=== PATIENT | female | born 1970 | race Caucasian/White ===

== ENCOUNTER 2019-08-18 16:22 | Emergency (ER) | payer OTHER, SELFPAY ==
[2019-08-18 16:33] VITALS: BP 128/69; PULSE 99; RESP 16; TEMP 36.6; O2SAT 100
--- NOTE | 2019-08-18 16:51 | ED.NEUROSD ---
HPI - Neuro Symptoms/Deficit General Chief Complaint: Suspected CVA Stated Complaint: lt side numbness Time Seen by Provider: 08/18/19 16:50 Source: patient and RN notes reviewed Mode of arrival: ambulatory Limitations: no limitations History of Present Illness HPI Narrative: 49-year-old female presents with concern for left-sided numbness and weakness in the left upper extremity and left lower extremity that started 38 hours ago. 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 She denies any headache, vision disturbances, speech disturbances, difficulty swallowing. Patient has history of diabetes mellitus, smokes 1/2 pack/day, hypertension. Onset (ago): hour(s) (36) Location: left arm History of same: No Severity: mild Quality: weak and numb Exacerbating factors: none On Anticoagulants: No Associated symptoms: denies other symptoms Treatments Prior to Arrival: none Related Data Home Medications Medication Instructions Recorded Confirmed albuterol sulfate INHALATION 08/18/19 bupropion HCl PO 08/18/19 cyclobenzaprine mg 08/18/19 escitalopram oxalate mg 08/18/19 glimepiride mg 08/18/19 insulin glargine [Basaglar KwikPen unit SUBCUT 08/18/19 U-100 Insulin] insulin glargine [Lantus U-100 SUBCUT 08/18/19 Insulin] lisinopril 08/18/19 metformin mg PO 08/18/19 naproxen 08/18/19 oxycodone 08/18/19 pen needle, diabetic [BD 08/18/19 08/18/19 Ultra-Fine Domonique Pen Needle] tizanidine mg 08/18/19 topiramate 08/18/19 zolpidem 08/18/19 Allergies Allergy/AdvReac Type Severity Reaction Status Date / Time clarithromycin Allergy Mild Verified 08/12/16 18:19 amoxicillin Allergy Unknown Verified 08/12/16 18:19 clavulanic acid Allergy Unknown Verified 08/12/16 18:19 AMOXICILLIN TRIHYDRATE Allergy Mild Uncoded 08/12/16 18:19 POTASSIUM CLAVULANATE Allergy Mild Uncoded 08/12/16 18:19 Review of Systems Review of Systems: Narrative: CONSTITUTIONAL: Denies malaise, chills, sweats, or fever. EYES: Denies visual changes ENT: Denies rhinorrhea, congestion, sinus pain, otalgia or sore throat. CARDIOVASCULAR: Denies chest pain, palpitations, or edema. RESPIRATORY: Denies cough or dyspnea. GASTROINTESTINAL: Denies abdominal pain, nausea, vomiting, diarrhea GENITOURINARY: Reports one episode of loss of bladder function at the onset of symptoms 38 hours ago MUSCULOSKELETAL: Denies back pain, joint pain, or myalgia. NEUROLOGIC: Reports left-sided numbness, weakness. Denies headache. All systems reviewed & are unremarkable except as noted in HPI and below PMFSH Comments At time of signature, agree with nursing past medical, surgical, social and family history. There is no relevant family history pertinent to the presenting complaint Exam Narrative: Exam Narrative: GENERAL: Well-appearing, well-nourished, and in no acute distress. HEAD: Normocephalic, atraumatic. EYES: PERRLA, conjunctivae clear, and EOMI. No nystagmus. ENT: Mucous membranes moist. NECK: Supple. No lymphadenopathy. No jugular venous distension CHEST: No respiratory distress. Clear to auscultation. No bony deformities, no asymmetry. Speaks in full sentences. HEART: Regular rate and rhythm. No murmur heard. Normal peripheral pulses. EXTREMITIES: Normal range of motion. No edema. Normal strength and sensation. SKIN: Warm, dry, no rash. NEURO: Alert and oriented x3. Possible slight left leg drift, otherwise no focal deficits. Cranial nerves II through XII grossly intact PSYCH: Normal mood and affect Course Course Emergency Course: Patient is aware, understands and agrees to be seen in the emergency department for further evaluation. Transfer via EMS offered patient, patient refuses. Patient reports she will proceed directly to the emergency department. Portions of this record may have been created with voice recognition software Vital Signs Vital
--- NOTE | 2019-08-18 17:10 | PC.NURSE ---
After exam and discussion with Mitchel Bautista BRICK VENEER MAKER--advised needs testing not available here--will go to [place] [facility]--via private car--declines ambulance. Staff there informed of pt coming
== END 2019-08-18 17:06 | disposition short-term general hospital (02) ==
PROVIDERS: Emergency Provider Nurse Practitioner; PCP Nurse Practitioner Family
DX: M62.81 Muscle weakness (generalized) (principal); E11.9 Type 2 diabetes mellitus without complications; F17.200 Nicotine dependence, unspecified, uncomplicated; I10 Essential (primary) hypertension
CPT/HCPCS: 99213; G0463

== ENCOUNTER 2019-08-18 17:29 | Observation (INO) | payer OTHER, SELFPAY ==
--- NOTE | ~2019-08-18 | CT_ITS ---
EXAMINATION: CT BRAIN W/O DATE: 08/18/2019 19:37 INDICATION: Left-sided weakness. TECHNIQUE: Computed tomography (CT) of the head was performed without intravenous contrast. The dose- length product was 605.33 mGy-cm. The mA was adjusted according to patient size. Iterative reconstruc tion technique was employed. COMPARISON: No prior studies for comparison. FINDINGS: Study is limited by ear piercings causing streak artifact over the middle cranial fossa and posterior fossa. Normal brain parenchymal volume for age. Normal coyne-white differentiation. No acut e intracranial hemorrhage, infarction, mass or mass effect. No ventriculomegaly or midline shift. Midline sagittal images demonstrate a normal corpus callosum, c raniovertebral junction and sella turcica. Basilar cisterns are patent. Paranasal sinuses and mastoids are pneumatized. No depressed skull fractures. IMPRESSION: 1. No acute intracranial abnormality. Reviewed, dictated and finalized at location A. NING FRAME TENDER
--- NOTE | ~2019-08-18 | US_ITS ---
EXAMINATION: US carotid duplex BI DATE: 08/19/2019 13:00 INDICATION: Left hemiparesis. TECHNIQUE: Grayscale, color Doppler, and pulsed Doppler images of the cervical carotid arteries were obtained. The degree of vessel stenosis is placed in one of the following categories: normal, <50%, 5 0-69%, >=70% but less than near-occlusion, near-occlusion, or total occlusion. Note that percent sten osis relative to normal distal artery lumen diameter is indirectly measured from velocity measurement s as described by Wisam, et al. Radiology 2003; 229:340-346. COMPARISON: None. FINDINGS: RIGHT: The right common carotid artery (CCA) peak systolic velocity (PSV) is 81 cm/s. The right internal car otid artery (ICA) PSV is 106 cm/s. The right ICA end-diastolic velocity (EDV) is 39 cm/s. The right I CA/CCA PSV ratio is 1.3. Grayscale and color Doppler images yield an estimate of <50% diameter reduct ion from plaque in the ICA. There is antegrade flow in the right vertebral artery. LEFT: The left CCA PSV is 97 cm/s. The left ICA PSV is 112 cm/s. The left ICA EDV is 37 cm/s. The left ICA/ CCA PSV ratio is 1.2. Grayscale and color Doppler images yield an estimate of <50% diameter reduction from plaque in the ICA. There is antegrade flow in the left vertebral artery. IMPRESSION: 1. <50% stenosis in the right internal carotid artery. 2. <50% stenosis in the left internal carotid artery. Reviewed, dictated and finalized at location A. S NOTES DEVELOPER
--- NOTE | ~2019-08-18 | XR_ITS ---
XR shoulder LT min 2V 08/18/2019 19:43 INDICATION: Left shoulder pain PROCEDURE: 4 views left shoulder COMPARISON: No prior studies for comparison. FINDINGS: Fracture, dislocation or subluxation is not identified. The soft tissues appear within norm al limits. No foreign bodies are identified. IMPRESSION: 1: NO ACUTE BONE OR JOINT ABNORMALITY IDENTIFIED. Reviewed, dictated and finalized at location A. TORING MANAGER
[2019-08-18 18:14] VITALS: BP 118/81; PULSE 92; RESP 16; TEMP 36.9; O2SAT 100
--- NOTE | 2019-08-18 19:07 | ECG_ITS ---
Measurements Intervals [place] Rate: 71 P: 52 TX: 171 QRS: 59 QRSD: 84 T: 29 QT: 392 QTc: 426 Interpretive Statements SINUS RHYTHM BASELINE WANDER- V1 NORMAL ECG Electronically Signed On 08-19-2019 8:00:55 QUARTER SEAMER by Osito Ruvalcaba D.O.
--- NOTE | 2019-08-18 19:10 | ED.EXTPRO ---
HPI - Extremity Problem General Chief complaint: Extremity Problem,Nontraumatic Stated complaint: L SHOULDER/ARM PAIN, HX NUMBNESS 1D AGO Time Seen by Provider: 08/18/19 18:53 Source: patient Mode of arrival: ambulatory Limitations: no limitations History of Present Illness HPI Narrative: This is a 49 year old female that presents to the ER for left sided weakness since yesterday morning. Reports she woke up around 2am and needed to use the restroom. Reports having trouble getting to the restroom due to left sided weakness. Reports she felt numb on her left side. Reports this has slowly improved since. Reports now she still has some tingling and weakness in her left hand. Denies vision changes, vomiting, slurred speech, or facial droop. Related Data Home Medications Medication Instructions Recorded Confirmed albuterol sulfate INHALATION 08/18/19 bupropion HCl PO 08/18/19 cyclobenzaprine mg 08/18/19 escitalopram oxalate mg 08/18/19 glimepiride mg 08/18/19 insulin glargine [Basaglar KwikPen unit SUBCUT 08/18/19 U-100 Insulin] insulin glargine [Lantus U-100 SUBCUT 08/18/19 Insulin] lisinopril 08/18/19 metformin mg PO 08/18/19 naproxen 08/18/19 oxycodone 08/18/19 pen needle, diabetic [BD 08/18/19 08/18/19 Ultra-Fine Domonique Pen Needle] tizanidine mg 08/18/19 topiramate 08/18/19 zolpidem 08/18/19 Allergies Allergy/AdvReac Type Severity Reaction Status Date / Time clarithromycin Allergy Mild Unknown Verified 08/18/19 18:36 amoxicillin Allergy Unknown Unknown Verified 08/18/19 18:36 clavulanic acid Allergy Unknown Unknown Verified 08/18/19 18:36 AMOXICILLIN TRIHYDRATE Allergy Mild Unknown Uncoded 08/18/19 18:36 POTASSIUM CLAVULANATE Allergy Mild Unknown Uncoded 08/18/19 18:36 Review of Systems Review of Systems: Narrative: CONSTITUTIONAL: Denies fever EYES: Denies visual changes CARDIOVASCULAR: Denies chest pain RESPIRATORY: Denies dyspnea. GASTROINTESTINAL: Denies vomiting MUSCULOSKELETAL: Reports back pain, joint pain, and myalgia. NEUROLOGIC: Reports numbness and weakness. Denies headache All systems reviewed & are unremarkable except as noted in HPI and below PMFSH Past Medical History Medical History (Updated 08/18/19 @ 21:01 by Jennifer Carnes PA-C) History of diabetes mellitus History of hypertension Social History Social History (Updated 08/18/19 @ 19:19 by Jennifer Carnes PA-C) Smoking status: Current every day smoker Exam Narrative: Exam Narrative: GENERAL: Well-appearing, well-nourished, and in no acute distress. HEAD: Normocephalic, atraumatic. EYES: PERRLA and EOMI. ENT: Nares clear, no rhinorrhea or epistaxis. Mucous membranes moist. Oropharynx without tonsillar hypertrophy exudate or other lesions. Bilateral TMs pearly coyne non-bulging NECK: Supple. No adenopathy or masses. No carotid bruits or JVD CHEST: Clear to auscultation. No respiratory distress. No wheezes rales or rhonchi HEART: Regular rate and rhythm. No murmur heard. Normal peripheral pulses. ABDOMEN: Soft, nontender, nondistended, normal active bowel sounds. EXTREMITIES: Normal range of motion. No edema. Strength equal in bilateral lower extremities (5/5). Strength mildly reduced in the left hand weight caller (4/5), otherwise strength in the upper extremities equal (5/5) SKIN: Warm, dry, no rash. NEURO: No focal deficits. Alert and oriented x3. CN II-XII grossly intact PSYCH: Normal mood and affect Course Consultations Consultation #1: Spoke with neurology about patient and work-up who would like her admitted for MRI and carotid ultrasound Date: 08/18/19 Time: 21:05 Consultation #2: Spoke with hospitalist outpatient work-up who accepts admission Date: 08/18/19 Time: 21:05 Vital Signs Vital signs: Vital Signs Temperature 98.4 F 08/18/19 18:14 Pulse Rate 92 08/18/19 18:14 Respiratory Rate 16 08/18/19 18:14 Blood Pressure 118/81 08/18/19 18:14 Pulse Oximetry 100 08/18/19 18:14 Temperature 9
[2019-08-18 19:29] LABS: Basophils Absolute Auto 0.1 K/mm3 (0.0-0.1); Basophils Percent Auto 0.5 % (0.2-1.2); Eosinophils Absolute Auto 0.2 K/mm3 (0-0.3); Eosinophils Percent Auto 1.5 % (0-4.4); Hematocrit 41.2 % (37.0-47.0); Immature Granulocyte Absolute 0.05 K/mm3 (0.00-0.031); Immature Granulocyte Percent A 0.5 % (0-0.5); Lymphocytes Absolute Auto 4.13 K/mm3 (0.9-3.2); Lymphocytes Percent Auto 37.2 % (18.3-44.2); Mean Corpuscular Hemoglobin 32.6 pg (26-34); Mean Platelet Volume 11.7 fl (7.4-10.4); Monocytes Absolute Auto 0.7 K/mm3 (0.1-0.6); Monocytes Percent Auto 6.4 % (2.6-8.5); Neutrophils Percent Auto 53.9 % (45.5-73.1); Platelet Count Result 161 k/mm3 (150-375); Red Blood Count 4.29 M/mm3 (4.2-5.4); Red Cell Distribution Width 12.3 % (11.5-14.5); White Blood Count 11.1 K/mm3 (4.5-10.0)
[2019-08-18 19:38] LABS: Partial Thromboplastin Time 28.6 SECONDS (22.3-36.8); Prothrombin Time 12.5 Seconds (11.1-14.7)
[2019-08-18 19:41] LABS: Blood Urea Nitrogen 10 mg/dL (7-17); Calcium 8.9 mg/dL (8.4-10.2); Carbon Dioxide 23 mmol/L (22-30); Chloride 98 mmol/L (98-107); Estimated CRCL calculation 118 ml/min; Estimated Glomerular Filt Rate > 60; Glucose 423 mg/dL (65-105); Sodium 131 mmol/L (137-145)
[2019-08-18 19:52] LABS: Troponin I < 0.012 ng/mL (0.000-0.034)
[2019-08-18 19:57] VITALS: BP 131/80; PULSE 78; RESP 20; TEMP 36.9; O2SAT 98
[2019-08-18 20:14] LABS: Hemoglobin A1C 10.5 % (<5.7)
[2019-08-18] MEDS: INSULIN HUMAN REGULAR (*BKC) 100 UNITS/ML 8 UNITS IV PUSH (21:28)
[2019-08-18 21:31] VITALS: BP 132/84; PULSE 80; RESP 20; TEMP 36.7; O2SAT 98
[2019-08-18 21:57] LABS: Glucose Point of Care 137 (65-105)
[2019-08-18 22:16] VITALS: BP 128/84; PULSE 82; RESP 20; TEMP 36.7; O2SAT 99
[2019-08-18 22:36] VITALS: BP 130/86; PULSE 89; RESP 18; TEMP 37.2; O2SAT 99; BMI 27.6
[2019-08-18] MEDS: SODIUM CHLORIDE 0.9% IV 1,000 ML 125 ML IV CONT (22:49)
[2019-08-18 23:16] VITALS: PULSE 81
--- NOTE | 2019-08-18 23:23 | ADMGEN ---
This patient, Jeane Garcia, was admitted to [facility] Surg Room 315-01. Patient/family oriented to hospital policies and general routines including ID bracelet, bed and alarms, visiting hours, pain management, procedures, bathroom and other care routines, personal items, smoking policy, room service/diet, and visiting hours. Valuables list has been completed. Information on how to activate the Rapid Response Team has been discussed. Patient/Family are encouraged to report perceived risks to care and to ask questions if they do not understand what they are told or what they should do.
[2019-08-19] VITALS (8 sets, daily range): BP systolic 113–135; BP diastolic 47–66; PULSE 63–76; RESP 16–18; TEMP 36.5–36.7; O2SAT 98–99
--- NOTE | 2019-08-19 | ECHO_ITS ---
Patient Info Name: Jeane Garcia Age: 49 years : 1970 Gender: Female Ht: 65 in Wt: 166 lbs BSA: 1.88 m2 HR: 78 bpm BP: 115 / 47 mmHg Heart Rhythm: Sinus Rhythm Technical Quality: Good Exam Date: 08/19/2019 1:14 PM Exam Location: [facility] Pulmonary Exam Room: [facility] Patient Status: Inpatient Admit Date: 08/18/2019 Staff Ordering Physician: Aleksandr Lozoya PA-C Water Aerobics Instructor: Esperanza Elder RDCS Attending Provider: Aleksandr Lozoya PA-C Referring Physician: Darell NEGRO; Exam Type: CA echo doppler w bubble study Study Info Indications - left sided weakness Complete two-dimensional, color flow and Doppler transthoracic echocardiogram is performed with agitated saline. Summary 1. Left ventricular systolic function is normal, estimated at 65-70%. 2. There is no increased left ventricular wall thickness. 3. Left ventricular septal wall motion is normal. 4. The left ventricular diastolic function is grade I diastolic dysfunction. 5. Right ventricular chamber dimension is normal. 6. Right ventricular systolic function is normal. 7. No significant valvular abnormalities. Left Ventricle Left ventricular chamber dimension is normal. Left ventricular systolic function is normal, estimated at 65-70%. There is no increased left ventricular wall thickness. Left ventricular septal wall motion is normal. The left ventricular diastolic function is grade I diastolic dysfunction. Right Ventricle Right ventricular chamber dimension is normal. Right ventricular systolic function is normal. Left Atria Left atrial chamber dimension is normal. Right Atria Right atrial chamber dimension is normal. Atrial Septum No patent ovale evident (PFO) by agitated saline imaging. Aortic Valve The aortic valve is trileaflet. There is no aortic valve sclerosis. There is no aortic valve stenosis. There is no aortic valve regurgitation. Pulmonic Valve The pulmonic valve is normal. There is no pulmonic valve stenosis. There is no pulmonic regurgitation. Mitral Valve The mitral valve has normal leaflets. There is no mitral valve stenosis. There is no mitral valve regurgitation. Tricuspid Valve The tricuspid valve leaflets are normal. There is no significant tricuspid valve stenosis. There is no tricuspid valve regurgitation. No pulmonary hypertension, estimated pulmonary arterial systolic pressure is 27 mmHg. Pericardium/Pleural The pericardium appears normal. There is no pericardial effusion. Inferior Vena Cava Normal inferior vena cava with >50% collapse upon inspiration consistent with Empty right atrial pressure, 10 mmHg. Aorta The aortic root size at the sinus of Valsalva is normal. The prox ascending aorta size is normal. Left Ventricular Outflow Tract Name Value Normal LVOT 2D LVOT Diameter 2.0 cm LVOT Doppler LVOT Peak Gradient 4 mmHg LVOT Mean Gradient 2 mmHg LVOT VTI 21 cm LVOT VTI/AV VTI Ratio 0.8 LVOT Stroke Volume
[2019-08-19] MEDS: NICOTINE (*PBKC) 14 MG PATCH 1 PATCH TRANSDERM (00:56)
[2019-08-19] MEDS: SODIUM CHLORIDE 0.9% IV 1,000 ML 125 ML IV CONT ×2 (06:43→15:27)
[2019-08-19] MEDS: INSULIN ASPART (*BKC) 100 UNITS/ML SUB-Q ×3 (08:20→17:50)
[2019-08-19] MEDS: INSULIN GLARGINE (*BKC) 100 UNITS/ML 25 UNITS SUB-Q (08:23)
[2019-08-19 09:24] LABS: Glucose Point of Care 350 (65-105)
[2019-08-19 09:24] LABS: Blood Urea Nitrogen 11 mg/dL (7-17); Calcium 8.3 mg/dL (8.4-10.2); Carbon Dioxide 23 mmol/L (22-30); Chloride 99 mmol/L (98-107); Estimated CRCL calculation 115 ml/min; Estimated Glomerular Filt Rate > 60; Glucose 359 mg/dL (65-105); Potassium 4.1 mmol/L (3.4-5.0); Sodium 131 mmol/L (137-145)
[2019-08-19 09:27] LABS: Hematocrit 38.4 % (37.0-47.0); Hemoglobin 12.7 g/dL (12.0-15.0); Mean Corpuscular HGB Conc 33.1 g/dl (32-36); Mean Corpuscular Hemoglobin 32.3 pg (26-34); Mean Corpuscular Volume 97.7 fl (80-100); Mean Platelet Volume 12.3 fl (7.4-10.4); Platelet Count Result 142 k/mm3 (150-375); Red Blood Count 3.93 M/mm3 (4.2-5.4); Red Cell Distribution Width 12.5 % (11.5-14.5); White Blood Count 7.9 K/mm3 (4.5-10.0)
--- NOTE | 2019-08-19 09:49 | PM.IMHP ---
H&P: HPI History of Present Illness Chief complaint: Left sided weakness, rule out CVA Narrative: Jeane Garcia is a 49 year old female with history of DM, HTN, sleep apnea (does not use CPAP due to anxiety), chronic back pain due to traumatic injury and depression/anxiety who presented to the ER yesterday evening with complaints of left sided weakness since morning of 08/17. Patient states she woke up around 0200 on 08/17 to use the restroom and reported having difficulty ambulating to the restroom. She has experience weakness/pain before due to her chronic back issues, but has never experienced this weakness/numbness in both left arm and leg before. She went to work at [employer] both on 08/17 and 08/18 and noticed she had difficulty grasping light objects at work such as a brownie, she described to me. She also reports a feeling like she had went to work and worked her shift, but at the same time did not . She denies any recent trauma, any recent illness, no sick contacts at home. She denies changes in vision/hearing, sudden vision loss, slurred speech, facial droop, dysphagia. She otherwise has no other complaints. Denies f/c/ns, headaches, dizziness, lightheadedness, LOC, cp/palpitations, sob/cough, n/v/d/c, abd pain, dysphagia, melena, brbpr, dysuria, hematuria, cloudy urine, calf pain/swelling. Review of Systems Review of Systems: All systems reviewed & are unremarkable except as noted in HPI and below PMFSH Past Medical History Medical History Anxiety with depression Chronic back pain Diabetes mellitus GERD (gastroesophageal reflux disease) GI bleed Hypertension Sleep apnea Surgical History Surgical History History of back surgery History of History of dilation and curettage History of microdiscectomy Family History Family History Father Malignant neoplasm of prostate Hypertension Diabetes 1.5, managed as type 2 Mother Depression Thyroid disease Social History Social History (Updated 08/19/19 @ 10:05 by Aleksandr Lozoya PA-C) Social History: Patient lives at home with her daughter and mother, Gracy, whom she designates as her surrogate MDM. She works at [employer]. Her PCP is Shirley Sena currently but is in the process of changing providers due to insurance reasons. She wishes to be a Full Code Smoking packs per day: 0.5 Smoking cigarettes per day: 10.0 Years smoked: 29 Smoking pack-years: 14.50 Smoking status: Current every day smoker Tobacco type: cigarettes Alcohol intake: former Drinks per week: 10 Substance use type: painkillers Gender identity (if verbalized by the patient): Male Spiritual care concerns: No Agree to blood products: Yes Meds Home Medications and Allergies Home Medications Medication Instructions Recorded Confirmed Type bupropion HCl 150 mg PO BID 08/18/19 08/19/19 History cyclobenzaprine 10 mg PO TID PRN 08/18/19 08/19/19 History escitalopram oxalate 10 mg PO HS 08/18/19 08/19/19 History glimepiride 4 mg PO DAILY 08/18/19 08/19/19 History insulin glargine [Basaglar KwikPen 50 unit SUBCUT HS 08/18/19 08/19/19 History U-100 Insulin] lisinopril 2.5 mg PO DAILY 08/18/19 08/19/19 History metformin 1,000 mg PO BID 08/18/19 08/19/19 History naproxen 500 mg PO BID PRN 08/18/19 08/19/19 History oxycodone 15 mg PO Q4-6H PRN 08/18/19 08/19/19 History tizanidine 4 mg PO Q6H PRN 08/18/19 08/19/19 History topiramate 200 mg PO HS 08/18/19 08/19/19 History Allergies Allergy/AdvReac Type Severity Reaction Status Date / Time clarithromycin Allergy Mild Unknown Verified 08/18/19 18:36 amoxicillin Allergy Unknown Unknown Verified 08/18/19 18:36 clavulanic acid Allergy Unknown Unknown Verified 08/18/19 18:36 Vital Signs Vital Signs - 24 hr 08/18/19 18:14 0
[2019-08-19] MEDS: GLIMEPIRIDE 2 MG TABLET 4 MG PO (10:02)
[2019-08-19] MEDS: lisinopriL 2.5 MG TABLET PO (10:03)
[2019-08-19 12:25] LABS: Glucose Point of Care 280 (65-105)
--- NOTE | 2019-08-19 16:33 | PM.DS ---
DS: Diagnosis Admitting Diagnosis Admitting Diagnosis: Weakness Discharge Diagnosis (1) Acute left-sided weakness: Code(s): R53.1 - Weakness Status: Acute Assessment and Plan: Rule out CVA vs TIA vs chronic back issues/MSK injury. Patient is clinically slowly improving, however weakness is still present. Exam showed some LUE weakness but otherwise grossly unremarkable Dr. Jara is consulted from the ED and appreciate input Patient cannot have MRI due to implanted nerve stimulator Carotid Doppler and Echo with bubble study returned and were grossly unremarkable. On echo, Grade I diastolic dysfunction noted; spoke with Dr. Dangelo about the study and he stated there was no apparent AV shunting on the imaging Dr. Jara was contacted and he okayed patient for discharge. Recommended patient not drive until he has seen her as outpatient. Recommended 81 mg aspirin (2) Hypertension: Code(s): I10 - Essential (primary) hypertension Status: Acute Assessment and Plan: BP this morning is 115/47. continue home lisinopril (3) Diabetes mellitus: Code(s): E11.9 - Type 2 diabetes mellitus without complications Status: Acute Assessment and Plan: BGL today 200-300s today 25 u Lantus given this morning Continue Glimeperide Held Metformin during stay. Resume at discharge correctional insulin, hypoglycemia, ACHS accuchecks during stay Resume home dose long acting insulin at discharge (4) Chronic back pain: Code(s): M54.9 - Dorsalgia, unspecified; G89.29 - Other chronic pain Status: Acute Assessment and Plan: Unable to obtain MRI due to nerve stimulator. No acute issues Continue home pain medications at discharge (5) Anxiety with depression: Code(s): F41.8 - Other specified anxiety disorders Status: Acute Assessment and Plan: No acute issues at this time Continue home medications DS: Summary Hospital Course Reason for hospitalization: Left hemiparesis Hospital Course: Patient is a 49 year old female with history of DM, HTN, sleep apnea (does not use CPAP due to anxiety), chronic back pain due to traumatic injury and depression/anxiety who presented to the ER on evening of 08/18 with complaints of left sided weakness since morning of 08/17. She woke up on 08/17 around 02:00 and attempted to use the restroom but was having difficulty ambulating to the restroom due to left arm and leg weakness. This persisted for the next two days while at work, noting that she could not grasp light-weight objects. Please see H&P for further details. Presenting VS: BP 118/81, HR 92, RR 16, temp 98.4, sat 100% RA Presenting Pertinent labs: WBC 11.1 (08/19 7.9), A1c 10.5, trop negative, Na 131. CBC, coag, BMP, otherwise unremarkable. Micro: none Imagin/[address] IMPRESSION: 1. No acute intracranial abnormality. 08/18 left shoulder xray IMPRESSION: 1: NO ACUTE BONE OR JOINT ABNORMALITY IDENTIFIED. 2 Echo Summary 1. Left ventricular systolic function is normal, estimated at 65-70%. 2. There is no increased left ventricular wall thickness. 3. Left ventricular septal wall motion is normal. 4. The left ventricular diastolic function is grade I diastolic dysfunction. 5. Right ventricular chamber dimension is normal. 6. Right ventricular systolic function is normal. 7. No significant valvular abnormalities. 2 Carotid Doppler IMPRESSION: 1. <50% stenosis in the right internal carotid artery. 2. <50% stenosis in the left internal carotid artery. ECG: Interpretive Statements SINUS RHYTHM BASELINE WANDER- V1 NORMAL ECG Patient was admitted to the hospitalist service for further evaluation; Dr. Jara (Neurology) was consulted for further input/management. She was st
[2019-08-19 16:56] LABS: Glucose Point of Care 254 (65-105)
--- NOTE | 2019-08-19 18:17 | CONS_ITS ---
DATE OF CONSULTATION: HISTORY OF PRESENT ILLNESS: 49 years old right-handed female has been admitted to [facility] through the emergency room with the ongoing problems of 1. Diabetes mellitus. 2. Hypertension. 3. Sleep apnea for which she is not using CPAP because of the underlying anxiety. 4. Chronic back pain secondary to traumatic injury. 5. Anxiety with depression. She presented to the hospital emergency room complaining of left-sided weakness since morning of 08/17/2019. She woke up around 02:00 on August 17 to use the restroom and reported having difficulties in ambulation along with the weakness and pain due to her chronic back issues. She never experienced the weakness and numbness in both left arm and left leg at the same time. 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 She also reported feeling like she had went to work and worked her shift, but at the same time did not. She gave no history of recent and remote trauma. At the time of admission as per the information available, she has ongoing history of anxiety with depression, chronic back pain, diabetes mellitus, GERD, GI bleed, hypertension, sleep apnea, history of back surgery, , D and C, and microdiscectomy. She lives at home with her daughter and mother. She smokes half a pack per day and smoking pack years of 14.5. At the time of admission to the hospital, she was taking multiple medications, which have particularly included Wellbutrin 150 twice a day, Flexeril 10 mg 3 times a day, escitalopram 10 mg HS, glimepiride 4 mg daily, insulin 15 units subcu HS, lisinopril 2.5 mg daily, metformin 1000 mg twice a day, naproxen p.r.n. b.i.d., oxycodone 50 mg q.4-6 hours p.r.n., tizanidine 4 mg q.6 hours p.r.n., topiramate 200 mg HS. ALLERGIES: SHE IS ALLERGIC TO CLARITHROMYCIN, AMOXICILLIN, AND CLAVULANIC ACID. PHYSICAL EXAMINATION: VITAL SIGNS: At the time of admission, she was afebrile with blood pressure of 128/84, respiration 20, pulse rate 82. GENERAL: Today reveals her to be awake, alert, cooperative, in no obvious acute distress. HEENT: Head normocephalic with no cranial bruit. Ear, nose, throat examination normal. NECK: Supple with no cervical bruit. No thyromegaly. No lymphadenopathy. HEART: Regular. LUNGS: Clear. ABDOMEN: Soft. NEUROLOGICAL: She had normal mental status, normal speech. Pupils round, regular. Masters of vision full. Extraocular movements full. Face symmetrical. Tongue midline. Motor examination revealed her to have 4/5 strength in the left upper extremity. She is able to perform [id number]-qc-[id number]-to-finger. IMPRESSION: The patient has been admitted to the hospital with the diagnosis of left hemiparesis in addition to ongoing diagnosis of multiple comorbid condition as mentioned above. Evaluation up until now include normal CBC, platelet count 142. Sodium 131, creatinine 0.50, glucose 359, calcium 8.3. Her shoulder x-rays were negative and the CT scan of the brain is also negative. MRI of the brain will be obtained in addition of carotid studies and further recommendation accordingly. ANNIE NAVARRO M.D. STRAW HAT WASHER OPERATOR STRAW HAT WASHER OPERATOR D I MT: Ilene
--- NOTE | 2019-08-19 20:00 | PC.NURSE ---
Patient discharged @1810. IV removed, verbalized understanding on discharge instructions. Patient transported home via wheel chair by staff and POV by family.
== END 2019-08-19 18:10 | disposition home or self-care (01) ==
LOC: ANHED 21:03 → ANH3MEDSUR 21:17
PROVIDERS: Physician Assistant; Admitting Provider Family Medicine; Emergency Provider Emergency Medicine; PCP Nurse Practitioner Family; Visit Provider Internal Medicine
DX: R29.898 Other symptoms and signs involving the musculoskeletal system (principal); R53.1 Weakness; I10 Essential (primary) hypertension; E11.65 Type 2 diabetes mellitus with hyperglycemia; M54.9 Dorsalgia, unspecified; G89.21 Chronic pain due to trauma; F41.8 Other specified anxiety disorders; F17.210 Nicotine dependence, cigarettes, uncomplicated; G47.30 Sleep apnea, unspecified; K21.9 Gastro-esophageal reflux disease without esophagitis; Z96.82 Presence of neurostimulator; Z79.4 Long term (current) use of insulin; Z79.899 Other long term (current) drug therapy
CPT/HCPCS: 36415; 70450; 73030; 80048; 81025; 83036; 84484; 85025; 85027; 85610; 85730; 93005; 93306; 93880; 96360; 96361; 96375; 97161; 97165; 99285; A9270; G0378; G0379; J1815; J7030

== ENCOUNTER 2020-11-24 13:43 | Emergency (ER) | payer OTHER, SELFPAY ==
[2020-11-24 13:58] VITALS: BP 132/75; PULSE 88; RESP 16; TEMP 35.9; O2SAT 100
[2020-11-24 14:19] LABS: Glucose Point of Care 362 (65-105)
--- NOTE | 2020-11-24 14:19 | ED.HA ---
HPI - Headache General Chief Complaint: Headache Stated Complaint: HEADACHE Source: patient and RN notes reviewed Limitations: no limitations History of Present Illness HPI Narrative: The right-handed patient-- who is a ongoing smoker/nondrinker diabetic compliant w/ several meds on insulin, baby ASA-- presents with headache. Patient and records indicate that her neurologic history is remarkable for admission a year ago for left-sided, lateralizing weakness. Her head CT was normal and remaining studies were noncontributory[ she was unable to do MRI due to nerve stimulator present for back pain ,also which she is on oxycodone]. 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 Pain is quick onset, frontal with radiation posteriorly, associated with nausea, and pounding in character- for which she took 2 Tylenol. She had not eaten [since she had a late supper, and usual p.m. dose of oxycodone], so her sugars were checked and is 362. No speech/visual changes, lateralizing weakness today, vomiting/diarrhea/dehydration, fever, URI?sinusitis. She recalls father had history of headaches/migraines. Advised go to higher level facility for scanning, which she declines. Related Data Home Medications Medication Instructions Recorded Confirmed Segundo RealPen U-100 Insulin 50 unit SUBCUT HS 08/18/19 11/24/20 cyclobenzaprine 10 mg PO TID PRN 08/18/19 11/24/20 escitalopram oxalate 10 mg PO HS 08/18/19 11/24/20 glimepiride 4 mg PO DAILY 08/18/19 11/24/20 lisinopril 2.5 mg PO DAILY 08/18/19 11/24/20 metformin 1,000 mg PO BID 08/18/19 11/24/20 naproxen 500 mg PO BID PRN 08/18/19 11/24/20 oxycodone 15 mg PO Q4-6H PRN 08/18/19 11/24/20 topiramate 200 mg PO HS 08/18/19 11/24/20 Allergies Allergy/AdvReac Type Severity Reaction Status Date / Time clarithromycin Allergy Mild Unknown Verified 11/24/20 13:54 amoxicillin Allergy Unknown Unknown Verified 11/24/20 13:54 clavulanic acid Allergy Unknown Unknown Verified 11/24/20 13:54 Review of Systems Review of Systems: Narrative: General/Constitutional: No weight loss,fever Eyes: N0: Redness,discharge Ears/Nose/Throat: No: Epistaxis,ear discharge Respiratory: Denies: Hemoptysis Gastrointestinal: No Vomiting, Bleeding-rectal Skin: No Lumps, eruption Neurologic: No Focal Weakness,Sz Hematologic: Denies: Petechiae/Purpura Psychiatric: No: Suicida ideationl All Other Systems: Reviewed and Negative [facility] Past Medical History Medical History (Updated 11/24/20 @ 15:30 by Petey Gutierrez MD) Anxiety with depression Chronic back pain Diabetes mellitus GERD (gastroesophageal reflux disease) GI bleed Hypertension Sleep apnea Surgical History Surgical History History of back surgery History of History of dilation and curettage History of microdiscectomy Family History Family History Father Malignant neoplasm of prostate Hypertension Diabetes 1.5, managed as type 2 Mother Depression Thyroid disease Social History Social History (Updated 08/19/19 @ 10:05 by Aleksandr Lozoya PA-C) Social History: Patient lives at home with her daughter and mother, Gracy, whom she designates as her surrogate MDM. She works at [employer]. Her PCP is Shirley Sena currently but is in the process of changing providers due to insurance reasons. She wishes to be a Full Code Smoking packs per day: 0.5 Smoking cigarettes per day: 10.0 Years smoked: 29 Smoking pack-years: 14.50 Smoking status: Current every day smoker Tobacco type: cigarettes Alcohol intake: former Drinks per week: 10 Substance use type: painkillers Gender identity (if verbalized by the patient): Male Spiritual care concerns: No Agree to blood products: Yes Comments At time of signature, agree with n
== END 2020-11-24 14:55 | disposition left against medical advice (07) ==
PROVIDERS: Emergency Provider Emergency Medicine
DX: R51.9 Headache, unspecified (principal); R11.0 Nausea; F17.210 Nicotine dependence, cigarettes, uncomplicated; E11.9 Type 2 diabetes mellitus without complications; K21.9 Gastro-esophageal reflux disease without esophagitis; I10 Essential (primary) hypertension; G47.30 Sleep apnea, unspecified; F41.9 Anxiety disorder, unspecified; F32.9 Major depressive disorder, single episode, unspecified
CPT/HCPCS: 82948; 99213; G0463

== ENCOUNTER 2020-11-24 15:44 | Emergency (ER) | payer OTHER, SELFPAY ==
[2020-11-24] VITALS (8 sets, daily range): BP systolic 122–203; BP diastolic 78–97; PULSE 58–91; RESP 16–20; TEMP 36.8; O2SAT 98–100
--- NOTE | ~2020-11-24 | CT_ITS ---
EXAMINATION: CT brain wo con DATE: 11/24/2020 15:56 INDICATION: Stroke. Decreased level of consciousness. TECHNIQUE: Computed tomography (CT) of the head was performed without intravenous contrast. The mA wa s adjusted according to patient size. Iterative reconstruction technique was employed. The dose-lengt h product was 605.33 mGy-cm. COMPARISON: Head CT 08/18/2019 FINDINGS: There is a large distribution of acute subarachnoid hemorrhage involving the suprasellar ci maciel, sylvian fissures, anterior interhemispheric fissure, and around the brainstem. There is acute intraventricular hematoma involving the third ventricle, fourth ventricle, and lateral ventricles, le ft worse than right. Temporal horn of right lateral ventricle is mildly dilated. There is acute subdu ral hematoma overlying the left frontal and parietal lobes with maximum thickness of 8 mm. There is 5 mm rightward midline shift measured at the foramen of Monro. There is no acute intraparenchymal isch emic infarct or intracranial mass lesion. There is mild mucosal thickening in the paranasal sinuses. The orbits are normal. The mastoid air cells are normal. IMPRESSION: 1. Large distribution of acute subarachnoid hemorrhage centered at the suprasellar cistern on the lef t suspicious for ruptured aneurysm. 2. Acute intraventricular hemorrhage with mild ventriculomegaly involving temporal horn of right late ral ventricle. 3. Left-sided acute subdural hematoma with maximum thickness of 8 mm. 4. 5 mm rightward midline shift. 5. I discussed this case with Jennifer Carnes at 15:59. Reviewed, dictated and finalized at location A. IMPRESSION: 1. Large distribution of acute subarachnoid hemorrhage centered at the suprasel lar cistern on the left suspicious for ruptured aneurysm. 2. Acute intraventricular hemorrhage with mild ventriculomegaly involving tempo ral horn of right lateral ventricle. 3. Left-sided acute subdural hematoma with maximum thickness of 8 mm. 4. 5 mm rightward midline shift. 5. I discussed this case with Jennifer Carnes at 15:59.
--- NOTE | ~2020-11-24 | XR_ITS ---
EXAMINATION: XR chest ET placement DATE: 11/24/2020 17:02 INDICATION: Intubation. TECHNIQUE: A single frontal view of the chest was obtained. COMPARISON: None. FINDINGS: The chest demonstrates clear lungs without pneumonia, pleural effusion, or pneumothorax. Th e heart size is normal. The endotracheal tube tip is 1.6 cm above the verito. The nasogastric tube ti p is beyond the inferior margin of the radiograph, but at least to the stomach. IMPRESSION: 1. No acute cardiopulmonary disease. Reviewed, dictated and finalized at location A.
--- NOTE | ~2020-11-24 | CT_ITS ---
EXAMINATION: CT brain wo con DATE: 11/24/2020 15:56 INDICATION: Stroke. Decreased level of consciousness. TECHNIQUE: Computed tomography (CT) of the head was performed without intravenous contrast. The mA wa s adjusted according to patient size. Iterative reconstruction technique was employed. The dose-lengt h product was 605.33 mGy-cm. COMPARISON: None FINDINGS: There is a large distribution of acute subarachnoid hemorrhage involving the suprasellar ci maciel, sylvian fissures, anterior interhemispheric fissure, and around the brainstem. There is acute intraventricular hematoma involving the third ventricle, fourth ventricle, and lateral ventricles, le ft worse than right. Temporal horn of right lateral ventricle is mildly dilated. There is acute subdu ral hematoma overlying the left frontal and parietal lobes with maximum thickness of 8 mm. There is 5 mm rightward midline shift measured at the foramen of Monro. There is no acute intraparenchymal isch emic infarct or intracranial mass lesion. There is mild mucosal thickening in the paranasal sinuses. The orbits are normal. The mastoid air cells are normal. IMPRESSION: 1. Large distribution of acute subarachnoid hemorrhage centered at the suprasellar cistern on the lef t suspicious for ruptured aneurysm. 2. Acute intraventricular hemorrhage with mild ventriculomegaly involving temporal horn of right late ral ventricle. 3. Left-sided acute subdural hematoma with maximum thickness of 8 mm. 4. 5 mm rightward midline shift. 5. I discussed this case with Jennfier Carnes. Reviewed, dictated and finalized at location A. IMPRESSION: 1. Large distribution of acute subarachnoid hemorrhage centered at the suprasel lar cistern on the left suspicious for ruptured aneurysm. 2. Acute intraventricular hemorrhage with mild ventriculomegaly involving tempo ral horn of right lateral ventricle. 3. Left-sided acute subdural hematoma with maximum thickness of 8 mm. 4. 5 mm rightward midline shift. 5. I discussed this case with Jennifer Carnes.
--- NOTE | ~2020-11-24 | XR_ITS ---
EXAMINATION: XR abdomen NG/feed tube insert DATE: 11/24/2020 17:02 INDICATION: Nasogastric tube placement. TECHNIQUE: A supine view of the abdomen was obtained. COMPARISON: None. FINDINGS: There are no dilated loops of bowel. The nasogastric tube tip is in the stomach. There are changes of anterior and posterior fusion procedures in lumbosacral spine. Electrodes overlie the spin e. IMPRESSION: 1. Nasogastric tube tip in the stomach. Reviewed, dictated and finalized at location A.
[2020-11-24] MEDS: hydrALAZINE HCL 20 MG/ML VIAL (16:00)
--- NOTE | 2020-11-24 16:00 | PC.NURSE ---
IN CT PT BECAME UNRESP TO PAIN. DR FLORES NOTIFIED AND IN CT ROOM. PT TAKEN TO ROOM 8. NASAL TRUMPET INSERT AND BREATHS BEING ASSISTED. DR FLORES AT BEDSIDE. AT 1600 20 MG ETOMIDATE GIVEN VIA IVP, 50 MG ROCURONIUM GIVEN VIA IVP, AND 20 MG HYDRALAZINE GIVEN IVP PER DR FLORES VRBO. 1601 7.5 ET TUBE PLACED TAPED 21 AT THE LIP. GOOD COLOR CHANGE. EQUAL BREATH SOUNDS.
--- NOTE | 2020-11-24 16:01 | PC.NURSE ---
Dr. Hazel wants pt to be flown [facility]. I called [facility] and put them on stand-by
--- NOTE | 2020-11-24 16:03 | ED.GENADULT ---
HPI - General Adult General Chief complaint: Unspecified Stated complaint: code stroke Time Seen by Provider: 11/24/20 15:44 History of Present Illness HPI narrative: 50 yo female w/ h/o htn presnets for suspected stroke. She was seen earlier today at urgent care fo Related Data Home Medications Medication Instructions Recorded Confirmed Segundo YapikPen U-100 Insulin 50 unit SUBCUT HS 08/18/19 11/24/20 cyclobenzaprine 10 mg PO TID PRN 08/18/19 11/24/20 escitalopram oxalate 10 mg PO HS 08/18/19 11/24/20 glimepiride 4 mg PO DAILY 08/18/19 11/24/20 lisinopril 2.5 mg PO DAILY 08/18/19 11/24/20 metformin 1,000 mg PO BID 08/18/19 11/24/20 naproxen 500 mg PO BID PRN 08/18/19 11/24/20 oxycodone 15 mg PO Q4-6H PRN 08/18/19 11/24/20 topiramate 200 mg PO HS 08/18/19 11/24/20 Allergies Allergy/AdvReac Type Severity Reaction Status Date / Time clarithromycin Allergy Mild Unknown Verified 11/24/20 13:54 amoxicillin Allergy Unknown Unknown Verified 11/24/20 13:54 clavulanic acid Allergy Unknown Unknown Verified 11/24/20 13:54 PMF Past Medical History Medical History (Updated 11/24/20 @ 15:30 by Petey Gutierrez MD) Anxiety with depression Chronic back pain Diabetes mellitus GERD (gastroesophageal reflux disease) GI bleed Hypertension Sleep apnea Surgical History Surgical History History of back surgery History of History of dilation and curettage History of microdiscectomy Family History Family History Father Malignant neoplasm of prostate Hypertension Diabetes 1.5, managed as type 2 Mother Depression Thyroid disease Social History Social History (Updated 08/19/19 @ 10:05 by Aleksandr Lozoya PA-C) Social History: Patient lives at home with her daughter and mother, Gracy, whom she designates as her surrogate MDM. She works at [employer]. Her PCP is Shirley Sena currently but is in the process of changing providers due to insurance reasons. She wishes to be a Full Code Smoking packs per day: 0.5 Smoking cigarettes per day: 10.0 Years smoked: 29 Smoking pack-years: 14.50 Smoking status: Current every day smoker Tobacco type: cigarettes Alcohol intake: former Drinks per week: 10 Substance use type: painkillers Gender identity (if verbalized by the patient): Male Spiritual care concerns: No Agree to blood products: Yes Discharge Plan Discharge Prescriptions: No Action cyclobenzaprine 10 mg tablet 10 mg PO TID PRN (Reason: Muscle Spasm) RF: 0 oxycodone 15 mg tablet 15 mg PO Q4-6H PRN (Reason: Pain) RF: 0 glimepiride 4 mg tablet 4 mg PO DAILY RF: 0 topiramate 100 mg tablet 200 mg PO HS RF: 0 metformin 500 mg tablet extended release 24 hr 1,000 mg PO BID RF: 0 lisinopril 2.5 mg tablet 2.5 mg PO DAILY RF: 0 naproxen 500 mg tablet 500 mg PO BID PRN (Reason: Pain) RF: 0 Hold Instructions: Hold until further recommendation from your PCP escitalopram oxalate 10 mg tablet 10 mg PO HS RF: 0 Basaglar KwikPen U-100 Insulin 100 unit/mL (3 mL) insulin pen 50 unit SUBCUT HS RF: 0 [id number]-[id number]-cod [Fioricet with Codeine] 45-927-35-30 mg capsule 1 cap PO DAILY PRN (Reason: pain) Qty: 7 RF: 0 aspirin [Adult Low Dose Aspirin] 81 mg tablet,delayed release (DR/EC) 81 mg PO DAILY Qty: 60 RF: 0
[2020-11-24] MEDS: PROPOFOL IV EMULSION 100 ML 2.7 MG (16:12)
[2020-11-24 16:16] LABS: Basophils Absolute Auto 0.1 K/mm3 (0.0-0.1); Basophils Percent Auto 0.7 % (0.2-1.2); Eosinophils Absolute Auto 0.3 K/mm3 (0-0.3); Eosinophils Percent Auto 1.6 % (0-4.4); Hematocrit 43.1 % (37.0-47.0); Hemoglobin 14.4 g/dL (12.0-15.0); Immature Granulocyte Absolute 0.25 K/mm3 (0.00-0.031); Immature Granulocyte Percent A 1.4 % (0-0.5); Lymphocytes Absolute Auto 5.05 K/mm3 (0.9-3.2); Mean Corpuscular HGB Conc 33.4 g/dl (32-36); Mean Corpuscular Hemoglobin 32.1 pg (26-34); Mean Platelet Volume 12.8 fl (7.4-10.4); Monocytes Absolute Auto 1.1 K/mm3 (0.1-0.6); Monocytes Percent Auto 6.2 % (2.6-8.5); Neutrophils Absolute Auto 11.2 K/mm3 (1.3-6.7); Neutrophils Percent Auto 62.1 % (45.5-73.1); Platelet Count Result 175 k/mm3 (150-375); Red Blood Count 4.49 M/mm3 (4.2-5.4); Red Cell Distribution Width 12.5 % (11.5-14.5)
[2020-11-24] MEDS: niCARdipine 20 MG/200 ML 20 MG/200 ML BAG 50 MG IV CONT (16:19)
--- NOTE | 2020-11-24 16:20 | PC.NURSE ---
PT BLOOD PRESSURE 203/95, HEART RATE 59. PROPOFOL INCREASED TO 15 MCG.
--- NOTE | 2020-11-24 16:21 | PC.NURSE ---
[facility] was activated at 1610
[2020-11-24 16:25] LABS: Glucose Point of Care 388 (65-105)
[2020-11-24 16:26] LABS: INR 0.9; Partial Thromboplastin Time 23.2 SECONDS (22.3-36.8); Prothrombin Time 13.1 Seconds (11.1-14.7)
--- NOTE | 2020-11-24 16:31 | ED.GENADULT ---
HPI - General Adult General Chief complaint: Unspecified Stated complaint: code stroke Time Seen by Provider: 11/24/20 15:44 History of Present Illness HPI narrative: 50 ypo female w/ h/o htn presents for suspected stroke. She went to urgent care today for a headahce. She was being transfered here for further evaluation and went unresponsive for EMS. This was at about 1530. On arrival here she was awake but confused. She went straight to CT and was found to have a massive subarachnoid. No know blood thinners. History limited due to medical condition. Related Data Home Medications Medication Instructions Recorded Confirmed Basaglar KwikPen U-100 Insulin 50 unit SUBCUT HS 08/18/19 11/24/20 cyclobenzaprine 10 mg PO TID PRN 08/18/19 11/24/20 escitalopram oxalate 10 mg PO HS 08/18/19 11/24/20 glimepiride 4 mg PO DAILY 08/18/19 11/24/20 lisinopril 2.5 mg PO DAILY 08/18/19 11/24/20 metformin 1,000 mg PO BID 08/18/19 11/24/20 naproxen 500 mg PO BID PRN 08/18/19 11/24/20 oxycodone 15 mg PO Q4-6H PRN 08/18/19 11/24/20 topiramate 200 mg PO HS 08/18/19 11/24/20 Allergies Allergy/AdvReac Type Severity Reaction Status Date / Time clarithromycin Allergy Mild Unknown Verified 11/24/20 13:54 amoxicillin Allergy Unknown Unknown Verified 11/24/20 13:54 clavulanic acid Allergy Unknown Unknown Verified 11/24/20 13:54 Review of Systems Review of Systems: ROS unobtainable: Yes unobtainable due to medical condition PMFSH Past Medical History Medical History (Updated 11/24/20 @ 16:37 by Wisam Shi MD) Anxiety with depression Chronic back pain Diabetes mellitus GERD (gastroesophageal reflux disease) GI bleed Hypertension Sleep apnea Surgical History Surgical History History of back surgery History of History of dilation and curettage History of microdiscectomy Family History Family History Father Malignant neoplasm of prostate Hypertension Diabetes 1.5, managed as type 2 Mother Depression Thyroid disease Social History Social History Social History: Patient lives at home with her daughter and mother, Gracy, whom she designates as her surrogate MDM. She works at [employer]. Her PCP is Shirely Sena currently but is in the process of changing providers due to insurance reasons. She wishes to be a Full Code Smoking packs per day: 0.5 Smoking cigarettes per day: 10.0 Years smoked: 29 Smoking pack-years: 14.50 Smoking status: Current every day smoker Tobacco type: cigarettes Alcohol intake: former Drinks per week: 10 Substance use type: painkillers Gender identity (if verbalized by the patient): Male Spiritual care concerns: No Agree to blood products: Yes Exam Const: Other: Severe distress, unresponsive, GCS 3 HENMT: Head: normal to inspection Eyes: Other: pupils dilated Neck: Neck: normal visual inspection Resp: Effort & Inspection: normal respiratory effort Auscultation: clear to auscultation bilaterally Cardio: Palpation: normal PMI Rate: regular rate GI: Other: soft nonditended Skin: General skin exam: normal color Neuro: Other: unresponsive Extrem: General: normal to inspection Course Vital Signs Vital signs: Vital Signs Temperature 36.8 C 11/24/20 15:55 Pulse Rate 70 11/24/20 15:55 Respiratory Rate 16 11/24/20 15:55 Blood Pressure 171/97 H 11/24/20 15:55 Pulse Oximetry 100 11/24/20 15:55 Temperature 36.8 C 11/24/20 15:55 Pulse Rate 87 11/24/20 16:21 Respiratory Rate 18 11/24/20 16:21 Blood Pressure 203/95 H 11/24/20 16:21 Pulse Oximetry 99 11/24/20 16:21 Procedures Intubation Intubation #1: sedative: Etomidate Mg Given: 20 paralytic: Rocuronium Mg Given: 100 Laryngoscope: fiber opti
--- NOTE | 2020-11-24 16:34 | PC.NURSE ---
AIR EVAC AT BEDSIDE
[2020-11-24 16:53] LABS: Atypical Lymphocytes Present
--- NOTE | 2020-11-24 16:53 | PC.NURSE ---
[employer] has left [facility]. They are aware pt is going to [facility]
[2020-11-24 16:54] LABS: Platelet Estimate Adequate (Adequate)
== END 2020-11-24 17:13 | disposition short-term general hospital (02) ==
PROVIDERS: Emergency Provider Emergency Medicine
DX: I60.9 Nontraumatic subarachnoid hemorrhage, unspecified (principal); I62.00 Nontraumatic subdural hemorrhage, unspecified; I10 Essential (primary) hypertension; E11.9 Type 2 diabetes mellitus without complications; K21.9 Gastro-esophageal reflux disease without esophagitis; G47.30 Sleep apnea, unspecified; F41.8 Other specified anxiety disorders; Z79.4 Long term (current) use of insulin; F17.210 Nicotine dependence, cigarettes, uncomplicated
CPT/HCPCS: 31500; 36415; 70450; 81025; 82948; 85025; 85610; 85730; 96365; 96375; 99291; J0360; J2704

== ENCOUNTER 2021-02-21 11:00 | Outpatient (RCR) | payer OTHER, SELFPAY ==
--- NOTE | 2021-01-22 09:57 | STOPEVAL ---
SPEECH THERAPY INITIAL EVALAUTION: Thank you for referring Jeane Garcia to [facility].? The patient is scheduled to be seen for therapy? 2x/week for 4 weeks. Please review, sign, date and return this plan of care LUANA. I agree with and certify that the following plan of care is medically necessary. Referring Physician Date Attending Provider: PHYSICIAN NOT ON STAFF Outpatient Past Medical History Past Medical History Source of Past Medical History Patient Neurological History Hx Cerebrovascular Accident (CVA) Yes: SAH 11-24-20 Cardiovascular History Hx Hypertension Yes Respiratory History Hx Respiratory Disorders No Significant History Gastrointestinal History Hx Hemorrhoids Yes Genitourinary History Hx Genitourinary Disorders No Significant History Musculoskeletal History Hx Back Injury Yes: L4L5 Hx Back Pain Yes Hx Fractures Yes: Left wrist Hx Spinal Surgery Yes: L4L5 fusion; back stimulator Hematological History Hx Hematological Disorders No Significant History Endocrine History Hx Diabetes Yes HEENT History Hx Dental Problems Yes: No lower teeth; has full plate but doesn't wear it Integumentary History Hx Skin Disorders No Significant History Reproductive History Hx Section Yes Hx Post Menopausal Yes Psychosocial History Hx Anxiety Yes Hx Depression Yes Pain History Has Past Pain Affected Your Daily Life Yes History of Long-Term Prescription Pain Yes Medication Use (Opiates) Anesthesia History Hx Anesthesia Reactions No Significant History Evaluation Information Problem Diagnosis SAH Additional Evaluation Detail Symptoms began on 11-24-20 with a headache; [facility] ED then to [facility] hospital. Pt underwent brain surgery; pt states, I don;t even know what they did but it was painful . Pt discharged from [facility] December 20 to [facility] Inpatient Rehab. She was discharged from [facility] on January 01 . No services. Prior Level of Function Activity Level (Last 3 Months) Occupation [employer] worked in many aspects there Hand Dominance Right Activity of Daily Living Ability Independent Indoor/Home Mobility Independent Community Mobility Independent Stairs Ability
--- NOTE | 2021-01-22 11:00 | OTOPEVAL ---
OCCUPATIONAL THERAPY INITIAL EVALUATION REPORT 01/22/21 Thank you for referring Jeane Garcia to [facility].? The patient is scheduled to be seen for occupational therapy?1x/week for 4 weeks. Please review, sign, date and return this plan of care LUANA. I agree with and certify that the following plan of care is medically necessary. Referring Physician Date Referring Provider: Hiram Hernandez MD *OT Outpatient Evaluation Start: 01/22/21 09:57 Freq: Status: Active Protocol: Document 01/22/21 10:01 LEONELA (Rec: 01/22/21 10:51 LEONELA [email or web address]) Therapy Assessment Status Assessment Status Assessment Status Evaluation Outpatient Past Medical History Past Medical History Source of Past Medical History Patient Neurological History Hx Cerebrovascular Accident (CVA) Yes: SAH 11-24-20 Cardiovascular History Hx Hypertension Yes Respiratory History Hx Respiratory Disorders No Significant History Gastrointestinal History Hx Hemorrhoids Yes Genitourinary History Hx Genitourinary Disorders No Significant History Musculoskeletal History Hx Back Injury Yes: L4L5 Hx Back Pain Yes Hx Fractures Yes: Left wrist Hx Spinal Surgery Yes: L4L5 fusion; back stimulator Hematological History Hx Hematological Disorders No Significant History Endocrine History Hx Diabetes Yes HEENT History Hx Dental Problems Yes: No lower teeth; has full plate but doesn't wear it Integumentary History Hx Skin Disorders No Significant History Reproductive History Hx Section Yes Hx Post Menopausal Yes Psychosocial History Hx Anxiety Yes Hx Depression Yes Pain History Has Past Pain Affected Your Daily Life Yes History of Long-Term Prescription Pain Yes Medication Use (Opiates) Anesthesia History Hx Anesthesia Reactions No Significant History Evaluation Information Problem Diagnosis Subarachnoid Hemorrhage Onset 11-24-20 Subjective Information Symptoms began on 11-24-20 with Query Text:As Reported By Patient/ a headache - went to [facility], was sent to [facility] ED then air lifted to [facility]. Pt underwent brain surgery; pt states, I don't even know what they did but it was painful . Pt discharged from [facility] 12-20-20 to [facility] Inpatient Rehab - OT, PT, and ST services. She was
--- NOTE | 2021-01-22 12:38 | PTOPEVAL ---
PHYSICAL THERAPY EVALUATION Thank you for referring Jeane Garcia to [facility].? Jeane was evaluated for the dx of subarachnoid bleed. The patient is scheduled to be seen for therapy?2 x/week for 4 weeks. Please review, sign, date and return this plan of care LUANA. I agree with and certify that the following plan of care is medically necessary. Referring Physician Date Referring Provider: Tanya Sotelo *PT Outpatient Evaluation Start: 01/22/21 10:53 Freq: Status: Active Protocol: Document 01/22/21 10:53 JANINA (Rec: 01/22/21 11:43 MLV [id number]) Therapy Assessment Status Assessment Status Evaluation Evaluation Information Problem Diagnosis subarachnoid bleed Onset 11/24/20 Cause patient was at work when it occurred Additional Evaluation Detail The patient was at work when she began having a severe headache. 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 The patient is sedentary when off. The pt lives home with daughter and her mother. The patient was I w/o any deficits prior to this event. The patient currently has complaint of right leg weakness, especially and foot/ ankle. The weakness affects her walking ability. The patient denies dizziness, falls since event. The pt has a hx of back surgery 2008 with chronic back pain. Pain Assessment Timing of Pain Assessment Timing of Pain Assessment Assessment Pain Scale Pain Scale Used Numeric (1 - 10) Self Report Pain Assessment Lower Back Reported Pain Level 4 Pain Description Aching Other Pain Description 5-9 with working Pain Score Pain Score 4: Self Report Interventions Used Interventions Used By Clinicians Education,Exercise Pain Relief Interventions Used By Inactivity/Rest,Medication Patient Upper Extremity Range of Motion General Upper Extremity Range of Motion Reason Not Measured WFL/Left,WFL/Right Lower Extremity Range of Motion General Lower Extremity Range of Motion Reason Not Measured WFL/Left,WFL/Right Lower Extremity Muscle Strength Testing General Lower Extremity Strength Reason Not Measured WNL/Left Gross Lower Extremity Strength right hi
--- NOTE | 2021-02-21 10:32 | OTOPEVAL ---
OCCUPATIONAL THERAPY REASSESSMENT AND D/C NOTE 02/21/21 Patient presents today for OT re-evaluation after 4 sessions focused on right UE strengthening and coordination. Patient reports return to normal UE use for ADLs and she states she is returning to work this Wednesday. She is currently independent with all HEPs and is in agreement with discharge. No continued OT indicated at this time. Thank you for referring Jeane Garcia to [facility].?Please review, sign, date and return this Discharge Note LUANA. I agree with and certify that the following plan of care is medically necessary. Referring Physician Date Referring Provider: Hiram Hernandez MD *OT Outpatient Re-Evaluation Problem Diagnosis subarachnoid bleed Onset 11/24/20 Subjective Information Jeane reports that Query Text:As Reported By Patient/ functionally she is doing all Family of her ADLs independently. She has been taking the trash out and doing more around the house. She states her right arm/hand feel back to normal and that she has no limitations there. She states her mom won't let her do any cooking at home. Pain Assessment Timing of Pain Assessment Timing of Pain Assessment Re-assessment Pain Scale Pain Scale Used Numeric (1 - 10) Self Report Pain Assessment Lower Back Reported Pain Level 8 Pain Description Aching,Dull Pain Score Pain Score 8: Self Report Interventions Used Interventions Used By Clinicians Rest Upper Extremity Range of Motion General Upper Extremity Range of Motion Reason Not Measured WNL/Left,WNL/Right Upper Extremity Muscle Strength Testing Scapular/Shoulder Bilateral Shoulder Flexion Strength 4+ Good + Shoulder Extension Strength 4+ Good + Shoulder Abduction Strength 4 Good Shoulder Adduction Strength 4+ Good + Shoulder Medial Rotation Strength 4+ Good + Shoulder Lateral Rotation Strength 4 Good Elbow/Forearm Left Elbow Flexion Strength 5 Normal Elbow Extension Strength 5 Normal Right Elbow Flexion Strength 5 Normal Elbow Extension Strength 5 Normal Wrist Strength Bilateral Wrist Flexion Strength 4+ Good + Wrist Extension Strength 4+ Good + Hand Rn Medical Inpatient Services/Pinch Strength Assessment Hand Left Rn Medical Inpatient Services Strength (lbs) 50.67 Lateral Pinch Strength (lbs) 8.66 Palmar Pinch Strength (lbs) 7.67 Right Rn Medical Inpatient Services Strength (lbs) 48.67 Lateral Pinch Strength (lbs) 7.33 Palmar Pinch Strength (lbs) 6.33 9-Hole Peg Hand Test Hand Left Scoring Time (seconds) 27 Interpretation Minimally Below Normal
--- NOTE | 2021-02-21 11:01 | STOPEVAL ---
Addendum entered by GOSIA Ramirez 02/21/21 11:15: I agree with and certify that the following plan of care is medically necessary. Referring Physician Date Original Note: SPEECH THERAPY RE EVALUATION AND DISCHARGE: Thank you for referring Jeane Garcia to [facility] [place].? Jeane presented today for ST re-evaluation after 6 sessions which focused on impaired verbal expression and auditory & reading comprehension. Patient demonstrated and verbalized that she is at baseline. She is anxious and happy to return to work this Wednesday. She has achieved her ST goals and is in agreement with discharge. No continued ST indicated at this time. Attending Provider: PHYSICIAN NOT ON STAFF Language RE Evaluation Auditory Comprehension Auditory Comprehension of Three-Step 0 Directives (% Accuracy (0-100)) Auditory Comprehension of Moderate 100 Paragraphs (% Accuracy (0-100)) Auditory Comprehension of Complex 100 Paragraphs (% Accuracy (0-100)) Response Latency WFL Overall Auditory Comprehension Ability No Impairments Reading Comprehension Response Latency Mild Deficits Overall Reading Comprehension Ability WFL Verbal Expression Automatic Speech Ability WFL Hepler Speech WFL Sentence Imitation (% Accuracy (0-100)) 100 Automatic Cued Speech (% Accuracy (0-100 100 )) WH Questions (% Accuracy (0-100)) 100 Confrontational Naming (% Accuracy (0- 100 100)) Confrontational Naming Comments higher level confrontational namin% accuracy Overall Verbal Expression Ability WFL Comments Related to Verbal Expression Occasional episodes of anomia; delayed recall occurs at times. Pt desires discharge at she is anxious to return to work. ST Clinical Summary Clinical Summary ST Clinical Summary Overall, pt presents with functional communication skills,i.e. verbal expression and reading and auditory comprehension. Memory and orientation are intact; problem solving is within functional limits. Cognitive linguistic skills were also found to be within functional limits. ST Services Indicated No Rehabilitation Potential Excellent Potential Barriers to Goal Achievements None Support Requirements For Optimal None [place] Persons Assisting in Goal Achievement patient Patient/Caregiver Informed of Benefits/ Yes Risks of Rehabilitation Patient/Caregiver Participated in Plan Yes of Care Patient/Caregiver Agreed with Problem
--- NOTE | 2021-02-21 11:53 | PTOPEVAL ---
PHYSICAL THERAPY DISCHARGE Thank you for referring Jeane Garcia to [facility] [place].? Jeane has completed 9 visits for PT and has met her goals. DC PT. Please review, sign, date and return this plan of care LUANA. I agree with and certify that the following plan of care. Referring Physician Date Referring Provider: Dr. Hiram Hernandez MD *PT Outpatient Discharge Start: 01/22/21 10:53 Freq: Status: Active Protocol: Document 02/21/21 09:12 MLV (Rec: 02/21/21 09:44 MLV [id number]) Therapy Assessment Status Assessment Status Assessment Status Discharge Evaluation Information Problem Diagnosis subarachnoid bleed Onset 11/24/20 Additional Evaluation Detail The patient reports she is scheduled to start back to work this coming Wednesday. The patient voices more concern about her LBP which is a chronic issue, that she sees pain management for. The patient was due for an injection but had the bleed before getting it. The patient feels she has recovered about 75% from bleed and is eager to go back to work next week. The pateint feels she is walking better but has always had a little trouble with it from prior back issues. The patient reports only 1 headache lately. Pain Assessment Timing of Pain Assessment Timing of Pain Assessment Assessment Pain Scale Pain Scale Used Numeric (1 - 10) Self Report Pain Assessment Right Knee(s) Reported Pain Level 0 Lower Back Reported Pain Level 8 Pain Frequency Chronic Other Pain Description had trouble sleeping last night due to back pain Pain Score Pain Score 0,8: Self Report Interventions Used Interventions Used By Clinicians Education Pain Relief Interventions Used By Heat,Inactivity/Rest,Position Patient Change Upper Extremity Range of Motion General Upper Extremity Range of Motion Reason Not Measured WFL/Left,WFL/Right Lower Extremity Range of Motion General Lower Extremity Range of Motion Reason Not Measured WFL/Left,WFL/Right Lower Extremity Muscle Strength Testing General Lower Extremity Strength Reason Not Measured WNL/Left Gross Lower Extremity Strength right hip 4+/5, knee flexion 4
== END 2021-02-26 15:28 | disposition home or self-care (01) ==
LOC: ANHST 11:00
DX: I60.9 Nontraumatic subarachnoid hemorrhage, unspecified (principal)
CPT/HCPCS: 92507; 92523; 97110; 97116; 97162; 97166; 97530

== ENCOUNTER 2021-07-17 14:48 | Emergency (ER) | payer OTHER, SELFPAY ==
[2021-07-17 15:01] VITALS: BP 144/78; PULSE 106; RESP 18; TEMP 36.3; O2SAT 100
--- NOTE | 2021-07-17 16:28 | ED.BACK ---
HPI - Back Pain/Injury General Chief Complaint: Back Pain/Injury Stated Complaint: back pain Source: patient and RN notes reviewed Limitations: no limitations History of Present Illness HPI Narrative: The patient, is on several meds and has been seen by pain management in the past, presents with low back pain. 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 No fever, fall, bowel- bladder symptoms, hematuria/frequency/urgency/dysuria, weakness, radiating pain. Related Data Home Medications Medication Instructions Recorded Confirmed Basaglar KwikPen U-100 Insulin 50 unit SUBCUT HS 08/18/19 07/17/21 cyclobenzaprine 10 mg PO TID PRN 08/18/19 07/17/21 escitalopram oxalate 10 mg PO HS 08/18/19 07/17/21 glimepiride 4 mg PO DAILY 08/18/19 07/17/21 lisinopril 2.5 mg PO DAILY 08/18/19 07/17/21 topiramate 200 mg PO HS 08/18/19 07/17/21 clopidogrel 75 mg DAILY 07/17/21 07/17/21 Allergies Allergy/AdvReac Type Severity Reaction Status Date / Time clarithromycin Allergy Mild Unknown Verified 07/17/21 15:16 amoxicillin Allergy Unknown Unknown Verified 07/17/21 15:16 clavulanic acid Allergy Unknown Unknown Verified 07/17/21 15:16 Review of Systems Review of Systems: General/Constitutional: No weight loss,fever Eyes: N0: Redness,discharge Ears/Nose/Throat: No: Epistaxis,ear discharge Respiratory: Denies: Hemoptysis Gastrointestinal: No Vomiting, Bleeding-rectal Skin: No Lumps, eruption Neurologic: No Focal Weakness,Sz Hematologic: Denies: Petechiae/Purpura Psychiatric: No: Suicida ideationl All Other Systems: Reviewed and Negative [facility] Past Medical History Medical History (Updated 07/17/21 @ 16:34 by Petey Gutierrez MD) Anxiety with depression Chronic back pain Diabetes mellitus GERD (gastroesophageal reflux disease) GI bleed Hypertension Sleep apnea Surgical History Surgical History History of back surgery History of History of dilation and curettage History of microdiscectomy Family History Family History Father Malignant neoplasm of prostate Hypertension Diabetes 1.5, managed as type 2 Mother Depression Thyroid disease Social History Social History Social History: Patient lives at home with her daughter and mother, Gracy, whom she designates as her surrogate MDM. She works at [employer]. Her PCP is Shirley Sena currently but is in the process of changing providers due to insurance reasons. She wishes to be a Full Code Smoking packs per day: 0.5 Smoking cigarettes per day: 10.0 Years smoked: 29 Smoking pack-years: 14.50 Smoking status: Current every day smoker Tobacco type: cigarettes Alcohol intake: former Drinks per week: 10 Substance use type: painkillers Gender identity (if verbalized by the patient): Male Spiritual care concerns: No Agree to blood products: Yes Comments At time of signature, agree with nursing past medical, surgical, social and family history. There is no relevant family history pertinent to the presenting complaint Exam Narrative: General Appearance: Well appearing, overweight/well nourished EYE: PERRLA, Conjunctiva clear Ears: External ear normal Nose: Normal nose Mouth/Throat: Normal appearing, Normal lips Neck: Supple Respiratory: Airway patent Abdomen: Soft Musculoskeletal: Normal strength (no footdrop, 5/5 : EH L-FHL, gastroc-AT, no saddle weakness) Spine/Back: Paraspinal muscle tender (with mild decreased range of motion) Skin: Normal color Neurological: A&O x3, CN II-XII intact, Normal reflexes (symmetric trace KJ, AJ) Psychiatric: Normal mood Course Vital
== END 2021-07-17 16:49 | disposition home or self-care (01) ==
PROVIDERS: Emergency Provider Emergency Medicine; PCP Internal Medicine Gastroenterology
DX: M54.50 Low back pain, unspecified (principal); E11.9 Type 2 diabetes mellitus without complications; K21.9 Gastro-esophageal reflux disease without esophagitis; I10 Essential (primary) hypertension; G47.30 Sleep apnea, unspecified; F17.210 Nicotine dependence, cigarettes, uncomplicated; F41.8 Other specified anxiety disorders
CPT/HCPCS: 99213; G0463

== ENCOUNTER 2021-08-15 17:42 | Emergency (ER) | payer OTHER, SELFPAY ==
[2021-08-15 17:48] VITALS: BP 147/82; PULSE 98; RESP 16; TEMP 35.8; O2SAT 100
--- NOTE | 2021-08-15 18:09 | ED.BACK ---
HPI - Back Pain/Injury General Chief Complaint: Back Pain/Injury Stated Complaint: Back pain Source: patient Mode of arrival: ambulatory Limitations: no limitations History of Present Illness HPI Narrative: 51-year-old female with history of chronic back pain and lumbar fusion in 2011 presented for complaint of low back pain. 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 States the tramadol I was given in June helped the pain that I took my last pill yesterday. Also takes cyclobenzaprine, states that does not help, nor does Tylenol, Motrin, or eumm-duh-rbdryvy medications. Denies new or worsening pain, or acute injury, numbness, tingling, weakness, or radiating pain to the lower extremities, or loss bowel/bladder. No change in gait. Related Data Home Medications Medication Instructions Recorded Confirmed Olgarosana MarelykatelinPen U-100 Insulin 50 unit SUBCUT HS 08/18/19 08/15/21 cyclobenzaprine 10 mg PO TID PRN 08/18/19 08/15/21 escitalopram oxalate 10 mg PO HS 08/18/19 08/15/21 glimepiride 4 mg PO DAILY 08/18/19 08/15/21 lisinopril 2.5 mg PO DAILY 08/18/19 08/15/21 topiramate 200 mg PO HS 08/18/19 08/15/21 clopidogrel 75 mg DAILY 07/17/21 08/15/21 pregabalin 50 mg PO DAILY 08/15/21 08/15/21 Allergies Allergy/AdvReac Type Severity Reaction Status Date / Time clarithromycin Allergy Mild Unknown Verified 08/15/21 18:01 amoxicillin Allergy Unknown Unknown Verified 08/15/21 18:01 clavulanic acid Allergy Unknown Unknown Verified 08/15/21 18:01 Review of Systems Review of Systems: CONSTITUTIONAL: Denies body aches, fever, chills, or sweats. EYES: Denies visual changes, redness, or discharge. ENT: Denies rhinorrhea, congestion, sore throat, or otalgia. CARDIOVASCULAR: Denies chest pain, palpitations, or edema. RESPIRATORY: Denies cough or dyspnea. GASTROINTESTINAL: Denies abdominal pain, nausea, vomiting, or diarrhea. GENITOURINARY: Denies dysuria or hematuria. SKIN: Denies rash, itching, or wounds. MUSCULOSKELETAL: Endorses low back pain NEUROLOGIC: Denies headache, numbness, tingling, or weakness. PSYCH: Denies depression or anxiety. All systems reviewed & are unremarkable except as noted in HPI and below PMFSH Past Medical History Medical History Anxiety with depression Chronic back pain Diabetes mellitus GERD (gastroesophageal reflux disease) GI bleed Hypertension Sleep apnea Surgical History Surgical History History of back surgery History of History of dilation and curettage History of microdiscectomy Family History Family History Father Malignant neoplasm of prostate Hypertension Diabetes 1.5, managed as type 2 Mother Depression Thyroid disease Other Chronic back pain Social History Social History Social History: Patient lives at home with her daughter and mother, Gracy, whom she designates as her surrogate MDM. She works at [employer]. Her PCP is Shirley Sena currently but is in the process of changing providers due to insurance reasons. She wishes to be a Full Code Smoking packs per day: 0.5 Smoking cigarettes per day: 10.0 Years smoked: 29 Smoking pack-years: 14.50 Smoking status: Current every day smoker Tobacco type: cigarettes Alcohol intake: former Drinks per week: 10 Substance use type: painkillers Gender identity (if verbalized by the patient): Male Spiritual care concerns: No Agree to blood products: Yes Comments At time of signature, I have reviewed and agree with nursing past medical, surgical, social and family history unless otherwise noted. Please see nursing chart for further information. There is no relevant family history pertinent to the present
== END 2021-08-15 18:43 | disposition home or self-care (01) ==
PROVIDERS: Emergency Provider Nurse Practitioner Family; PCP Internal Medicine Gastroenterology
DX: M54.50 Low back pain, unspecified (principal); F17.210 Nicotine dependence, cigarettes, uncomplicated; E11.9 Type 2 diabetes mellitus without complications; K21.9 Gastro-esophageal reflux disease without esophagitis; I10 Essential (primary) hypertension; G47.30 Sleep apnea, unspecified; F41.9 Anxiety disorder, unspecified; F32.A Depression, unspecified
CPT/HCPCS: 99213; G0463

== ENCOUNTER 2024-08-21 07:30 | Outpatient (RCR) | payer OTHER, SELFPAY ==
--- NOTE | 2024-08-17 16:25 | OPREHPOC ---
Outpatient Therapy Plan of Care This is a Multidisciplinary Plan of Care that may contain components documented by all disciplines (PT, OT, and ST.) PT Problem 1 PT Problem #1 Knowledge Deficit PT Goal 1 Goal / Goal Update *indep with HEP Target Visit 10 PT Problem 2 PT Problem #2 Pain PT Goal 1 Goal / Goal Update * pain rating of back at worst 7/ Target Visit 10 PT Problem 3 PT Problem #3 Impaired Range of Motion PT Goal 1 Goal / Goal Update improve hip flexibility to decrease pull on hips and lumbar spine: * hamstring length with supine SLR 1* R 55' 2* L 65' * anterior hip-quad length with prone knee flexion 3* R 105' 4* L 110' Target Visit 10 PT Problem 4 PT Problem #4 Impaired Strength PT Goal 1 Goal / Goal Update increase strength of trunk and hips to improve stability to spine and improve posture 1 pt perform mat and standing exercises x 20 reps single leg standing x 10 seconds 2* R 3* L Target Visit 10
--- NOTE | 2024-08-17 16:26 | PTOPEVAL1 ---
Assessment and note entered by Mary Jane Velásquez PT Evaluation Information Assessment Status Evaluation ICD-10 Condition Codes (PT) Pain in low back M54.50,Radiculopathy, lumbar region M54.16 Other ICD-10 Condition Codes ( M48.062 lumbar spinal stenosis PT) Onset about year Subjective Information chronic issues with back pain; more pain since last had back injection about 1 year ago; had change in insurance, so had to change dr and have not had care for her back and injections. have had PT in the past - cannot recall anything that helped her back does not really do any exercises except sitting and moving her legs history of lumbar fusion L 4-5 in 2008; have had lumbar injections; CT lumbar 2022: degenerative disc disease, facet arthropathy with significant neuroforaminal stenosis L 2-3; Activity: at [employer]- on feet, walking and moving, work 4-8 hour shifts, total of 30-40 hours/week; indep with self and light home tasks; Goal: strengthen R side, have weakness in R leg; help the back pain; Reported Pain Level Pain Score Self Report Additional Pain Score Comments pain range in the past week 6-10; R and L lumbar; legs feel numb all over; increase pain: end of work shift; bending forward; decrease pain: sit, rest, muscle cream, oxycodone 2x/day over the counter meds do not help problems with sleeping, take ambien Assessment PT Clinical Summary Jeane has the diagnosis of lumbar stenosis. Her history includes lumbar fusion of L 4-5 in 2011, R pelvic fracture due to fall, SAH/ CVA with R side weakness in 2020. Oswestry self assessment rating of 22% limitation in activity level. Reports numbness in both legs, weakness in R leg since CVA, increase pain at end of the work day and increased activity. Currently, working at [employer], 30-40 hours/week. With the evaluation: poor standing posture with L shoulder and trunk with forward rotation; weakness of trunk and both LE's, R weaker than L; tightness over R and L hamstring & anterior hip/ quad muscle groups; trunk flexion and extension both increase pain about the same amount. Skilled PT services are indicated for modalities to decrease pain, therapeutic exercises to increase trunk and LE strength and flexibility with education for HEP and posture correction. Plan of Care Interventions Electrical Stimulation,Hot Pack/Cold Pack,Manual Therapy,Mechanical Traction,Neuro Re-education, Patient/Caregiver Education,Therapeutic Activities ,Therapeutic Exercise,Ultrasound,Other Other Interventions taping PT Services Indicated Yes Treatment Frequency and 1-2x/wk for 10 visits Duration These treatments will address the objective and functional deficits as defined above. The patient will be advanced safely and appropriately in order for the patient to progress towards his/her prior level of function. Additional exercises will be introduced and as well as a comprehensive home exercise program upon discharge, if needed, ?to ensure carryover of functional gains achieved in the clinic. This treatment plan has been reviewed and agreement upon by the patient.
--- NOTE | 2024-10-06 12:47 | PTOPDC ---
Assessment and note entered by Mary Jane Velásquez, PT Assessment Status Discharge - Pt Not Present ICD-10 Condition Codes (PT) Pain in low back M54.50,Radiculopathy, lumbar region M54.16 Other ICD-10 Condition Codes ( M48.062 lumbar spinal stenosis PT) Onset about year Subjective Information pt was not seen this date. Assessment PT Clinical Summary Jeane has had 3 PT sessions, from August 17 to August 21. Then did not return for any further treatment. Discharge PT. The goals were not addressed. Plan of Care PT Services Indicated No
== END 2024-10-06 14:28 | disposition home or self-care (01) ==
LOC: ANHPT 07:30
PROVIDERS: PCP Internal Medicine Gastroenterology; Visit Provider Nurse Practitioner Adult Health
DX: M48.062 Spinal stenosis, lumbar region with neurogenic claudication (principal)
CPT/HCPCS: 97110; 97162; 97530

== ENCOUNTER 2024-11-22 17:27 | Emergency (ER) | payer OTHER, SELFPAY ==
--- NOTE | ~2024-11-22 | XR_ITS ---
HISTORY: wound to 5th toe COMPARISON: None TECHNIQUE: 3 views of the right foot were performed FINDINGS: No acute fracture or dislocation is appreciated. No significant degenerative disease is noted. The base of the fifth metatarsal is intact. No calcaneal spur is noted. Soft tissue defect is identified at the level of the distal fifth metatarsal without abnormality to t he underlying bone. IMPRESSION: As above. Reviewed, dictated and finalized at location A. IMPRESSION: As above.
[2024-11-22 17:39] VITALS: BP 142/77; PULSE 90; RESP 16; TEMP 35.9; O2SAT 99
--- NOTE | 2024-11-22 17:58 | ED.SKABFB ---
HPI - Skin/Abscess/Foreign Bdy General Chief complaint: Skin/Abscess/Foreign Body Stated complaint: BLISTER ON R FOOT Time Seen by Provider: 11/22/24 18:45 Source: patient Mode of arrival: ambulatory Limitations: no limitations History of Present Illness HPI narrative: 54-year-old female with history of diabetes and hypertension presented for complaint of a wound to the bottom of the right little toe worsening for one month. Endorses drainage and odor. Pt is currently completing Bactrim for wounds to the lower mckeon. Says she did not inform her pcp of the wound on the foot, thinking the antibiotic would take care of it. Endorses decreased sensation to the foot. Denies significant pain. Denies n/v/d/f/c. Related Data Home Medications ?Medication ?Instructions ?Recorded ?Confirmed ?Last Taken ?Type escitalopram oxalate 10 mg tablet 10 mg PO HS 08/18/19 11/22/24 Unknown History glimepiride 4 mg tablet 4 mg PO DAILY 08/18/19 11/22/24 08/18/19 09:00 History insulin glargine 100 unit/mL (3 50 unit subcut HS 08/18/19 11/22/24 Unknown History mL) subcutaneous pen (Basaglar KwikPen U-100 Insulin) lisinopril 2.5 mg tablet 2.5 mg PO DAILY 08/18/19 11/22/24 Unknown History topiramate 100 mg tablet 200 mg PO HS 08/18/19 11/22/24 Unknown History clopidogrel 75 mg tablet 75 mg PO DAILY 07/17/21 11/22/24 Unknown History pregabalin 50 mg capsule 50 mg PO DAILY 08/15/21 11/22/24 Unknown History dulaglutide 1.5 mg/0.5 mL 1.5 mg subcut WEEKLY 11/22/24 11/22/24 Unknown History subcutaneous pen injector (Trulicity) insulin lispro 100 unit/mL 7 unit subcut .with meals 11/22/24 11/22/24 Unknown History subcutaneous pen naloxone 4 mg/actuation nasal 4 mg intranasal Q2M PRN opioid 11/22/24 11/22/24 Unknown History spray (Narcan) overdose sulfamethoxazole 800 1 tablet PO Q12H 11/22/24 11/22/24 Unknown History mg-trimethoprim 160 mg tablet zolpidem 5 mg tablet 5 mg PO HS 11/22/24 11/22/24 Unknown History Allergies Allergy/AdvReac Type Severity Reaction Status Date / Time clarithromycin Allergy Mild Unknown Verified 11/22/24 17:35 amoxicillin Allergy Unknown Unknown Verified 11/22/24 17:35 clavulanic acid Allergy Unknown Unknown Verified 11/22/24 17:35 Review of Systems Review of Systems: CONSTITUTIONAL: Denies body aches, fever, chills, or sweats. EYES: Denies visual changes, redness, or discharge. ENT: Denies rhinorrhea, congestion CARDIOVASCULAR: Denies chest pain, palpitations, or edema. RESPIRATORY: Denies cough or dyspnea. GASTROINTESTINAL: Denies abdominal pain, nausea, vomiting, or diarrhea. SKIN: per HPI MUSCULOSKELETAL: Denies back pain, joint pain, or myalgia. NEUROLOGIC: Denies headache, numbness, tingling, or weakness. [facility] Past Medical History Medical History (Updated 11/22/24 @ 19:00 by Tati Valero APRN) Anxiety with depression Chronic back pain Hypertension Diabetes mellitus GI bleed GERD (gastroesophageal reflux disease) Sleep apnea Surgical History Surgical History History of microdiscectomy History of back surgery History of History of dilation and curettage Family History Family History Father Malignant neoplasm of prostate Hypertension Diabetes 1.5, managed as type 2 Mother Depression Thyroid disease Other Chronic back pain Social History Social History Social History: Patient lives at home with her daughter and mother, Gracy, whom she designates as her surrogate MDM. She works at [employer]. Her PCP is Shirley Sena currently but is in the process of changing providers due to insurance reasons. She wishes to be a Full Code Smoking packs per day: 0.5 Smoking cigarettes per day: 10.0 Years smoked: 29 Smoking pack-years: 14.50 Smoking status: Current every day smoker Tobacco type: cigarettes Alcohol intake: former Drinks per week: 10 Substance use type: painkillers Gender identity (if verbalized by the patient): Male Spiritual care concerns: No Agree to blood products: Yes Comments At time of signature, I have reviewed and agree with nursing past medical, surgical, social and family history unless otherwise noted. Please see nursing chart for further information. There is no relevant family history pertinent to the presenting complaint Exam Narrative: GENERAL: Well-appearing EYES: conjunctivae clear, and EOMI. ENT: Mucous membranes moist. CHEST: Clear to auscultation. HEART: Regular rate and rhythm. SKIN: Warm, dry. right foot plantar surface of 5th MTP joint with 3cm circular deep ulcer. Foul odor, small amount purulent drainage. Decreased sensation with 2 point discrimination. Skin to foot is dry/scaly. BLEs with 2+ edema, and erythema. Right leg with round raised papular lesions pt states is chronic. NEURO: Alert and oriented x3. Course Course Emergency Course: Patient is aware of diagnosis, understands and agrees to treatment plan. Anticipatory guidance given. Patient agrees to follow-up as directed and is aware of reasons to seek care at the emergency department. Portions of this record may have been created with voice recognition software Level of Care: Express Care Visit Vital Signs Vital signs: Vital Signs Temperature 96.6 F L 11/22/24 17:39 Pulse Rate 90 11/22/24 17:39 Respiratory Rate 16 11/22/24 17:39 Blood Pressure 142/77 H 11/22/24 17:39 Pulse Oximetry 99 11/22/24 17:39 Temperature 96.6 F L 11/22/24 17:39 Pulse Rate 90 11/22/24 17:39 Respiratory Rate 16 11/22/24 17:39 Blood Pressure 142/77 H 11/22/24 17:39 Pulse Oximetry 99 11/22/24 17:39 Reviewed MDM - Skin/Abscess/Foreign Bdy MDM Narrative Medical decision making narrative: Discussed physical exam findings and xray results. Advised ER transfer as pt has failed outpt treatment. She declines at this time. States she will contact her pcp in the morning to discuss plan and possible wound care. She is aware of the risk of worsening condition, disability/amputation, and . The patient is AA&Ox3, free from distracting injury. The patient has demonstrated concrete thinking/reasoning, has maintained an circuit clerk/reasonable conversation, appears to have intact insight/judgment/reason and therefore has capacity to make decisions. Given the patients presentation, we communicated our concern for diabetic foot ulcer in laymans terms. The patient verbalized an understanding. The patient is aware the evaluation is incomplete & many troublesome conditions have not been r/o. We have discussed the need for further ED evaluation. We have discussed the range of possible dx, potential testing & treatment options. Our discussions included the potential outcomes of leaving AMA, including worsening of their condition, becoming permanently disabled/in pain/critically ill, or . Despite these efforts, we were unable to convince the pt to go to the ER. The patient is refusing any further care and is leaving against medical advice. We have attempted to offer tx/rx/guidance for any dangerous conditions which are most likely and/or dangerous. We have answered all questions and have implored the patient to go to ER [facility] to complete the w/u. A staff member witnessed the patient consenting to AMA. Differential Diagnosis Differential diagnosis: Likely abscess of skin or subcutaneous tissue, viral exanthem, dermatophytosis, urticaria, herpes zoster, cellulitis, eczema, insect bites, impetigo and contact dermatitis Imaging Data Radiologist's impression: Patient: Jeane Garcia : 1970 MR#: [id number] Age: 54 Acct:[id number] Loc: [id number] ADM Date: 11/22/24Attending Dr: Ordering Physician: Tati Valero APRN Date of Service: 11/22/24 Procedure(s): XR foot RT min 3V Accession Number(s): [id number] cc: Merline Arzola APRN; Tati Valero APRN; Phillip, Angie Dietrich NP~ HISTORY: wound to 5th toe COMPARISON: None TECHNIQUE: 3 views of the right foot were performed FINDINGS: No acute fracture or dislocation is appreciated. No significant degenerative disease is noted. The base of the fifth metatarsal is intact. No calcaneal spur is noted. Soft tissue defect is identified at the level of the distal fifth metatarsal without abnormality to the underlying bone. IMPRESSION: As above. Discharge Plan Discharge Clinical Impression: Diabetic foot ulcer Patient Disposition: Left Against Medical Advice Condition: Stable Instructions: Diabetes and Your Skin (ED) Additional Instructions: You were advised to transfer to the ER and you decline at this time. You were made aware of the risk of refusal including worsening of your condition and . Report to the ER immediately by calling 911 for any worsening symptoms. Contact your PCP in the morning. Take the antibiotic as directed Keep the area clean and dry - cleanse with warm water and mild soap and allow to fully dry. Keep the wound covered while draining T Patient Language: Upper Sorbian Prescriptions: New doxycycline hyclate 100 mg tablet 100 mg PO BID 10 Days Qty: 20 0RF No Action glimepiride 4 mg tablet 4 mg PO DAILY topiramate 100 mg tablet 200 mg PO HS lisinopril 2.5 mg tablet 2.5 mg PO DAILY escitalopram oxalate 10 mg tablet 10 mg PO HS insulin glargine [Basaglar KwikPen U-100 Insulin] 100 unit/mL (3 mL) insulin pen 50 unit SUBCUT HS pregabalin 50 mg capsule 50 mg PO DAILY tramadol 50 mg tablet 50 mg PO Q12H PRN (Reason: pain) Qty: 14 0RF clopidogrel 75 mg tablet 75 mg PO DAILY insulin lispro 100 unit/mL insulin pen 7 unit SUBCUT .with meals Trulicity 1.5 mg/0.5 mL pen injector 1.5 mg SUBCUT WEEKLY sulfamethoxazole-trimethoprim 800-160 mg tablet 1 tablet PO Q12H zolpidem 5 mg tablet 5 mg PO HS naloxone [Narcan] 4 mg/actuation spray,non-aerosol 4 mg INTRANASAL Q2M PRN (Reason: opioid overdose) aspirin [Adult Low Dose Aspirin] 81 mg tablet,delayed release (DR/EC) 81 mg PO DAILY Qty: 60 0RF Rx Instructions: Take 1 tablet by mouth daily until further recommendation from Neurologist Follow-up/Referrals: Rm,Angie Dietrich [employer] [Primary Care Provider] - Time of Disposition: 19:02
== END 2024-11-22 19:06 | disposition left against medical advice (07) ==
PROVIDERS: Emergency Provider Nurse Practitioner Family; PCP Nurse Practitioner Family
DX: E11.621 Type 2 diabetes mellitus with foot ulcer (principal); L97.519 Non-pressure chronic ulcer of other part of right foot with unspecified severity; Z79.4 Long term (current) use of insulin; Z79.84 Long term (current) use of oral hypoglycemic drugs; I10 Essential (primary) hypertension; K21.9 Gastro-esophageal reflux disease without esophagitis; F41.8 Other specified anxiety disorders; F17.210 Nicotine dependence, cigarettes, uncomplicated
CPT/HCPCS: 73630; 99213; G0463

== ENCOUNTER 2024-11-23 16:51 | Observation (INO) | payer OTHER, SELFPAY ==
[2024-11-23] VITALS (19 sets, daily range): BP systolic 114–144; BP diastolic 45–65; PULSE 70–90; RESP 16–28; TEMP 36.6; O2SAT 98–100
--- NOTE | ~2024-11-23 | XR_ITS ---
HISTORY: concern for osteomyelitis COMPARISON: 11/22/2022 5 TECHNIQUE: 3 views of the right foot were performed FINDINGS: No acute fracture or dislocation is appreciated. No significant degenerative disease is noted. The base of the fifth metatarsal is intact. No calcaneal spur is noted. Soft tissue deformity the level of the distal fifth metatarsal. No cortical abnormality is demonstrated, unchanged from previous examination performed less than 24 h ours earlier. Forefoot soft tissue swelling is also now present. IMPRESSION: No cortical abnormality, unchanged from examination performed less than 24 hours earlier . Reviewed, dictated and finalized at location A. IMPRESSION: No cortical abnormality, unchanged from examination performed less than 24 hours earlier.
--- OUTSIDE RECORDS SUMMARY | 2024-11-23 16:54 | XMS_ITS | Data Portability ---
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 Plan of Treatment Reminders Order Date Submit Date Provider Last Modified By Organization Details Last Modified Time Details Appointments None recorded. Lab lipid panel, serum 2024 025 [facility] (Lab), [address] [place], [address], 5 03:33:26 HbA1c (hemoglobin A1c), blood 2024 025 [facility] On Lab Orders, [address] [place], [address], 5 03:33:26 CMP, serum or plasma 2024 025 [facility] (Lab), [address] [place], [address], 5 03:33:26 CBC w/ auto diff 2024 025 [facility] (Lab), [address] [place], [address], 5 03:33:26 drug of abuse panel, urine 2024 025 [facility], [address] [place], [address], 5 02:38:42 HbA1c (hemoglobin A1c), blood 2023 024 [email or web address] 4 [facility], [address] [place], [address], 4 13:04:35 BMP, serum or plasma 2023 024 [email or web address] 4 [facility], [address] [place], [address], 4 13:05:18 drug screen, urine 2023 024 [email or web address] 4 [facility], [address] [facility], [place], [address], 4 13:06:52 Referral pain management referral - Please call patient to schedule an appointment . Thank you. [email or web address] Yoav Lopez MD, [address] [facility], [place], [address], 4 08:58:49 pain management referral - Please call patient to schedule appointment . 2023 024 [email or web address] [place], [address] [facility], [address], [place], [address], 4 08:47:26 pain management referral 2022 023 [email or web address] Sheldon MD, [address] [facility], [address], [place], [address], 3 10:00:15 Procedures None recorded. Surgeries None recorded. Imaging None recorded. Medication Orders zolpidem 5 mg tablet 2024 025 [facility] #[id number], [address] [facility], [place], [place], [id number], 5 14:34:01 Bactrim DS 800 mg-160 mg tablet 2024 025 [facility], [address], [place], [id number], 5 14:33:53 pregabalin 50 mg capsule 2024 025 [facility], [address], [place], [id number], 5 14:33:59 zolpidem 5 mg tablet 2024 025 [facility] #71452, [address], [place], [id number], 5 14:14:03 Ozempic 0.25 mg or 0.5 mg (2 mg/3 mL) subcutaneou s pen injector 2023 024 [email or web address] #77539, [address], [place], [id number], 4 16:10:39 oxycodone-a cetaminophe n 5 mg-325 mg tablet 2023 024 [facility], [address], [place], [id number], 4 11:46:08 tizanidine 4 mg capsule 2023 024 [email or web address] 477 [facility] #26511, [address] [place] [address], [id number], 5 14:01:41 insulin lispro (U-100) 100 unit/mL subcutaneou s pen 2023 024 [facility] #18345, [address] [place] [address], [id number], 14:15:59 triamcinolo ne acetonide 0.1 % topical cream 2022 023 [email or web address] 477 [facility]20643, [address], [place], [place], [id number], 14:00:28 Patient TargetsNo targets recorded. Patient InstructionsNo instructions recorded. Reason for Referral Pain Management Referral for Chronic low back pain Referring Physician: Rachana Ivory [facility], Encounter Date: 01/15/2023 Pain Management Referral for Spinal stenosis of lumbar region low back pain Please call patient to schedule appointment. Referring Physician: Eduin Thakur [facility], Encounter Date: 08/24/2023 Pain Management Referral for Chronic low back pain chronic low back pain/spinal stenosis Please call patient to schedule an appointment. Thank you. Referring Physician: Eduin Thakur [facility], Encounter Date: 12/22/2023 Results Created Date Observation Date Name Description Value Unit Range Abnormal Flag Note LastModifiedBy Organization Detail LastModifiedTime 08/27/1908/27/2023 DRUG MONIT OR, PANEL 3, W/CON F, URINE amphetamines NEGATI VE NG/mL <500 Not Available [employer] [address] [address] [place], [address], 08/27/2023 17:18:22 08/27/1908/27/2023 DRUG MONIT OR, PANEL 3, W/CON F, URINE benzodiazepi patricia NEGATI VE NG/mL <100 Not Available [facility] [address] [place], [address], 08/27/2023 17:18:22 08/27/19 24 08/27/2023 DRUG MONIT OR, PANEL 3, W/CON F, URINE cocaine metabolite NEGATI VE NG/mL <150 Not Available [employer] [address] [address] [place], [address], 08/27/2023 17:18:22 08/27/19 24 08/27/2023 DRUG MONIT OR, PANEL 3, W/CON F, URINE marijuana metabolite NEGATI VE NG/mL <20 Not Available [address] [address] , [place], [address], 08/27/2023 17:18:22 08/27/19 24 08/27/2023 DRUG MONIT OR, PANEL 3, W/CON F, URINE opiates NEGATI VE CONFIR MED NG/mL <100 Not Available [address] [address] , [place], [address], 08/27/2023 17:18:22 08/27/19 24 08/27/2023 DRUG MONIT OR, PANEL 3, W/CON F, URINE codeine NEGATI VE NG/mL <50 Not Available [address] [address] , [place], [address], 08/27/2023 17:18:22 08/27/19 24 08/27/2023 DRUG MONIT OR, PANEL 3, W/CON F, URINE hydrocodone NEGATI VE NG/mL <50 Not Available [address] [address] , [place], [address], 08/27/2023 17:18:22 08/27/19 24 08/27/2023 DRUG MONIT OR, PANEL 3, W/CON F, URINE hydromorphon e NEGATI VE NG/mL <50 Not Available [address] [address] , [place], [address], 08/27/2023 17:18:22 08/27/19 24 08/27/2023 DRUG MONIT OR, PANEL 3, W/CON F, URINE morphine NEGATI VE NG/mL <50 Not Available [address] [address] , [place], [address], 08/27/2023 17:18:22 08/27/19 24 08/27/2023 DRUG MONIT OR, PANEL 3, W/CON F, URINE norhydrocodo ne NEGATI VE NG/mL <50 Not Available [address] [address] , [place], [address], 08/27/2023 17:18:22 08/27/19 24 08/27/2023 DRUG MONIT OR, PANEL 3, W/CON F, URINE opiates comments See LDT Notes Not Available [address] [address] , [place], [address], 08/27/2023 17:18:22 08/27/19 24 08/27/2023 DRUG MONIT OR, PANEL 3, W/CON F, URINE oxycodone POSITI VE NG/mL <100 abnormal Not Available [address] [address] , [place], [address], 08/27/2023 17:18:22 08/27/19 24 08/27/2023 DRUG MONIT OR, PANEL 3, W/CON F, URINE noroxycodone 278 NG/mL <50 high Not Available [address] [address] [address], [place], [address], 08/27/2023 17:18:22 08/27/19 24 08/27/2023 DRUG MONIT OR, PANEL 3, W/CON F, URINE oxycodone NEGATI VE NG/mL <50 Not Available [address] [address] [place], [address], 08/27/2023 17:18:22 08/27/19 24 08/27/2023 DRUG MONIT OR, PANEL 3, W/CON F, URINE oxymorphone NEGATI VE NG/mL <50 Not Available [address] [address] [place], [address], 08/27/2023 17:18:22 08/27/19 24 08/27/2023 DRUG MONIT OR, PANEL 3, W/CON F, URINE oxycodone comments See Oxyco done Notes , LDT Notes Not Available [address] [address] [place], [address], 08/27/2023 17:18:22 08/27/19 24 08/27/2023 DRUG MONIT OR, PANEL 3, W/CON F, URINE creatinine 39.7 mg/dL > or = 20.0 Not Available [facility] [address] [address] [place], [address], 08/27/2023 17:18:22 08/27/19 24 08/27/2023 DRUG MONIT OR, PANEL 3, W/CON F, URINE pH 7.4 4.5-9. 0 Not Available [facility] [address] [address] [place], [address], 08/27/2023 17:18:22 08/27/19 24 08/27/2023 DRUG MONIT OR, PANEL 3, W/CON F, URINE oxidant NEGATI VE mcg/m L <200 Not Available [employer] [address] [address] [place], [address], 08/27/2023 17:18:22 08/27/19 24 08/27/2023 DRUG MONIT ORING TEMPL ATE notes and comments This drug testi ng is for medic al treat ment only. Ruy sis was perfo rmed as non-f orens ic testi ng and these resul ts shoul d be used only by healt hcare provi ders to rende r diagn osis or treat ment, or to monit or progr ess of medic al condi tions . Oxyco done Notes : Norox ycodo ne detec nisa is consi stent with the use of the drug Oxyco done. The metab olite Oxymo rphon e is not prese nt at or above the cutof f. LDT Notes : Confi rmati on tests were devel oped and their ruy tical perfo rmanc e alan cteri stics have been deter mined by [facility]. It has not been clear ed or appro teodoro by the FDA. This assay has been valid ated pursu ant to the CLIA regul ation s and is used for clini sal purpo ses. Healt hcare Provi ders needi ng Inter preta tion bandar tance , pleas e conta ct us at 1.877 .40.R XTOX (1.87 7.407 .9869 ) M-F, 8am to 10pm EST Not Available [address] [address] [place], [address], 08/27/2023 17:18:23 08/27/19 24 08/27/2023 DRUG MONIT OR, PANEL 3, W/CON F, URINE amphetamines NEGATI VE NG/mL <500 Not Available [address] [address] [place], [address], 08/27/2023 17:19:21 08/27/19 24 08/27/2023 DRUG MONIT OR, PANEL 3, W/CON F, URINE benzodiazepi patricia NEGATI VE NG/mL <100 Not Available [address] [address] [place], [address], 08/27/2023 17:19:21 08/27/19 24 08/27/2023 DRUG MONIT OR, PANEL 3, W/CON F, URINE cocaine metabolite NEGATI VE NG/mL <150 Not Available [address] [address] [place], [address], 08/27/2023 17:19:21 08/27/19 24 08/27/2023 DRUG MONIT OR, PANEL 3, W/CON F, URINE marijuana metabolite NEGATI VE NG/mL <20 Not Available [address] [address] [place], [address], 08/27/2023 17:19:21 08/27/19 24 08/27/2023 DRUG MONIT OR, PANEL 3, W/CON F, URINE opiates NEGATI VE CONFIR MED NG/mL <100 Not Available [address] [address] [place], [address], 08/27/2023 17:19:21 08/27/19 24 08/27/2023 DRUG MONIT OR, PANEL 3, W/CON F, URINE codeine NEGATI VE NG/mL <50 Not Available [address] [address] , [place], [address], 08/27/2023 17:19:21 08/27/19 24 08/27/2023 DRUG MONIT OR, PANEL 3, W/CON F, URINE hydrocodone NEGATI VE NG/mL <50 Not Available [address] [address] , [place], [address], 08/27/2023 17:19:21 08/27/19 24 08/27/2023 DRUG MONIT OR, PANEL 3, W/CON F, URINE hydromorphon e NEGATI VE NG/mL <50 Not Available [address], [place], [address], 08/27/2023 17:19:21 08/27/19 24 08/27/2023 DRUG MONIT OR, PANEL 3, W/CON F, URINE morphine NEGATI VE NG/mL <50 Not Available [address] [address] [place], [address], 08/27/2023 17:19:21 08/27/19 24 08/27/2023 DRUG MONIT OR, PANEL 3, W/CON F, URINE norhydrocodo ne NEGATI VE NG/mL <50 Not Available [address] [address] [place], [address], 08/27/2023 17:19:21 08/27/19 24 08/27/2023 DRUG MONIT OR, PANEL 3, W/CON F, URINE opiates comments See LDT Notes Not Available [address] [address] [place], [address], 08/27/2023 17:19:21 08/27/19 24 08/27/2023 DRUG MONIT OR, PANEL 3, W/CON F, URINE oxycodone POSITI VE NG/mL <100 abnormal Not Available [address], [place], [address], 08/27/2023 17:19:21 08/27/19 24 08/27/2023 DRUG MONIT OR, PANEL 3, W/CON F, URINE noroxycodone 278 NG/mL <50 high Not Available [address] [address], [place], [address], 08/27/2023 17:19:21 08/27/19 24 08/27/2023 DRUG MONIT OR, PANEL 3, W/CON F, URINE oxycodone NEGATI VE NG/mL <50 Not Available [address] [address] , [place], [address], 08/27/2023 17:19:21 08/27/19 24 08/27/2023 DRUG MONIT OR, PANEL 3, W/CON F, URINE oxymorphone NEGATI VE NG/mL <50 Not Available [address] [address], [place], [address], 08/27/2023 17:19:21 08/27/19 24 08/27/2023 DRUG MONIT OR, PANEL 3, W/CON F, URINE oxycodone comments See Oxyco done Notes , LDT Notes Not Available [address] [address], [place], [address], 08/27/2023 17:19:21 08/27/19 24 08/27/2023 DRUG MONIT OR, PANEL 3, W/CON F, URINE creatinine 39.7 mg/dL > or = 20.0 Not Available [address] [address] [address], [place], [address], 08/27/2023 17:19:21 08/27/19 24 08/27/2023 DRUG MONIT OR, PANEL 3, W/CON F, URINE pH 7.4 4.5-9. 0 Not Available [address] [address] [place], [address], 08/27/2023 17:19:21 08/27/19 24 08/27/2023 DRUG MONIT OR, PANEL 3, W/CON F, URINE oxidant NEGATI VE mcg/m L <200 Not Available [employer] [facility] [address] [address], [place], [address], 08/27/2023 17:19:21 11/24/19 25 11/22/2024 XR, foot, 2 view No observ ation record ed. [email or web address] [address] [id number] [facility], [place], [address], 11/23/2024 14:14:59 Result Notes None recorded. Problems Name Problem SNOMED Code Status Onset Date Resolution Date Notes Provider Name and Address Organization Details Recorded Time Pain in upper limb 935831415 Completed Not Available [facility] 3 08:22:17 Infection of skin 221895116 Completed Not Available [facility] 3 08:22:18 Tobacco user 109441431 Active 2017 Not Available [facility] 3 08:22:18 Celluliti s 818030395 Completed Not Available [facility] 3 08:22:18 Celluliti s of foot 233041079 Active 2022 Not Available [facility] 3 08:22:18 Celluliti s of foot 178266631 Active 2022 Not Available [facility] 3 08:22:18 Postopera tive care Active 2022 Not Available [facility] 3 08:22:18 Amenorrhe a 15633777 Completed Not Available [facility] 3 08:22:18 External hordeolum 4850454 Active Not Available [facility] 3 08:22:18 Fibromato sis of plantar fascia of right foot 42966587611 145429 Active 2021 Not Available [facility] 3 08:22:18 Fibromato sis of plantar fascia of left foot 46070298019 094568 Active 2021 Not Available [facility] 3 08:22:18 Acute sinusitis 48506607 Completed Not Available [facility] 3 08:22:18 Spinal stenosis of lumbar region 07335135 Active Not Available [facility] 3 08:22:18 Insomnia 848547239 Active Not Available [facility] 3 08:22:18 Open wound of breast 779860889 Completed Not Available [facility] 3 08:22:18 Mixed anxiety and depressiv e disorder 642751277 Active 2016 Not Available [facility] 3 08:22:18 Soft tissue lesion of foot region 370121232 Active 2022 Not Available [facility] 3 08:22:19 Broken skin 512985886 Completed Not Available [facility] 3 08:22:19 Infection of sebaceous cyst 412569935 Completed Not Available [facility] 3 08:22:19 Multiple pelvic fractures 109152487 Active 2021 Not Available [facility] 3 08:22:19 Elevated level of transamin ase and lactic acid dehydroge nase 157339508 Active Not Available [facility] 3 08:22:19 Difficult y gripping 673221980 Completed Not Available [facility] 3 08:22:19 Abscess of breast 08354082 Completed Not Available [facility] 3 08:22:19 Fracture of superior pubic ramus 427560024 Active 2021 Not Available [facility] 3 08:22:19 Fracture of inferior pubic ramus 014921994 Active 2021 Not Available [facility] 3 08:22:19 Pain in pelvis 89657237 Active 2021 Not Available [facility] 3 08:22:19 Pain in right foot 67105690878 9107 Active 2021 Not Available [facility] 3 08:22:20 Depressiv e disorder 43507784 Active Not Available [facility] 3 08:22:20 Ulnar neuropath y 523047273 Active Not Available [facility] 3 08:22:20 Onychomyc osis of toenails 085037650 Active 2022 Not Available [facility] 3 08:22:20 Hematoche getachew 261775110 Active Not Available [facility] 3 08:22:20 Obese 977950239 Active 2016 Not Available [facility] 3 08:22:20 Onychomyc osis 047145559 Active Not Available [facility] 3 08:22:20 Nausea 240083471 Completed Not Available [facility] 3 08:22:20 History of surgery for cerebral aneurysm 587025227 Active 2021 Not Available [facility] 3 08:22:21 Aneurysm 127583628 Active 2020 Not Available [facility] 3 08:22:21 Type 2 diabetes mellitus 09408658 Active Not Available [facility] 3 08:22:21 Hyperlipi demia 97615136 Active Not Available [facility] 3 08:22:21 Pain of wrist region 97466780 Completed Not Available [facility] 3 08:22:21 Essential hypertens ion 09286308 Active Not Available [facility] 3 08:22:21 Tinea pedis 9962280 Active 2016 Not Available [facility] 3 08:22:21 Cigarette smoker 07547337 Active 2022 Not Available [facility] 3 08:22:21 Urinary tract infectiou s disease 96121966 Completed Not Available [facility] 3 08:22:21 Acid reflux 408230584 Active 2016 Not Available [facility] 3 08:22:22 Diabetes mellitus 00892684 Active Not Available [facility] 3 08:22:22 Urgent desire to urinate 44734039 Completed Not Available [facility] 3 08:22:22 Spinal stenosis 56778417 Active 2021 Not Available [facility] 3 08:22:22 Postmenop ausal bleeding 52517131 Active 2017 Not Available [facility] 3 08:22:22 Smoker 03097168 Active 2021 Not Available [facility] 3 08:22:22 Fracture of pelvis 58951752 Active 2021 Not Available [facility] 3 08:22:22 Hyperglyc emia 64681308 Active Not Available [facility] 3 08:22:22 Tinea corporis 31677563 Completed Not Available [facility] 3 08:22:23 Chronic low back pain 280988037 Active 2022 EDDA Cotton [address], [address], [place], [address] , [facility] 3 11:05:12 Neuropath y 340520240 Active 2022 EDDA Cotton [address], [address], [place], [address] , [facility] 3 08:31:01 Uncontrol led type 2 diabetes mellitus 159558836 Active 2023 TAM Stoddard [address], [address], [place], [address] , [facility] 4 16:11:46 Open wound 782636380 Active 2024 ALEKSANDER Varghese [address], [address], [place], [address] , [facility] 5 14:31:47 Body mass index 30+ - obesity 190676374 Active 2024 ALEKSANDER Varghese [address], [address], [place], [address] , [facility] 5 15:00:07 Problem Notes None recorded. Procedures Surgical History Date Name Laterality Status Provider Name and Address Organization Details Recorded Time fusion completed Not Available [facility] 07/2022 08:19:18 section completed Not Available [facility] 09/16/2022 08:19:18 stimulation completed Not Available [facility] 09/16/2022 08:19:18 Imaging Results Imaging Date Name Status LastModified by Organiz ation Details LastModified Time 11/22/2024 XR, foot, 2 view [email or web address] [address], [place], [address], 11/23/2024 14:14:59 Procedure Notes None recorded. Medical Equipment None Reported. Allergies Allergen ID Allergen Name Allergen Category Reaction Reaction Severity Criticality Documentation Date Start Date Code Code System Note Provider Name and Address Organization Details Recorded Time Biaxin medicatio n Not available Not available Not available 09/16/202212111 9 RxNorm Not Available [facility] 3 08:26:00 Augmentin medicatio n Not available Not available Not available 09/16/2022 28138 2 RxNorm Not Available [facility] 3 08:26:00 Medications Name Sig Start Date Stop Date Status Note LastModified by Organization Details LastModified Time cyclobenz aprine 10 mg tablet TAKE 1 TABLET BY MOUTH THREE TIMES DAILY 08/16 completed Not Available Not Available Not Available cefazolin 1 gram solution for injection Take 1 g by injectio n route for 1 day. 05/03 completed Not Available Not Available Not Available terbinafi ne HCl 1 % topical cream POLI AA AND SURROUND ING AREAS OF SKIN TOPICALL Y ONCE D 05/03 completed Not Available Not Available Not Available bupropion HCl SR 150 mg tablet,12 hr sustained -release TAKE 1 TABLET BY MOUTH TWICE DAILY 09/10 completed Not Available Not Available Not Available levothyro xine 137 mcg tablet TAKE 1 TABLET DAILY active PT STATES HAS NEVER TAKEN THIS, THIS IS NOT HERS, ITS HER MOM PER PT. Not Available Not Available Not Available gabapenti n 600 mg tablet TK 2 TS TID 12/04 completed Not Available Not Available Not Available doxycycli ne hyclate 100 mg capsule TAKE 1 CAPSULE BY MOUTH EVERY 12 HOURS 09/22 completed Not Available Not Available Not Available nicotine 14 mg/24 hr daily transderm al patch APPLY 1 PATCH QD TRANSDER ANGELO 12/04 completed Not Available Not Available Not Available tizanidin e 2 mg tablet TAKE 1 TO 2 TABLETS BY MOUTH EVERY 8 HOURS NEEDED FOR SPASMS 08/16 completed Not Available Not Available Not Available clindamyc in HCl 300 mg capsule Take 1 capsule twice a day by oral route for 10 days. active Not Available Not Available No t Available ciproflox acin 750 mg tablet Take 1 tablet every 12 hours by oral route. active Not Available Not Available No t Available azithromy shraddha 250 mg tablet TK 2 TS PO TODAY THEN TK 1 T PO D FOR 4 DAYS active Not Available Not Available No t Available Lidocaine Viscous 2 % mucosal solution active Not Available Not Available Not Available tizanidin e 4 mg tablet TAKE ONE CAPSULE BY MOUTH EVERY 6 HOURS NEEDED 08/16 completed Not Available Not Available Not Available fluconazo le 150 mg tablet TK 1 T PO D 12/04 completed Not Available Not Available Not Available metoprolo l succinate ER 50 mg tablet,ex tended release 24 hr TAKE 1 TABLET DAILY active PT STATES HAS NEVER TAKEN THIS, THIS IS NOT HERS, ITS HER MOM PER PT. Not Available Not Available Not Available hydrocodo ne 5 mg-acetam inophen 325 mg tablet TAKE 1 TABLET BY MOUTH TWICE DAILY NEEDED 12/21 completed Not Available Not Available Not Available Nystop 100,000 unit/gram topical powder POLI A THIN LAYER TOPICALL Y AA UNDER LEFT BREAST BID 05/03 completed Not Available Not Available Not Available bacitraci n 500 unit/gram eye ointment Apply 1 applicat ion every 3-4 hours by ophthalm ic route as directed for 10 days. active Not Available Not Available No t Available ondansetr on HCl 8 mg tablet take one tablet every evening as needed for nausea active Not Available Not Available No t Available prednison e 20 mg tablet TAKE 3 TABLETS BY MOUTH DAILY 09/22 completed Not Available Not Available Not Available Lantus U-100 Insulin 100 unit/mL subcutane ous solution ADMINIST ER 50 UNITS UNDER THE SKIN EVERY EVENING. INCREASE BY 3 [address] EVERY [address] DAY FOR FASTING GLUCOSE GREATER THAN 150 10/26 completed Not Available Not Available Not Available topiramat e 25 mg tablet 12/04 completed Not Available Not Available Not Available acetamino phen 300 mg-codein e 30 mg tablet TAKE 1 TO 1 AND 1/2 TABLETS BY MOUTH AT BEDTIME NEEDED FOR PAIN active Not Available Not Available No t Available clopidogr el 75 mg tablet TAKE 1 TABLET BY MOUTH EVERY DAY active Not Available Not Available No t Available ciproflox acin 500 mg tablet TK 1 T PO Q 12 H FOR 5 DAYS active Not Available Not Available No t Available morphine ER 30 mg tablet,ex tended release TK 1 T PO BID 02/23 completed Not Available Not Available Not Available peg-elect rolyte solution 420 gram oral solution MIX AND DRINK UTD active Not Available Not Available No t Available aspirin 81 mg tablet,de layed release active Not Available Not Available Not Available tramadol 50 mg tablet TAKE 1 TABLET BY MOUTH THREE TIMES DAILY 03/24 completed Not Available Not Available Not Available triamcino lone acetonide 0.1 % topical cream APPLY THIN LAYER TOPICALL Y TO THE AFFECTED AREA TWICE DAILY 08/16 completed Not Available Not Available Not Available glimepiri de 1 mg tablet Take 1 tablet every day by oral route for 30 days. active not sure about due to dr lassiter ing 4 mg 1 daily (pt has continue d the 4mg daily) Not Available Not Available Not Available oxycodone 15 mg tablet TAKE 1 TABLET BY MOUTH FOUR TIMES DAILY active Not Available Not Available No t Available Zofran 4 mg tablet Take 1 tablet twice a day by oral route as needed for 4 days. 11/02 completed Not Available Not Available Not Available oxycodone -acetamin ophen 5 mg-325 mg tablet TAKE 1 TABLET BY MOUTH TWICE DAILY FOR 15 DAYS NEEDED FOR PAIN active Not Available Not Available No t Available methocarb diana 750 mg tablet TK 1 T PO Q 6 H PRN 12/04 completed Not Available Not Available Not Available Humalog U-100 Insulin 100 unit/mL subcutane ous solution use per sliding scale 11/25 completed Not Available Not Available Not Available ciproflox acin 0.3 % eye drops 1 GTT IN AFFECTED EYE EVERY 2 HOURS WHILE AWAKE FOR 2 DAYS THEN 1 GTT EVERY 4 HOURS FOR 5 DAYS active Not Available Not Available No t Available OneTouch Ultra Test strips TEST THREE TIMES DAILY active Not Available Not Available No t Available morphine ER 60 mg tablet,ex tended release TK 1 T PO Q 8 H 02/23 completed Not Available Not Available Not Available benzonata te 100 mg capsule active Not Available Not Available Not Available doxycycli ne monohydra te 100 mg capsule Take 1 capsule twice a day by oral route as directed for 10 days. 09/23 completed Not Available Not Available Not Available hydrocodo ne 7.5 mg-acetam inophen 325 mg tablet TAKE 1 TABLET BY MOUTH THREE TIMES DAILY 12/21 completed Not Available Not Available Not Available cephalexi n 500 mg capsule TAKE 1 CAPSULE BY MOUTH EVERY 12 HOURS FOR 7 DAYS 09/22 completed Not Available Not Available Not Available nitrofura ntoin macrocrys katharine 100 mg capsule Take 1 capsule every 6 hours by oral route with meals for 7 days. active Not Available Not Available No t Available nystatin 100,000 unit/gram topical cream APPLY TO THE AFFECTED AREA(S) BY TOPICAL ROUTE 2 TIMES PER DAY active Not Available Not Available No t Available ranitidin e 150 mg tablet TK 1 T PO BID 09/10 completed Not Available Not Available Not Available clotrimaz ole-betam ethasone 1 %-0.05 % topical cream APPLY TWICE DAILY active Not Available Not Available No t Available lisinopri l 10 mg tablet TAKE 1 TABLET BY MOUTH EVERY DAY active Not Available Not Available No t Available glimepiri de 4 mg tablet TAKE 1 TABLET BY MOUTH EVERY DAY active Not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
--- OUTSIDE RECORDS SUMMARY | 2024-11-23 16:54 | XMS_ITS | Patient Health Record ---
Author Organization [facility] Address [address] [place] [address] Care Team Providers Care Core Rescuer Name Role Phone Revere, Shirley Primary Care Provider UnavailNima Hopson Unavailable [phone] Deniz Gastelum Unavailable Unavailabl e Allergies Allergen (clinical drug ingredient) Drug/Non Drug Allergy documented on EMR Reaction Allergy Type Onset Date Status amoxicillin / clavulanate Augmentin. (uncoded) Unknown Allergy Active Biaxin Unknown Drug Allergy Active Reason For Referral No Information Medications Medication SIG (Take, Route, Frequency, Duration) Notes Start Date End Date Status Ambien Active metFORMIN HCl ER Act stephon Escitalopram Oxalate Active Flexeril 10 mg 1 tab Orally tid prn muscle spasms for 30 days 09/07/2019 Active Cyclobenzaprine HCl 10 MG TAKE 1 TABLET BY MOUTH THREE TIMES DAILY NEEDED FOR MUSCLE SPASMS for 30 Active Topiramate 100 MG 2 tablet Orally q hs for 30 day(s) 06/26/2020 Active Social History Tobacco use other than smoking: Question Answer Notes Are you an other tobacco user? No Problems Problem Type SNOMED Code ICD Code Onset Dates Problem Status W/U Status Risk Notes Problem Fear of medical treatment (216646866) Fear of injections and transfusions (F40.231) Active confirmed Problem Essential hypertension (03446046) Essential (primary) hypertension (I10) Active confirmed Problem Solitary sacroiliitis (071548070) Sacroiliitis, not elsewhere classified (M46.1) Active confirmed Problem Lumbosacral spondylosis without myelopathy (15416664) Other spondylosis with radiculopathy, lumbar region (M47.26) Active confirmed Problem Lumbosacral spondylosis without myelopathy (45217716) Spondylosis without myelopathy or radiculopathy, lumbar region (M47.816) Active confirmed Problem Lumbosacral spondylosis without myelopathy (88676781) Spondylosis without myelopathy or radiculopathy, lumbosacral region (M47.817) Active confirmed Problem Spinal stenosis of lumbar region (37041051) Spinal stenosis, lumbar region (M48.06) Active confirmed Problem Degeneration of lumbar intervertebral disc (16860806) Other intervertebral disc degeneration, lumbar region (M51.36) Active confirmed Problem Lumbar radiculopathy (305858521) Radiculopathy, lumbar region (M54.16) Active confirmed Problem Lumbosacral radiculopathy (2871861) Radiculopathy, lumbosacral region (M54.17) Active confirmed Problem Muscle pain (98645899) Myalgia, other site (M79.18) Active confirmed Plan Of Treatment Pending Test Test Name Order Date CT Lumbar Spine without contrast 015 Insurance Providers Payer Name Payer Address Payer Phone Subscriber Number Group Number Insured Name Patient Relationship to Insured Coverage Start Date Coverage End Date Workers Compensatio n [employer] [address] [facility] [address] [place] [address] [id number] Jeane Garcia Self - patient is the insured ATTY [employer] GABRIE[employer] [address] [place] [address] [id number] Jeane Garcia Self - patient is the insured [employer] Atty Tunde Rainey [address] [address] [place] [address] [id number] Jeane Garcia Self - patient is the insured Medical (General) History Surgical History Surgery Date(Month/Year) drained out right breast 03/2015 work comp injury 2006 Hospitalization History Reason Date(Month/Year) abcess, cellulitis developed under right breast 03/2015
--- OUTSIDE RECORDS SUMMARY | 2024-11-23 16:54 | XMS_ITS | Clinical Summary ---
Author Organization [facility] Address [address] [place] [address] Phone Care Team Providers Care Financial Intern Name Role Phone Unavailable Primary Care Provider Unavailabl e Encounters Date Type Department Care Team Description 08/28/2024 Transcribe Orders [facility] Central Scheduling [address] [place] [address] Keri Salinas, HIM MANAGER, MAURY Lumbar stenosis with neurogenic claudication (Primary Dx); Post laminectomy syndrome from Last 3 Months Immunizations Immunization Administration Dates Next Due Influenza Vaccine 04/06/2016,04/07/2015 Influenza Vaccine, Quadrivalent, PF 02/16,08/10/2021,04/12/2018,2016,05/12/2016 Influenza, Injectable, Mdck,quadrivalent,with Preservative 04/19/2019 Influenza, Injectable, Quadrivalent 06/18/2020 Influenza, Seasonal, Injecta ble, Undefined 05/08/2015,05/02/2014,04/21/2013,2012 MMR Vaccine 04/05/2015 Pneumococcal Vaccine Adult - 23 Valent 04/13/2016 TDAP Vaccine 07/19/2014 Zoster Vaccine Recombinant 06/18/2020 Social History Tobacco Use Types Packs/Day Years Used Date Smoking Tobacco: Never Assessed Education Answer Date Recorded What is the highest level of school you have completed or the highest degree you have received? 12th grade 11/22/2022 Comments Unknown Sex and Gender Information Value Date Recorded Sex Assigned at Not on file Legal Sex Female 2:40 PM CDT Gender Identity Not on file Sexual Orientation Not on file Plan of Treatment Health Maintenance Due Date Last Done Comments Hepatitis C Virus (HCV) Screening 1970 Mammogram 1970 Hepatitis B Immunization (1 of 3 - 19+ 3-dose series) 1989 Pap Smear 1991 Cervical Cancer Screening (CCS) 02/15/2000 HPV/Cotest 02/15/2000 Colonoscopy 2015 Colorectal Cancer Screening 2015 Cologuard 02/15/2020 Immunochemical Fecal Occult Blood 02/15/2020 Pneumococcal Immunization (50+ years) (2 of 2 - PCV) 02/15/2020 04/13/2016 Zoster Immunization (2 of 2) 08/13/2020 06/18/2020 Influenza Immunization (#1) 03/19/202402/16, 08/10/2021, 06/18/2020, Additional history exists SARS-COV-2 Immunization ( season) 2024 02/19/2022, 08/10/2021, 10/22/2020, Additional history exists Respiratory Syncytial Virus (RSV) Immunization (Adult) (1 - 1-dose 75+ series) 2045 DTaP/Tdap/Td Immunization Discontinued 07/19/2014 Pneumococcal Immunization Combined Discontinued 04/13/2016 Meningococcal Immunization (ACWY) Aged Out No longer eligible based on patient's age to complete this topic Rotavirus Immunization Aged Out No lo nger eligible based on patient's age to complete this topic Insurance MEDICAID [employer]
--- OUTSIDE RECORDS SUMMARY | 2024-11-23 16:55 | XMS_ITS | CONTINUITY OF CARE DOCUMENT ---
Author Name feliz piper Address Unknown Organization [facility] Address [address] [place] [address] Phone [phone] Care Team Providers Care Oil Well Logger Name Role Phone Matthew Alvarez MD Unavailable GAB MARCELO Unavailable [phone] AGB MARCELO Unavailable [phone] PROBLEMS Condition Status Date Provider Notes SLEEP APNEA active Matthew Alvarez MD CHEST PAIN-NUC NEG 03/2011 active Matthew barrera MD TOBACCO ABUSE active Matthew Alvarez MD OBESITY active Matthew Alvarez MD HTN ESSENTIAL active Matthew Alvarez MD BRADYCARDIA SINUS-8/11 HOLTER SR HR 119-39 active ? Matthew Alvarez MD ENCOUNTERS Date Type Provider Location Encounter Diag nosis - In-person encounter Office Visit Matthew Alvarez MD [facility] CHEST PAIN-NUC NEG 03/2011SLEEP APNEA - In-person encounter Office Visit Matthew Alvarez MD [facility] BRADYCARDIA SINUS-8/11 HOLTER SR HR 119-39CHEST PAIN-NUC NEG 03/2011 - In-person encounter Office Visit Matthew Alvarez MD [facility] BRADYCARDIA SINUS-8/11 HOLTER SR HR 119-39HTN ESSENTIALOBESITYTOBACCO ABUSE VITAL SIGNS Date Observation Value Provider blood pressure, diastolic 76 mm[Hg] Miranda margaret Manacop blood pressure, systolic 118 mm[Hg] Lenin dilan Manacop pulse rate 59 /min Yan Manacop oxygen saturation, oximetry 98 % Yan Manacop respiratory rate E&M 16 /min Yan Manacop weight E&M 249 [lb_av] Yan Chopra blood pressure, diastolic 80 mm[Hg] Juan Antonio Gomez RN blood pressure, systolic 140 mm[Hg] Ulises Gomez RN pulse rate 63 /min Ulises Gomez RN oxygen saturation, oximetry 97 % Ulises Gomez RN respiratory rate E&M 18 /min Ulises gonzalez RN weight E&M 243 [lb_av] Ulises Gomez RN blood pressure, diastolic 75 mm[Hg] Juan Antonio Gomez RN blood pressure, systolic 123 mm[Hg] Ulises Gomez RN pulse rate 61 /min Ulises Gomez RN oxygen saturation, oximetry 97 % Ulises Gomez RN respiratory rate E&M 16 /min Ulises gonzalez RN weight E&M 228 [lb_av] Ulises Gomez RN HISTORY OF MEDICATION USE Medication Status Instructions Dates Provider Indications Com ments PERCOCET 10-325 MG ORAL TABLET active 4-6 x daily Ulises Gomez RN PRILOSEC 20 MG ORAL CAPSULE DELAYED RELEASE active ONE TAB. twice DAILY Ulises Gomez RN METOPROLOL SUCCINATE ER 25 MG ORAL TABLET EXTENDED RELEASE 24 HOUR active one tab. daily Ulises Gomez RN AMBIEN 10 MG ORAL TABLET active ONE TAB. AT BEDTIME Ulises Gomez RN ROBAXIN-750 750 MG ORAL TABLET active 1 tab every 8 hrs as needed Ulises Gomez RN OPANA ER 40 MG [id number] active 1 tab every 12 hrs Ulises Gomez RN NEURONTIN 600 MG ORAL TABLET active 2 pills 3 times daily Ulises Gomez RN SOCIAL HISTORY Date Observation Value Provider smoking/tobacco cess ation, patient education and counseling yes Matthew Alvarez MD social history reviewed E&M reviewed Matthew Alvarez MD social history reviewed E&M reviewed Ulises Gomez RN smoking/tobacco cess ation, patient education and counseling yes Matthew Alvarez MD drug use none Matthew Alvarez MD cigarette use 10 Matthew Fitzgerald social history E&M Marital Statu s: Single L [place] with family/friends E thnicity: Ulises Gomez RN social history reviewed E&M reviewed Ulises Gomez RN physical exercise, f requency, days per week no [employer] caffeine use, averag e drinks per day yes [employer] alcohol use, average drinks per day none LinkLog number of years as a smoker 10 years or m ore [facility] smoking status Smoker [facility] MENTAL STATUS Date Observation Value Provider assessment of judgme nt and insight E&M Alert and oriented to time, place and person. Mood and affect are normal. Matthew Alvarez MD assessment of judgme nt and insight E&M Alert and oriented to time, place and person. Mood and affect are normal. Ulises Gomez RN assessment of judgme nt and insight E&M Alert and oriented to time, place and person. Mood and affect are normal. Ulises Gomez RN INSURANCE PROVIDERS Payer name Policy type / Coverage type [facility] ID JACQUELINE MEDICAID (2) Medicaid [id number] TREATMENT PLAN Date Name Performer Test results:118/76 H er updated medication list for this problem includes: Metoprolol Succinate 25 Mg Tb24 (Metoprolol succinate) ..... One tab. daily Matthew Alvarez MD Test results Matthew Alvarez MD Test results:The Patient was ree ncouraged to stop smoking. Matthew Alvarez MD Test results: H er updated medication list for this problem includes: Metoprolol Succinate 25 Mg Tb24 (Metoprolol succinate) ..... One tab. daily Matthew Alvarez MD holter results- rout ine: H er updated medication list for this problem includes: Metoprolol Succinate 25 Mg Tb24 (Metoprolol succinate) ..... One tab. daily s he has been having chest discomfort with radiation to the right arm Matthew Alvarez MD holter results- routine Matthew lynn MD holter results- rout ine:The Patient was reencouraged to stop smoking. Matthew Alvarez MD holter results- rout ine: H er updated medication list for this problem includes: Metoprolol Succinate 25 Mg Tb24 (Metoprolol succinate) ..... One tab. daily Prior BP: 123/75 (02/06/2011) Matthew Alvarez MD holter results- rout ine: H er updated medication list for this problem includes: Metoprolol Succinate 25 Mg Tb24 (Metoprolol succinate) ..... One tab. daily BP today: / Prior BP: 123/75 (02/06/2011) E chocardiogram: 1. Normal left ventricular systolic function. Normal left ventricular size. Normal left ventricular wall thickness. Normal left ventricular diastolic function. Normal E/E` 7.0. Left ventricular ejection fraction is estimated at 60 %. Heart rate was around 48 bpm throughout exam. 2 . No significant valvular abnormalities. 3 . Normal aortic root size. 4 . Normal pericardium with no pericardial or pleural effusion. [facility] office (02/06/2011) Matthew Alvarez MD surgical clearance : The Patient was reencouraged to stop smoking. Matthew Alvarez MD surgical clearance :rx weight lo ss Matthew Alvarez MD surgical clearance : H er updated medication list for this problem includes: Metoprolol Succinate 25 Mg Tb24 (Metoprolol succinate) ..... One tab. daily BP today: 123/75 Matthew Alvarez MD surgical clearance : H er updated medication list for this problem includes: Metoprolol Succinate 25 Mg Tb24 (Metoprolol succinate) ..... One tab. daily BP today: 123/75 Prior BP: / () t his is okay and she is low risk for the d and c.she has no sig chest pain and is low risk and clear for surgery . Matthew Alvarez MD Date Name Sleep Study Stress Test - Adenos ine Holter Monitor 24 Hr Complete Echo
--- OUTSIDE RECORDS SUMMARY | 2024-11-23 16:55 | XMS_ITS | Encounter Summary ---
Author Organization [facility] Address [address] [place] [address] Care Team Providers Care Manufacturing Engineering Director Name Role Phone Hugo Hinson MD Primary Care Provider [phone] Reason for Visit * Reason Onset Date Comments MEDICATION REFILL 09/07/2024 Encounter Details Date Type Department Care Team (Late st Contact Info) Description 09/07/2024 Refill [facility] - Neurology [address] [facility] [address], [facility] [place] [address] Phil Pollock MD [address] [place] [address] MEDICATION REFILL Social History Tobacco Use Types Packs/Day Years Used Date Smoking Tobacco: Every Day Cigarettes 0.3 22 Started: 01/31/1987; Last attempted to quit: 01/31/2009 Smokeless Tobacco: Never Alcohol Use Standard Drinks/Week Comments No 0 (1 standard drink = 0.6 oz pur e alcohol) Comments No Sex and Gender Information Value Date Recorded Sex Assigned at Female 04/04/2021 4:21 PM CDT Legal Sex Female 9:02 AM MOUNT LOADER Gender Identity Female 04/04/2021 4:21 PM CDT Sexual Orientation Not on file documented as of this encounter Functional Status * Is person deaf or have serious hearing difficulty? Answer Date of Assessment Author No 10/08/2022 10:45 AM Cheryl Castro RN * Is person blind or have serious difficulty seeing? Answer Date of Assessment Author No 10/08/2022 10:45 AM Cheryl Castro RN * Does person have serious difficulty walking/climbing stairs? Answer Date of Assessment Author No 10/08/2022 10:45 AM Cheryl Castro RN * Does person have difficulty dressing/bathing? Answer Date of Assessment Author No 10/08/2022 10:45 AM Cheryl Castro RN * Does person have difficulty doing errands alone? Answer Date of Assessment Author No 10/08/2022 10:45 AM Cheryl Castro RN documented as of this encounter Mental Status * Does person have difficulty concentrating/remembering/making decisions? Answer Entry Date Author No 10/08/2022 10:45 AM Cheryl Castro RN documented in this encounter Plan of Treatment Upcoming Encounters Date Type Department Care Team (Late st Contact Info) Description 12/20/2024 10:30 AM CDT Office Visit [facility] - [facility] [address] [facility], [facility] [place] [address] Phil Pollock MD [address] [place] [address] documented as of this encounter Visit Diagnoses Not on filedocumented in this encounter Care Teams Manufacturing Engineering Director Relationship Specialty Start Date End Date Hugo Hinson MD [address] [place] [address] PCP - General Gastroenterology 04/26/21 documented as of this encounter
--- OUTSIDE RECORDS SUMMARY | 2024-11-23 16:55 | XMS_ITS | Clinical Summary ---
Author Organization [facility] Address [address] [place] [address] Care Team Providers Care Engineering Aid Name Role Phone Unavailable Primary Care Provider Unavailabl e Allergies Active Allergy Reactions Criticality Noted Date Comments Amoxicillin-Pot Clavulanate 12/21/19 21 Clarithromycin 12/20/2020 Medications omeprazole (PriLOSEC) 20 MG capsule 20 mg daily. Active docusate sodium (COLACE) 100 MG capsule Take 1 capsule (100 mg total) by mouth 2 (two) times a day. 0 01/01/2021 Active polyethylene glycol (MIRALAX) 17 g packet Take 17 g by mouth daily. 10 each 01/01/2021 Active insulin glargine (LANTUS) 100 UNIT/ML injection Inject 50 Units under the skin daily. 10 mL 01/01/2021 Active insulin lispro 100 UNIT/ML injection Inject 0-16 Units under the skin 3 (three) times a day before meals. 10 mL 01/01/2021 Active insulin lispro 100 UNIT/ML injection Inject 0-8 Units under the skin nightly. 10 mL 01/01/2021 Active Active Problems Problem Noted Date Diagnosed Date Dysphagia 12/24/2020 Subarachnoid hemorrhage 12/20/2020 Hematoma of subdural space of neuraxis Hemorrhage into subarachnoid space of neuraxis 0 11/24/2020 Back pain 01/05/2012 Immunizations Immunization Administration Dates Next Due Influenza, Unspecified 12/20/2020(Deferr ed: Patient not in facility during flu season) Family History Medical History Relation Name Comments No Known Problems Father No Known Problems Mother No Known Problems Sister Relation Name Status Comments Father Mother Sister Social History Tobacco Use Types Packs/Day Years Used Date Smoking Tobacco: Every Day Cigarettes 0.5 32 Alcohol Use Standard Drinks/Week Comments Not Currently 0 (1 standard drink = 0.6 oz pur e alcohol) Comments Unknown Sex and Gender Information Value Date Recorded Sex Assigned at Not on file Legal Sex Female 11:56 AM EDT Gender Identity Not on file Sexual Orientation Not on file Last Filed Vital Signs Vital Sign Reading Time Taken Comments Blood Pressure 133/80 01/01/2021 7:20 AM CDT Pulse 78 01/01/2021 7:20 AM CDT Temperature 36.2 C (97.2 F) 01/01/2021 7:20 AM CDT Respiratory Rate 18 01/01/2021 7:20 AM CDT Oxygen Saturation 97% 01/01/2021 7:20 AM CDT Inhaled Oxygen Concentration - - Weight 73.5 kg (162 lb) 12/28/2020 9:40 PM CDT Height 165.1 cm (5' 5 ) 12/22/2020 5:19 AM CDT Body Mass Index 26.96 12/22/2020 5:19 AM CDT Plan of Treatment Not on file Advance Directives * Full Resuscitation (Latest Code Status on File) Date Activated Date Inactivated Comments 12/20/2020 4:59 PM 01/01/2021 4:55 PM
--- OUTSIDE RECORDS SUMMARY | 2024-11-23 16:55 | XMS_ITS | Clinical Summary ---
Author Organization [facility] Address [address] [place] [address] Care Team Providers Care Lead Machinist Name Role Phone Hugo Hinson MD Primary Care Provider [phone] Source Comments [facility],non-owned Affiliates and Associated Physician Practices is amultiple site organization consisting of ambulatory clinics and hospital sitesin [place], [place], [place] and [place]. This disclosure is being madepursuant to the Care Everywhere program and may not contain all information available regarding this patient. Last updated 18.[facility] Allergies Active Allergy Reactions Criticality Noted Date Comments Augmentin Rash 04/02/2009 Clarithromycin Rash 04/02/2009 Medications * Be aware that medications may not be up to date on this document. Alwaysverify current medications with the patient. cyclobenzaprin e (FLEXERIL) 10 MG tablet Take 10 mg by mouth 3 times daily 1 Active glimepiride (AMARYL) 1 MG tablet every 24 hours Activ e naproxen (NAPROSYN) 500 MG tablet naproxen 500 mg tablet TK 1 T PO BID PRN P Active topiramate (TOPAMAX) 100 MG tablet Take 2 (two) tablets by mouth at bedtime 1 Active pregabalin (LYRICA) 50 MG capsule Take 1 (one) capsule by mouth at bedtime Active escitalopram (LEXAPRO) 10 MG tablet Take 1 (one) tablet by mouth once daily 1 Active lisinopril (PRINIVIL; ZESTRIL) 10 MG tablet Take 1 (one) tablet by mouth once daily 30 tablet 3 1 Active insulin pen needle (BD UF III) 31G X 8 MM needle 1 (one) Each 3 times daily 100 Each 1 Active Basaglar KwikPen (BASAGLAR) penIndications :Type 2 Diabetes Mellitus Inject 50 (fifty) Units subcutaneously at bedtime Reasons: Type 2 Diabetes Active insulin aspart (NovoLOG) vialIndication s:Type 2 Diabetes Mellitus Inject 7 (seven) Units subcutaneously 3 times daily before meals Reasons: Type 2 Diabetes Active aspirin (Aspirin) 81 MG chew tablet Take 1 (one) tablet by mouth once daily PLEASE REQUEST ALL FUTURE REFILLS FROM PRIMARY CARE DOCTOR. 100 tablet 1 4 Active clopidogrel (plaVIX) 75 MG tablet TAKE 1 TABLET BY MOUTH EVERY DAY 30 tablet 5 4 Active Active Problems Problem Noted Date Diagnosed Date DM2 (diabetes mellitus, type 2) 05/08/2021 Cerebral aneurysm 03/18/2021 SAH (subarachnoid hemorrhage) 11/24/2020 SDH (subdural hematoma) 11/24/2020 Back pain 01/05/2012 Encounters Date Type Department Care Team Description 10/02/2024 Refill [facility] [address] [place] [phone] Phil Pollock MD MEDICATION REFILL 09/11/2024 Refill [facility] [address] [place] [phone] Phil Pollock MD Refill Request 09/07/2024 Refill [facility] [address] [place] [phone] Phil Pollock MD MEDICATION REFILL from Last 3 Months Social History Tobacco Use Types Packs/Day Years Used Date Smoking Tobacco: Every Day Cigarettes 0.3 22 Started: 01/31/1987; Last attempted to quit: 01/31/2009 Smokeless Tobacco: Never Tobacco Cessation:Ready to Q uit: No; Counseling Given: No Alcohol Use Standard Drinks/Week Comments No 0 (1 standard drink = 0.6 oz pur e alcohol) Comments No Sex and Gender Information Value Date Recorded Sex Assigned at Female 04/04/2021 4:21 PM CDT 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 Gender Identity Female 04/04/2021 4:21 PM CDT Sexual Orientation Not on file Last Filed Vital Signs Vital Sign Reading Time Taken Comments Blood Pressure 103/59 10/08/2022 10:54 AM CDT Pulse 81 10/08/2022 10:54 AM CDT Temperature 36.8 C (98.2 F) 10/08/2022 10:54 AM CDT Respiratory Rate 20 10/08/2022 10:5 4 AM CDT Oxygen Saturation 98% 10/08/2022 10: 54 AM CDT Inhaled Oxygen Concentration 21% 12:55 PM CDT Weight 98.3 kg (216 lb 11.2 oz) 10/08/2022 6:18 AM CDT Height 165.1 cm (5' 5 ) 10/08/2022 6:18 AM CDT Body Mass Index 36.06 10/08/2022 6:18 AM CDT Plan of Treatment Upcoming Encounters Date Type Department Care Team (Late st Contact Info) Description 12/20/2024 10:30 AM CDT Office Visit [facility] [address] [facility] [place] [address] Phil Pollock MD [address] [place] [address] Health Maintenance Due Date Last Done Comments COLON MONITORING 1970 COLONOSCOPY - COLON CA SCREENING 1970 CT COLONOGRAPHY - COLON CA SCREENING 1970 FIT - COLON CA SCREENING 1970 FLEX SIG - COLON CA SCREENING 1970 MAMMOGRAM 1970 PAP SMEAR 1970 DTAP/TDAP/TD VACCINES (1 - Tdap) 1989 HEPATITIS B VACCINE (1 of 3 - 19+ 3-dose series) 1989 PNEUMOCOCCAL VACCINE 50+ (1 of 2 - PCV) 1989 DIABETES-STATIN 2010 ZOSTER VACCINE (1 of 2) 02/15/2020 DIABETES RETINOPATHY SCREENING 05/08/2021 DIABETES-FOOT EXAM WITH MONOFILAMENT 05/08/2021 DIABETES-HGB A1C 07/03/2021 04/03/2021, 11/26/2020 DIABETES-SERUM CREATININE 10/09/20232022, 03/16/2022, 05/08/2021, Additional history exists COVID-19 VACCINE ( season) 2024 10/22/2020, 09/24/2020 DEPRESSION SCREENING 07/19/2024 DIABETES - URINE PROTEIN SCREENING 07/19/2024 04/03/2021 COLOGUARD (AGES 45-75) - COLON CA SCREENING 09/22/2024 09/22/2021 Colorectal Cancer Screening 09/22/2024 INFLUENZA VACCINE (Season Ended) 2025 02/19/2022, 04/19/2019, 04/12/2018, Additional history exists HEPATITIS C SCREENING Completed 12/07/2020 HIV SCREENING Completed 12/07/2020 HIB VACCINE Aged Out No longer eligi ble based on patient's age to complete this topic HPV VACCINE Aged Out No longer eligi ble based on patient's age to complete this topic MENINGOCOCCAL (Group B) VACCINE SHARED DECISION-MAKING Aged Out No longer eligible based on patient's age to complete this topic MENINGOCOCCAL GROUPS A/C/Y/W VACCINE Aged Out No longer eligible based on patient's age to complete this topic Medical Devices Implanted Type Area Hydrochloric Acid Operator Device Identifier Shelf Expiration Date Model / Serial / Lot Targetxl 360 Soft Detachable Coil Implanted:Qty : 1 on 11/25/2020 at [facility] Left: Carotid 11/04/2022 [id number] / / [id number] Description: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 Pollock. Set Xtrn Babak 35cm 1.9mm 3-15cm Cath Inr Implanted:Qty : 1 on 12/11/2020 by Hiram Hernandez MD at [facility] Left: Cranial Integra [employer]iences 09/15/2021 [id number] / / [id number] Cover Bur Hl 14mmx.4mm Unv Neuro Iii Implanted:Qty : 1 on 12/11/2020 by Hiram Hernandez MD at [facility] Left: Cranial Radhika Craniomaxillofacial [id number] / / Screw 1.5mm 4mm Slf Draneesh Ax Stab Unv Implanted:Qty : 4 on 12/11/2020 by Hiram Hernandez MD at [facility] Left: Cranial Radhika Craniomaxillofacial [id number] / / Surpass Evolve Flow Diverter System Implanted:Qty : 1 on 05/07/2021 at [facility] Left: Carotid 09/15/2023 [id number] / / [id number] Description:Implanted in the Left Internal Carotid Artery by Dr. Pollock. Explanted Type Area Hydrochloric Acid Operator Device Identifier Shelf Expiration Date Model / Serial / Lot Surpass Evolve Flow Diverter System Explanted:Qty: 1 on 05/07/2021 at [facility] Left: Carotid 09/15/2023 [id number] / / [id number] Description:Implanted in the Left Internal Carotid Artery by Dr. Pollock. Procedures Procedure Name Priority Date/Time Associated Diagnosis Comments BASIC METABOLIC PANEL (CALCIUM TOTAL) Routine 10/08/2022 6:37 AM CDT Cerebral aneurysm MICROALB/CREAT RATIO URINE RANDOM PANEL Routine 04/03/2021 9:53 AM CDT HEMOGLOBIN A1C Routine 04/03/2021 2:04 AM CDT EXPOSURE PANEL SOURCE STAT 12/07/2020 9:21 PM CDT SAH (subarachnoid hemorrhage) from Last 3 Months or Most Recently Relevant to Health Maintenance Results * (ABNORMAL) BASIC METABOLIC PANEL (CALCIUM TOTAL) (10/08/2022 6:37 AM CDT) BUN 17 7 - 26 mg/dL 10/08/2022 7:21 AM CDT [facility] Creatinine 0.91 0.56 - 0.96 mg/dL 10/08/2022 7:21 AM [facility] Sodium 142 136 - 145 mmol/L 10/08/2022 7:21 AM [facility] Potassium 4.0 3.5 - 4.5 mmol/L 10/08/2022 7:21 AM [facility] Chloride 108(H) 98 - 107 mmol/L 10/08/2022 7:21 AM [facility] CO2 25 22 - 29 mmol/L 10/08/2022 7:21 AM [facility] Glucose 85 70 - 115 mg/dL 10/08/2022 7:21 AM [facility] Calcium 9.1 8.4 - 10.2 mg/dL 10/08/2022 7:21 AM [facility] Anion Gap 13 8 - 18 10/08/2022 7:21 AM [facility] BUN/Creatinine Ratio 19 7 - 23 10/08/2022 7:21 AM [facility] Osmolality Calculated 295 270 - 300 mOsm/kg 10/08/2022 7:21 AM [facility] eGFR by CKD-EPI 76(L) >=90 mL/min/1.7 3 m2 10/08/2022 7:21 AM [facility] Blood BLOOD SPECIMEN / Unknown Venipuncture / Unknown 10/08/2022 6:37 AM CDT 10/08/2022 6:51 AM T us Jania Dacosta PA-C LAB - CHEMISTRY ORDERABLE S Final Result Performing Organization Address City/State/[facility] Co de Phone Number [facility] [address] [place] [address], [facility] [phone] * MICROALB/CREAT RATIO URINE RANDOM PANEL (04/03/2021 9:53 AM CDT) Albumin Random Urine 12.0 Not Established ug/mL 04/03/2021 10:32 AM [facility] Creatinine Urine 56 Not Established mg/dL 04/03/2021 10:32 AM [facility] Urine Albumin/Creati nine Ratio 21 <30 mg/g 04/03/2021 10:32 AM CDT [facility] Urine URINE SPECIMEN OBTAINED BY CLEAN CATCH PROCEDURE / Unknown Collection / Unknown 04/03/2021 9:53 AM CDT 04/03/2021 9:53 AM CDT us Reji Guzman TENTS ASSEMBLER-INTERNATIONAL FIRST OFFICER LAB - URINE CHEMISTRY ORDE RABMOISES Final Result Performing Organization Address City/[facility]/ZIP Co de Phone Number [address] [address], [facility] [phone] * (ABNORMAL) HEMOGLOBIN A1C (04/03/2021 2:04 AM CDT) Hemoglobin A1c 9.7(H) 4.4 - 6.3 % 04/03/2021 9:31 AM CDT [facility] Estimated Average Glucose 232 mg/dL 04/03/2021 9:31 AM CDT [facility] Comment: HbA1c Interpretation: Treatment target values recommended by ADA and other clinical organizations should be used to evaluate metabolic control in patients. Treatment Target Values: Normal : < 5.7% Pre-diabetes: 5.7-6.4% Diabetes: Equal to or greater than 6.5% Reference: [place] Diabetes Association Standards of Care in Diabetes -2014 In patients 70 years and older consider HbA1c target range of 7.0-7.5% Reference: Diabetes Mellitus in Older People: Position Statement on behalf of the International Association of Gerontology and Geriatrics (IAGG), the Diabetes Working Democrat for Older People (EDWPOP), and the International Task Force of Experts in Diabetes. Seth Maya, et al. J Vincent[place] Medical Directors Association. 2012 Test results diagnostic of diabetes should be repeated for confirmation. The Sebia Capillary 2 assay for the measurement of HbA1c is a National Glycohemoglobin Standardization Program (NGSP)certified method. Blood BLOOD SPECIMEN / Unknown Lab Venipuncture / Unknown 04/03/2021 2:04 AM CDT 04/03/2021 2:58 AM CDT us Luis A Chakraborty MD LAB - CHEMISTRY ORDERABLES Final Result Performing Organization Address City/[facility]/ZIP Co de Phone Number [address] [place] [address], [place] [phone] * EXPOSURE PANEL SOURCE (12/07/2020 9:21 PM CDT) HIV Antigen/Antibody 1 & 2 Non-react stephon Non-reac tive 12/07/2020 11:54 PM CDT [facility] Comment:Neither HIV-1 p24 An tigen nor HIV-1/HIV-2 Antibodies are detected. Hepatitis C Antibody Non-react stephon Non-reac tive 12/07/2020 11:54 PM CDT [facility] Comment:Hepatitis C Antibody screen indicates no serologic evidence of past or current infection with Hepatitis C Virus. Patients with unexplained liver disease who are immunocompromised or suspected of having acute Hepatitis C infection may benefit from Nucleic Acid Test (IDA) for Hepatitis C Viral RNA to confirm Hepatitis C status. Hepatitis B Virus Surface Antigen Non-react stephon Non-reac tive 12/07/2020 11:54 PM CDT [facility] Hepatitis B Core Virus Antibody IgM Non-react stephon Non-reac tive 12/07/2020 11:54 PM CDT [facility] Blood BLOOD SPECIMEN / Unknown Venipuncture / Unknown 12/07/2020 9:21 PM CDT 12/07/2020 10:23 PM CDT Hiram Hernandez MD LAB - CHEMISTRY ORDERABLES F inal Result [facility] [address] [place] [address], [facility] [phone] from Last 3 Months or Most Recently Relevant to Health Maintenance Insurance [facility] [employer] Advance Directives * Full Code (Latest Code Status on File) Date Activated Date Inactivated Comments 05/07/2021 3:57 PM 05/08/2021 12:34 PM * Full Code Date Activated Date Inactivated Comments 04/02/2021 9:31 AM 04/03/2021 1:49 PM * Full Code Date Activated Date Inactivated Comments 12/20/2020 4:28 PM 01/01/2021 2:46 PM * Full Code Date Activated Date Inactivated Comments 11/24/2020 6:40 PM 12/20/2020 4:09 PM * Full Code Date Activated Date Inactivated Comments 11/24/2020 6:15 PM 11/24/2020 6:40 PM Care Teams Lead Machinist Relationship Specialty Start Date End Date Hugo Hinson MD [address] [place] [phone] PCP - General Gastroenterology 04/26/21
--- OUTSIDE RECORDS SUMMARY | 2024-11-23 16:55 | XMS_ITS | Encounter Summary ---
Author Organization [facility] Address [address] [facility] [place] [address] Care Team Providers Care Fur Blowing Machine Operator Name Role Phone Hugo Hinson MD Primary Care Provider [phone] Reason for Visit * Reason Onset Date Comments MEDICATION REFILL 10/02/2024 Encounter Details Date Type Department Care Team (Late st Contact Info) Description 10/02/2024 Refill [facility] [address] [facility], [place] [address] Phil Pollock MD [address] [place] [address] MEDICATION REFILL Social History Tobacco Use Types [...] PM CDT 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
--- OUTSIDE RECORDS SUMMARY | 2024-11-23 16:56 | XMS_ITS | Encounter Summary ---
Author Organization [facility] Health Address [address] [facility] [place] [address] Care Team Providers Care Electronics Maintenance Technician Name Role Phone Kathy Limon MD Primary Care Provider + [phone] Hugo Hinson MD Primary Care Provider + [phone] Encounter Details Date Type Department Care Team (Late st Contact Info) Description 12/23/2011 [facility] Outpatient Visit [facility] DEFAULT [address] [place] [address] Deniz Gastelum MD [address] [facility] [address] [place] [address] Social History Tobacco Use Types Packs/Day Years Used Date Smoking Tobacco: Every Day Cigarettes 0.5 22 Started: 01/31/1987; Last attempted to quit: 01/31/2009 Smokeless Tobacco: Never Alcohol Use Standard Drinks/Week Comments No 0 (1 standard drink = 0.6 oz pur e alcohol) Comments No Sex and Gender Information Value Date Recorded Sex Assigned at Female 04/04/2021 4:21 PM CDT 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 Gender Identity Female 04/04/2021 4:21 PM CDT Sexual Orientation Not on file documented as of this encounter Plan of Treatment Upcoming Encounters Date Type Department Care Team (Late st Contact Info) Description 12/20/2024 10:30 AM CDT Office Visit [facility] [address] [facility], [place] [address] Phil Pollock MD [address] [place] [address] documented as of this encounter Visit Diagnoses Not on filedocumented in this encounter Care Teams Electronics Maintenance Technician Relationship Specialty Start Date End Date Kathy Limon MD [address] [place] [phone] PCP - General 09/11/11 04/25/21 [place] [address] [place] [phone] PCP - General Gastroenterology 04/26/21 documented as of this encounter
--- OUTSIDE RECORDS SUMMARY | 2024-11-23 16:56 | XMS_ITS | Encounter Summary ---
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 No / Unsure 01/28/2021 7:14 AM CDT documented as of this encounter Functional Status * Is person deaf or have serious hearing difficulty? Answer Date of Assessment Author No 12/20/2020 1:10 PM CDT Amita Desai RN * Is person blind or have serious difficulty seeing? Answer Date of Assessment Author Yes 12/20/2020 1:10 PM CDT Amita Desai RN * Does person have serious difficulty walking/climbing stairs? Answer Date of Assessment Author Yes 12/20/2020 1:10 PM CDT Amita Desai RN * Does person have difficulty dressing/bathing? Answer Date of Assessment Author Yes 12/20/2020 1:10 PM CDT Amita Desai RN * Does person have difficulty doing errands alone? Answer Date of Assessment Author Yes 12/20/2020 1:10 PM CDT Amita Desai RN documented as of this encounter Mental Status * Does person have difficulty concentrating/remembering/making decisions? Answer Entry Date Author No 12/20/2020 1:10 PM MIGUELT Amita Desai RN documented in this encounter Plan of Treatment Upcoming Encounters Date Type Department Care Team (Late st Contact Info) Description 12/20/2024 10:30 AM CDT Office Visit [facility] - Neurology [address] [facility] [place], [facility] [place] [address] Phil Pollock MD [address] [place] [address] documented as of this encounter Visit Diagnoses Not on filedocumented in this encounter Care Teams Program Engineer Relationship Specialty Start Date End Date Kathy Limon MD [address] [place] [phone] PCP - General 09/11/11 04/25/21 documented as of this encounter
--- OUTSIDE RECORDS SUMMARY | 2024-11-23 18:25 | XMS_ITS | Encounter Summary ---
Author Organization [facility] Health Address [address] [place] [address] Care Team Providers Care Streetcar Operator Name Role Phone Kathy Limon MD Primary Care Provider + [phone] Hugo Hinson MD Primary Care Provider + [phone] Encounter Details Date Type Department Care Team (Late st Contact Info) Description 12/23/2011 [facility] Outpatient Visit [facility] DEFAULT [address] [place] [address] Deniz Gastelum MD [address] [facility] [address] [place] [address] Social History Tobacco Use Types [...] PM CDT 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 Gender Identity Female 04/04/2021 4:21 PM CDT Sexual Orientation Not on file documented as of this encounter Plan of Treatment Upcoming Encounters Date Type Department Care Team (Late st Contact Info) Description 12/20/2024 10:30 AM CDT Office Visit [facility] [address] [facility], [place] [address] Phil Pollock MD [address] [place] [address] documented as of this encounter Visit Diagnoses Not on filedocumented in this encounter Care Teams Streetcar Operator Relationship Specialty Start Date End Date Kathy Limon MD [address] [place] [phone] PCP - General 09/11/11 04/25/21 [place] [address] [place] [phone] PCP - General Gastroenterology 04/26/21 documented as of this encounter
--- OUTSIDE RECORDS SUMMARY | 2024-11-23 18:25 | XMS_ITS | Encounter Summary ---
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 Gender Identity Female 04/04/2021 4:21 PM CDT [...] Date Author No 12/20/2020 1:10 PM MIGUELT Amtia Desai RN documented in this encounter Plan of Treatment Upcoming Encounters Date Type Department Care Team (Late st Contact Info) Description 12/20/2024 10:30 AM CDT Office Visit [facility] - Neurology [address] [facility] [place] [address] Phil Pollock MD [address] [place] [address] documented as of this encounter Visit Diagnoses Not on filedocumented in this encounter Care Teams Boiler Control Room Operator Relationship Specialty Start Date End Date Kathy Limon MD [address] [place] [phone] PCP - General 09/11/11 04/25/21 documented as of this encounter
--- OUTSIDE RECORDS SUMMARY | 2024-11-23 18:25 | XMS_ITS | Clinical Summary ---
Author Organization [facility] Address [address] [place] [address] Care Team Providers Care Accounting Clerks Supervisor Name Role Phone Unavailable Primary Care Provider [...]
--- OUTSIDE RECORDS SUMMARY | 2024-11-23 18:25 | XMS_ITS | Encounter Summary ---
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
--- OUTSIDE RECORDS SUMMARY | 2024-11-23 18:25 | XMS_ITS | Encounter Summary ---
Author Organization [facility] Address [address] [place] [address] Care Team Providers Care White Sugar Syrup Operator Name Role Phone Hugo Hinson MD Primary Care Provider [phone] Reason for Visit * Reason Onset Date Comments MEDICATION REFILL 09/07/2024 Encounter Details Date Type Department Care Team (Late st Contact Info) Description 09/07/2024 Refill [facility] [address] [facility], [facility] [place] [address] Phil Pollock MD [address] [place] [address] MEDICATION REFILL Social History Tobacco Use Types [...] PM CDT 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
--- OUTSIDE RECORDS SUMMARY | 2024-11-23 18:25 | XMS_ITS | Continuity of Care Document ---
Author Organization [facility]. If a dditional information is needed, contact Health Information Management at [phone] Address [address] [place] [address] Phone Care Team Providers Care Local Coordinator Name Role Phone Unavailable Unavailable Unavailable Unavailable Unavailable Unavailable Unavailable Unavailable Unavailable Unavailable Unavailable Unavailable Unavailable Unavailable Unavailable Problems Long-term current use of insulin Onset:31-Dec-2021 Anastacia Patton NP Comments:Onset Date: 20211231 Tobacco dependence syndrome Onset:30-Dec-2021 Nadia Nieto NP Treatment given Onset:30-Dec-2021 Nadia Nieto NP Chronic back pain Onset:30-Dec-2021 Nadia Nieto NP Depressive disorder Onset:30-Dec-2021 Nadia Nieto NP Hypertensive disorder Onset:30-Dec-2021 Nadia Nieto NP Type 2 diabetes mellitus Onset:30-Dec-2021 Nadia Nieto NP Comments:Onset Date: 20211231 Intracranial aneurysm Onset:30-Dec-2021 Nadia Nieto NP Cerebrovascular accident Onset:30-Dec-2021 Nadia Nieto NP Fracture of pubic rami Onset:30-Dec-2021 Adrián Patton DO Fall Onset:30-Dec-2021 Adrián Patton DO Mental Status Cognitive function finding 31-Dec-2021 Allergies and Adverse Reactions clavulanic acid(Allergy) Onset: 30-Dec-2021 Reaction:RASH-HIVES clarithromycin(Allergy) Onset: 30-Dec-2021 Reaction:RASH-HIVES amoxicillin(Allergy) Onset: 30-Dec-2021 Reaction:RASH-HIVES Medications acetaminophen 325 MG / oxyCO DONE hydrochloride 5 MG Oral Tablet;2 TABLET PO Q6H PRN Start:03-Jan-2022 Comments:2 TAB PO Q6H PRN As Needed for PAIN SCALE 7-10 (SEVERE) glimepiride 4 MG Oral Tablet Start:02-Jan-2022 Admelog Solostar Start:02-Jan-2022 Basaglar;25 UNITS BEDTIME Start:02-Jan-2022 Comments:25 UNITS BEDTIME topiramate 100 MG Oral Table t;200 MILLIGRAM PO BEDTIME Start:30-Dec-2021 Comments:200 MG PO BEDTIME traMADol hydrochloride 50 MG Oral Tablet [Ultram];50 MILLIGRAM PO Q8H PRN Start:30-Dec-2021 Comments:50 MG PO Q8H PRN As Needed for PAIN SCALE 4-6 (MODERATE) aspirin 81 MG Chewable Table t;81 MILLIGRAM PO DAILY Start:30-Dec-2021 Comments:81 MG PO DAILY escitalopram 10 MG Oral Tabl et;10 MILLIGRAM PO DAILY Start:30-Dec-2021 Comments:10 MG PO DAILY clopidogrel 75 MG Oral Table t;75 MILLIGRAM PO DAILY Start:30-Dec-2021 Comments:75 MG PO DAILY lisinopril 10 MG Oral Tablet [Prinivil];10 MILLIGRAM PO DAILY Start:30-Dec-2021 Comments:10 MG PO DAILY pregabalin 50 MG Oral Capsul e;50 MILLIGRAM PO BEDTIME Start:30-Dec-2021 Comments:50 MG PO BEDTIME Social History Smoking Status Smokes tobacco daily Recorded: 31-Dec-2021
--- OUTSIDE RECORDS SUMMARY | 2024-11-23 18:25 | XMS_ITS | Clinical Summary ---
Author Organization [facility] Address [address] [place] [address] Phone Care Team Providers Care Financial Supervisor Name Role Phone Unavailable Primary Care Provider Unavailabl e Encounters Date Type Department Care Team Description 08/28/2024 [facility] [address] [place] [address] Keri Salinas, PAEDIATRIC PHYSIOTHERAPIST, MAURY Lumbar stenosis with neurogenic claudication (Primary [...]
--- OUTSIDE RECORDS SUMMARY | 2024-11-23 18:25 | XMS_ITS | Clinical Summary ---
Author Organization [facility] Address [address] [facility] [place] [address] Care Team Providers Care Fried Cake Maker Name Role Phone Hugo Hinson MD Primary Care Provider [phone] Source Comments [facility],non-owned Affiliates and Associated Physician Practices is amultiple site organization consisting of ambulatory clinics and hospital sitesin [place], [place], [place] and [place]. This disclosure is being madepursuant to the Care Everywhere program and may not contain all information available regarding this patient. 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 Gender Identity Female 04/04/2021 4:21 PM CDT [...] Visit [facility] [address] [facility] [place] [address] Phil Pollock MD [address] [place] [address] Health Maintenance Due Date Last Done Comments [...] this topic Medical Devices Implanted Type Area Remote Sensing Scientist Device Identifier Shelf Expiration Date Model / Serial / Lot Targetxl 360 Soft Detachable Coil Implanted:Qty : 1 on 11/25/2020 at [facility] Left: Carotid 11/04/2022 [id number] / / [id number] Description: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 Pollock. Set Xtrn Babak 35cm 1.9mm 3-15cm Cath Inr Implanted:Qty : 1 on 12/11/2020 by Hiram Hernandez MD at [facility] Left: Cranial Integra Neurosciences 09/15/2021 [id number] / / [id number] Cover Bur Hl 14mmx.4mm Unv Neuro Iii Implanted:Qty : 1 on 12/11/2020 by Hiram Hernandez MD at [facility] Left: Cranial Radhika Craniomaxillofacial [id number] / / Screw 1.5mm 4mm Slf Draneesh Ax Stab Unv Implanted:Qty : 4 on 12/11/2020 by Hiram Hernandez MD at [facility] Left: Cranial Radhika Craniomaxillofacial [id number] / / Surpass Evolve Flow Diverter System Implanted:Qty : 1 on 05/07/2021 at [facility] Left: Carotid 09/15/2023 [id number] / / [id number] Description:Implanted in the Left Internal Carotid Artery by Dr. Pollock. Explanted Type Area Remote Sensing Scientist Device Identifier Shelf Expiration Date Model / Serial / Lot Surpass Evolve Flow Diverter System Explanted:Qty: 1 on 05/07/2021 at [facility] Left: Carotid 09/15/2023 [id number] / / [id number] Description:Implanted in the Left Internal Carotid Artery [...] - 26 mg/dL 10/08/2022 7:21 AM CDT [facility] Creatinine 0.91 0.56 - 0.96 mg/dL 10/08/2022 7:21 AM [facility] Sodium 142 136 - 145 mmol/L 10/08/2022 7:21 AM [facility] Potassium 4.0 3.5 - 4.5 mmol/L 10/08/2022 7:21 AM [facility] Chloride 108(H) 98 - 107 mmol/L 10/08/2022 7:21 AM [facility] CO2 25 22 - 29 mmol/L 10/08/2022 7:21 AM [facility] Glucose 85 70 - 115 mg/dL 10/08/2022 7:21 AM [facility] Calcium 9.1 8.4 - 10.2 mg/dL 10/08/2022 7:21 AM [facility] Anion Gap 13 8 - 18 10/08/2022 7:21 AM [facility] BUN/Creatinine Ratio 19 7 - 23 10/08/2022 7:21 AM [facility] Osmolality Calculated 295 270 - 300 mOsm/kg 10/08/2022 7:21 AM [facility] eGFR by CKD-EPI 76(L) >=90 mL/min/1.7 3 m2 10/08/2022 7:21 AM [facility] Blood BLOOD SPECIMEN / Unknown Venipuncture / Unknown 10/08/2022 6:37 AM CDT 10/08/2022 6:51 AM T us Jania Dacosta PA-C LAB - CHEMISTRY ORDERABLE S Final Result Performing Organization Address City/State/[facility] Co de Phone Number [facility] [address] [place] [address], [facility] [phone] * MICROALB/CREAT RATIO URINE RANDOM PANEL (04/03/2021 9:53 AM CDT) Albumin Random Urine 12.0 Not Established ug/mL 04/03/2021 10:32 AM [facility] Creatinine Urine 56 Not Established mg/dL 04/03/2021 10:32 AM [facility] Urine Albumin/Creati nine Ratio 21 <30 mg/g 04/03/2021 10:32 AM CDT [facility] Urine URINE SPECIMEN OBTAINED BY CLEAN CATCH PROCEDURE / Unknown Collection / Unknown 04/03/2021 9:53 AM CDT 04/03/2021 9:53 AM CDT us Reji Guzman GREASE MONKEY-COMMUNITY DEVELOPMENT OFFICER LAB - URINE CHEMISTRY ORDE RABMOISES Final Result Performing Organization Address City/[facility]/ZIP Co de Phone Number [address] [address], [facility] [phone] * (ABNORMAL) HEMOGLOBIN A1C (04/03/2021 2:04 AM CDT) Hemoglobin A1c 9.7(H) 4.4 - 6.3 % 04/03/2021 9:31 AM CDT [facility] Estimated Average Glucose 232 mg/dL 04/03/2021 9:31 AM CDT [facility] Comment: HbA1c Interpretation: Treatment target values recommended by ADA and other clinical organizations should be used to evaluate metabolic control in patients. Treatment Target Values: Normal : < 5.7% Pre-diabetes: 5.7-6.4% Diabetes: Equal to or greater than 6.5% Reference: [place] [employer] Standards of Care in Diabetes -2014 In patients 70 years and older consider HbA1c target range of 7.0-7.5% Reference: Diabetes Mellitus in Older People: Position Statement on behalf of the International Association of Gerontology and Geriatrics (IAGG), the Diabetes Working Green Party for Older People (EDWPOP), and the International Task Force of Experts in Diabetes. Seth Maya, et al. J [place] Medical Directors Association. 2012 Test results diagnostic of diabetes should be repeated for confirmation. The Sebia Capillary 2 assay for the measurement of HbA1c is a National Glycohemoglobin Standardization Program (NGSP)certified method. Blood BLOOD SPECIMEN / Unknown Lab Venipuncture / Unknown 04/03/2021 2:04 AM CDT 04/03/2021 2:58 AM CDT us Luis A Chakraborty MD LAB - CHEMISTRY ORDERABLES Final Result Performing Organization Address City/[facility]/ZIP Co de Phone Number [address] [place] [address], [place] [phone] * EXPOSURE PANEL SOURCE (12/07/2020 9:21 PM CDT) HIV Antigen/Antibody 1 & 2 Non-react stephon Non-reac tive 12/07/2020 11:54 PM CDT [facility] Comment:Neither HIV-1 p24 An tigen nor HIV-1/HIV-2 Antibodies are detected. Hepatitis C Antibody Non-react stephon Non-reac tive 12/07/2020 11:54 PM CDT [facility] Comment:Hepatitis C Antibody screen indicates no serologic evidence of past or current infection with Hepatitis C Virus. Patients with unexplained liver disease who are immunocompromised or suspected of having acute Hepatitis C infection may benefit from Nucleic Acid Test (IDA) for Hepatitis C Viral RNA to confirm Hepatitis C status. Hepatitis B Virus Surface Antigen Non-react stephon Non-reac tive 12/07/2020 11:54 PM CDT [facility] Hepatitis B Core Virus Antibody IgM Non-react stephon Non-reac tive 12/07/2020 11:54 PM CDT [facility] Blood BLOOD SPECIMEN / Unknown Venipuncture / Unknown 12/07/2020 9:21 PM CDT 12/07/2020 10:23 PM CDT Hiram Hernandez MD LAB - CHEMISTRY ORDERABLES F inal Result [facility] [address] [place] [address], [facility] [phone] from Last 3 Months or Most Recently Relevant to Health Maintenance Insurance [facility] GENERIC Advance Directives * Full [...] 6:15 PM 11/24/2020 6:40 PM Care Teams Fried Cake Maker Relationship Specialty Start Date End Date Hugo Hinson MD [address] [place] [address] PCP - General Gastroenterology 04/26/21
--- OUTSIDE RECORDS SUMMARY | 2024-11-23 18:25 | XMS_ITS | CONTINUITY OF CARE DOCUMENT ---
Author Name feliz piper Address Unknown Organization [facility] Address [address] [facility] [address] [place] [address] Phone [phone] Care Team Providers Care Credit Consultant Name Role Phone Matthew Alvarez MD Unavailable GAB MARCELO Unavailable GAB MARCELO Unavailable PROBLEMS Condition Status Date Provider Notes BRADYCARDIA SINUS-8/11 [facility]OL[facility] SR HR [id number] active ? Matthew Alvarez MD HTN ESSENTIAL active Matthew Alvarez MD OBESITY active Matthew Alvarez MD TOBACCO ABUSE active Matthew Alvarez MD CHEST PAIN-NUC NEG 03/2011 active Matthew barrera MD SLEEP APNEA active Matthew Alvarez MD ENCOUNTERS Date Type Provider Location Encounter Diag nosis - In-person encounter Office Visit Matthew Alvarez MD [facility] CHEST PAIN-NUC NEG 03/2011SLEEP APNEA - In-person encounter Office Visit Matthew Alvarez MD [facility] BRADYCARDIA SINUS-8/11 [facility] HR 119-39CHEST PAIN-NUC NEG 03/2011 - In-person encounter Office Visit Matthew Alvarez MD [facility] BRADYCARDIA SINUS-8/11 HOLTER SR HR [id number] ESSENTIALOBESITYTOBACCO ABUSE VITAL SIGNS Date Observation Value Provider blood pressure, diastolic 76 mm[Hg] Miranda margaret [place] blood pressure, systolic 118 mm[Hg] Lenin dilan [place] pulse rate 59 /min Yan [place] oxygen saturation, oximetry 98 % Yna [place] respiratory rate E&M 16 /min Yan [...] Ulises Gomez RN [facility] 40 MG [id number] active 1 tab every 12 hrs Ulises [...] smoker 10 years or m ore [facility] smoking status Smoker [facility] MENTAL STATUS Date Observation Value Provider assessment [...] Payer name Policy type / Coverage type [facility] ID JACQUELINE MEDICAID (2) Medicaid [id number] TREATMENT PLAN Date Name Performer Test results:118/76 [...]
--- NOTE | 2024-11-23 19:11 | ED_ITS ---
HPI - Wound/Laceration General Chief Complaint: Wound/Laceration <Inés Hamlin APRN - Last Filed: 11/23/24 23:32> Stated Complaint: foot wound <Inés Hamlin APRN - Last Filed: 11/23/24 23:32> Time Seen by Provider: 11/23/24 18:13 <Inés Hamlin APRN - Last Filed: 11/23/24 23:32> History of Present Illness HPI narrative: Patient is a 54-year-old female who presents to the ER with concerns a wound on her right foot. She reports she had a bad pedicure about a month ago and noticed a wound starting on the outer aspect of her right foot afterwards. Patient reports she has been treating the wound with [id number] antibiotic cream. 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 Patient reports she has noticed excessive drainage coming from the site in her pain has increased. She went to urgent care yesterday who did an x-ray and told her she does not have osteomyelitis but needs to come to the ER for further evaluation. Patient reports they gave her a prescription of doxycycline, which she has taken one. She endorses a history of diabetes, hypertension, and a brain aneurysm. Patient reports she takes multiple medications for her diabetes. <Inés Hamlin APRN - Last Filed: 11/23/24 23:32> Related Data Home Medications: Home Medications ?Medication ?Instructions ?Recorded ?Confirmed ?Last Taken ?Type escitalopram oxalate 10 mg tablet 10 mg PO 08/18/19 11/22/24 Unknown History glimepiride 4 mg tablet 4 mg PO DAILY 08/18/19 11/22/24 08/18/19 09:00 History insulin glargine 100 unit/mL (3 50 unit subcut 08/18/19 11/22/24 Unknown History mL) subcutaneous pen (Basaglar Jc U-100 Insulin) lisinopril 2.5 mg tablet 2.5 mg PO DAILY 08/18/19 11/22/24 Unknown History topiramate 100 mg tablet 200 mg PO HS 08/18/19 11/22/24 Unknown History clopidogrel 75 mg tablet 75 mg PO DAILY 07/17/21 11/22/24 Unknown History pregabalin 50 mg capsule 50 mg PO DAILY 08/15/21 11/22/24 Unknown History dulaglutide 1.5 mg/0.5 mL 1.5 mg subcut WEEKLY 11/22/24 11/22/24 Unknown History subcutaneous pen injector (Trulicity) insulin lispro 100 unit/mL 7 unit subcut .with meals 11/22/24 11/22/24 Unknown History subcutaneous pen naloxone 4 mg/actuation nasal 4 mg intranasal Q2M PRN opioid 11/22/24 11/22/24 Unknown History spray (Narcan) overdose sulfamethoxazole 800 1 tablet PO Q12H 11/22/24 11/22/24 Unknown History mg-trimethoprim 160 mg tablet zolpidem 5 mg tablet 5 mg PO HS 11/22/24 11/22/24 Unknown History <Inés Hamlin APRN - Last Filed: 11/23/24 23:32> Allergies/Adverse Reactions: Allergies Allergy/AdvReac Type Severity Reaction Status Date / Time clarithromycin Allergy Mild Unknown Verified 11/22/24 17:35 amoxicillin Allergy Unknown Unknown Verified 11/22/24 17:35 clavulanic acid Allergy Unknown Unknown Verified 11/22/24 17:35 <Inés Hamlin APRN - Last Filed: 11/23/24 23:32> Review of Systems 2 Review of Systems: All systems reviewed & are unremarkable except as noted in HPI and below <Inés Hamlin APRN - Last Filed: 11/23/24 23:32> [facility] Past Medical History Medical History: Medical History (Updated 11/23/24 @ 22:20 by Inés Hamlin APRN) Anxiety with depression Chronic back pain Hypertension Diabetes mellitus GI bleed GERD (gastroesophageal reflux disease) Sleep apnea <Inés Hamlin APRN - Last Filed: 11/23/24 23:32> Surgical History Surgical History: Surgical History History of microdiscectomy History of back surgery History of History of dilation and curettage <Inés Hamlin APRN - Last Filed: 11/23/24 23:32> Family History Family History: Family History Father Malignant neoplasm of prostate Hypertension Diabetes 1.5, managed as type 2 Mother Depression Thyroid disease Other Chronic back pain <Inés Hamlin APRN - Last Filed: 11/23/24 23:32> Social History Social History: Social History Social History: Patient lives at home with her daughter and mother, Gracy, whom she designates as her surrogate MDM. She works at [employer]. Her PCP is Shirley Sena currently but is in the process of changing providers due to insurance reasons. She wishes to be a Full Code Smoking packs per day: 0.5 Smoking cigarettes per day: 10.0 Years smoked: 29 Smoking pack-years: 14.50 Smoking status: Current every day smoker Tobacco type: cigarettes Alcohol intake: former Drinks per week: 10 Substance use type: painkillers Gender identity (if verbalized by the patient): Male Spiritual care concerns: No Agree to blood products: Yes <Inés Hamlin APRN - Last Filed: 11/23/24 23:32> Exam 2 Narrative: GENERAL: Well appearing, well-nourished, non-toxic, in no acute distress. HEAD: Normocephalic, atraumatic. NECK: Supple. No adenopathy, no masses. RESPIRATORY: Airway patent, respirations nonlabored. Clear to auscultation bilaterally, no rales, rhonchi, wheezing. CARDIOVASCULAR: Regular rate and rhythm without murmurs, rubs, or gallops. Peripheral pulses 2+ and equal bilaterally. ABDOMINAL: Soft, nontender, nondistended, no hepatosplenomegaly. Normoactive BS. MUSCULOSKELETAL: Moves all extremities. Strength/ROM intact without gross deformities. SKIN: Warm, dry, normal color. No rashes. Quarter-sized open, full-thickness, draining wound, possible areas of necrosis NEURO: A&O X3. Speech clear. Cranial nerves II-XII intact. No ataxic movements. PSYCHIATRIC: Appropriate mood and affect. Normal interaction. <Inés Hamlin APRN - Last Filed: 11/23/24 23:32> Course TRANSPORTATION PLANNING TECHNICIAN/PA Physician Supervision I agree with midlevel documentation; I performed the medical decision making component of this evaluation. I had independent [id number] time with the patient and performed my own independent evaluation and assessment. Patient will be admitted for diabetic foot wound with IV antibiotic treatment. General surgery on consult. Hospitalist service primary for admission. Patient has normal vital signs here and does not have a leukocytosis. X-ray does not show significant findings or concerns for osteo. EKG shows sinus rhythm. Patient is safe and stable for admission to the hospital this time. <Paolo Hillman MD - Last Filed: 11/23/24 23:42> Vital Signs Vital signs: Vital Signs Temperature 36.6 C 11/23/24 16:58 Pulse Rate 90 11/23/24 16:58 Respiratory Rate 16 11/23/24 16:58 Blood Pressure 131/65 11/23/24 16:58 Pulse Oximetry 100 11/23/24 16:58 Temperature 36.6 C 11/23/24 16:58 Pulse Rate 90 11/23/24 16:58 Respiratory Rate 16 11/23/24 16:58 Blood Pressure 131/65 11/23/24 16:58 Pulse Oximetry 100 11/23/24 16:58 <Inés Hamlin APRN - Last Filed: 11/23/24 23:32> Vital Signs Temperature 36.6 C 11/23/24 16:58 Pulse Rate 90 11/23/24 16:58 Respiratory Rate 16 11/23/24 16:58 Blood Pressure 131/65 11/23/24 16:58 Pulse Oximetry 100 11/23/24 16:58 Temperature 36.6 C 11/23/24 16:58 Pulse Rate 90 11/23/24 16:58 Respiratory Rate 16 11/23/24 16:58 Blood Pressure 131/65 11/23/24 16:58 Pulse Oximetry 100 11/23/24 16:58 <Paolo Hillman MD - Last Filed: 11/23/24 23:42> MDM - Wound/Laceration MDM Narrative Medical decision making narrative: Patient is a 54-year-old female who presents to the ER with concerns a wound on her right foot. She reports she had a bad pedicure about a month ago and noticed a wound starting on the outer aspect of her right foot afterwards. Patient reports she has been treating the wound with axvh-wwf-lbyzhri antibiotic cream. 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 Patient reports she has noticed excessive drainage coming from the site in her pain has increased. She went to urgent care yesterday who did an x-ray and told her she does not have osteomyelitis but needs to come to the ER for further evaluation. Patient reports they gave her a prescription of doxycycline, which she has taken one. She endorses a history of diabetes, hypertension, and a brain aneurysm. Patient reports she takes multiple medications for her diabetes. Labs Ordered: CBC, CMP, lactic acid, PTT, INR, blood cultures, CRP, ESR, procalcitonin Imaging Ordered: Right foot x-ray Medications Ordered: 1 L normal saline IV bolus, morphine 4 mg IV, vancomycin IV, Flagyl IV, cefepime IV Results: Patient's right foot x-ray indicates No acute fracture or dislocation is appreciated. No significant degenerative disease is noted. The base of the fifth metatarsal is intact. No calcaneal spur is noted. Soft tissue deformity the level of the distal fifth metatarsal. No cortical abnormality is demonstrated, unchanged from previous examination performed less than 24 hours earlier. Forefoot soft tissue swelling is also now present. Diagnosis: Right foot diabetic ulcer Consults: General surgery Patient Education/Shared MDM: Results of lab work and imaging shared with patient. She endorses improvement of symptoms following medication administration. It was advised patient be admitted to the hospital for further IV antibiotic treatment and surgery consult. Patient verbalizes understanding and is in agreement with plan. 2199-spoke with hospitalist, Dr. Tobar, who was in agreement with plan to admit patient to hospital. She will be admitted to the med/surg floor. 2300-Pt's blood sugar was 56. It was advised pt should drink some juice and eat some food. Will recheck sugar in 1/2 hour. <Inés Hamlin APRN - Last Filed: 11/23/24 23:32> Differential Diagnosis Differential diagnosis: Likely abscess, avulsion of skin and other (Diabetic ulcer, osteomyelitis) <Inés Hamlin APRN - Last Filed: 11/23/24 23:32> Lab Data Attestation: I reviewed the patient's lab results. <Inés Hamlin APRN - Last Filed: 11/23/24 23:32> Result diagrams: 11/23/24 19:23 11/23/24 19:23 <Inés Hamlin, RESIDENTIAL AIDE - Last Filed: 11/23/24 23:32> Labs: Lab Results 11/23/24 Range/Units 19:23 WBC 8.8 (4.5-10.0) K/mm3 RBC 3.98 L (4.2-5.4) M/mm3 Hgb 13.0 (12.0-15.0) g/dL Hct 40.8 (37.0-47.0) % MCV 102.5 H (80-100) fl MCH 32.7 (26-34) pg MCHC 31.9 L (32-36) g/dl RDW 12.8 (11.5-14.5) % Plt Count 220 (150-375) k/mm3 MPV 10.6 H (7.4-10.4) fl Immature Gran % (Auto) 0.5 (0-0.5) % Neut % (Auto) 62.1 (45.5-73.1) % Lymph % (Auto) 29.6 (18.3-44.2) % [place] % (Auto) 5.4 (2.6-8.5) % Eos % (Auto) 1.8 (0-4.4) % Baso % (Auto) 0.6 (0.2-1.2) % Lymph # (Auto) 2.61 (0.9-3.2) K/mm3 [place] # (Auto) 0.5 (0.1-0.6) K/mm3 Eos # (Auto) 0.2 (0-0.3) K/mm3 Baso # (Auto) 0.1 (0.0-0.1) K/mm3 Abs Immat Gran (auto) 0.04 H (0.00-0.031) K/mm3 Absolute Neuts (auto) 5.5 (1.3-6.7) K/mm3 Absolute Nucleated RBC 0.000 (0.0-0.012) K/mm3 Nucleated RBC % 0.0 (0.0-0.2) % ESR 76 H (0-20) mm/hr PT 14.3 (11.1-14.7) Seconds INR 1.1 APTT 33.9 (22.3-36.8) Seconds Sodium 138 (137-145) mmol/L Potassium 4.2 (3.4-5.0) mmol/L Chloride 108 H (98-107) mmol/L Carbon Dioxide 21 L (22-30) mmol/L Anion Gap 9 (4-12) mmol/L BUN 24 H D (7-17) mg/dL Creatinine 1.19 H (0.7-1.0) mg/dL Estim Creat Clear Calc 57 ml/min Estimated GFR 47 L (59 - ) Glucose 66 (65-110) mg/dL Lactic Acid 1.1 (0.7-2.0) mmol/L Calcium 9.3 (8.4-10.2) mg/dL Total Bilirubin 0.4 (0.2-1.3) mg/dL AST 32 (14-36) U/L ALT 24 (6-35) U/L Alkaline Phosphatase 104 (38-126) U/L Troponin I < 0.012 (0.000-0.034) ng/mL C-Reactive Protein 6.7 H (<1.0) mg/dL Total Protein 8.0 (6.3-8.2) g/dL Albumin 4.2 (3.5-5.1) g/dL Procalcitonin 0.1 ng/mL <Inés Hamlin, RESIDENTIAL AIDE - Last Filed: 11/23/24 23:32> Lab Results 11/23/24 Range/Units 19:23 WBC 8.8 (4.5-10.0) K/mm3 RBC 3.98 L (4.2-5.4) M/mm3 Hgb 13.0 (12.0-15.0) g/dL Hct 40.8 (37.0-47.0) % MCV 102.5 H (80-100) fl MCH 32.7 (26-34) pg MCHC 31.9 L (32-36) g/dl RDW 12.8 (11.5-14.5) % Plt Count 220 (150-375) k/mm3 MPV 10.6 H (7.4-10.4) fl Immature Gran % (Auto) 0.5 (0-0.5) % Neut % (Auto) 62.1 (45.5-73.1) % Lymph % (Auto) 29.6 (18.3-44.2) % [place] % (Auto) 5.4 (2.6-8.5) % Eos % (Auto) 1.8 (0-4.4) % Baso % (Auto) 0.6 (0.2-1.2) % Lymph # (Auto) 2.61 (0.9-3.2) K/mm3 [place] # (Auto) 0.5 (0.1-0.6) K/mm3 Eos # (Auto) 0.2 (0-0.3) K/mm3 Baso # (Auto) 0.1 (0.0-0.1) K/mm3 Abs Immat Gran (auto) 0.04 H (0.00-0.031) K/mm3 Absolute Neuts (auto) 5.5 (1.3-6.7) K/mm3 Absolute Nucleated RBC 0.000 (0.0-0.012) K/mm3 Nucleated RBC % 0.0 (0.0-0.2) % ESR 76 H (0-20) mm/hr PT 14.3 (11.1-14.7) Seconds INR 1.1 APTT 33.9 (22.3-36.8) Seconds Sodium 138 (137-145) mmol/L Potassium 4.2 (3.4-5.0) mmol/L Chloride 108 H (98-107) mmol/L Carbon Dioxide 21 L (22-30) mmol/L Anion Gap 9 (4-12) mmol/L BUN 24 H D (7-17) mg/dL Creatinine 1.19 H (0.7-1.0) mg/dL Estim Creat Clear Calc 57 ml/min Estimated GFR 47 L (59 - ) Glucose 66 (65-110) mg/dL Lactic Acid 1.1 (0.7-2.0) mmol/L Calcium 9.3 (8.4-10.2) mg/dL Total Bilirubin 0.4 (0.2-1.3) mg/dL AST 32 (14-36) U/L ALT 24 (6-35) U/L Alkaline Phosphatase 104 (38-126) U/L Troponin I < 0.012 (0.000-0.034) ng/mL C-Reactive Protein 6.7 H (<1.0) mg/dL Total Protein 8.0 (6.3-8.2) g/dL Albumin 4.2 (3.5-5.1) g/dL Procalcitonin 0.1 ng/mL <Paolo Hillman MD - Last Filed: 11/23/24 23:42> Imaging Data Attestation: I personally reviewed and interpreted this imaging study as follows: < Inés Hamlin APRN - Last Filed: 11/23/24 23:32> Radiologist's impression: Impressions Foot X-Ray 11/23/24 19:55 IMPRESSION: No cortical abnormality, unchanged from examination performed less than 24 hours earlier. <Inés Hamlin APRN - Last Filed: 11/23/24 23:32> Discharge Plan Discharge Clinical Impression: Diabetic ulcer of right foot, Ulcer of right foot due to type 2 diabetes mellitus <Inés Hamlin APRN - Last Filed: 11/23/24 23:32> Patient Disposition: Still a Patient <Inés Hamlin APRN - Last Filed: 11/23/24 23:32> Condition: Stable <Inés Hamlin APRN - Last Filed: 11/23/24 23:32>
--- NOTE | 2024-11-23 19:11 | ECG_ITS ---
Test Date: 2024-11-23 20:31:08 Measurements Intervals [place] Rate: 69 P: 55 NV: 173 QRS: 62 QRSD: 83 T: 57 QT: 420 QTc: 451 Interpretive Statements SINUS RHYTHM LOW QRS VOLTAGE IN PRECORDIAL LEADS [QRS DEFLECTION < 1.0 mV IN CHEST LEADS] No previous ECG available for comparison Electronically Signed On 11-24-2024 12:09:45 CDT by Yang Melendez M.D.
[2024-11-23 19:30] LABS: Basophils Absolute Auto 0.1 K/mm3 (0.0-0.1); Basophils Percent Auto 0.6 % (0.2-1.2); Eosinophils Absolute Auto 0.2 K/mm3 (0-0.3); Eosinophils Percent Auto 1.8 % (0-4.4); Hematocrit 40.8 % (37.0-47.0); Immature Granulocyte Absolute 0.04 K/mm3 (0.00-0.031); Immature Granulocyte Percent A 0.5 % (0-0.5); Lymphocytes Absolute Auto 2.61 K/mm3 (0.9-3.2); Lymphocytes Percent Auto 29.6 % (18.3-44.2); Mean Corpuscular HGB Conc 31.9 g/dl (32-36); Mean Corpuscular Hemoglobin 32.7 pg (26-34); Mean Corpuscular Volume 102.5 fl (80-100); Mean Platelet Volume 10.6 fl (7.4-10.4); Monocytes Absolute Auto 0.5 K/mm3 (0.1-0.6); Monocytes Percent Auto 5.4 % (2.6-8.5); Neutrophils Absolute Auto 5.5 K/mm3 (1.3-6.7); Neutrophils Percent Auto 62.1 % (45.5-73.1); Platelet Count Result 220 k/mm3 (150-375); Red Blood Count 3.98 M/mm3 (4.2-5.4); Red Cell Distribution Width 12.8 % (11.5-14.5); White Blood Count 8.8 K/mm3 (4.5-10.0)
[2024-11-23 19:41] LABS: Lactic Acid Reflex 1.1 mmol/L (0.7-2.0)
[2024-11-23 19:43] LABS: Alanine Aminotransferase 24 U/L (6-35); Albumin Level 4.2 g/dL (3.5-5.1); Alkaline Phosphatase 104 U/L (38-126); Anion Gap 9 mmol/L (4-12); Aspartate Amino Transferase 32 U/L (14-36); Bilirubin,Total 0.4 mg/dL (0.2-1.3); Blood Urea Nitrogen 24 mg/dL (7-17); CRP 6.7 mg/dL (<1.0); Calcium 9.3 mg/dL (8.4-10.2); Carbon Dioxide 21 mmol/L (22-30); Chloride 108 mmol/L (98-107); Estimated CRCL calculation 57 ml/min; Estimated Glomerular Filt Rate 47; Glucose 66 mg/dL (65-110); Potassium 4.2 mmol/L (3.4-5.0); Sodium 138 mmol/L (137-145)
[2024-11-23 19:46] LABS: INR 1.1; Prothrombin Time 14.3 Seconds (11.1-14.7)
[2024-11-23 20:01] LABS: Erythrocyte Sedimentation Rate 76 mm/hr (0-20)
--- NOTE | 2024-11-23 20:02 | PC.NURSE ---
2nd set of blood cultures obtained with iv insertion using kurin device. Blood and kurin label sent to lab in bio bag.
[2024-11-23] MEDS: SODIUM CHLORIDE 0.9% IV 1,000 ML 999 ML IV CONT ×3 (20:03→20:05)
[2024-11-23] MEDS: metroNIDAZOLE 500 MG/ISO 100ML 500 MG/100 ML BAG 100 MG IVPB (20:04)
[2024-11-23] MEDS: SODIUM CHLORIDE 0.9% IV 100 ML 999 ML IV CONT (20:05)
[2024-11-23 20:10] LABS: Troponin I < 0.012 ng/mL (0.000-0.034)
[2024-11-23 20:28] LABS: Partial Thromboplastin Time 33.9 Seconds (22.3-36.8)
[2024-11-23] MEDS: MORPHINE SULFATE (*CRX) 4 MG/ML INJ IV PUSH (22:31)
[2024-11-23 22:41] LABS: Procalcitonin 0.1 ng/mL
[2024-11-23] MEDS: VANCOMYCIN 1,250 MG/NS 250 ML 1,250 MG/250 ML BAG 166.67 MG IVPB (22:44)
--- NOTE | 2024-11-23 23:17 | PC.NURSE ---
pt given 2 cookies and juice for bs 56
[2024-11-23 23:24] LABS: Glucose Point of Care 56 mg/dl (65-105)
[2024-11-23 23:56] LABS: Glucose Point of Care 48 mg/dl (65-105)
[2024-11-23] MEDS: DEXTROSE 50% 25 GM/50 ML SYRINGE IV PUSH (23:57)
[2024-11-24] VITALS (7 sets, daily range): BP systolic 114–147; BP diastolic 47–76; PULSE 65–77; RESP 13–21; TEMP 36.1–36.7; O2SAT 94–100; BMI 37.0
[2024-11-24 00:21] LABS: Glucose Point of Care 160 mg/dl (65-105)
[2024-11-24 00:49] LABS: Glucose Point of Care 133 mg/dl (65-105)
[2024-11-24] MEDS: ONDANSETRON INJ 4 MG/2 ML VIAL IV PUSH (01:01)
[2024-11-24] MEDS: MORPHINE SULFATE (*CRX) 2 MG/ML INJ IV PUSH ×2 (01:02→22:01)
[2024-11-24] MEDS: VANCOMYCIN 1,250 MG/NS 250 ML 1,250 MG/250 ML BAG 166.67 MG IVPB (01:03)
--- NOTE | 2024-11-24 01:20 | ADMGEN ---
This patient, Jeane Garcia, was admitted to [facility] Surg Room 332-01. Patient/family oriented to hospital policies and general routines including ID bracelet, bed and alarms, visiting hours, pain management, procedures, bathroom and other care routines, personal items, smoking policy, room service/diet, and visiting hours. Information on how to activate the Rapid Response Team has been discussed. Patient/Family are encouraged to report perceived risks to care and to ask questions if they do not understand what they are told or what they should do.
--- NOTE | 2024-11-24 05:00 | PM.IMHP ---
H&P: HPI History of Present Illness Date/Time: 11/24/24 05:00 Chief Complaint: Worsening foot wound Narrative: This note was entered as a late entry. 54-year-old female with a past medical history of type 2 diabetes mellitus, peripheral neuropathy, essential hypertension, GERD and obstructive sleep apnea who presented to the ER with worsening foot wound. The patient reports she had a pedicure about a month ago and about a week after pedicure developed a blister to the lateral right foot at the distal 5th metatarsal. The blister popped after few days and went from a small open area with serous drainage to a larger wound. The wound continued to get more painful despite during triple antibiotic ointment it was getting larger. She denied any shiraz purulence from the area but was having increased odor to the wound. She went to urgent care prior to coming to the ER and was given prescription for doxycycline she only took 1 dose of doxycycline prior to coming to the ER in the evening. On arrival to the ER the patient's wound had multiple pieces of dark fabric and strings within the wound. 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 She had call off from work due to the pain in her foot. X-ray with urgent care demonstrated no evidence of osteomyelitis. X-ray was personally reviewed. She denies any fevers or chills. She reports that the foot at causing pain and an 8/10 in intensity when she stands on it the pain is more sharp when she is off of the foot is more aching in nature. Review of Systems Review of Systems: 12 systems were reviewed with pertinent positives and negatives per HPI. Except as documented in the HPI, all other systems were reviewed and are negative. [facility] Past Medical History Medical History Intracranial aneurysm Anxiety with depression Chronic back pain Hypertension Diabetes mellitus GI bleed GERD (gastroesophageal reflux disease) Sleep apnea Surgical History Surgical History History of microdiscectomy History of back surgery History of History of dilation and curettage Family History Family History Father Malignant neoplasm of prostate Hypertension Diabetes 1.5, managed as type 2 Mother Depression Thyroid disease Other Chronic back pain Social History Social History (Updated 11/27/24 @ 09:04 by Julieta Tobar DO) Social History: Patient lives at home with her daughter and mother, Gracy, whom she designates as her surrogate MDM. She works at [employer]. She has smoked a half a pack of cigarettes per day since she was a teenager. Her PCP is Shirley Sena currently but is in the process of changing providers due to insurance reasons. She wishes to be a Full Code Smoking packs per day: 0.5 Smoking cigarettes per day: 10.0 Years smoked: 29 Smoking pack-years: 14.50 Smoking status: Current every day smoker Alcohol intake: former Drinks per week: 10 Substance use type: painkillers Do You Feel Safe in your Home?: Yes Lack of Transportation: No Lack of Food: Never True Current Housing: I Have Housing Concerned About Future Housing: No Difficulty Paying Gas/Electric Bills: No Difficulty Paying for Meds: No Currently Unemployed: No Education: High School Diploma/GED Difficulty w/ Childcare or Family Care: No Gender identity (if verbalized by the patient): Male Spiritual care concerns: No Agree to blood products: Yes Meds Home Medications and Allergies Home Medications ?Medication ?Instructions ?Recorded ?Confirmed ?Type escitalopram oxalate 10 mg tablet 10 mg PO HS 08/18/19 11/24/24 History glimepiride 4 mg tablet 4 mg PO DAILY 08/18/19 11/24/24 History insulin glargine 100 unit/mL (3 50 unit subcut HS 08/18/19 11/24/24 History mL) subcutaneous pen (Basaglar KwikPen U-100 Insulin) lisinopril 2.5 mg tablet 2.5 mg PO DAILY 08/18/19 11/24/24 History topiramate 100 mg tablet 200 mg PO HS 08/18/19 11/24/24 History aspirin 81 mg tablet,delayed 81 mg PO DAILY #60 tabs 08/19/19 11/24/24 Rx release (Adult Low Dose Aspirin) clopidogrel 75 mg tablet 75 mg PO DAILY 07/17/21 11/24/24 History pregabalin 50 mg capsule 50 mg PO DAILY 08/15/21 11/24/24 History doxycycline hyclate 100 mg tablet 100 mg PO BID 10 days #20 tabs 05/07/25 05/09/25 Rx dulaglutide 1.5 mg/0.5 mL 1.5 mg subcut WEEKLY 11/22/24 11/24/24 History subcutaneous pen injector (Trulicity) insulin lispro 100 unit/mL 7 unit subcut .with meals 11/22/24 11/24/24 History subcutaneous pen naloxone 4 mg/actuation nasal 4 mg intranasal Q2M PRN opioid 11/22/24 11/24/24 History spray (Narcan) overdose zolpidem 5 mg tablet 5 mg PO HS 11/22/24 11/24/24 History oxycodone-acetaminophen 5 mg-325 1 tablet PO BID PRN pain 11/24/24 11/24/24 History mg tablet Allergies Allergy/AdvReac Type Severity Reaction Status Date / Time clarithromycin Allergy Mild Unknown Verified 11/22/24 17:35 amoxicillin Allergy Unknown Unknown Verified 11/22/24 17:35 clavulanic acid Allergy Unknown Unknown Verified 11/22/24 17:35 Vital Signs Afebrile T-max 97.9? blood pressure 121/59 pulse 77 respiratory rate 14 pulse ox 100% on room air Exam Narrative: Weight 101 kg BMI 37.1 Const: Other: No acute distress, obese, appears older than stated age HENMT: Other: Over 20 piercings in each ear, mucous membranes are tacky, no oral pharyngeal erythema, crowded posterior oropharynx Eyes: Other: Pupils are equal and reactive, no scleral icterus Neck: Other: Large neck circumference, trachea midline Resp: Other: Decreased breath sounds bilaterally, no increased work of breathing GI: Other: Soft, obese, positive bowel sounds Skin: Other: Tanned, non jaundice, foot wound to the lateral right foot with serous drainage muscle layer exposed, no surrounding erythema but some shallow necrotic tissue at the edges Neuro: Other: Alert oriented, speech is clear, no facial asymmetry Extrem: Other: Foot 1 noted to right foot at the distal 5th metatarsal as discussed above, no clubbing, no cyanosis Psych: Other: Fair judgment and insight H&P: Results Labs Labs: CBC: WBC 5.9 hemoglobin 11.1 MCV 105.6 platelet count 168 normal differential Electrolyte panel: Sodium 141 potassium 4.1 chloride 114 CO2 22 BUN 17 creatinine 0.89 glucose 121 Coag panel PT 14.3 INR 1.1 PTT 33.9 Blood cultures obtained and are pending Imaging reviewed as discussed under HPI Assessment and Plan Assessment and plan (1) Diabetic ulcer of right foot: Qualifiers: Diabetes mellitus type: type 2 Diabetic foot ulcer location: midfoot Non-pressure ulcer stage: with muscle involvement without evidence of necrosis Qualified Code(s): E11.621 - Type 2 diabetes mellitus with foot ulcer; L97.415 - Non-pressure chronic ulcer of right heel and midfoot with muscle involvement without evidence of necrosis Code(s): E11.621 - Type 2 diabetes mellitus with foot ulcer; L97.519 - Non-pressure chronic ulcer of other part of right foot with unspecified severity Status: Acute (2) Ulcer of right foot due to type 2 diabetes mellitus: Code(s): E11.621 - Type 2 diabetes mellitus with foot ulcer; L97.519 - Non-pressure chronic ulcer of other part of right foot with unspecified severity Status: Acute Plan Patient has diabetic foot ulcer with increasing size of the wound and pain. There appears to be some necrotic subcutaneous tissue without necrosis of the muscle. Will consult General surgery for recommendations as this may need debrided. Will place on empiric antibiotic therapy. Will await blood cultures. Will aim for good diabetes control. Patient reports good glucose management at home. Will continue home insulin therapy with dose decreased by 10% due to hospitalization with addition of sliding scale insulin and mealtime bolus insulin. Accu-Cheks a.c. HS. Patient has been admitted as observation status. Quality VTE Prophylaxis VTE prophylaxis: pharmacologic ordered (Lovenox 40 mg subQ daily.) Hospitalist [facility] Advance Care Plan I have confirmed that the patient's Advanced Care Plan is present, code status is documented, or surrogate decision maker is listed in patient medical record.: Yes Medication Reconciliation I have utilized all available resources to obtain, update and review the patients current medications (includes all prescriptions, OTC, herbals, cannabis, and nutritional supplements).: Yes
[2024-11-24 06:15] LABS: Basophils Percent Auto 0.7 % (0.2-1.2); Eosinophils Absolute Auto 0.1 K/mm3 (0-0.3); Eosinophils Percent Auto 2.4 % (0-4.4); Hematocrit 35.8 % (37.0-47.0); Hemoglobin 11.1 g/dL (12.0-15.0); Immature Granulocyte Absolute 0.02 K/mm3 (0.00-0.031); Immature Granulocyte Percent A 0.3 % (0-0.5); Lymphocytes Absolute Auto 2.41 K/mm3 (0.9-3.2); Lymphocytes Percent Auto 40.7 % (18.3-44.2); Mean Corpuscular Hemoglobin 32.7 pg (26-34); Mean Corpuscular Volume 105.6 fl (80-100); Monocytes Absolute Auto 0.6 K/mm3 (0.1-0.6); Monocytes Percent Auto 9.5 % (2.6-8.5); Neutrophils Absolute Auto 2.8 K/mm3 (1.3-6.7); Neutrophils Percent Auto 46.4 % (45.5-73.1); Platelet Count Result 168 k/mm3 (150-375); Red Blood Count 3.39 M/mm3 (4.2-5.4); Red Cell Distribution Width 12.9 % (11.5-14.5); White Blood Count 5.9 K/mm3 (4.5-10.0)
[2024-11-24 06:24] LABS: Anion Gap 5 mmol/L (4-12); Blood Urea Nitrogen 17 mg/dL (7-17); Carbon Dioxide 22 mmol/L (22-30); Chloride 114 mmol/L (98-107); Estimated CRCL calculation 75 ml/min; Estimated Glomerular Filt Rate > 60; Glucose 99 mg/dL (65-110); Potassium 4.7 mmol/L (3.4-5.0); Sodium 141 mmol/L (137-145)
[2024-11-24 06:42] LABS: Band Neutrophils Percent 0 % (0-6); Macrocytosis 1+ (NORMAL); Platelet Estimate Adequate (Adequate); Schistocytes None Seen
[2024-11-24 07:29] LABS: Folic Acid 4.1 ng/mL (2.76->20)
[2024-11-24 07:58] LABS: Glucose Point of Care 121 mg/dl (65-105)
--- NOTE | 2024-11-24 08:35 | ECG_ITS ---
Test Date: 2024-11-23 23:15:50 Measurements Intervals [place] Rate: 71 P: 48 ND: 220 QRS: 52 QRSD: 81 T: 43 QT: 390 QTc: 424 Interpretive Statements SINUS RHYTHM WITH FIRST DEGREE AV BLOCK LOW QRS VOLTAGE IN PRECORDIAL LEADS [QRS DEFLECTION < 1.0 mV IN CHEST LEADS] POSSIBLE ANTERIOR MYOCARDIAL INFARCTION , PROBABLY OLD [30 ms Q WAVE IN V3/V4, OR R < 0.2 mV IN V4] Compared to ECG 11/23/2024 20:31:08 NO SIGNIFICANT CHANGES Electronically Signed On 11-24-2024 12:12:08 CDT by Yang Melendez M.D.
[2024-11-24] MEDS: PREGABALIN (*CRX) 50 MG CAPSULE PO (09:11)
[2024-11-24] MEDS: lisinopriL 2.5 MG TABLET PO (09:11)
[2024-11-24] MEDS: CLOPIDOGREL BISULFATE 75 MG TABLET PO (09:11)
[2024-11-24] MEDS: ASPIRIN 81 MG ENTERIC TABLET PO (09:11)
[2024-11-24] MEDS: GLIMEPIRIDE 2 MG TABLET 4 MG PO (09:11)
[2024-11-24] MEDS: oxyCODONE/ACETAMINOPHEN (*CRX) 5-325 MG TABLET 1 TABLET PO ×2 (09:16→20:55)
--- NOTE | 2024-11-24 10:43 | PM.CNGS ---
Assessment and Plan Assessment and plan (1) Diabetic ulcer of right foot: Code(s): E11.621 - Type 2 diabetes mellitus with foot ulcer; L97.519 - Non-pressure chronic ulcer of other part of right foot with unspecified severity Status: Acute Assessment and Plan: wound seems to be stable and dry, continue local wound care, no acute surgical indications at this time, will need referral to director of manufacturing as outpatient (2) Diabetes mellitus: Code(s): E11.9 - Type 2 diabetes mellitus without complications Status: Acute Assessment and Plan: continue tight blood sugar control History of Present Illness Consult details Consult date: 11/24/24 Reason for consult: wound care Requesting physician: Julieta Tobar DO Narrative: The patient is a 54-year-old female with multiple medical issues, including diabetes, neuropathy, presenting to the hospital with a nonhealing right foot wound. The patient reports that the wound started after a pedicure about a month ago. She reports that the wound was initially quite small and she was treating Neosporin. She reports that the wound has progressive gotten bigger and more painful. The patient also noted some drainage over the last few days. The patient denies any systemic symptoms. Review of Systems Review of Systems: All systems reviewed & are unremarkable except as noted in HPI and below PMFSH Past Medical History Medical History Anxiety with depression Chronic back pain Hypertension Diabetes mellitus GI bleed GERD (gastroesophageal reflux disease) Sleep apnea Surgical History Surgical History History of microdiscectomy History of back surgery History of History of dilation and curettage Family History Family History Father Malignant neoplasm of prostate Hypertension Diabetes 1.5, managed as type 2 Mother Depression Thyroid disease Other Chronic back pain Social History Social History Social History: Patient lives at home with her daughter and mother, Gracy, whom she designates as her surrogate MDM. She works at [employer]. Her PCP is Shirley Sena currently but is in the process of changing providers due to insurance reasons. She wishes to be a Full Code Smoking packs per day: 0.5 Smoking cigarettes per day: 10.0 Years smoked: 29 Smoking pack-years: 14.50 Smoking status: Current every day smoker Alcohol intake: former Drinks per week: 10 Substance use type: painkillers Do You Feel Safe in your Home?: Yes Lack of Transportation: No Lack of Food: Never True Current Housing: I Have Housing Concerned About Future Housing: No Difficulty Paying Gas/Electric Bills: No Difficulty Paying for Meds: No Currently Unemployed: No Education: High School Diploma/GED Difficulty w/ Childcare or Family Care: No Gender identity (if verbalized by the patient): Male Spiritual care concerns: No Agree to blood products: Yes Meds Home Medications and Allergies Home Medications ?Medication ?Instructions ?Recorded ?Confirmed ?Type escitalopram oxalate 10 mg tablet 10 mg PO HS 08/18/19 11/24/24 History glimepiride 4 mg tablet 4 mg PO DAILY 08/18/19 11/24/24 History insulin glargine 100 unit/mL (3 50 unit subcut HS 08/18/19 11/24/24 History mL) subcutaneous pen (Basaglar KwikPen U-100 Insulin) lisinopril 2.5 mg tablet 2.5 mg PO DAILY 08/18/19 11/24/24 History topiramate 100 mg tablet 200 mg PO HS 08/18/19 11/24/24 History aspirin 81 mg tablet,delayed 81 mg PO DAILY #60 tabs 08/19/19 11/24/24 Rx release (Adult Low Dose Aspirin) clopidogrel 75 mg tablet 75 mg PO DAILY 07/17/21 11/24/24 History pregabalin 50 mg capsule 50 mg PO DAILY 08/15/21 11/24/24 History doxycycline hyclate 100 mg tablet 100 mg PO BID 10 days #20 tabs 11/22/24 11/24/24 Rx dulaglutide 1.5 mg/0.5 mL 1.5 mg subcut WEEKLY 11/22/24 11/24/24 History subcutaneous pen injector (Trulicity) insulin lispro 100 unit/mL 7 unit subcut .with meals 11/22/24 11/24/24 History subcutaneous pen naloxone 4 mg/actuation nasal 4 mg intranasal Q2M PRN opioid 11/22/24 11/24/24 History spray (Narcan) overdose zolpidem 5 mg tablet 5 mg PO HS 11/22/24 11/24/24 History oxycodone-acetaminophen 5 mg-325 1 tablet PO BID PRN pain 11/24/24 11/24/24 History mg tablet Allergies Allergy/AdvReac Type Severity Reaction Status Date / Time clarithromycin Allergy Mild Unknown Verified 11/22/24 17:35 amoxicillin Allergy Unknown Unknown Verified 11/22/24 17:35 clavulanic acid Allergy Unknown Unknown Verified 11/22/24 17:35 Vital Signs Vital Signs - 24 hr 11/23/24 16:58 11/23/24 20:26 11/23/24 20:40 Temperature 36.6 C Pulse Rate 90 71 72 Respiratory Rate 16 21 H 22 H Blood Pressure 131/65 Pulse Oximetry 100 100 Oxygen Delivery 11/23/24 20:45 11/23/24 20:46 11/23/24 21:00 Temperature Pulse Rate 74 76 71 Respiratory Rate 25 H 26 H 22 H Blood Pressure 117/59 L 114/64 Pulse Oximetry 99 99 Oxygen Delivery 11/23/24 21:01 11/23/24 21:17 11/23/24 21:44 Temperature Pulse Rate 71 70 78 Respiratory Rate 22 H 28 H 22 H Blood Pressure Pulse Oximetry 100 100 Oxygen Delivery 11/23/24 21:45 11/23/24 21:46 11/23/24 22:00 Temperature Pulse Rate 71 70 75 Respiratory Rate 26 H 25 H 25 H Blood Pressure 122/45 L 144/61 H Pulse Oximetry 98 100 99 Oxygen Delivery 11/23/24 22:01 11/23/24 22:15 11/23/24 22:33 Temperature Pulse Rate 73 73 78 Respiratory Rate 20 22 H 21 H Blood Pressure Pulse Oximetry 100 100 98 Oxygen Delivery 11/23/24 22:45 11/23/24 23:00 11/23/24 23:15 Temperature Pulse Rate 74 72 70 Respiratory Rate 23 H 21 H 21 H Blood Pressure Pulse Oximetry 99 100 100 Oxygen Delivery 11/23/24 23:35 11/24/24 00:20 11/24/24 00:33 Temperature 36.6 C Pulse Rate 85 70 70 Respiratory Rate 19 21 H 21 H Blood Pressure 147/76 H 147/76 H Pulse Oximetry 100 100 Oxygen Delivery 11/24/24 01:27 11/24/24 02:57 11/24/24 06:00 Temperature 36.2 C L 36.6 C Pulse Rate 77 77 66 Respiratory Rate 14 14 13 Blood Pressure 135/51 L 121/59 L Pulse Oximetry 100 100 96 Oxygen Delivery Room Air Exam Const: General: cooperative, comfortable and no acute distress HENMT: Head: normal to inspection, normocephalic and atraumatic Eyes: General: appearance normal, both eyes and all related structures Neck: Neck: normal visual inspection, full ROM and no lymphadenopathy Resp: Auscultation: clear to auscultation bilaterally Cardio: Rate: regular rate Rhythm: regular rhythm GI: Inspection: normal to inspection Skin: General skin exam: normal color and no rashes or lesions noted Neuro: General: patient oriented x3 and CN's II-XI intact bilaterally Extrem: General: normal to inspection, full ROM and edema Other: 2 x 3 cm right lateral foot wound at the base of the 5th digit, dry eschar, no drain, no signs or symptoms of active infection Results Labs 11/24/24 05:53 11/24/24 05:53 Labs: Abnormal lab results 11/23/24 11/23/24 11/23/24 Range/Units 19:23 23:17 23:53 RBC 3.98 L (4.2-5.4) M/mm3 Hgb (12.0-15.0) g/dL Hct (37.0-47.0) % MCV 102.5 H (80-100) fl MCHC 31.9 L (32-36) g/dl MPV 10.6 H (7.4-10.4) fl [place] % (Auto) (2.6-8.5) % Abs Immat Gran (auto) 0.04 H (0.00-0.031) K/mm3 ESR 76 H (0-20) mm/hr Chloride 108 H (98-107) mmol/L Carbon Dioxide 21 L (22-30) mmol/L BUN 24 H D (7-17) mg/dL Creatinine 1.19 H (0.7-1.0) mg/dL Estimated GFR 47 L (59 - ) POC Capillary Glucose 56 L* 48 L* (65-105) mg/dl Calcium (8.4-10.2) mg/dL C-Reactive Protein 6.7 H (<1.0) mg/dL 11/24/24 11/24/24 11/24/24 Range/Units 00:19 00:47 05:53 RBC 3.39 L (4.2-5.4) M/mm3 Hgb 11.1 L (12.0-15.0) g/dL Hct 35.8 L (37.0-47.0) % MCV 105.6 H (80-100) fl MCHC 31.0 L (32-36) g/dl MPV 11.0 H (7.4-10.4) fl [place] % (Auto) 9.5 H (2.6-8.5) % Abs Immat Gran (auto) (0.00-0.031) K/mm3 ESR (0-20) mm/hr Chloride 114 H (98-107) mmol/L Carbon Dioxide (22-30) mmol/L BUN (7-17) mg/dL Creatinine (0.7-1.0) mg/dL Estimated GFR (59 - ) POC Capillary Glucose 160 H 133 H (65-105) mg/dl Calcium 8.0 L (8.4-10.2) mg/dL C-Reactive Protein (<1.0) mg/dL 11/24/24 Range/Units 07:49 RBC (4.2-5.4) M/mm3 Hgb (12.0-15.0) g/dL Hct (37.0-47.0) % MCV (80-100) fl MCHC (32-36) g/dl MPV (7.4-10.4) fl [place] % (Auto) (2.6-8.5) % Abs Immat Gran (auto) (0.00-0.031) K/mm3 ESR (0-20) mm/hr Chloride (98-107) mmol/L Carbon Dioxide (22-30) mmol/L BUN (7-17) mg/dL Creatinine (0.7-1.0) mg/dL Estimated GFR (59 - ) POC Capillary Glucose 121 H (65-105) mg/dl Calcium (8.4-10.2) mg/dL C-Reactive Protein (<1.0) mg/dL Diabetes panel 11/23/24 11/24/24 Range/Units 19:23 05:53 Sodium 138 141 (137-145) mmol/L Potassium 4.2 4.7 (3.4-5.0) mmol/L Chloride 108 H 114 H (98-107) mmol/L Carbon Dioxide 21 L 22 (22-30) mmol/L BUN 24 H D 17 (7-17) mg/dL Creatinine 1.19 H 0.89 (0.7-1.0) mg/dL Glucose 66 99 (65-110) mg/dL Calcium 9.3 8.0 L (8.4-10.2) mg/dL AST 32 (14-36) U/L ALT 24 (6-35) U/L Alkaline Phosphatase 104 (38-126) U/L Total Protein 8.0 (6.3-8.2) g/dL Albumin 4.2 (3.5-5.1) g/dL Calcium panel 11/23/24 11/24/24 Range/Units 19:23 05:53 Calcium 9.3 8.0 L (8.4-10.2) mg/dL Albumin 4.2 (3.5-5.1) g/dL Pituitary panel 11/23/24 11/24/24 Range/Units 19:23 05:53 Sodium 138 141 (137-145) mmol/L Potassium 4.2 4.7 (3.4-5.0) mmol/L Chloride 108 H 114 H (98-107) mmol/L Carbon Dioxide 21 L 22 (22-30) mmol/L BUN 24 H D 17 (7-17) mg/dL Creatinine 1.19 H 0.89 (0.7-1.0) mg/dL Glucose 66 99 (65-110) mg/dL Calcium 9.3 8.0 L (8.4-10.2) mg/dL Adrenal panel 11/23/24 11/24/24 Range/Units 19:23 05:53 Sodium 138 141 (137-145) mmol/L Potassium 4.2 4.7 (3.4-5.0) mmol/L Chloride 108 H 114 H (98-107) mmol/L Carbon Dioxide 21 L 22 (22-30) mmol/L BUN 24 H D 17 (7-17) mg/dL Creatinine 1.19 H 0.89 (0.7-1.0) mg/dL Glucose 66 99 (65-110) mg/dL Calcium 9.3 8.0 L (8.4-10.2) mg/dL Total Bilirubin 0.4 (0.2-1.3) mg/dL AST 32 (14-36) U/L ALT 24 (6-35) U/L Alkaline Phosphatase 104 (38-126) U/L Total Protein 8.0 (6.3-8.2) g/dL Albumin 4.2 (3.5-5.1) g/dL All other labs normal.
[2024-11-24 11:27] LABS: Glucose Point of Care 154 mg/dl (65-105)
[2024-11-24] MEDS: INSULIN ASPART (*BKC) 100 UNITS/ML SUB-Q (12:31)
--- NOTE | 2024-11-24 13:42 | P.PNIM_ITS ---
Progress Note: A&P Assessment and Plan (1) Diabetic ulcer of right foot: Code(s): E11.621 - Type 2 diabetes mellitus with foot ulcer; L97.519 - Non-pressure chronic ulcer of other part of right foot with unspecified severity Status: Acute Assessment and Plan: Surgery evaluated the patient Advised to refer podiatry Wound Care on board Started on Levaquin Order nasal MRSA Foot x-ray shows :No acute fracture or dislocation is appreciated. No significant degenerative disease is noted. The base of the fifth metatarsal is intact. No calcaneal spur is noted. Soft tissue defect is identified at the level of the distal fifth metatarsal without abnormality to the underlying bone (2) Diabetes mellitus: Code(s): E11.9 - Type 2 diabetes mellitus without complications Status: Acute Assessment and Plan: continue tight blood sugar control Started Lantus 35 units subcutaneous q.h.s. Insulin NovoLog 5 units t.i.d. Decrease the insulin requirement due to patient is not eating well in the hospital Subjective Date/time seen: 11/24/24 13:42 Interval history: Patient was evaluated the bedside. Patient had a previous episode of a subarachnoid hemorrhage about 5 years ago. Patient is admitted due to ulcer on the right foot. Surgery evaluated the patient and advised to follow-up with the Podiatry. Patient is currently on IV vancomycin. Review of Systems Review of Systems: All systems reviewed & are unremarkable except as noted in HPI and below Exam Narrative: GENERAL: Well appearing, well-nourished, non-toxic, in no acute distress. HEAD: Normocephalic, atraumatic. NECK: Supple. No adenopathy, no masses. RESPIRATORY: Airway patent, respirations nonlabored. Clear to auscultation bilaterally, no rales, rhonchi, wheezing. CARDIOVASCULAR: Regular rate and rhythm without murmurs, rubs, or gallops. Peripheral pulses 2+ and equal bilaterally. ABDOMINAL: Soft, nontender, nondistended, no hepatosplenomegaly. Normoactive BS. MUSCULOSKELETAL: Moves all extremities. Strength/ROM intact without gross deformities. SKIN: Warm, dry, normal color. No rashes. Quarter-sized open, full-thickness, draining wound, possible areas of necrosis NEURO: A&O X3. Speech clear. Cranial nerves II-XII intact. No ataxic movements. PSYCHIATRIC: Appropriate mood and affect. Normal interaction. Const: General: cooperative, comfortable and no acute distress Orientation/consciousness: patient oriented x3 HENMT: Head: normal to inspection, normocephalic and atraumatic Eyes: General: appearance normal, both eyes and all related structures Neck: Neck: normal visual inspection, full ROM and no lymphadenopathy Resp: Auscultation: clear to auscultation bilaterally Cardio: Rate: regular rate Rhythm: regular rhythm GI: Inspection: normal to inspection Skin: General skin exam: normal color and no rashes or lesions noted Neuro: General: patient oriented x3 and CN's II-XI intact bilaterally Extrem: General: normal to inspection, full ROM and edema Other: 2 x 3 cm right lateral foot wound at the base of the 5th digit, dry eschar, no drain, no signs or symptoms of active infection Objective Data Vital Signs Vital Signs: Vital Signs - 24 hr 11/23/24 16:58 11/23/24 20:26 11/23/24 20:40 Temperature 97.8 F Pulse Rate 90 71 72 Respiratory Rate 16 21 H 22 H Blood Pressure 131/65 Pulse Oximetry 100 100 Oxygen Delivery 11/23/24 20:45 11/23/24 20:46 11/23/24 21:00 Temperature Pulse Rate 74 76 71 Respiratory Rate 25 H 26 H 22 H Blood Pressure 117/59 L 114/64 Pulse Oximetry 99 99 Oxygen Delivery 11/23/24 21:01 11/23/24 21:17 11/23/24 21:44 Temperature Pulse Rate 71 70 78 Respiratory Rate 22 H 28 H 22 H Blood Pressure Pulse Oximetry 100 100 Oxygen Delivery 11/23/24 21:45 11/23/24 21:46 11/23/24 22:00 Temperature Pulse Rate 71 70 75 Respiratory Rate 26 H 25 H 25 H Blood Pressure 122/45 L 144/61 H Pulse Oximetry 98 100 99 Oxygen Delivery 11/23/24 22:01 11/23/24 22:15 11/23/24 22:33 Temperature Pulse Rate 73 73 78 Respiratory Rate 20 22 H 21 H Blood Pressure Pulse Oximetry 100 100 98 Oxygen Delivery 11/23/24 22:45 11/23/24 23:00 11/23/24 23:15 Temperature Pulse Rate 74 72 70 Respiratory Rate 23 H 21 H 21 H Blood Pressure Pulse Oximetry 99 100 100 Oxygen Delivery 11/23/24 23:35 11/24/24 00:20 11/24/24 00:33 Temperature 97.9 F Pulse Rate 85 70 70 Respiratory Rate 19 21 H 21 H Blood Pressure 147/76 H 147/76 H Pulse Oximetry 100 100 Oxygen Delivery 11/24/24 01:27 11/24/24 02:57 11/24/24 06:00 Temperature 97.1 F L 97.9 F Pulse Rate 77 77 66 Respiratory Rate 14 14 13 Blood Pressure 135/51 L 121/59 L Pulse Oximetry 100 100 96 Oxygen Delivery Room Air 11/24/24 09:17 Temperature Pulse Rate Respiratory Rate Blood Pressure Pulse Oximetry Oxygen Delivery Room Air Intake/Output Intake/Output: Intake & Output 11/21/24 11/22/24 11/23/24 11/24/24 23:59 23:59 23:59 23:59 Intake Total 3100 550 Balance 3100 550 Meds/Results Medications: Active Medications Generic Name Dose Route Start Last Admin Trade Name Freq PRN Reason Stop Dose Admin Aspirin 81 mg 11/24/24 09:00 11/24/24 09:11 Aspirin 81 Mg Enteric Tablet PO 81 mg DAILY GLENNA Administration Clopidogrel Bisulfate 75 mg 11/24/24 09:00 11/24/24 09:11 Clopidogrel Bisulfate 75 Mg Tablet PO 75 mg DAILY GLENNA Administration Dextrose 12.5 gm 11/24/24 02:17 Dextrose 50% 25 Gm/50 Ml Syringe IV PUSH PRN PRN Hypoglycemia Protocol Escitalopram Oxalate 10 mg 11/24/24 21:00 Escitalopram Oxalate 10 Mg Tablet PO HS GLENNA Glucagon 1 mg 11/24/24 02:17 Glucagon For Inj 1 Mg Vial IM PRN PRN Hypoglycemia Protocol Glucose 15 gm 11/24/24 02:17 Glucose Oral Gel 15 Gm Of Glucse In 37.5 Gm Tube PO PRN PRN Hypoglycemia Protocol Dextrose 1,000 mls @ 100 mls/hr 11/24/24 02:17 Dextrose 5% 1,000 Ml IVPB PRN PRN Hypoglycemia Protocol Vancomycin HCl 1,500 mg in 500 mls @ 250 mls/hr 11/24/24 17:00 Vancomycin 1,500 Mg/Ns 500 Ml IVPB Q18H [facility] Insulin Aspart 3 - 6 units 11/24/24 08:00 11/24/24 11:42 Insulin Aspart (*Bkc) 100 Units/Ml SUB-Q Not Given TIDWM [facility] Protocol Insulin Aspart 5 units 11/24/24 12:00 11/24/24 12:09 Insulin Aspart (*Bkc) 100 Units/Ml SUB-Q Not Given TIDWM [facility] Insulin Glargine 35 units 11/24/24 21:00 Insulin Glargine (*Bkc) 100 Units/Ml SUB-Q HS [facility] Lisinopril 2.5 mg 11/24/24 09:00 11/24/24 09:11 Lisinopril 2.5 Mg Tablet PO 2.5 mg DAILY [facility] Administration Morphine Sulfate 2 mg 11/23/24 22:01 11/24/24 01:02 Morphine Sulfate (*Crx) 2 Mg/Ml Inj IV PUSH 2 mg Q2H PRN Administration Pain Rated 7-10 Ondansetron HCl 4 mg 11/23/24 22:01 11/24/24 01:01 Ondansetron Inj 4 Mg/2 Ml Vial IV PUSH 4 mg Q4H PRN Administration Nausea Oxycodone/Acetaminophen 1 tablet 11/24/24 02:16 11/24/24 09:16 Oxycodone/Acetaminophen (*Crx) 5-325 Mg Tablet PO 1 tablet Q6H PRN Administration pain 7-10 Pregabalin 50 mg 11/24/24 09:00 11/24/24 09:11 Pregabalin (*Crx) 50 Mg Capsule PO 50 mg DAILY [facility] Administration Topiramate 200 mg 11/24/24 21:00 Topiramate 100 Mg Tablet PO [facility] Zolpidem Tartrate 5 mg 11/24/24 21:00 Zolpidem Tartrate (*Crx) 5 Mg Tablet PO [facility] Radiology Results: ITS Impressions Foot X-Ray 11/23/24 19:55 IMPRESSION: No cortical abnormality, unchanged from examination performed less than 24 hours earlier. Labs Labs: Laboratory Results - last 24 hr 11/23/24 11/23/24 11/23/24 19:23 23:17 23:53 WBC 8.8 RBC 3.98 L Hgb 13.0 Hct 40.8 MCV 102.5 H MCH 32.7 MCHC 31.9 L RDW 12.8 Plt Count 220 MPV 10.6 H Immature Gran % (Auto) 0.5 Neut % (Auto) 62.1 Lymph % (Auto) 29.6 [place] % (Auto) 5.4 Eos % (Auto) 1.8 Baso % (Auto) 0.6 Lymph # (Auto) 2.61 [place] # (Auto) 0.5 Eos # (Auto) 0.2 Baso # (Auto) 0.1 Abs Immat Gran (auto) 0.04 H Absolute Neuts (auto) 5.5 Absolute Nucleated RBC 0.000 Band Neutrophils % Nucleated RBC % 0.0 Platelet Estimate Macrocytosis Schistocytes ESR 76 H PT 14.3 INR 1.1 APTT 33.9 Sodium 138 Potassium 4.2 Chloride 108 H Carbon Dioxide 21 L Anion Gap 9 BUN 24 H D Creatinine 1.19 H Estim Creat Clear Calc 57 Estimated GFR 47 L Glucose 66 POC Capillary Glucose 56 L* 48 L* Lactic Acid 1.1 Calcium 9.3 Total Bilirubin 0.4 AST 32 ALT 24 Alkaline Phosphatase 104 Troponin I < 0.012 C-Reactive Protein 6.7 H Total Protein 8.0 Albumin 4.2 Vitamin B12 Folate Procalcitonin 0.1 11/24/24 11/24/24 11/24/24 00:19 00:47 05:53 WBC 5.9 RBC 3.39 L Hgb 11.1 L Hct 35.8 L MCV 105.6 H MCH 32.7 MCHC 31.0 L RDW 12.9 Plt Count 168 MPV 11.0 H Immature Gran % (Auto) 0.3 Neut % (Auto) 46.4 Lymph % (Auto) 40.7 [place] % (Auto) 9.5 H Eos % (Auto) 2.4 Baso % (Auto) 0.7 Lymph # (Auto) 2.41 [place] # (Auto) 0.6 Eos # (Auto) 0.1 Baso # (Auto) 0.0 Abs Immat Gran (auto) 0.02 Absolute Neuts (auto) 2.8 Absolute Nucleated RBC 0.000 Band Neutrophils % 0 Nucleated RBC % 0.0 Platelet Estimate Adequate Macrocytosis 1+ Schistocytes None seen ESR PT INR APTT Sodium 141 Potassium 4.7 Chloride 114 H Carbon Dioxide 22 Anion Gap 5 BUN 17 Creatinine 0.89 Estim Creat Clear Calc 75 Estimated GFR > 60 Glucose 99 POC Capillary Glucose 160 H 133 H Lactic Acid Calcium 8.0 L Total Bilirubin AST ALT Alkaline Phosphatase Troponin I C-Reactive Protein Total Protein Albumin Vitamin B12 242.0 Folate 4.1 Procalcitonin 11/24/24 11/24/24 07:49 11:24 WBC RBC Hgb Hct MCV MCH MCHC RDW Plt Count MPV Immature Gran % (Auto) Neut % (Auto) Lymph % (Auto) [place] % (Auto) Eos % (Auto) Baso % (Auto) Lymph # (Auto) [place] # (Auto) Eos # (Auto) Baso # (Auto) Abs Immat Gran (auto) Absolute Neuts (auto) Absolute Nucleated RBC Band Neutrophils % Nucleated RBC % Platelet Estimate Macrocytosis Schistocytes ESR PT INR APTT Sodium Potassium Chloride Carbon Dioxide Anion Gap BUN Creatinine Estim Creat Clear Calc Estimated GFR Glucose POC Capillary Glucose 121 H 154 H Lactic Acid Calcium Total Bilirubin AST ALT Alkaline Phosphatase Troponin I C-Reactive Protein Total Protein Albumin Vitamin B12 Folate Procalcitonin Hospitalist MIPS Advance Care Plan I have confirmed that the patient's Advanced Care Plan is present, code status is documented, or surrogate decision maker is listed in patient medical record.: Yes Medication Reconciliation I have utilized all available resources to obtain, update and review the patients current medications (includes all prescriptions, OTC, herbals, cannabis, and nutritional supplements).: Yes
[2024-11-24 16:38] LABS: Glucose Point of Care 139 mg/dl (65-105)
[2024-11-24] MEDS: VANCOMYCIN 1,500 MG/NS 500 ML 1,500 MG/500 ML BAG 250 MG IVPB (17:06)
[2024-11-24 18:33] LABS: MRSA (PCR) NOT DETECTED (NOT DETECTE)
[2024-11-24 19:56] LABS: Glucose Point of Care 173 mg/dl (65-105)
[2024-11-24] MEDS: ZOLPIDEM TARTRATE (*CRX) 5 MG TABLET PO (20:54)
[2024-11-24] MEDS: ESCITALOPRAM OXALATE 10 MG TABLET PO (20:55)
[2024-11-24] MEDS: TOPIRAMATE 100 MG TABLET 200 MG PO (20:55)
[2024-11-25] MEDS: oxyCODONE/ACETAMINOPHEN (*CRX) 5-325 MG TABLET 1 TABLET PO ×2 (05:20→13:54)
[2024-11-25 05:45] VITALS: BP 122/51; PULSE 64; RESP 13; TEMP 36.2; O2SAT 95
[2024-11-25 07:37] LABS: Glucose Point of Care 102 mg/dl (65-105)
[2024-11-25] MEDS: MORPHINE SULFATE (*CRX) 2 MG/ML INJ IV PUSH (09:01)
[2024-11-25] MEDS: PREGABALIN (*CRX) 50 MG CAPSULE PO (09:06)
[2024-11-25] MEDS: CLOPIDOGREL BISULFATE 75 MG TABLET PO (09:06)
[2024-11-25] MEDS: lisinopriL 2.5 MG TABLET PO (09:06)
[2024-11-25] MEDS: SULFAMETHOXAZOLE/TRIMETHOPRIM 800/160 MG DS TABLET 1 TAB PO (09:07)
[2024-11-25] MEDS: ASPIRIN 81 MG ENTERIC TABLET PO (09:07)
[2024-11-25 10:02] LABS: Hematocrit 37.6 % (37.0-47.0); Hemoglobin 11.9 g/dL (12.0-15.0); Mean Corpuscular HGB Conc 31.6 g/dl (32-36); Mean Corpuscular Hemoglobin 32.9 pg (26-34); Mean Corpuscular Volume 103.9 fl (80-100); Mean Platelet Volume 10.6 fl (7.4-10.4); Platelet Count Result 174 k/mm3 (150-375); Red Blood Count 3.62 M/mm3 (4.2-5.4); Red Cell Distribution Width 12.5 % (11.5-14.5); White Blood Count 6.6 K/mm3 (4.5-10.0)
[2024-11-25 10:13] LABS: Alanine Aminotransferase 22 U/L (6-35); Albumin Level 3.5 g/dL (3.5-5.1); Alkaline Phosphatase 87 U/L (38-126); Anion Gap 8 mmol/L (4-12); Aspartate Amino Transferase 34 U/L (14-36); Bilirubin,Total 0.2 mg/dL (0.2-1.3); Blood Urea Nitrogen 19 mg/dL (7-17); Calcium 8.8 mg/dL (8.4-10.2); Carbon Dioxide 23 mmol/L (22-30); Chloride 107 mmol/L (98-107); Estimated CRCL calculation 72 ml/min; Estimated Glomerular Filt Rate > 60; Glucose 140 mg/dL (65-110); Potassium 4.2 mmol/L (3.4-5.0); Sodium 138 mmol/L (137-145)
[2024-11-25 10:17] LABS: Vancomycin Trough 13.5 ug/mL (10.0-20.0)
[2024-11-25 12:04] LABS: Glucose Point of Care 176 mg/dl (65-105)
--- NOTE | 2024-11-25 12:38 | PM.PNGS ---
Progress Note: A&P Assessment and Plan (1) Diabetic ulcer of right foot: Code(s): E11.621 - Type 2 diabetes mellitus with foot ulcer; L97.519 - Non-pressure chronic ulcer of other part of right foot with unspecified severity Status: Acute Assessment and Plan: continue local wound care and pressure offloading, no acute surgical issues, okay to DC from surgical standpoint, will need to follow up with Podiatry as outpatient Subjective Subjective Date/Time Seen: 11/25/24 12:38 Interval history: no acute issues, still c some mild foot pain Review of Systems Review of Systems: All systems reviewed & are unremarkable except as noted in HPI and below Exam Const: General: cooperative, comfortable and no acute distress Resp: Auscultation: clear to auscultation bilaterally Cardio: Rate: regular rate Rhythm: regular rhythm GI: Inspection: normal to inspection Extrem: Other: right foot wound with dry callus, no signs or symptoms of active infection Objective Data Vital Signs Vital Signs: Vital Signs - 24 hr 11/24/24 14:00 11/24/24 20:00 11/24/24 21:31 Temperature 36.7 C 36.1 C L Pulse Rate 68 65 Respiratory Rate 20 14 Blood Pressure 124/60 114/47 L Pulse Oximetry 94 97 Oxygen Delivery Room Air 11/25/24 05:45 Temperature 36.2 C L Pulse Rate 64 Respiratory Rate 13 Blood Pressure 122/51 L Pulse Oximetry 95 Oxygen Delivery Intake/Output Intake/Output: Intake & Output 11/22/24 11/23/24 11/24/24 11/25/24 23:59 23:59 23:59 23:59 Intake Total 3100 1460 640 Balance 3100 1460 640 Meds/Results Medications: Active Medications Generic Name Dose Route Start Last Admin Trade Name Freq PRN Reason Stop Dose Admin Aspirin 81 mg 11/24/24 09:00 11/25/24 09:07 Aspirin 81 Mg Enteric Tablet PO 81 mg DAILY GLENNA Administration Clopidogrel Bisulfate 75 mg 11/24/24 09:00 11/25/24 09:06 Clopidogrel Bisulfate 75 Mg Tablet PO 75 mg DAILY GLENNA Administration Dextrose 12.5 gm 11/24/24 02:17 Dextrose 50% 25 Gm/50 Ml Syringe IV PUSH PRN PRN Hypoglycemia Protocol Escitalopram Oxalate 10 mg 11/24/24 21:00 11/24/24 20:55 Escitalopram Oxalate 10 Mg Tablet PO 10 mg HS GLENNA Administration Glucagon 1 mg 11/24/24 02:17 Glucagon For Inj 1 Mg Vial IM PRN PRN Hypoglycemia Protocol Glucose 15 gm 11/24/24 02:17 Glucose Oral Gel 15 Gm Of Glucse In 37.5 Gm Tube PO PRN PRN Hypoglycemia Protocol Dextrose 1,000 mls @ 100 mls/hr 11/24/24 02:17 Dextrose 5% 1,000 Ml IVPB PRN PRN Hypoglycemia Protocol Insulin Aspart 3 - 6 units 11/24/24 08:00 11/25/24 09:09 Insulin Aspart (*Bkc) 100 Units/Ml SUB-Q Not Given TIDWM [facility] Protocol Insulin Glargine 35 units 11/24/24 21:00 Insulin Glargine (*Bkc) 100 Units/Ml SUB-Q HS [facility] Lisinopril 2.5 mg 11/24/24 09:00 11/25/24 09:06 Lisinopril 2.5 Mg Tablet PO 2.5 mg DAILY GLENNA Administration Morphine Sulfate 2 mg 11/23/24 22:01 11/25/24 09:01 Morphine Sulfate (*Crx) 2 Mg/Ml Inj IV PUSH 2 mg Q2H PRN Administration Pain Rated 7-10 Ondansetron HCl 4 mg 11/23/24 22:01 11/24/24 01:01 Ondansetron Inj 4 Mg/2 Ml Vial IV PUSH 4 mg Q4H PRN Administration Nausea Oxycodone/Acetaminophen 1 tablet 11/24/24 02:16 11/25/24 05:20 Oxycodone/Acetaminophen (*Crx) 5-325 Mg Tablet PO 1 tablet Q6H PRN Administration pain 7-10 Pregabalin 50 mg 11/24/24 09:00 11/25/24 09:06 Pregabalin (*Crx) 50 Mg Capsule PO 50 mg DAILY GLENNA Administration Topiramate 200 mg 11/24/24 21:00 11/24/24 20:55 Topiramate 100 Mg Tablet PO 200 mg HS GLENNA Administration Trimethoprim/Sulfamethoxazole 1 tab 11/25/24 09:00 11/25/24 09:07 Sulfamethoxazole/Trimethoprim 800/160 Mg Ds Tablet PO 11/30/24 12:00 1 tab Q12HR GLENNA Administration Zolpidem Tartrate 5 mg 11/24/24 21:00 11/24/24 20:54 Zolpidem Tartrate (*Crx) 5 Mg Tablet PO 5 mg HS GLENNA Administration Radiology Results: ITS Impressions Foot X-Ray 11/23/24 19:55 IMPRESSION: No cortical abnormality, unchanged from examination performed less than 24 hours earlier. Labs Labs: Laboratory Results - last 24 hr 11/24/24 11/24/24 11/24/24 16:36 17:08 19:51 WBC RBC Hgb Hct MCV MCH MCHC RDW Plt Count MPV Sodium Potassium Chloride Carbon Dioxide Anion Gap BUN Creatinine Estim Creat Clear Calc Estimated GFR Glucose POC Capillary Glucose 139 H 173 H Calcium Total Bilirubin AST ALT Alkaline Phosphatase Total Protein Albumin Nasal MRSA (PCR) Not detected Vancomycin Trough 11/25/24 11/25/24 11/25/24 07:32 09:55 12:01 WBC 6.6 RBC 3.62 L Hgb 11.9 L Hct 37.6 MCV 103.9 H MCH 32.9 MCHC 31.6 L RDW 12.5 Plt Count 174 MPV 10.6 H Sodium 138 Potassium 4.2 Chloride 107 Carbon Dioxide 23 Anion Gap 8 BUN 19 H Creatinine 0.92 Estim Creat Clear Calc 72 Estimated GFR > 60 Glucose 140 H POC Capillary Glucose 102 176 H Calcium 8.8 Total Bilirubin 0.2 AST 34 ALT 22 Alkaline Phosphatase 87 Total Protein 7.0 Albumin 3.5 Nasal MRSA (PCR) Vancomycin Trough 13.5
[2024-11-25 15:00] VITALS: BP 123/52; PULSE 66; RESP 16; TEMP 36.3; O2SAT 100
--- NOTE | 2024-11-25 16:28 | PM.DS ---
DS: Admitting Diagnosis Discharge Date 11/25/2024 Admitting Diagnosis Ulcer on the right foot DS: Discharge Diagnosis Discharge Diagnosis (1) Diabetic ulcer of right foot: Code(s): E11.621 - Type 2 diabetes mellitus with foot ulcer; L97.519 - Non-pressure chronic ulcer of other part of right foot with unspecified severity Status: Acute Assessment and Plan: Surgery evaluated the patient Advised to refer podiatry Wound Care on board Status post vancomycin Negative nasal MRSA Will be discharged with doxycycline since the patient failed Bactrim as outpatient Foot x-ray shows :No acute fracture or dislocation is appreciated. No significant degenerative disease is noted. The base of the fifth metatarsal is intact. No calcaneal spur is noted. Soft tissue defect is identified at the level of the distal fifth metatarsal without abnormality to the underlying bone (2) Diabetes mellitus: Code(s): E11.9 - Type 2 diabetes mellitus without complications Status: Acute Assessment and Plan: Continue home dosage Decrease the insulin requirement due to patient is not eating well in the hospital DS: Summary Hospital Course Hospital Course: Patient is 54 F and has past medical history of type 2 diabetes,subarachnoid hemorrhage about 5 years ago admitted due to ulcer of right foot. Surgery evaluated the patient and advised to follow-up with the Podiatry. Patient received IV vancomycin and and nasal MRSA was negative. Discontinued vancomycin and patient will be discharged with doxycycline. Patient failed outpatient Bactrim therapy. During the hospitalization patient required lower insulin dosage due to decreased amount of eating. On the day of discharge, the patient was seen and examined. Vital signs were stable. Physical exam were stable and labs were reviewed at length. Discharge instructions, medications, and follow-up appointments were discussed with the patient at length and all day questions were answered. ER warnings were given. Status at Discharge Cognitive/behavioral status at discharge: Stable Time Spent with Patient Time attestation: Total time spent providing and/or coordinating discharge services: 45 minute Exam Narrative: GENERAL: Well appearing, well-nourished, non-toxic, in no acute distress. HEAD: Normocephalic, atraumatic. NECK: Supple. No adenopathy, no masses. RESPIRATORY: Airway patent, respirations nonlabored. Clear to auscultation bilaterally, no rales, rhonchi, wheezing. CARDIOVASCULAR: Regular rate and rhythm without murmurs, rubs, or gallops. Peripheral pulses 2+ and equal bilaterally. ABDOMINAL: Soft, nontender, nondistended, no hepatosplenomegaly. Normoactive BS. MUSCULOSKELETAL: Moves all extremities. Strength/ROM intact without gross deformities. SKIN: Warm, dry, normal color. No rashes. Quarter-sized open, full-thickness, draining wound, possible areas of necrosis NEURO: A&O X3. Speech clear. Cranial nerves II-XII intact. No ataxic movements. PSYCHIATRIC: Appropriate mood and affect. Normal interaction. Const: General: cooperative, comfortable and no acute distress Orientation/consciousness: patient oriented x3 HENMT: Head: normal to inspection, normocephalic and atraumatic Eyes: General: appearance normal, both eyes and all related structures Neck: Neck: normal visual inspection, full ROM and no lymphadenopathy Resp: Auscultation: clear to auscultation bilaterally Cardio: Rate: regular rate Rhythm: regular rhythm GI: Inspection: normal to inspection Skin: General skin exam: normal color and no rashes or lesions noted Neuro: General: patient oriented x3 and CN's II-XI intact bilaterally Extrem: General: normal to inspection, full ROM and edema Other: 2 x 3 cm right lateral foot wound at the base of the 5th digit, dry eschar, no drain, no signs or symptoms of active infection DS: Data Data Completed and Pending Labs on day of discharge: Labs from last 24 hours 11/25/24 11/25/24 11/25/24 12:01 09:55 07:32 WBC 6.6 RBC 3.62 L Hgb 11.9 L Hct 37.6 MCV 103.9 H MCH 32.9 MCHC 31.6 L RDW 12.5 Plt Count 174 MPV 10.6 H Sodium 138 Potassium 4.2 Chloride 107 Carbon Dioxide 23 Anion Gap 8 BUN 19 H Creatinine 0.92 Estim Creat Clear Calc 72 Estimated GFR > 60 Glucose 140 H POC Capillary Glucose 176 H 102 Calcium 8.8 Total Bilirubin 0.2 AST 34 ALT 22 Alkaline Phosphatase 87 Total Protein 7.0 Albumin 3.5 Nasal MRSA (PCR) Vancomycin Trough 13.5 11/24/24 11/24/24 11/24/24 19:51 17:08 16:36 WBC RBC Hgb Hct MCV MCH MCHC RDW Plt Count MPV Sodium Potassium Chloride Carbon Dioxide Anion Gap BUN Creatinine Estim Creat Clear Calc Estimated GFR Glucose POC Capillary Glucose 173 H 139 H Calcium Total Bilirubin AST ALT Alkaline Phosphatase Total Protein Albumin Nasal MRSA (PCR) Not detected Vancomycin Trough Preliminary micro results at discharge 11/23/24 20:01 Blood Culture - Preliminary Blood 11/23/24 19:23 Blood Culture - Preliminary Blood Discharge Plan Discharge Attending physician on discharge: Cristopher Carrillo Consulting providers: Rosie Schaefer Discharging Clinician: Cristopher Carrillo Anticipated Discharge Date/Time: 11/25/24 16:37 Patient Disposition: Home Activity: as tolerated Diet: diabetic Discharge Instructions: Needed strict diabetic control. Please follow-up with the PCP in regards to diabetes. Advised to discontinue glimepiride since it can cause hypoglycemia Need to follow-up with the architecture drafter Complete the course of doxycycline Please return to ED if any signs of infection in the right foot including drainage or redness or warmth Patient Instructions: Antibiotic Form Patient Language: Luxembourgish Stand Alone Forms: General Discharge Information Follow-up/Referrals: Paco Savage DPM [Physician] - Phillip,Angie Dietrich NP [Primary Care Provider] - Discharge Medications: Continued glimepiride 4 mg tablet 4 mg PO DAILY topiramate 100 mg tablet 200 mg PO HS lisinopril 2.5 mg tablet 2.5 mg PO DAILY escitalopram oxalate 10 mg tablet 10 mg PO HS insulin glargine [Basaglar KwikPen U-100 Insulin] 100 unit/mL (3 mL) insulin pen 50 unit SUBCUT HS pregabalin 50 mg capsule 50 mg PO DAILY clopidogrel 75 mg tablet 75 mg PO DAILY insulin lispro 100 unit/mL insulin pen 7 unit SUBCUT .with meals Trulicity 1.5 mg/0.5 mL pen injector 1.5 mg SUBCUT WEEKLY zolpidem 5 mg tablet 5 mg PO HS naloxone [Narcan] 4 mg/actuation spray,non-aerosol 4 mg INTRANASAL Q2M PRN (Reason: opioid overdose) doxycycline hyclate 100 mg tablet 100 mg PO BID 10 Days Qty: 20 0RF aspirin [Adult Low Dose Aspirin] 81 mg tablet,delayed release (DR/EC) 81 mg PO DAILY Qty: 60 0RF Rx Instructions: Take 1 tablet by mouth daily until further recommendation from Neurologist oxycodone-acetaminophen 5-325 mg tablet 1 tablet PO BID PRN (Reason: pain) Date of admission: 11/23/24 22:01 Primary Care Provider: Phillip,Angie Dietrich Admitting Provider: Julieta Tobar Attending physician on admission: Julieta Tobar Condition: Stable
[2024-11-25 16:40] LABS: Glucose Point of Care 174 mg/dl (65-105)
== END 2024-11-25 18:00 | disposition home or self-care (01) ==
LOC: ANHED 22:20 → ANH3MEDSUR 11-24 13:19
PROVIDERS: Admitting Provider Internal Medicine; Emergency Provider Registered Nurse; PCP Nurse Practitioner Family; Visit Provider General Practice
DX: E11.621 Type 2 diabetes mellitus with foot ulcer (principal); L97.415 Non-pressure chronic ulcer of right heel and midfoot with muscle involvement without evidence of necrosis; E11.42 Type 2 diabetes mellitus with diabetic polyneuropathy; F17.210 Nicotine dependence, cigarettes, uncomplicated; I10 Essential (primary) hypertension; K21.9 Gastro-esophageal reflux disease without esophagitis; G47.33 Obstructive sleep apnea (adult) (pediatric); F41.8 Other specified anxiety disorders; Z79.4 Long term (current) use of insulin; Z79.82 Long term (current) use of aspirin; Z79.84 Long term (current) use of oral hypoglycemic drugs; Z79.85 Long-term (current) use of injectable non-insulin antidiabetic drugs; Z79.899 Other long term (current) drug therapy; Z86.79 Personal history of other diseases of the circulatory system
CPT/HCPCS: 36415; 73630; 80048; 80053; 80202; 82607; 82746; 82948; 83605; 84145; 84484; 85025; 85027; 85610; 85652; 85730; 86140; 87040; 87641; 93005; 96365; 96366; 96367; 96374; 96375; 96376; 99285; A9270; G0378; G0379; J1815; J1836; J2270; J2405; J3370; J7030

== ENCOUNTER 2024-12-28 15:09 | Outpatient (CLI) | payer OTHER, SELFPAY ==
--- NOTE | ~2024-12-28 | CT_ITS ---
Noncontrast CT scan of the lumbar spine CLINICAL HISTORY: Spinal stenosis TECHNIQUE: Axial noncontrast imaging of the lumbar spine was performed. Sagittal and coronal reformat nisa images were constructed. Dose reduction technique was used on this scan by utilizing automated ex posure control and iterative reconstruction technique. The dose-length product (DLP) was 1224.30 mGy- cm. FINDINGS: No acute fracture or subluxation identified. There is posterior and interbody fusion from L 4 through S1, with bilateral rods and transpedicular screws present, as well as disc fusion cages at the L4-L5 and L5-S1 disc spaces. Prior posterior decompression at L4 and L5. At L1-L2, no significant disc bulge or herniation seen. No spinal canal stenosis or definite neural f oraminal narrowing. At L2-L3, there is mild disc bulge and mild facet hypertrophy. There is mild to moderate central zeke l stenosis. There is moderate left neural foraminal narrowing. Right neural foramen preserved. At L3-L4, there is moderate degenerative disc narrowing. Disc bulge and severe facet arthropathy resu lt in severe spinal canal stenosis/thecal sac compression. There is mild to moderate bilateral neural foraminal narrowing. At L4-L5, there is no definite canal stenosis. Neural foramina are preserved. At L5-S1, there is no definite canal stenosis. Probable moderate to advanced bilateral neural foramin al narrowing. Paravertebral soft tissues are unremarkable, aside from expected postoperative change. Impression: Severe degenerative spondylosis at L3-L4, with severe spinal canal stenosis and associated bilateral neural foraminal narrowing. Moderate degenerative spondylosis at L2-L3, as above. Posterior and interbody fusion from L4 through S1. Reviewed, dictated and finalized at [facility]. Impression: Severe degenerative spondylosis at L3-L4, with severe spinal canal stenosis and associated bilateral neural foraminal narrowing. Moderate degenerative spondylosis at L2-L3, as above. Posterior and interbody fusion from L4 through S1.
--- OUTSIDE RECORDS SUMMARY | 2024-12-28 15:47 | XMS_ITS | Clinical Summary ---
Author Organization [facility] Address [address] [place] [address] Phone Care Team Providers Care Floor Tiling Professional Name Role Phone Unavailable Primary Care Provider Unavailabl e Immunizations Immunization Administration Dates Next Due Influenza [...] of 2) 08/13/2020 06/18/2020 Influenza Immunization (#1) 2024 0807/2021, 08/10/2021, 06/18/2020, Additional history exists SARS-COV-2 Immunization [...]
--- OUTSIDE RECORDS SUMMARY | 2024-12-28 15:48 | XMS_ITS | Patient Health Record ---
Author Organization [facility] Address [address] [place] [address] Care Team Providers Care Data Operations Leader Name Role Phone Shelby, Shirley Primary Care Provider Unavailclifford e Nima Connolly Unavailable [phone] Deniz Gastelum Unavailable Unavailabl e Allergies Allergen [...] Risk Notes Problem Fear of medical treatment (114880883) Fear of injections and transfusions (F40.231) Active confirmed Problem Essential hypertension (38319979) Essential (primary) hypertension (I10) Active confirmed Problem Solitary sacroiliitis (609467824) Sacroiliitis, not elsewhere classified (M46.1) Active confirmed Problem Lumbosacral spondylosis without myelopathy (47183328) Other spondylosis with radiculopathy, lumbar region (M47.26) Active confirmed Problem Lumbosacral spondylosis without myelopathy (80749375) Spondylosis without myelopathy or radiculopathy, lumbar region (M47.816) Active confirmed Problem Lumbosacral spondylosis without myelopathy (49683669) Spondylosis without myelopathy or radiculopathy, lumbosacral region (M47.817) Active confirmed Problem Spinal stenosis of lumbar region (53927222) Spinal stenosis, lumbar region (M48.06) Active confirmed Problem Degeneration of lumbar intervertebral disc (84443771) Other intervertebral disc degeneration, lumbar region (M51.36) Active confirmed Problem Lumbar radiculopathy (891118511) Radiculopathy, lumbar region (M54.16) Active confirmed Problem Lumbosacral radiculopathy (8119644) Radiculopathy, lumbosacral region (M54.17) Active confirmed Problem Muscle pain (31043336) Myalgia, other site (M79.18) Active confirmed Plan Of Treatment Pending Test Test Name Order Date CT Lumbar Spine without contrast 015 Insurance Providers Payer Name Payer Address Payer Phone Subscriber Number Group Number Insured Name Patient Relationship to Insured Coverage Start Date Coverage End Date Workers Compensatio n [employer] [address] [facility] [address] [place] [address] [id number] Jeane Garcia Self - patient is the insured [employer] [address] [place] [address] [id number] Jeane Garcia Self - patient is the insured [employer] Tunde Rainey [address] [facility] [address] [place] [address] [id number] Jeane Garcia Self - patient is the insured Medical (General) History Surgical History Surgery Date(Month/Year) drained out right breast 03/2015 work comp injury 2006 Hospitalization History Reason Date(Month/Year) abcess, cellulitis developed under right breast 03/2015
--- OUTSIDE RECORDS SUMMARY | 2024-12-28 15:48 | XMS_ITS | Encounter Summary ---
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
--- OUTSIDE RECORDS SUMMARY | 2024-12-28 15:48 | XMS_ITS | Encounter Summary ---
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
--- OUTSIDE RECORDS SUMMARY | 2024-12-28 15:48 | XMS_ITS | Clinical Summary ---
Author Organization [facility] Address [address] [place] [address] Care Team Providers Care Medical Fee Clerk Name Role Phone Hugo Hinson MD Primary Care Provider [phone] Source Comments [facility],non-owned Affiliates and Associated Physician Practices is amultiple site organization consisting of ambulatory clinics and hospital sitesin [place], [place], [place] and [place]. This disclosure is being madepursuant to the Care Everywhere program and may not contain all information available regarding this patient. Last updated 18.[facility] Allergies Active Allergy Reactions Criticality Noted Date Comments Augmentin Rash 04/02/2009 Clarithromycin Rash 04/02/2009 Medications * Be aware that medications may not be up to date on this document. Alwaysverify current medications with the patient. glimepiride (AMARYL) 1 MG tablet every 24 hours Activ e topiramate (TOPAMAX) 100 MG tablet Take 2 (two) tablets by mouth at bedtime 12/28/19 21 Active pregabalin (LYRICA) 50 MG capsule Take 1 (one) capsule by mouth at bedtime Active escitalopram (LEXAPRO) 10 MG tablet Take 1 (one) tablet by mouth once daily 04/04/20 21 Active lisinopril (PRINIVIL; ZESTRIL) 10 MG tablet Take 1 (one) tablet by mouth once daily 30 tablet 3 04/04/20 21 Active insulin pen needle (BD UF III) 31G X 8 MM needle 1 (one) Each 3 times daily 100 Each 04/03/20 21 Active Basaglar KwikPen (BASAGLAR) penIndications :Type 2 [...] FROM PRIMARY CARE DOCTOR. 100 tablet 1 08/19/19 24 Active clopidogrel (plaVIX) 75 MG tablet Take 1 (one) tablet by mouth once daily 30 tablet 5 12/21/19 25 Active cyclobenzaprin e (FLEXERIL) 10 MG tablet Take 10 mg by mouth 3 times daily 11/22/19 21 025 Discontin ued(List Clean-Up) naproxen (NAPROSYN) 500 MG tablet naproxen 500 mg tablet TK 1 T PO BID PRN P 025 Discontin ued(List Clean-Up) clopidogrel (plaVIX) 75 MG tablet TAKE 1 TABLET BY MOUTH EVERY DAY 30 tablet 5 03/23/20 24 025 Discontin ued(Reord er) Active Problems Problem Noted Date Diagnosed Date DM2 (diabetes mellitus, type 2) 05/08/2021 Cerebral aneurysm 03/18/2021 SAH (subarachnoid hemorrhage) 11/24/2020 SDH (subdural hematoma) 11/24/2020 Back pain 01/05/2012 Encounters Date Type Department Care Team Description 12/20/2024 10:30 AM CDT Office Visit [facility] - Neurology [address] [place] [address], [place] [address] Phil Pollock MD Cerebral aneurysm (HCC) (Primary Dx) 12/20/2024 Travel 10/02/2024 Refill [facility] - Neurology [address] [place] [phone] Phil Pollock MD MEDICATION REFILL from Last 3 Months Social History Tobacco Use Types Packs/Day Years Used Date Smoking Tobacco: Every Day Cigarettes 0.3 22 Started: 01/31/1987; Last attempted to quit: 01/31/2009 Smokeless Tobacco: Never Tobacco Cessation:Ready to Q uit: Not Asked; Counseling Given: Not Answered Alcohol Use Standard Drinks/Week Comments No 0 (1 standard drink = 0.6 oz pur e alcohol) Comments No Sex and Gender Information Value Date Recorded Sex Assigned at Female 04/04/2021 4:21 PM CDT Legal Sex Female 9:02 AM 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 Gender Identity Female 04/04/2021 4:21 PM CDT Sexual Orientation Not on file Last Filed Vital Signs Vital Sign Reading Time Taken Comments Blood Pressure 108/71 12/20/2024 10:18 AM CDT Pulse 84 12/20/2024 10:18 AM CDT Temperature 36.8 C (98.2 F) 10/08/2022 10:54 AM CDT Respiratory Rate 12 12/20/2024 10:18 AM CDT Oxygen Saturation 98% 10/08/2022 10:54 AM CDT Inhaled Oxygen Concentration 21% 05/07/2021 1 2:55 PM CDT Weight 98.4 kg (217 lb) 12/20/2024 10:18 AM CDT Height 165.1 cm (5' 5) 10/08/2022 6:18 AM CDT Body Mass Index 36.11 10/08/2022 6:18 AM CDT Plan of Treatment Health Maintenance Due Date Last Done Comments COLON MONITORING 1970 COLONOSCOPY - COLON CA SCREENING 1970 CT COLONOGRAPHY - COLON CA SCREENING 1970 FIT - COLON CA SCREENING 1970 FLEX SIG - COLON CA SCREENING 1970 MAMMOGRAM 1970 DTAP/TDAP/TD VACCINES (1 - Tdap) 1989 HEPATITIS B VACCINE (1 of 3 - 19+ 3-dose series) 1989 PNEUMOCOCCAL VACCINE 50+ (1 of 2 - PCV) 1989 PAP SMEAR 1991 PAP with HPV 02/15/2000 DIABETES-STATIN 2010 ZOSTER VACCINE (1 of 2) [...] Screening 09/22/2024 INFLUENZA VACCINE (Season Ended) 2025 02/26/2022, 02/19/2022, 08/10/2021, Additional history exists HEPATITIS C SCREENING Completed [...] this topic Medical Devices Implanted Type Area Hot Plate Press Operator Device Identifier Shelf Expiration Date Model / Serial / Lot Targetxl 360 Soft Detachable Coil Implanted:Qty : 1 on 11/25/[address] [facility] Left: Carotid 11/04/2022 [id number] / / [id number] Description: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 Pollock. Set Xtrn Babak 35cm 1.9mm 3-15cm Cath Inr Implanted:Qty : 1 on 12/11/2020 by Hiram Hernandez MD at [facility] Left: Cranial Integra [employer] 09/15/2021 [id number] / / [id number] Cover Bur Hl 14mmx.4mm Unv Neuro Iii Implanted:Qty : 1 on 12/11/2020 by Hiram Hernandez MD at [facility] Left: Cranial Radhika Craniomaxillofacial [id number] / / Screw 1.5mm 4mm Slf Chaya Ax Stab Unv Implanted:Qty : 4 on 12/11/2020 by Hiram Hernandez MD at [facility] Left: Cranial Madison Craniomaxillofacial [id number] / / Surpass Evolve Flow Diverter System Implanted:Qty : 1 on 05/07/[address] [facility] Left: Carotid 09/15/2023 [id number] / / [id number] Description:Implanted in the Left Internal Carotid Artery by Dr. Pollock. Explanted Type Area Hot Plate Press Operator Device Identifier Shelf Expiration Date Model / Serial / Lot Surpass Evolve Flow Diverter System Explanted:Qty: 1 on 05/07/[address] [facility] Left: Carotid 09/15/2023 [id number] / / [id number] Description:Implanted in the Left Internal Carotid Artery [...] - 26 mg/dL 10/08/2022 7:21 AM CDT [facility] Creatinine 0.91 0.56 - 0.96 mg/dL 10/08/2022 7:21 AM CDT [facility] Sodium 142 136 - 145 mmol/L 10/08/2022 7:21 AM CDT [facility] Potassium 4.0 3.5 - 4.5 mmol/L 10/08/2022 7:21 AM CDT [facility] Chloride 108(H) 98 - 107 mmol/L 10/08/2022 7:21 AM [facility] CO2 25 22 - 29 mmol/L 10/08/2022 7:21 AM [facility] Glucose 85 70 - 115 mg/dL 10/08/2022 7:21 AM [facility] Calcium 9.1 8.4 - 10.2 mg/dL 10/08/2022 7:21 AM [facility] Anion Gap 13 8 - 18 10/08/2022 7:21 AM [facility] BUN/Creatinine Ratio 19 7 - 23 10/08/2022 7:21 AM [facility] Osmolality Calculated 295 270 - 300 mOsm/kg 10/08/2022 7:21 AM [facility] eGFR by CKD-EPI 76(L) >=90 mL/min/1.7 3 m2 10/08/2022 7:21 AM [facility] Blood BLOOD SPECIMEN / Unknown Venipuncture / Unknown 10/08/2022 6:37 AM CDT 10/08/2022 6:51 AM CDT us Jania Dacosta PA-C LAB - CHEMISTRY ORDERABLE S Final Result [facility] [address] [place] [id number], [facility] [phone] * MICROALB/CREAT RATIO URINE RANDOM PANEL (04/03/2021 9:53 AM CDT) Albumin Random Urine 12.0 Not Established ug/mL 04/03/2021 10:32 AM [facility] Creatinine Urine 56 Not Established mg/dL 04/03/2021 10:32 AM [facility] Urine Albumin/Creati nine Ratio 21 <30 mg/g 04/03/2021 10:32 AM [facility] Urine URINE SPECIMEN OBTAINED BY CLEAN CATCH PROCEDURE / Unknown Collection / Unknown 04/03/2021 9:53 AM CDT 04/03/2021 9:53 AM CDT us Reji Kynion LEAD SOFTWARE QA ENGINEER-AUTOMOTIVE FUEL INJECTION SERVICER LAB - URINE CHEMISTRY ORDE EWA Final Result [address] [address], [facility] [phone] * (ABNORMAL) HEMOGLOBIN A1C (04/03/2021 2:04 AM CDT) Hemoglobin A1c 9.7(H) 4.4 - 6.3 % 04/03/2021 9:31 AM CDT [facility] Estimated Average Glucose 232 mg/dL 04/03/2021 9:31 AM CDT [facility] Comment: HbA1c Interpretation: Treatment target values recommended by ADA and other clinical organizations should be used to evaluate metabolic control in patients. Treatment Target Values: Normal : < 5.7% Pre-diabetes: 5.7-6.4% Diabetes: Equal to or greater than 6.5% Reference: [place] [employer] Standards of Care in Diabetes -2014 In patients 70 years and older consider HbA1c target range of 7.0-7.5% Reference: Diabetes Mellitus in Older People: Position Statement on behalf of the International Association of Gerontology and Geriatrics (IAGG), the Diabetes Working Alliance Party for Older People (EDWPOP), and the International Task Force of Experts in Diabetes. Seth Maya, et al. J [place] [employer]. 2012 Test results diagnostic of diabetes should be repeated for confirmation. The Sebia Capillary 2 assay for the measurement of HbA1c is a National Glycohemoglobin Standardization Program (NGSP)certified method. Blood BLOOD SPECIMEN / Unknown Lab Venipuncture / Unknown 04/03/2021 2:04 AM CDT 04/03/2021 2:58 AM CDT us Luis A Chakraborty MD LAB - CHEMISTRY ORDERABLES Final Result [facility] [address] [place] [phone], [facility] [phone] * EXPOSURE PANEL SOURCE (12/07/2020 9:21 PM CDT) HIV Antigen/Antibody 1 & 2 Non-react stephon Non-reac tive 12/07/2020 11:54 PM CDT [facility] Comment:Neither HIV-1 p24 An tigen nor HIV-1/HIV-2 Antibodies are detected. Hepatitis C Antibody Non-react stephon Non-reac tive 12/07/2020 11:54 PM CDT [facility] Comment:Hepatitis C Antibody screen indicates no serologic evidence of past or current infection with Hepatitis C Virus. Patients with unexplained liver disease who are immunocompromised or suspected of having acute Hepatitis C infection may benefit from Nucleic Acid Test (IDA) for Hepatitis C Viral RNA to confirm Hepatitis C status. Hepatitis B Virus Surface Antigen Non-react stephon Non-reac tive 12/07/2020 11:54 PM CDT [facility] Hepatitis B Core Virus Antibody IgM Non-react stephon Non-reac tive 12/07/2020 11:54 PM CDT [facility] Blood BLOOD SPECIMEN / Unknown Venipuncture / Unknown 12/07/2020 9:21 PM CDT 12/07/2020 10:23 PM CDT us Hiram Hernandez MD LAB - CHEMISTRY ORDERABLES F inal Result [facility] [address] [place] [address], [facility] [phone] from Last 3 Months or Most Recently Relevant to Health Maintenance Insurance [facility] PAYOR GENERIC Advance Directives * [...] 6:15 PM 11/24/2020 6:40 PM Care Teams Medical Fee Clerk Relationship Specialty Start Date End Date Hugo Hinson MD [address] [place] [address] PCP - General Gastroenterology 04/26/21
--- OUTSIDE RECORDS SUMMARY | 2024-12-28 15:48 | XMS_ITS | Clinical Summary ---
Author Organization [facility] Address [address] [place] [address] Care Team Providers Care Pantograph I Engraver Name Role Phone Unavailable Primary Care Provider [...] 9:40 PM CDT Height 165.1 cm (5' 5) 12/22/2020 5:19 AM CDT Body Mass Index 26.96 12/22/2020 5:19 AM CDT Plan of Treatment Not on file Advance Directives * Full Resuscitation (Latest Code Status on File) Date Activated Date Inactivated Comments 12/20/2020 4:59 PM 01/01/2021 4:55 PM
--- OUTSIDE RECORDS SUMMARY | 2024-12-28 15:48 | XMS_ITS | Data Portability ---
Author Organization [place] - [employer], Main Office Address [address] [place] [address] Care Team Providers Care Endbander Name Role Phone RACHANA IVORY Primary Care Provider [phone] RACHANA IVORY Referring Provider [phone] Assessment Encounter Date Assessment Date Assessment LastModified by Organization Details LastModified Time 12/06/2024 12/06/2024 This note is dictated and transcribed by [employer]. International Operations Manager variances may occur. Despite proofreading, typographical errors may occur. Occasional wrong-word or 'hceti-v-uxhf' substitutions may have occurred due to the inherent limitations of voice recording. Read the chart carefully and recognize, using context, where substitutions have occurred. Not available 12/06/2024 14:44:24 12/13/2024 12/13/2024 This note is dictated and transcribed by [employer]. International Operations Manager variances may occur. Despite proofreading, typographical errors may occur. Occasional wrong-word or 'ksbgj-w-kari' substitutions may have occurred due to the inherent limitations of voice recording. Read the chart carefully and recognize, using context, where substitutions have occurred. Not available 12/14/2024 08:55:25 12/20/2024 12/20/2024 This note is dictated and transcribed by [employer]. International Operations Manager variances may occur. Despite proofreading, typographical errors may occur. Occasional wrong-word or 'gwuxc-t-newr' substitutions may have occurred due to the inherent limitations of voice recording. Read the chart carefully and recognize, using context, where substitutions have occurred. Not available 12/21/2024 09:19:35 12/27/2024 12/27/2024 This note is dictated and transcribed by [employer]. International Operations Manager variances may occur. Despite proofreading, typographical errors may occur. Occasional wrong-word or 'kqvhn-y-rlaq' substitutions may have occurred due to the inherent limitations of voice recording. Read the chart carefully and recognize, using context, where substitutions have occurred. Not available 12/27/2024 14:06:15 Plan of Treatment Reminders Order Date Submit Date Provider Last Modified By Organization Details Last Modified Time Details Appointments Any 15 2024 01:45P Hardy Moody DPM Not available Not available Not available Nurse Visit 15 2024 01:45P Hardy Moody DPM Not available Not available Not available Lab C-reactiv e protein, quantitat stephon, serum or plasma [address] [place] [address] ([facility]), [address] [place], [address], 12/26/2024 12:34:36 CBC [address] [place] [address] ([facility]), [address] [place], [address], 12/26/2024 12:34:36 CMP, serum or plasma [address] [place] [address] ([facility]), [address] [place], [address], 12/26/2024 12:34:36 ESR (erythroc yte sedimenta tion rate), blood [address] [place] [address] ([facility]), [address] [place], [address], 12/26/2024 12:34:37 Referral None recorded. Procedures None recorded. Surgeries None recorded. Imaging XR, foot 2024 025 [email or web address] [facility], [address] [place], [address], 12/06/2024 16:11:42 Medication Orders gentamici n 0.1 % topical ointment 2024 025 DENICE [id number], [address], [place], [id number], 12/06/2024 14:54:41 Cipro 500 mg tablet 2024 025 [email or web address] [facility] #[id number], [address], [place], [id number], 12/21/2024 09:21:18 Patient TargetsNo targets recorded. Patient InstructionsNo instructions recorded. Reason for Referral None Reported. Results Created Date Observation Date Name Description Value Unit Range Abnormal Flag Note LastModifiedBy Organization Detail LastModifiedTime 11/30/1911/29/2024 CULTU RE WOUND /TISS UE+GR .STAI N [email or web address] ===== ===== ===== ===== ===== ===== ===== ===== ===== ===== ===== ===== ===== ===== ===== ===== ===== ===== ===== ===== ===== ===== ===== ===== Speci men NO.: [id number] Exam Statu s: Final Proce dure: CULTU RE WOUND /TISS UE+GR .STAI N ===== ===== ===== ===== ===== ===== ===== ===== ===== ===== ===== ===== ===== ===== ===== ===== ===== ===== ===== ===== ===== ===== ===== ===== Iso/R esult : 01 Prote us mirab ilis Antim icrob ic/Do se DARRYL Syste darryl Urine __ ___ ___ Ampic illin <=8 S Aztre onam <=4 S Cefot axime <=2 Cipro floxa shraddha <=0.2 5 S Genta micin <=2 S [place]oty [place] 40914 [id number] Oxida se React ion N Extra Sensi tive Be NEG Amp/S ulbac lew <=8/4 S Ceftr iaxon e <=1 S Cefta zidim e <=1 S Cefaz mckenna <=2 S Cefep irma <=2 S Cefur oxime <=4 S Levof loxac in <=0.5 S Merop enem <=1 S Pip/T azo <=8 S Trime th/Ramsey lfa <=2/3 8 S Tetra cycli ne >8 R Tobra mycin <=2 S Not Available [facility] [address] [place], [address], 12/01/2024 10:17:58 11/24/19 25 11/22/2024 XR, foot, 2 view No observ ation record ed. [email or web address] [facility] [address] [facility], [place], [address], 11/23/2024 14:14:59 11/25/19 25 11/23/2024 XR, foot, 2 view No observ ation record ed. [email or web address] [facility] [address] [facility] [address], [place], [address], 11/27/2024 08:36:28 12/07/19 XR, foot No observ ation record ed. [email or web address] [facility] [address] [place], [address], 12/06/2024 15:27:54 Result Notes None recorded. Problems Name Problem SNOMED Code Status Onset Date Resolution Date Notes Provider Name and Address Organization Details Recorded Time Pain in upper limb 899977201 Completed Not Available [facility] 3 08:22:17 Infection of skin 387382299 Completed Not Available [facility] 3 08:22:18 Tobacco user 411036834 Active 2017 Not Available [facility] 3 08:22:18 Celluliti s 584885807 Completed Not Available [facility] 3 08:22:18 Celluliti s of foot 579423680 Active 2022 Not Available [facility] 3 08:22:18 Celluliti s of foot 081224215 Active 2022 Not Available [facility] 3 08:22:18 Postopera tive care Active 2022 Not Available [facility] 3 08:22:18 Amenorrhe a 85043579 Completed Not Available [facility] 3 08:22:18 External hordeolum 1648713 Active Not Available [facility] 3 08:22:18 Fibromato sis of plantar fascia of right foot 89237753014 009318 Active 2021 Not Available [facility] 3 08:22:18 Fibromato sis of plantar fascia of left foot 32284406155 993319 Active 2021 Not Available [facility] 3 08:22:18 Acute sinusitis 69775030 Completed Not Available [facility] 3 08:22:18 Spinal stenosis of lumbar region 52183054 Active Not Available [facility] 3 08:22:18 Insomnia 555946905 Active Not Available [facility] 3 08:22:18 Open wound of breast 224183562 Completed Not Available [facility] 3 08:22:18 Mixed anxiety and depressiv e disorder 725468423 Active 2016 Not Available [facility] 3 08:22:18 Soft tissue lesion of foot region 024815396 Active 2022 Not Available [facility] 3 08:22:19 Broken skin 866786809 Completed Not Available [facility] 3 08:22:19 Infection of sebaceous cyst 618367255 Completed Not Available [facility] 3 08:22:19 Multiple pelvic fractures 654629068 Active 2021 Not Available [facility] 3 08:22:19 Elevated level of transamin ase and lactic acid dehydroge padminie 817532597 Active Not Available [facility] 3 08:22:19 Difficult y gripping 364469698 Completed Not Available [facility] 3 08:22:19 Abscess of breast 72190355 Completed Not Available [facility] 3 08:22:19 Fracture of superior pubic ramus 658396991 Active 2021 Not Available [facility] 3 08:22:19 Fracture of inferior pubic ramus 902870788 Active 2021 Not Available [facility] 3 08:22:19 Pain in pelvis 39426537 Active 2021 Not Available [facility] 3 08:22:19 Pain in right foot 18505941494 9107 Active 2021 Not Available [facility] 3 08:22:20 Depressiv e disorder 25737770 Active Not Available [facility] 3 08:22:20 Ulnar neuropath y 948043033 Active Not Available [facility] 3 08:22:20 Onychomyc osis of toenails 226252445 Active 2022 Not Available [facility] 3 08:22:20 Hematoche getachew 234965155 Active Not Available [facility] 3 08:22:20 Obese 038533409 Active 2016 Not Available [facility] 3 08:22:20 Onychomyc osis 978881844 Active Not Available [facility] 3 08:22:20 Nausea 320499927 Completed Not Available [facility] 3 08:22:20 History of surgery for cerebral aneurysm 049855999 Active 2021 Not Available [facility] 3 08:22:21 Aneurysm 445188503 Active 2020 Not Available [facility] 3 08:22:21 Type 2 diabetes mellitus 55662922 Active Not Available [facility] 3 08:22:21 Hyperlipi demia 80178157 Active Not Available [facility] 3 08:22:21 Pain of wrist region 21652891 Completed Not Available [facility] 3 08:22:21 Essential hypertens ion 10944136 Active Not Available [facility] 3 08:22:21 Tinea pedis 5636950 Active 2016 Not Available [facility] 3 08:22:21 Cigarette smoker 64896452 Active 2022 Not Available [facility] 3 08:22:21 Urinary tract infectiou s disease 60203407 Completed Not Available [facility] 3 08:22:21 Acid reflux 227576456 Active 2016 Not Available [facility] 3 08:22:22 Diabetes mellitus 28454138 Active Not Available [facility] 3 08:22:22 Urgent desire to urinate 13150880 Completed Not Available [facility] 3 08:22:22 Spinal stenosis 62278834 Active 2021 Not Available [facility] 3 08:22:22 Postmenop ausal bleeding 62205529 Active 2017 Not Available [facility] 3 08:22:22 Smoker 85767384 Active 2021 Not Available [facility] 3 08:22:22 Fracture of pelvis 95206746 Active 2021 Not Available [facility] 3 08:22:22 Hyperglyc emia 75306482 Active Not Available [facility] 3 08:22:22 Tinea corporis 21862084 Completed Not Available [facility] 3 08:22:23 Chronic low back pain 928808347 Active 2022 EDDA Cotton [address] [facility] [facility] [address], [place], [address] , [facility] [employer] [facility] 3 11:05:12 Neuropath y 085923712 Active 2022 EDDA Cotton [address], [place], [address] , [facility] 3 08:31:01 Uncontrol led type 2 diabetes mellitus 397239902 Active 2023 TAM Stoddard [address], [address], [place], [address] , [facility] 4 16:11:46 Open wound 466538850 Active 2024 ALEKSANDER Varghese [address], [address], [place], [address] , [facility] 5 14:31:47 Body mass index 30+ - obesity 753348260 Active 2024 ALEKSANDER Varghese [address], [address], [place], [address] , [facility] 5 15:00:07 Ulcer of right foot due to type 2 diabetes mellitus 12477329364 453723 Active 2024 Jovon Moody DPM [address], [address], [place], [address] , [facility] 5 15:21:08 Pruritic rash 43473960 Active 2024 Jovon Moody DPM [address], [address], [place], [address] , [facility] 5 15:22:59 Problem Notes None recorded. Procedures Surgical History Date Name Laterality Status Provider Name and Address Organization Details Recorded Time 12/28/19 25 Wound Care-Podiat[facility] completed Luzmaria Cordoba RN [employer] 12/27/2024 14:42:00 12/21/19 25 Wound Care-Podiat[facility] completed Jovon Moody DPM [address], [address], [place], [address], [facility] 12/21/2024 09:18:55 12/14/19 25 Wound Care-Podiatry completed Jovon Moody DPM [address], [address], [place], [address], [employer] 12/14/2024 08:56:20 12/07/19 25 Wound Care-Podiatry completed Jovon Moody DPM [address], [place], [address], [employer] 12/06/2024 15:23:07 11/30/19 25 Wound Care-Podiatry completed Jovon Moody DPM [address], [place], [address], [employer] 12/05/2024 08:59:37 fusion completed Not Available [facility] 07/2022 08:19:18 section completed Not Available [facility] 09/16/2022 08:19:18 stimulation completed Not Available [facility] 09/16/2022 08:19:18 Imaging Results None recorded. Procedure Notes None recorded. Medical Equipment None Reported. Allergies Allergen ID Allergen Name Allergen Category Reaction Reaction Severity Criticality Documentation Date Start Date Code Code System Note Provider Name and Address Organization Details Recorded Time Biaxin medicatio n Not available Not available Not available 09/16/202215096 9 RxNorm Not Available [facility] 3 08:26:00 80921 Augmentin medicatio n Not available Not available Not available 09/16/2022 57038 2 RxNorm Not Available [facility] 3 08:26:00 Medications Name Sig Start [...] t Available ciproflox acin 500 mg tablet TAKE 1 TABLET BY MOUTH EVERY 12 HOURS FOR 5 DAYS 12/21 completed Not Available Not Available Not Available morphine ER 30 mg tablet,ex tended release TK 1 T PO BID 02/23 completed Not Available Not Available Not Available sulfameth oxazole 800 mg-trimet hoprim 160 mg tablet TAKE 1 TABLET BY MOUTH EVERY 12 HOURS FOR 7 DAYS 11/29 completed Not Available Not Available Not Available peg-elect rolyte solution 420 gram oral solution MIX AND DRINK UTD active Not Available Not Available No t Available aspirin 81 mg tablet,de layed release 12/06 completed Not Available Not Available Not Available tramadol [...] mg tablet TAKE 1 TABLET BY MOUTH AT BEDTIME NEEDED ONLY active Not Available Not Available No t Available metoprolo l succinate ER 25 mg tablet,ex tended release 24 hr TAKE 1 TABLET BY MOUTH EVERY DAY 09/10 completed Not Available Not Available Not Available Novolog U-100 Insulin aspart 100 unit/mL subcutane ous solution Inject SC TID per SSI 09/10 completed Not Available Not Available Not Available triamcino lone acetonide 0.1 % lotion APPLY THIN LAYER TO TO THE AFFECTED AREA OF LOWER LEG TOPICALL Y TWICE DAILY active Not Available Not Available No t Available ibuprofen 600 mg tablet Take 1 [...] Not Available doxycycli ne hyclate 100 mg tablet TAKE 1 TABLET BY MOUTH TWICE DAILY FOR 10 DAYS 12/06 completed Not Available Not Available Not Available gentamici n 0.1 % topical ointment APPLY SMALL AMOUNT TOPICALL Y TO THE AFFECTED AREA THREE TIMES DAILY active Not Available Not Available No t Available naproxen 500 mg tablet TAKE 1 [...] Not Available Not Available No t Available insulin lispro (U-100) 100 unit/mL subcutane ous [...] Not Available Not Available Not Available Fluvirin 3757-2832 45 mcg (15 mcg x 3)/0.5 mL intramusc ular suspensio n active Not Available Not Available Not Available Narcan 4 mg/actuat ion nasal spray active Not Available Not Available Not Available bupropion HCl 150 mg tablet,12 hr sustained -release( smoking deterrent ) Take 1 tablet twice a day by oral route. active Not Available Not Available No t Available Fluvirin 7130-8285 45 mcg (15 mcg x 3)/0.5 mL [...] Not Available Not Available [employer]plus Pen Needle 31 gauge x 3/16 USE DIRECTED TO INJECT INSULIN THREE TIMES DAILY active Not Available Not Available No t Available [employer] Pen Needle 32 gauge x [...] Available Vitals Date Recorded Body height Body mass index (BMI) Body weight Body temperature Heart rate Oxygen saturation Oxygen saturation in Arterial blood by Pulse oximetry Systolic blood pressure Diastolic blood pressure Provider Name and Address Organization Details Last Updated DateTime 5 165.1 cm 35.6 kg/m2 07452.7 7 g 97.3 [degF] 85 /min 94 % 94 % 114 mm[Hg] 74 mm[Hg] TANYA Iglesias [employer] 5 16:30:45 Date Recorded Body height Body mass index (BMI) Body weight Respiratory rate Body temperature Oxygen saturation Oxygen saturation in Arterial blood by Pulse oximetry Heart rate Systolic blood pressure Diastolic blood pressure Provider Name and Address Organization Details Last Updated DateTime 5 165.1 cm 35.6 kg/m2 32498.7 7 g 16 /min 97.8 [degF] 97 % 97 % 79 /min 128 mm[Hg] 68 mm[Hg] Ginny Srinivasan [employer] 5 14:26:10 Date Recorded Body height Respiratory rate Body mass index (BMI) Body weight Heart rate Body temperature Oxygen saturation Oxygen saturation in Arterial blood by Pulse oximetry Systolic blood pressure Diastolic blood pressure Provider Name and Address Organization Details Last Updated DateTime 5 165.1 cm 18 /min 35.6 kg/m2 77415.7 7 g 86 /min 98 [degF] 96 % 96 % 135 mm[Hg] 69 mm[Hg] Ginny Craig [employer] 5 14:53:25 Date Recorded Body height Body mass index (BMI) Body weight Heart rate Respiratory rate Body temperature Oxygen saturation Oxygen saturation in Arterial blood by Pulse oximetry Systolic blood pressure Diastolic blood pressure Provider Name and Address Organization Details Last Updated DateTime 5 165.1 cm 35.6 kg/m2 09547.7 7 g 101 /min 16 /min 97.8 [degF] 97 % 97 % 136 mm[Hg] 69 mm[Hg] Ginny Craig [employer] 5 13:12:41 Date Recorded Body height Body mass index (BMI) Body weight Heart rate Respiratory rate Oxygen saturation Oxygen saturation in Arterial blood by Pulse oximetry Body temperature Systolic blood pressure Diastolic blood pressure Provider Name and Address Organization Details Last Updated DateTime 5 165.1 cm 35.6 kg/m2 20559.7 7 g 100 /min 18 /min 99 % 99 % 97.6 [degF] 137 mm[Hg] 54 mm[Hg] Ginny Srinivasan [employer] 5 14:25:51 Social History Question Answer Notes LastModified by Organizat ion Details LastModified Time Tobacco Smoking Status Current Every Day Smoker Lisa Finley vicente [employer] 09/23/2022 07:56:25 What Is Your Level Of Caffeine Consumption? Occasional [id number] Information not available 09/16/2022 In The 14 Days Before Symptom Onset, Have You Had Close Contact With A Laboratory-confi rmed COVID-19 While That Case Was Ill? No [email or web address] Information not available 09/23/2022 In The 14 Days Before Symptom Onset, Have You Had Close Contact With A Person Who Is Under Investigation For COVID-19 While That Person Was Ill? No Information not available 09/23/2022 What Type Of Diet Are You Following? REGULAR [id number] Information not available 09/16/2022 Where Do You Live? [facility] Information not available 11/15/2024 What Was The [...] PPD Information not available 11/15/2024 Do You Use Sunscreen Routinely? Yes Information not available 11/15/2024 Has Tobacco Cessation Counseling Been Provided? No [email or web address] Information not available 09/23/2022 Have You Recently Traveled Abroad? No Information not available 11/15/2024 Do You Have Any Dietary Restrictions? No Information not available 09/23/2022 Sex: Female Functional Status Question Answer Note LastModified by Organizat ion Details LastModified Time Do you use any illicit or recreational drugs? No [email or web address] Information not available 09/23/2022 Do you or have you ever used any other forms of tobacco or nicotine? No Information not available 11/15/2024 What is your level of alcohol consumption? None [id number] Information not available 09/16/2022 Are you currently employed? 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 None [id number] Information not available 09/16/2022 Mental Status Question Answer Note LastModified by Organization D etails LastModified Time Do you feel stressed (tense, restless, nervous, or anxious, or unable to sleep at night)? [id number] Information not available 11/15/2024 Family History Relationship Description Onset Age of this Age Resolved Age Notes LastModified by Organization Details LastModified Time Unspecified Relation Cerebrovascu lar accident [email or web address] Not available 05/2025 14:22:36 Unspecified Relation Hypertensive disorder [id number] Not available 09/16/2022 08:19:19 Unspecified Relation Diabetes mellitus [id number] Not available 09/16/2022 08:19:19 Medical History Condition Response STROKE/TIA Y DIABETES, TYPE Y Gynecological History Statement/Question Response Sexually Active? N Weight gain N Dislike of Light during Menstrual Headac he N Menses Monthly N STIs/STDs N Breast Problems no Discharge no Obstetrics History GPAL:G 0 P 0 0 0 0 Immunizations Vaccine Type Date Status Note Provider Nam e and Address Organization Details Recorded Time Influenza, split virus, trivalent, preservative 3 completed Not Available [facility] 09/16/2022 08:25:48 Influenza, split virus, trivalent, preservative 5 completed Not Available [facility] 09/16/2022 08:25:48 Influenza, split virus, trivalent, preservative 5 completed Not Available [facility] 09/16/2022 08:25:48 Influenza, split virus, quadrivalent, preservative 6 completed Not Available [facility] 09/16/2022 08:25:48 pneumococcal polysaccharide PPV23 6 completed Not Available [facility] 09/16/2022 08:25:48 Tdap 5 completed Not Available [facility] 09/16/2022 08:25:48 Influenza, split virus, quadrivalent, PF 8 completed Not Available [facility] 09/16/2022 08:25:49 Influenza, split virus, quadrivalent, PF 7 completed Not Available [facility] 09/16/2022 08:25:49 Influenza, split virus, quadrivalent, PF 6 completed Not Available [facility] 09/16/2022 08:25:49 MMR 5 completed Not Available [facility] 09/16/2022 08:25:49 Influenza, split virus, trivalent, preservative 4 completed Not Available [facility] 09/16/2022 08:25:49 Past Encounters Encounter ID Performer Location Encounter Start Date Encounter Closed Date Diagnosis/Indication Diagnosis SNOMED-CT Code Diagnosis ICD10 Code Diagnosis Note [id number] [facility] [place] [address] [place] [address] 09/10/2021 00:00:00 09/10/2021 12:33:58 [id number] Jermain Boyle MD [facility] [address] [facility] [place] [address] 01/07/2022 00:00:00 01/07/2022 13:56:36 [id number] Chao Nicole MD [facility] [place] [address] [place] [address] 01/12/2022 00:00:00 01/12/2022 10:53:58 [id number] Chao Nicole MD [facility] [place] [address] [place] [address] 01/21/2022 00:00:00 01/21/2022 11:06:17 [id number] [facility] [place] [address] [place] [address] 02/05/2022 00:00:00 02/06/2022 10:17:36 [id number] Chao Nicole MD [facility] [place] [address] [place] [address] 02/11/2022 00:00:00 02/11/2022 10:55:07 [id number] Chao Nicole MD [facility] [place] [address] [place] [address] 03/04/2022 00:00:00 03/04/2022 11:25:37 [id number] [facility] [place] [address] [place] [address] 03/19/2022 00:00:00 03/23/2022 10:29:35 [id number] [facility] [place] [address] [place] [address] 04/16/2022 00:00:00 04/16/2022 11:54:48 [id number] EDDA Cotton [facility] [address] [facility] [address] [place] [address] 06/24/2022 00:00:00 06/24/2022 08:58:04 [id number] EDDA Cotton [facility] [address] [facility] [address] [place] [address] 07/24/2022 00:00:00 07/24/2022 19:11:20 [id number] Jovon Moody DPM [facility] [place] [address] [facility] [address] [place] [address] 07/30/2022 00:00:00 07/30/2022 10:13:54 [id number] EDDA Cotton [facility] [address] [facility] [address] [place] [address] 08/04/2022 00:00:00 08/04/2022 08:48:50 [id number] Jovon Moody DPM [facility] [address] [address] 08/18/2022 00:00:00 08/18/2022 12:24:32 [id number] Jovon Moody DPM [facility] [place] [address] [place] [address] 08/27/2022 00:00:00 08/27/2022 09:27:27 [id number] Jovon Moody DPM [facility] [address] [address] 09/03/2022 00:00:00 09/03/2022 12:47:29 [id number] Jovon Moody DPM [facility] [place] Aguilar [address] [place] [address] 09/21/2022 16:42:47 09/22/2022 14:39:07 Postoperative care [id number] Z48.89 incision healedno pain with weight-pete ringFollow -up as needed, continue normal shoe gear [id number] EDDA Cotton [facility] Primary Care [facility] [address] [place] [address] 09/23/2022 07:56:09 09/23/2022 08:32:45 Adult health examination [id number] Z00.00 Will get routine labs. Covid vaccines- up to date on boostersFl u vaccine- recommende d every fallTetanu s vaccine- 07/19/2014; due 2024Shingl es vaccine- recommende d Pap- thinks within last 5 years; declines to updateColo guard - 09/22/21 wnl; repeat in 2024Mammog leobardo- ordered today Recommende d routine eye exams and dental cleanings. Diabetes mellitus 707818 09 E11.9 (06/24/22) A1C 7.1She states fasting AM sugars are usually less than 200 but today it was elevated to 300.Rechec k labs today. Hyperlipid emia screening 087379553 Z13.220 Screening mammography 24 778019 Z12.31 [id number] Yoon Kennedy MD [facility] Primary Care [facility] [address] [place] [address] 01/15/2023 10:50:11 01/15/2023 11:16:18 Chronic low back pain 633491263 M54.50 Pt. has list of providers with her to try and get establishe d with new pain management .Will try to send referral to [facility] (Dr. Velasquez or Dr. Jade). Eruption [id number] R21 Essential hypertension 56457369 I10 Elevated today. Tends to fluctuate. Possibly exacerbate d by pain. Will continue to monitor. [id number] ALEKSANDER Paige [facility] Primary Care [address] [place] [address] 08/24/2023 11:14:54 08/24/2023 13:37:46 Type 2 diabetes mellitus 01720018 E11.9 -pt takes basiglar, glimepirid e, and lispro-shira cks blood sugar 1 time/day-l abs obtained-l ispro refilled Spinal maulik nosis of lumbar region 83770698 M48.061 -she had a referral to pain management but they stopped seeing her d/t her insurance issues-req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
--- OUTSIDE RECORDS SUMMARY | 2024-12-28 15:48 | XMS_ITS | Continuity of Care Document ---
Author Organization [facility] Address [address] [place] [address] Phone Care Team Providers Care Mine Foreman Name Role Phone Sravan Baltazar MD Unavailable Unavailable Advance Directives Directive Yes / No Effective Date File Name No Information Encounters Encounter Description Practice Location Reason(s) For Visit Diagnoses Date Provider Providers Copied on Encounter [facility], [address], [place], [place], [address], tel:[phone] [facility] SPINAL STENOSIS-LUM BAR Giovanny Hinson. [address] [place], [place], [address]. tel:[phone] [employer], [address], [place], [address], tel:[phone] [facility] Kd Angelo. [address] [place], [place], [address], . tel:[phone] [employer], [address], [place], [address], tel:[phone] [facility]BIO SUB Hill Rawls. [address] [place], [place], [address], . tel:[phone] Family History Family Member Type Diagnosis Age At Onset No Information Payers Payer name Insurance type Covered constitution party ID Authoriza tion(s) No Information Social History Type Description Quantity Date Captured Comments Sex Female Smoking Status No Information Chief Complaint And Reason For Visit No Information Reason For Referral Reason For Referral No Information History Of Present Illness Encounter Date Complaint History Of Prese nt Illness No Information Functional Status Date Functional Assessmen t No Information Instructions Date Instruction Additional Infor mation No Information Assessments Type Assessment Date No Information Patient Care Teams Name Effective Dates (start - stop) Status Members No Information
--- OUTSIDE RECORDS SUMMARY | 2024-12-28 15:49 | XMS_ITS | Continuity of Care Document ---
Author Organization [facility] [employer] [facility] Address [address] [place] [address] Care Team Providers Care Resaw Machine Operator Name Role Phone IOVRYAYAZH Primary Care Provider CACHORROAYAZH Referring Provider [phone] Assessment Encounter Date Assessment Date Assessment LastModified by Organization Details LastModified Time 12/27/2024 12/27/2024 This note is dictated and transcribed by [employer]. Pipeline Dispatcher variances may occur. Despite proofreading, typographical errors may occur. Occasional wrong-word or '[id number]' substitutions may have occurred due to the inherent limitations of voice recording. Read the chart carefully and recognize, using context, where substitutions have occurred. [email or web address] Not available 12/27/2024 14:06:15 Plan of Treatment Reminders Order Date Submit Date Provider Last Modified By Organization Details Last Modified Time Details Appointments Any 15 025 01:45PM Jovon Moody DPM Not available Not available Not available Nurse Visit 15 025 01:45PM Jovon Moody DPM Not available Not available Not available Lab None recorde d. Referral None recorde d. Procedures None recorde d. Surgeries None recorde d. Imaging None recorde d. Medication Orders None recorde d. Patient TargetsNo targets recorded. Patient InstructionsNo instructions recorded. Reason for Referral None Reported. Results Created Date Observation Date Name Description Value Unit Range Abnormal Flag Note LastModifiedBy Organization Detail LastModifiedTime 12/07/19 25 XR, foot No observ ation record ed. [email or web address] [facility] [address] [place], [address], 12/06/2024 15:27:54 Result Notes None recorded. Problems Name Problem SNOMED Code Status Onset Date Resolution Date Notes Provider Name and Address Organization Details Recorded Time Pain in upper limb 477970780 Completed Not Available [facility] 3 08:22:17 Infection of skin 857836367 Completed Not Available [facility] 3 08:22:18 Tobacco user 636140065 Active 2017 Not Available [facility] 3 08:22:18 Celluliti s 988030242 Completed Not Available [facility] 3 08:22:18 Celluliti s of foot 364416654 Active 2022 Not Available [facility] 3 08:22:18 Celluliti s of foot 162376149 Active 2022 Not Available [facility] 3 08:22:18 Postopera tive care Active 2022 Not Available [facility] 3 08:22:18 Amenorrhe a 54835187 Completed Not Available [facility] 3 08:22:18 External hordeolum 8760076 Active Not Available [facility] 3 08:22:18 Fibromato sis of plantar fascia of right foot 42818368240 902733 Active 2021 Not Available [facility] 3 08:22:18 Fibromato sis of plantar fascia of left foot 09750143547 778366 Active 2021 Not Available [facility] 3 08:22:18 Acute sinusitis 92898577 Completed Not Available [facility] 3 08:22:18 Spinal stenosis of lumbar region 10227186 Active Not Available [facility] 3 08:22:18 Insomnia 311478254 Active Not Available [facility] 3 08:22:18 Open wound of breast 872062279 Completed Not Available [facility] 3 08:22:18 Mixed anxiety and depressiv e disorder 495407535 Active 2016 Not Available [facility] 3 08:22:18 Soft tissue lesion of foot region 288226991 Active 2022 Not Available [facility] 3 08:22:19 Broken skin 352729166 Completed Not Available [facility] 3 08:22:19 Infection of sebaceous cyst 502478493 Completed Not Available [facility] 3 08:22:19 Multiple pelvic fractures 860677970 Active 2021 Not Available [facility] 3 08:22:19 Elevated level of transamin ase and lactic acid dehydroge nase 280400387 Active Not Available [facility] 3 08:22:19 Difficult y gripping 960072346 Completed Not Available [facility] 3 08:22:19 Abscess of breast 89023751 Completed Not Available [facility] 3 08:22:19 Fracture of superior pubic ramus 867122159 Active 2021 Not Available [facility] 3 08:22:19 Fracture of inferior pubic ramus 435231856 Active 2021 Not Available [facility] 3 08:22:19 Pain in pelvis 48993583 Active 2021 Not Available [facility] 3 08:22:19 Pain in right foot 19670568379 9107 Active 2021 Not Available [facility] 3 08:22:20 Depressiv e disorder 34956322 Active Not Available [facility] 3 08:22:20 Ulnar neuropath y 164758309 Active Not Available [facility] 3 08:22:20 Onychomyc osis of toenails 868204047 Active 2022 Not Available [facility] 3 08:22:20 Hematoche getachew 885987134 Active Not Available [facility] 3 08:22:20 Obese 472189450 Active 2016 Not Available [facility] 3 08:22:20 Onychomyc osis 509605940 Active Not Available [facility] 3 08:22:20 Nausea 470613619 Completed Not Available [facility] 3 08:22:20 History of surgery for cerebral aneurysm 983440169 Active 2021 Not Available [facility] 3 08:22:21 Aneurysm 526168485 Active 2020 Not Available [facility] 3 08:22:21 Type 2 diabetes mellitus 95033020 Active Not Available [facility] 3 08:22:21 Hyperlipi demia 80812085 Active Not Available [facility] 3 08:22:21 Pain of wrist region 46926705 Completed Not Available [facility] 3 08:22:21 Essential hypertens ion 78072617 Active Not Available [facility] 3 08:22:21 Tinea pedis 7718615 Active 2016 Not Available [facility] 3 08:22:21 Cigarette smoker 58404696 Active 2022 Not Available [facility] 3 08:22:21 Urinary tract infectiou s disease 51932415 Completed Not Available [facility] 3 08:22:21 Acid reflux 146977032 Active 2016 Not Available [facility] 3 08:22:22 Diabetes mellitus 52423566 Active Not Available [facility] 3 08:22:22 Urgent desire to urinate 62805997 Completed Not Available [facility] 3 08:22:22 Spinal stenosis 72641512 Active 2021 Not Available [facility] 3 08:22:22 Postmenop ausal bleeding 09952923 Active 2017 Not Available [facility] 3 08:22:22 Smoker 09225637 Active 2021 Not Available [facility] 3 08:22:22 Fracture of pelvis 35110420 Active 2021 Not Available [facility] 3 08:22:22 Hyperglyc emia 71441788 Active Not Available [facility] 3 08:22:22 Tinea corporis 38932111 Completed Not Available [facility] 3 08:22:23 Chronic low back pain 553561783 Active 2022 EDDA Cotton, [address], [place], [address] , [employer] 3 11:05:12 Neuropath y 548287172 Active 2022 EDDA Cotton [address], [address], [place], [address] , [employer] 3 08:31:01 Uncontrol led type 2 diabetes mellitus 464428938 Active 2023 TAM Stoddard [address], [address], [place], [address] , [employer] 4 16:11:46 Open wound 737432720 Active 2024 ALEKSANDER Varghese [address], [address], [place], [address] , [employer] 5 14:31:47 Body mass index 30+ - obesity 348518336 Active 2024 ALEKSANDER Varghsee [address], [address], [place], [address] , [employer] 5 15:00:07 Ulcer of right foot due to type 2 diabetes mellitus 45883262798 698047 Active 2024 Jovon Moody DPM [address], [address], [place], [address] , [employer] 5 15:21:08 Pruritic rash 70617628 Active 2024 Jovon Moody DPM [address], [address], [place], [address] , [employer] 5 15:22:59 Problem Notes None recorded. Procedures Surgical History Date Name Laterality Status Provider Name and Address Organization Details Recorded Time 12/28/19 25 Wound Care-Podiatry completed Luzmaria Cordoba RN [place] [facility] [employer] 12/27/2024 14:42:00 12/21/19 25 Wound Care-Podiatry completed Jovon Moody DPM [address], [address], [place], [address], [employer] 12/21/2024 09:18:55 12/14/19 25 Wound Care-Podiatry completed Jovon Moody DPM [address], [address], [place], [address], [employer] 12/14/2024 08:56:20 12/07/19 25 Wound Care-Podiatry completed Jovon Moody DPM [address], [address], [place], [address], [employer] 12/06/2024 15:23:07 11/30/19 25 Wound Care-Podiatry completed Jovon Moody DPM [address], [address], [place], [address], [employer] 12/05/2024 08:59:37 fusion completed Not Available [facility] 07/2022 08:19:18 section completed Not Available [facility] 09/16/2022 08:19:18 stimulation completed Not Available [facility] 09/16/2022 08:19:18 Imaging Results None recorded. Procedure Notes None recorded. Medical Equipment None Reported. Allergies Allergen ID Allergen Name Allergen Category Reaction Reaction Severity Criticality Documentation Date Start Date Code Code System Note Provider Name and Address Organization Details Recorded Time Biaxin medicatio n Not available Not available Not available 09/16/202208771 9 RxNorm Not Available [facility] 3 08:26:00 48580 Augmentin medicatio n Not available Not available Not available 09/16/2022 93165 2 RxNorm Not Available [facility] 3 08:26:00 Medications Name Sig Start [...] AREAS OF SKIN TOPICALL Y ONCE D 10/16 /2018 completed Not Available Not Available Not Available [...] days. active not sure about due to prescrib ing 4 mg 1 daily (pt has [...] Not Available Not Available No t Available NanalysisToSilverPush Ultra Test strips TEST THREE TIMES DAILY [...] Not Available Not Available Not Available Fluvirin 3411-9889 45 mcg (15 mcg x 3)/0.5 mL intramusc ular suspensio n active Not Available Not Available Not Available Narcan 4 mg/actuat ion nasal spray active Not Available Not Available Not Available bupropion HCl 150 mg tablet,12 hr sustained -release( smoking deterrent ) Take 1 tablet twice a day by oral route. active Not Available Not Available No t Available Fluvirin 4269-6795 45 mcg (15 mcg x 3)/0.5 mL intramusc ular suspensio n ADM 0.5ML IM UTD 12/01 completed Not Available Not Available Not Available Basaglraffi KwikPen U-100 Insulin 100 unit/mL (3 mL) subcutane [...] Updated DateTime 5 165.1 cm 35.6 kg/m2 10091.7 7 g 100 /min 18 /min 99 % 99 % 97.6 [degF] 137 mm[Hg] 54 mm[Hg] Ginny Srinivasan [employer] 5 14:25:51 Social History Question Answer Notes LastModified by Organizat ion Details LastModified Time Tobacco Smoking Status Current Every Day Smoker Lisa zhang [employer] 09/23/2022 07:56:25 What Is Your Level Of Caffeine Consumption? Occasional [id number] Information not available 09/16/2022 In The 14 Days Before Symptom Onset, Have You Had Close Contact With A Laboratory-confi rmed COVID-19 While That Case Was Ill? No [email or web address] Information not available 09/23/2022 In The 14 Days Before Symptom Onset, Have You Had Close Contact With A Person Who Is Under Investigation For COVID-19 While That Person Was Ill? No [email or web address] Information not available 09/23/2022 What Type Of Diet Are You Following? REGULAR [id number] Information not available 09/16/2022 Where Do You Live? [facility] Information not available 11/15/2024 What Was [...] Has Tobacco Cessation Counseling Been Provided? No [email or web address] Information not available 09/23/2022 Have You Recently Traveled Abroad? No Information not available 11/15/2024 Do You Have Any Dietary Restrictions? No [email or web address] Information not available 09/23/2022 Sex: Female Functional Status Question Answer Note LastModified by Organizat ion Details LastModified Time Do you use any illicit or recreational drugs? No [email or web address] Information not available 09/23/2022 Do you or have you ever used any other forms of tobacco or nicotine? No Information not available 11/15/2024 What is your level of alcohol consumption? None [id number] Information not available 09/16/2022 Are you currently employed? 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 None [id number] Information not available 09/16/2022 Mental Status Question Answer Note LastModified by Organization D etails LastModified Time Do you feel stressed (tense, restless, nervous, or anxious, or unable to sleep at night)? [id number] Information not available 11/15/2024 Family History Relationship Description Onset Age of this Age Resolved Age Notes LastModified by Organization Details LastModified Time Unspecified Relation Cerebrovascu lar accident [email or web address] Not available 05/2025 14:22:36 Unspecified Relation Hypertensive disorder [id number] Not available 09/16/2022 08:19:19 Unspecified Relation Diabetes mellitus [id number] Not available 09/16/2022 08:19:19 Medical History Condition [...] virus, trivalent, preservative 3 completed Not Available [facility] 09/16/2022 08:25:48 Influenza, split virus, trivalent, preservative 5 completed Not Available [facility] 09/16/2022 08:25:48 Influenza, split virus, trivalent, preservative 5 completed Not Available [facility] 09/16/2022 08:25:48 Influenza, split virus, quadrivalent, preservative 6 completed Not Available [facility] 09/16/2022 08:25:48 pneumococcal polysaccharide PPV23 6 completed Not Available [facility] 09/16/2022 08:25:48 Tdap 5 completed Not Available [facility] 09/16/2022 08:25:48 Influenza, split virus, quadrivalent, PF 8 completed Not Available [facility] 09/16/2022 08:25:49 Influenza, split virus, quadrivalent, PF 7 completed Not Available [facility] 09/16/2022 08:25:49 Influenza, split virus, quadrivalent, PF 6 completed Not Available [facility] 09/16/2022 08:25:49 MMR 5 completed Not Available [facility] 09/16/2022 08:25:49 Influenza, split virus, trivalent, preservative 4 completed Not Available [facility] 09/16/2022 08:25:49 Past Encounters Encounter ID Performer Location Encounter Start Date Encounter Closed Date Diagnosis/Indication Diagnosis SNOMED-CT Code Diagnosis ICD10 Code Diagnosis Note [id number] Jovon Moody DPM [facility] [address] [place] [address] 11/29/2024 14:31:25 12/06/2024 14:10:46 Ulcer of right foot due to type 2 diabetes mellitus 5140237013 2235419 E11.621 L97.513 offloading right footBetadi ne wet-to-dry dressings dailywound cultures today-- Proteus mirabilis, only resistant to tetracycli nefinish doxycyclin efollow-up one-week- obtain x-rays rule out osteomyeli tis Pruritic rash 43520160 L 28.2 bilateral lower legs worse to the right [id number] ALEKSANDER Varghese [facility] Primary Care [facility] [address] [facility] [address] [place] [address] 12/04/2024 16:21:45 12/04/2024 16:40:45 Transition of care 4584535061 [address] Moody for wound care due to right foot ulcer. [id number] [facility] [address] [place] [address] 12/06/2024 14:19:16 12/06/2024 16:11:42 Ulcer of right foot due to type 2 diabetes mellitus 1607351555 2114389 E11.621 L97.513 offloading right footBetadi ne wet-to-dry dressings dailywound cultures today-- Proteus mirabilis, only resistant to tetracycli neRx gentamicin ointment and Cipro- patient was told to discontinu e oxycodone, Ambien, topiramate while on the Cipro antibiotic follow-up one-week Pruritic rash 18997096 L 28.2 bilateral lower legs worse to the right [id number] Jovon Moody DPM [facility] [address] [place] [address] 12/13/2024 14:42:59 12/14/2024 10:05:07 Ulcer of right foot due to type 2 diabetes mellitus 6765317143 7714117 E11.621 L97.513 offloading right footGentam icin wet-to-dry dressings dailywound cultures today-- Proteus mirabilis, only resistant to tetracycli neRx gentamicin ointment and Cipro- patient was told to discontinu e oxycodone, Ambien, topiramate while on the Cipro antibiotic follow-up one-week [id number] Jovon Moody DPM [facility] [address] [place] [address] 12/20/2024 12:35:37 12/21/2024 10:18:39 Ulcer of right foot due to type 2 diabetes mellitus 3978625631 1592260 E11.621 L97.513 offloading right footGentam icin wet-to-dry dressings dailywound cultures today-- Proteus mirabilis, only resistant to tetracycli nefinished ciprofollo w-up one-week [id number] Jovon Moody DPM [facility] [address] [place] [address] 12/27/2024 14:13:21 12/27/2024 16:01:09 Ulcer of right foot due to type 2 diabetes mellitus 7479405489 3950033 E11.621 L97.513 offloading right footGentam icin wet-to-dry dressings dailywound cultures today-- Proteus mirabilis, only resistant to tetracycli nefinished ciprofollo w-up one-week Health Concerns Section Related Observation LastModified by Organization Detai ls LastModified Time None Recorded Concern Status LastModified by Organization Details LastModified Time None Recorded Payers Encounter Date Sequence Insurance Name Policy Number Policy Hernández Covered Member ID Hernández Member ID Guarantor Name 12/27/2024 1 [facility] - DOS ON OR AFTER 21 (MEDICAID REPLACEMENT - HMO) Jeane Garcia [id number] Jeane Garcia Notes Date Note Type Note Provider Name and Address Organization Details Recorded Time 12/27/2024 text/html . Patient is a 54-year-old [...] any other complaints. Jovon Moody DPM [address] [facility], [facility] [address], [place], [address], [place] - [facility] 12/27/2024 15:14:20 OBGyn Episode No OBEpisode recorded.
--- OUTSIDE RECORDS SUMMARY | 2024-12-28 15:49 | XMS_ITS | Continuity of Care Document ---
Author Organization [facility]. If a dditional information is needed, contact Health Information Management at [phone] Address [address] [place] [address] Phone Care Team Providers Care Plant Engineering Supervisor Name Role Phone Unavailable Unavailable Unavailable Unavailable [...] PO BEDTIME Start:30-Dec-2021 Comments:200 MG PO BEDTIME aspirin 81 MG Chewable Table t;81 MILLIGRAM PO DAILY Start:30-Dec-2021 Comments:81 MG PO DAILY clopidogrel 75 MG Oral Table t;75 MILLIGRAM PO DAILY Start:30-Dec-2021 Comments:75 MG PO DAILY escitalopram 10 MG Oral Tabl et;10 MILLIGRAM PO DAILY Start:30-Dec-2021 Comments:10 MG PO DAILY lisinopril 10 MG Oral Tablet [Prinivil];10 MILLIGRAM PO DAILY Start:30-Dec-2021 Comments:10 MG PO DAILY pregabalin 50 MG Oral Capsul e;50 MILLIGRAM PO BEDTIME Start:30-Dec-2021 Comments:50 MG PO BEDTIME traMADol hydrochloride 50 MG Oral Tablet [Ultram];50 MILLIGRAM PO Q8H PRN Start:30-Dec-2021 Comments:50 MG PO Q8H PRN As Needed for PAIN SCALE 4-6 (MODERATE) Social History Smoking Status Smokes tobacco daily Recorded: 31-Dec-2021
--- OUTSIDE RECORDS SUMMARY | 2024-12-28 15:49 | XMS_ITS | Encounter Summary ---
Author Organization [facility] Address [address] [place] [address] Care Team Providers Care Business Professor Name Role Phone Kathy Limon MD Primary Care Provider Encounter Details Date Type Department Care Team (Latest Contact Info) Description 12/20/2020 10:51 AM CDT Hospital Encounter [address] [address] Lizeth Barr MD [address] [place] [address] [address] [place] [address] [employer] Social History Tobacco [...] PM CDT Legal Sex Female 9:02 AM TIER IN Gender Identity Female 04/04/2021 4:21 PM CDT [...] on filedocumented in this encounter Care Teams Business Professor Relationship Specialty Start Date End Date Kathy Limon MD [address] [place] [phone] PCP - General 09/11/11 04/25/21 documented as of this encounter
--- OUTSIDE RECORDS SUMMARY | 2024-12-28 15:49 | XMS_ITS | Encounter Summary ---
Author Organization [facility] Address [address] [facility] [place] [address] Care Team Providers Care Construction Cost Estimator Name Role Phone Kathy Limon MD Primary Care Provider + [phone] Hugo Hinson MD Primary Care Provider + [phone] Encounter Details Date Type Department Care Team (Late st Contact Info) Description 12/23/2011 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
== END 2024-12-28 15:10 | disposition home or self-care (01) ==
PROVIDERS: PCP Nurse Practitioner Family; Visit Provider Nurse Practitioner Adult Health
DX: M48.062 Spinal stenosis, lumbar region with neurogenic claudication (principal); M47.896 Other spondylosis, lumbar region; Z98.1 Arthrodesis status
CPT/HCPCS: 72131

== ENCOUNTER 2025-01-20 01:02 | Inpatient (IN) | payer OTHER, SELFPAY ==
[2025-01-20] VITALS (7 sets, daily range): BP systolic 93–137; BP diastolic 48–93; PULSE 67–95; RESP 18–21; TEMP 36.5–36.9; O2SAT 96–100; BMI 36.5
--- NOTE | ~2025-01-20 | XR_ITS ---
The HISTORY: suspect infection 5th metatarsal COMPARISON: 11/23/2024 TECHNIQUE: 3 views of the right foot were performed FINDINGS: Interval development of air within the soft tissues overlying the soft tissue swelling in the forefoo t. Cortical erosion within the proximal phalanx of the fifth digit as well as the distal head of the met atarsal, consistent with osteomyelitis. No acute fracture. IMPRESSION: Osteomyelitis of the fifth metatarsal phalangeal joint. Reviewed, dictated and finalized at location A.
--- NOTE | ~2025-01-20 | XR_ITS ---
CHEST RADIOGRAPH CLINICAL HISTORY: PICC placement . COMPARISON: 11/24/2020 TECHNIQUE: Single portable view of the chest. FINDINGS Left upper extremity PICC line tip projecting over the distal right atrium. Withdrawal of approximately 6 cm is recommended for optimal radiographic placement at the cavoatrial junction. Dorsal column stimulator device is noted. The remainder of the cardiomediastinal silhouette is otherwise unremarkable. The lungs are clear. IMPRESSION: No focal infiltrate or effusion. Withdrawal of approximately 6 cm is recommended for optimal radiographic placement at the cavoatrial junction. Reviewed, dictated and finalized at location A. IMPRESSION: No focal infiltrate or effusion. Withdrawal of approximately 6 cm is recommended for optimal radiographic placem ent at the cavoatrial junction.
--- OUTSIDE RECORDS SUMMARY | 2025-01-20 01:05 | XMS_ITS | Patient Health Record ---
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 No Problems Problem Type SNOMED Code ICD Code Onset Dates Problem Status W/U Status Risk Notes Problem Fear of medical treatment (159380649) Fear of injections and transfusions (F40.231) Active confirmed Problem Essential hypertension (87712077) Essential (primary) hypertension (I10) Active confirmed Problem Solitary sacroiliitis (550917930) Sacroiliitis, not elsewhere classified (M46.1) Active confirmed Problem Lumbosacral spondylosis without myelopathy (87572275) Other spondylosis with radiculopathy, lumbar region (M47.26) Active confirmed Problem Lumbosacral spondylosis without myelopathy (12717734) Spondylosis without myelopathy or radiculopathy, lumbar region (M47.816) Active confirmed Problem Lumbosacral spondylosis without myelopathy (disorder) (71009717) Spondylosis without myelopathy or radiculopathy, lumbosacral region (M47.817) Active confirmed Problem Spinal stenosis, lumbar region (M48.06) Active confirmed Problem Degeneration of lumbar intervertebral disc (55127066) Other intervertebral disc degeneration, lumbar region (M51.36) Active confirmed Problem Lumbar radiculopathy (002185878) Radiculopathy, lumbar region (M54.16) Active confirmed Problem Lumbosacral radiculopathy (1193008) Radiculopathy, lumbosacral region (M54.17) Active confirmed Problem Muscle pain (87852479) Myalgia, other site (M79.18) Active confirmed Plan Of Treatment Pending Test Test Name Order Date CT Lumbar Spine without contrast 015 Insurance Providers Payer Name Payer Address Payer Phone Subscriber Number Group Number Insured Name Patient Relationship to Insured Coverage Start Date Coverage End Date Workers Compensatio n [employer] [address] [facility] [address] [place] [address] [id number] Jeane Garcia Self - patient is the insured [employer] [address] [place] [address] [id number] Jeane Garcia Self - patient is the insured [employer] Att[employer]aci Rainey [address] [facility] [address] [place] [address] [id number] Jeane Garcia Self - patient is the insured Medical (General) History Surgical History Surgery Date(Month/Year) drained out right breast 03/2015 work comp injury 2006 Hospitalization History Reason Date(Month/Year) abcess, cellulitis developed under right breast 03/2015
--- OUTSIDE RECORDS SUMMARY | 2025-01-20 01:06 | XMS_ITS | Clinical Summary ---
Author Organization [facility] Address [address] [place] [address] Care Team Providers Care Corner Former Name Role Phone Unavailable Primary Care Provider [...]
--- OUTSIDE RECORDS SUMMARY | 2025-01-20 01:06 | XMS_ITS | Encounter Summary ---
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
--- OUTSIDE RECORDS SUMMARY | 2025-01-20 01:06 | XMS_ITS | Data Portability ---
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 Teacher Vocal variances may occur. Despite proofreading, typographical errors may occur. Occasional wrong-word or 'rslaq-p-pfop' substitutions may have occurred due to the inherent limitations of voice recording. Read the chart carefully and recognize, using context, where substitutions have occurred. Not available 12/21/2024 09:19:35 12/27/2024 12/27/2024 This note is dictated and transcribed by [employer]. Teacher Vocal variances may occur. Despite proofreading, typographical errors may occur. Occasional wrong-word or 'ycthy-y-kpct' substitutions may have occurred due to the inherent limitations of voice recording. Read the chart carefully and recognize, using context, where substitutions have occurred. Not available 12/27/2024 14:06:15 01/03/2025 01/03/2025 This note is dictated and transcribed by [employer]. Teacher Vocal variances may occur. Despite proofreading, typographical errors may occur. Occasional wrong-word or 'hyfsp-y-xjby' substitutions may have occurred due to the inherent limitations of voice recording. Read the chart carefully and recognize, using context, where substitutions have occurred. Not available 01/03/2025 15:07:48 01/17/2025 01/17/2025 This note is dictated and transcribed by [employer]. Teacher Vocal variances may occur. Despite proofreading, typographical errors may occur. Occasional wrong-word or 'fucsm-f-smwv' substitutions may have occurred due to the inherent limitations of voice recording. Read the chart carefully and recognize, using context, where substitutions have occurred. [email or web address] Not available 01/18/2025 16:36:06 Plan of Treatment Reminders Order Date Submit Date Provider Last Modified By Organization Details Last Modified Time Details Appointments None recorded. Lab culture, wound - Right foot wound 2024 025 patrice 7 [facility] ([facility]), [address] [place], [address], 5 09:09:42 C-reactive protein, quantitativ e, serum or plasma [address] ([facility]), [address] [place], [address], 5 18:24:55 CBC [address] ([facility]), [address] [place], [address], 5 18:24:55 CMP, serum or plasma [address] ([facility]), [address] [place], [address], 5 18:24:55 ESR (erythrocyt e sedimentati on rate), blood [address] ([facility]), [address] [place], [address], 5 18:24:55 Referral None recorded. Procedures None recorded. Surgeries None recorded. Imaging MRI, foot, w/o contrast - rule out osteomyelit is 5th metatarsal [address] ([facility]), [address] [place], [address], 18:27:08 Medication Orders None recorded. Patient TargetsNo targets recorded. Patient InstructionsNo instructions recorded. Reason for Referral None Reported. Results Created Date Observation Date Name Description Value Unit Range Abnormal Flag Note LastModifiedBy Organization Detail LastModifiedTime 11/30/19 25 11/29/2024 CULTU RE WOUND /TISS UE+GR .STAI N wndtssc ===== ===== ===== ===== ===== ===== ===== ===== ===== ===== ===== ===== ===== ===== ===== ===== ===== ===== ===== ===== ===== ===== ===== ===== Speci men NO.: [id number] Exam Statu s: Final Proce dure: [...] S Genta micin <=2 [place] [id number] Oxida se React ion N Extra Sensi [...] R Tobra mycin <=2 S Not Available [facility] (Lab) [address] [place], [address], 12/01/2024 10:17:58 01/04/20 25 01/03/2025 CBC/C OMPLE TE BLD COUNT W/DIF F white blood cells 6.6 x10'3 /uL 4.2-10 .8 Not Available [facility] (Lab) [address] [place], [address], 01/03/2025 15:08:08 01/04/20 25 01/03/2025 CBC/C OMPLE TE BLD COUNT W/DIF F red blood cells 4.12 x10'6 /uL 3.80-5 .20 Not Available [facility] (Lab) [address] [place], [address], 01/03/2025 15:08:08 01/04/20 25 01/03/2025 CBC/C OMPLE TE BLD COUNT W/DIF F hemoglobin 13.4 g/dL 12.0-1 5.6 Not Available [facility] (Lab) [address] [place], [address], 01/03/2025 15:08:08 01/04/20 25 01/03/2025 CBC/C OMPLE TE BLD COUNT W/DIF F hematocrit 42.8 % 35.7-4 5.7 Not Available [facility] (Lab) [address] [place], [address], 01/03/2025 15:08:08 01/04/20 25 01/03/2025 CBC/C OMPLE TE BLD COUNT W/DIF F mean red cell volume 103.9 fL 82.0-9 9.0 high Not Available [facility] (Lab) [address] [place], [address], 01/03/2025 15:08:08 01/04/20 25 01/03/2025 CBC/C OMPLE TE BLD COUNT W/DIF F mean red cell hemoglobin 32.5 pg 27.0-3 3.0 Not Available [facility] (Lab) [address] [place], [address], 01/03/2025 15:08:08 01/04/20 25 01/03/2025 CBC/C OMPLE TE BLD COUNT W/DIF F mean RBC HGB concentratio n 31.3 g/dL 31.0-3 6.0 Not Available [facility] (Lab) [address] [place], [address], 01/03/2025 15:08:08 01/04/20 25 01/03/2025 CBC/C OMPLE TE BLD COUNT W/DIF F red cell distribution width 12.8 % 11.8-1 5.5 Not Available [facility] (Lab) [address] [place], [address], 01/03/2025 15:08:08 01/04/20 25 01/03/2025 CBC/C OMPLE TE BLD COUNT W/DIF F platelets 193 x10'3 /uL 150-40 0 Not Available [facility] (Lab) [address] [place], [address], 01/03/2025 15:08:08 01/04/20 25 01/03/2025 CBC/C OMPLE TE BLD COUNT W/DIF F mean platelet volume 11.7 fL 9.0-12 .4 Not Available [facility] (Lab) [address] [place], [address], 01/03/2025 15:08:08 01/04/20 25 01/03/2025 CBC/C OMPLE TE BLD COUNT W/DIF F neutrophils 58.1 % 39.0-7 2.0 Not Available [facility] (Lab) [address] [place], [address], 01/03/2025 15:08:08 01/04/20 25 01/03/2025 CBC/C OMPLE TE BLD COUNT W/DIF F lymphocytes 28.8 % 16.0-4 7.0 Not Available [facility] (Lab) [address] [place], [address], 01/03/2025 15:08:08 01/04/20 25 01/03/2025 CBC/C OMPLE TE BLD COUNT W/DIF F monocytes 8.8 % 5.0-12 .0 Not Available [facility] (Lab) [address] [place], [address], 01/03/2025 15:08:08 01/04/20 25 01/03/2025 CBC/C OMPLE TE BLD COUNT W/DIF F eosinophils 2.9 % 1.0-7. 0 Not Available [facility] (Lab) [address] [place], [address], 01/03/2025 15:08:08 01/04/20 25 01/03/2025 CBC/C OMPLE TE BLD COUNT W/DIF F basophils 0.9 % 0.0-2. 0 Not Available [facility] (Lab) [address] [place], [address], 01/03/2025 15:08:08 01/04/20 25 01/03/2025 CBC/C OMPLE TE BLD COUNT W/DIF F immature granulocytes 0.5 % 0.00-0 .50 Not Available [facility] (Lab) [address] [place], [address], 01/03/2025 15:08:08 01/04/20 25 01/03/2025 CBC/C OMPLE TE BLD COUNT W/DIF F neutrophils, absolute count 3.83 x10'3 /uL 1.5-8. 0 Not Available [facility] (Lab) [address] [place], [address], 01/03/2025 15:08:08 01/04/20 25 01/03/2025 CBC/C OMPLE TE BLD COUNT W/DIF F lymphocytes, absolute count 1.90 x10'3 /uL 1.07-3 .43 Not Available [facility] (Lab) [address] [place], [address], 01/03/2025 15:08:08 01/04/20 25 01/03/2025 CBC/C OMPLE TE BLD COUNT W/DIF F monocytes, absolute count 0.58 x10'3 /uL 0.29-0 .99 Not Available [facility] (Lab) [address] [place], [address], 01/03/2025 15:08:08 01/04/20 25 01/03/2025 CBC/C OMPLE TE BLD COUNT W/DIF F eosinophils, absolute count 0.19 x10'3 /uL 0.02-0 .53 Not Available [facility] (Lab) [address] [place], [address], 01/03/2025 15:08:08 01/04/20 25 01/03/2025 CBC/C OMPLE TE BLD COUNT W/DIF F basophils, absolute count 0.06 x10'3 /uL 0.01-0 .08 Not Available [facility] (Lab) [address] [place], [address], 01/03/2025 15:08:08 01/04/20 25 01/03/2025 CBC/C OMPLE TE BLD COUNT W/DIF F immature granulocytes ,absolute 0.03 x10'3 /uL 0.00-0 .05 Not Available [facility] (Lab) [address] [place], [address], 01/03/2025 15:08:08 01/04/20 25 01/03/2025 CBC/C OMPLE TE BLD COUNT W/DIF F nucleated red blood cells 0.0 % -0 Not Available [facility] (Lab) [address] [facility] [place], [address], 01/03/2025 15:08:08 01/04/20 25 01/03/2025 CBC/C OMPLE TE BLD COUNT W/DIF F NRBC# 0.00 x10'3 /uL Not Available [facility] (Lab) [address] [place], [address], 01/03/2025 15:08:08 01/04/20 25 01/03/2025 COMPR EHENS GRACE METAB OLIC PANEL sodium 139 mmol/ L 137-14 5 Not Available [facility] (Lab) [address] [place], [address], 01/03/2025 15:13:18 01/04/20 25 01/03/2025 COMPR EHENS GRACE METAB OLIC PANEL potassium 4.2 mmol/ L 3.5-5. 1 Not Available [facility] (Lab) [address] [place], [address], 01/03/2025 15:13:18 01/04/20 25 01/03/2025 COMPR EHENS GRACE METAB OLIC PANEL chloride 106 mmol/ L 98-107 Not Available [facility] (Lab) [address] [place], [address], 01/03/2025 15:13:18 01/04/20 25 01/03/2025 COMPR EHENS GRACE METAB OLIC PANEL carbon dioxide 19 mmol/ L 22-30 low Not Available [facility] (Lab) [address] [place], [address], 01/03/2025 15:13:18 01/04/20 25 01/03/2025 COMPR EHENS GRACE METAB OLIC PANEL anion gap 18.2 mmol/ L 14-22 Not Available [facility] (Lab) [address] [place], [address], 01/03/2025 15:13:18 01/04/20 25 01/03/2025 COMPR EHENS GRACE METAB OLIC PANEL glucose 207 mg/dL 70-99 high Not Available [facility] (Lab) [address] [place], [address], 01/03/2025 15:13:18 01/04/20 25 01/03/2025 COMPR EHENS GRACE METAB OLIC PANEL BUN 18 mg/dL 8-19 Not Available [facility] (Lab) [address] [place], [address], 01/03/2025 15:13:18 01/04/20 25 01/03/2025 COMPR EHENS GRACE METAB OLIC PANEL creatinine 1.06 mg/dL 0.66-1 .25 Not Available [facility] (Lab) [address] [place], [address], 01/03/2025 15:13:18 01/04/20 25 01/03/2025 COMPR EHENS GRACE METAB OLIC PANEL GFR 54 Refer ence Range : Carefree ge GFR Healt hy Adult : >60 mL/mi n/1.7 3 m2 Chron ic Kidne y Disea se: 15-60 mL/mi n/1.7 3 m2 Kidne y Failu re: <15/m L/min /1.73 m2 www.n iddk. nih.g ov The MDRD study equat ion has not been valid ated in child nat <18 years of age; pregn ant women ; the elder ly >85 years of age; or in some racia l or ethni c subgr oups, such as Hispa nics. Outsi de the valid ated loco eters , estim ated GFR is less accur ate, requi ring clini sal judgm ent on a case- by-ca se basis . Clini sal inter preta tion for other races and ages must be made by the clini irina. The MDRD study equat ion has not been valid ated for the evalu ation of serum creat inine relat ed to nutri riya l statu s or medic ation usage . For perso ns <18 years of age, a pedia tric GFR calcu lator is avail able on the [facility] websi te: https ://ww w.kid gian.o rg/pr ofess ional s/kdo qi/gf r_cal culat or Not Available [facility] (Lab) [address] [place], [address], 01/03/2025 15:13:18 01/04/20 25 01/03/2025 COMPR EHENS GRACE METAB OLIC PANEL alkaline phosphatase 114 U/L 38-126 Not Available [facility] (Lab) [address] [place], [address], 01/03/2025 15:13:18 01/04/20 25 01/03/2025 COMPR EHENS GRACE METAB OLIC PANEL alanine aminotransfe rase 35 U/L 0-35 Not Available [facility] (Lab) [address] [place], [address], 01/03/2025 15:13:18 01/04/20 25 01/03/2025 COMPR EHENS GRACE METAB OLIC PANEL aspartate aminotransfe rase 38 U/L 15-37 high Not Available [facility] (Lab) [address] [place], [address], 01/03/2025 15:13:18 01/04/20 25 01/03/2025 COMPR EHENS GRACE METAB OLIC PANEL bilirubin, total 0.40 mg/dL 0.20-1 .30 Not Available [facility] (Lab) [address] [place], [address], 01/03/2025 15:13:18 01/04/20 25 01/03/2025 COMPR EHENS GRACE METAB OLIC PANEL calcium 9.0 mg/dL 8.4-10 .2 Not Available [facility] (Lab) [address] [place], [address], 01/03/2025 15:13:18 01/04/20 25 01/03/2025 COMPR EHENS GRACE METAB OLIC PANEL total protein 7.6 g/dL 6.3-8. 2 Not Available [facility] (Lab) [address] [place], [address], 01/03/2025 15:13:18 01/04/20 25 01/03/2025 COMPR EHENS GRACE METAB OLIC PANEL albumin 4.2 g/dL 3.4-5. 0 Not Available [facility] (Lab) [address] [place], [address], 01/03/2025 15:13:18 01/04/20 25 01/03/2025 COMPR EHENS GRACE METAB OLIC PANEL globulin 3.4 g/dL 2.6-4. 2 Not Available [facility] (Lab) [address] [place], [address], 01/03/2025 15:13:18 01/04/20 25 01/03/2025 COMPR EHENS GRACE METAB OLIC PANEL A/G ratio 1.2 ratio 1.0-2. 0 Not Available [facility] (Lab) [address] [place], [address], 01/03/2025 15:13:18 01/04/20 25 01/03/2025 C REACT GRACE PROTE IN,UL TRA SENS C-reactive protein 5.82 mg/dL 0.0-0. 5 high Not Available [facility] (Lab) [address] [place], [address], 01/03/2025 15:47:41 01/04/20 25 01/03/2025 SEDIM ENTAT ION RATE erythrocyte sedimentatio n rate 47 mm/HR 0-20 high Not Available [facility] (Lab) [address] [place], [address], 01/03/2025 15:57:30 11/24/19 25 11/22/2024 XR, foot, 2 view No observ ation record ed. [email or web address] [facility], [place], [address], 11/23/2024 14:14:59 11/25/19 25 11/23/2024 XR, foot, 2 view No observ ation record ed. [email or web address] [place] [address] [address], [place], [address], 11/27/2024 08:36:28 12/07/19 25 XR, foot No observ ation record ed. [email or web address] [facility] [address] [place], [address], 12/06/2024 15:27:54 12/30/19 25 12/28/2024 CT, lumba r spine , w/o contr ast No observ ation record ed. [email or web address] [address], [address], 01/01/2025 15:29:20 Result Notes None recorded. Problems Name Problem SNOMED Code Status Onset Date Resolution Date Notes Provider Name and Address Organization Details Recorded Time Pain in upper limb 449837511 Completed Not Available [facility] 3 08:22:17 Infection of skin 064148040 Completed Not Available [facility] 3 08:22:18 Tobacco user 604897273 Active 2017 Not Available [facility] 3 08:22:18 Celluliti s 027000337 Completed Not Available [facility] 3 08:22:18 Celluliti s of foot 664583660 Active 2022 Not Available [facility] 3 08:22:18 Celluliti s of foot 986406797 Active 2022 Not Available [facility] 3 08:22:18 Postopera tive care Active 2022 Not Available [facility] 3 08:22:18 Amenorrhe a 42146373 Completed Not Available [facility] 3 08:22:18 External hordeolum 3351084 Active Not Available [facility] 3 08:22:18 Fibromato sis of plantar fascia of right foot 03469455889 786660 Active 2021 Not Available [facility] 3 08:22:18 Fibromato sis of plantar fascia of left foot 34634641816 434140 Active 2021 Not Available [facility] 3 08:22:18 Acute sinusitis 06900820 Completed Not Available [facility] 3 08:22:18 Spinal stenosis of lumbar region 33496711 Active Not Available [facility] 3 08:22:18 Insomnia 046903782 Active Not Available [facility] 3 08:22:18 Open wound of breast 959522544 Completed Not Available [facility] 3 08:22:18 Mixed anxiety and depressiv e disorder 628808232 Active 2016 Not Available [facility] 3 08:22:18 Soft tissue lesion of foot region 027108949 Active 2022 Not Available [facility] 3 08:22:19 Broken skin 269734877 Completed Not Available [facility] 3 08:22:19 Infection of sebaceous cyst 263890604 Completed Not Available [facility] 3 08:22:19 Multiple pelvic fractures 911092499 Active 2021 Not Available [facility] 3 08:22:19 Elevated level of transamin ase and lactic acid dehydroge nase 033134184 Active Not Available [facility] 3 08:22:19 Difficult y gripping 358096443 Completed Not Available [facility] 3 08:22:19 Abscess of breast 91617542 Completed Not Available [facility] 3 08:22:19 Fracture of superior pubic ramus 137767318 Active 2021 Not Available [facility] 3 08:22:19 Fracture of inferior pubic ramus 492063444 Active 2021 Not Available [facility] 3 08:22:19 Pain in pelvis 40030860 Active 2021 Not Available [facility] 3 08:22:19 Pain in right foot 40271918359 9107 Active 2021 Not Available [facility] 3 08:22:20 Depressiv e disorder 94790675 Active Not Available [facility] 3 08:22:20 Ulnar neuropath y 637841585 Active Not Available [facility] 3 08:22:20 Onychomyc osis of toenails 773916251 Active 2022 Not Available [facility] 3 08:22:20 Hematoche getachew 583257678 Active Not Available [facility] 3 08:22:20 Obese 277941304 Active 2016 Not Available [facility] 3 08:22:20 Onychomyc osis 468129607 Active Not Available [facility] 3 08:22:20 Nausea 847630019 Completed Not Available [facility] 3 08:22:20 History of surgery for cerebral aneurysm 739657496 Active 2021 Not Available [facility] 3 08:22:21 Aneurysm 069394014 Active 2020 Not Available [facility] 3 08:22:21 Type 2 diabetes mellitus 38701745 Active Not Available [facility] 3 08:22:21 Hyperlipi demia 09031370 Active Not Available [facility] 3 08:22:21 Pain of wrist region 90760549 Completed Not Available [facility] 3 08:22:21 Essential hypertens ion 28505193 Active Not Available [facility] 3 08:22:21 Tinea pedis 0270841 Active 2016 Not Available [facility] 3 08:22:21 Cigarette smoker 00588109 Active 2022 Not Available [facility] 3 08:22:21 Urinary tract infectiou s disease 69014498 Completed Not Available [facility] 3 08:22:21 Acid reflux 555664327 Active 2016 Not Available [facility] 3 08:22:22 Diabetes mellitus 57829300 Active Not Available [facility] 3 08:22:22 Urgent desire to urinate 16297727 Completed Not Available [facility] 3 08:22:22 Spinal stenosis 43599369 Active 2021 Not Available [facility] 3 08:22:22 Postmenop ausal bleeding 14720080 Active 2017 Not Available [facility] 3 08:22:22 Smoker 37220523 Active 2021 Not Available [facility] 3 08:22:22 Fracture of pelvis 87673271 Active 2021 Not Available [facility] 3 08:22:22 Hyperglyc emia 34323080 Active Not Available [facility] 3 08:22:22 Tinea corporis 06497654 Completed Not Available [facility] 3 08:22:23 Chronic low back pain 720457554 Active 2022 EDDA Cotton [address], [address], [place], [address] , [employer] 3 11:05:12 Neuropath y 464585698 Active 2022 EDDA Cotton [address], [address], [place], [address] , [employer] 3 08:31:01 Uncontrol led type 2 diabetes mellitus 906675172 Active 2023 TAM Stoddard [address], [address], [place], [address] , [employer] 4 16:11:46 Open wound 730070005 Active 2024 ALEKSANDER Varghese [address], [address], [place], [address] , [facility] [employer] [facility] 5 14:31:47 Body mass index 30+ - obesity 558567050 Active 2024 ALEKSANDER Varghese [address], [address], [place], [address] , [facility] [employer] [facility] [employer] [facility] 5 15:00:07 Ulcer of right foot due to type 2 diabetes mellitus 34049327133 318125 Active 2024 Jovon Moody DPM [address], [address], [place], [address] , [facility] [employer] [facility] [employer] [facility] 5 15:21:08 Pruritic rash 38068955 Active 2024 Jovon Moody DPM [address], [address], [place], [address] , [facility] [employer] [facility] [employer] [facility] 5 15:22:59 Acute osteomyel itis of right foot 28755085709 51255 Active 2024 Jovon Moody DPM [address], [address], [place], [address] , [facility] [employer] [facility] [employer] [facility] 5 15:21:32 Abscess 181173714 Active 2024 Jovon Moody DPM [address], [address], [place], [address] , [facility] [employer] [facility] [employer] [facility] 5 16:36:20 Celluliti s of right foot 75616112563 089201 Active 2024 Jovon Moody DPM [address], [address], [place], [address] , [facility] [employer] [facility] 5 16:36:59 Problem Notes None recorded. Procedures Surgical History Date Name Laterality Status Provider Name and Address Organization Details Recorded Time 01/18/20 25 Wound Care-Podiatry completed Jovon Moody DPM [address], [place], [address], [employer] [facility] 01/18/2025 16:36:01 01/11/20 25 Wound Care-Podiatry completed Yoav Diez RN [facility] 01/10/2025 17:35:17 01/04/20 25 Wound Care-Podiatry completed Yoav Diez RN [facility] 01/03/2025 15:17:58 12/28/19 25 Wound Care-Podiatry completed Luzmaria Cordoba RN [facility] 12/27/2024 14:42:00 12/21/19 25 Wound Care-Podiatry completed Jovon Moody DPM [address], [address], [place], [address], [employer] [facility] [employer] 12/21/2024 09:18:55 12/14/19 25 Wound Care-Podiatry completed Jovon Moody DPM [address], [address], [place], [address], [employer] [facility] 12/14/2024 08:56:20 12/07/19 25 Wound Care-Podiatry completed Jovon Moody DPM [address], [address], [place], [address], [employer] [facility] 12/06/2024 15:23:07 11/30/19 25 Wound Care-Podiatry completed Jovon Moody DPM [address], [address], [place], [address], [employer] [facility] [employer] 12/05/2024 08:59:37 fusion completed Not Available [facility] 07/2022 08:19:18 section completed Not Available [facility] 09/16/2022 08:19:18 stimulation completed Not Available [facility] 09/16/2022 08:19:18 Imaging Results None recorded. Procedure Notes None recorded. Medical Equipment None Reported. Allergies Allergen ID Allergen Name Allergen Category Reaction Reaction Severity Criticality Documentation Date Start Date Code Code System Note Provider Name and Address Organization Details Recorded Time Biaxin medicatio n Not available Not available Not available 09/16/2022 71633 9 RxNorm Not Available [facility] 3 08:26:00 12081 Augmentin medicatio n Not available Not available Not available 09/16/2022 84768 2 RxNorm Not Available [facility] 3 08:26:00 Medications Name Sig Start Date [...] mg tablet TAKE 1 TABLET BY MOUTH DAILY active Not Available Not Available No [...] U-100 Insulin 100 unit/mL subcutane ous solution 01/01 completed Not Available Not Available Not Available [...] TAKE 1 TABLET BY MOUTH EVERY DAY 2024 active Not Available Not Available Not Avai lable glimepiri de 4 mg tablet TAKE 1 TABLET BY MOUTH EVERY DAY 2024 active Not Available Not Available Not Avai lable misoprost ol 200 mcg tablet TK 2 [...] Not Available topiramat e 100 mg tablet Take 2 tablets every day by oral route at bedtime for 90 days. 2024 active Not Available Not Available Not Avai lable metformin ER 500 mg tablet,ex tended release [...] UNITS UNDER THE SKIN THREE TIMES DAILY active Not Available Not Available No t Available escitalop leobardo 10 mg tablet Take 1 tablet every day by oral route. 2024 active Not Available Not Available Not Avai lable Vigamox 0.5 % eye drops INSTILL 1 [...] in Arterial blood by Pulse oximetry Systolic And Diastolic Provider Name and Address Organization Details Last Updated DateTime 5 165.1 cm 35.6 kg/m2 12040.7 7 g 101 /min 16 /min 97.8 [degF] 97 % 97 % 136/69 mm[Hg] Ginny [employer] 5 13:12:41 Date Recorded Body height Body mass index (BMI) Body weight Heart rate Respiratory rate Oxygen saturation Oxygen saturation in Arterial blood by Pulse oximetry Body temperature Systolic And Diastolic Provider Name and Address Organization Details Last Updated DateTime 5 165.1 cm 35.6 kg/m2 43316.7 7 g 100 /min 18 /min 99 % 99 % 97.6 [degF] 137/54 mm[Hg] Ginny [employer] 5 14:25:51 Date Recorded Body height Body mass index (BMI) Body weight Heart rate Respiratory rate Body temperature Oxygen saturation Oxygen saturation in Arterial blood by Pulse oximetry Systolic And Diastolic Provider Name and Address Organization Details Last Updated DateTime 5 165.1 cm 35.6 kg/m2 63564.7 7 g 85 /min 17 /min 97.8 [degF] 94 % 94 % 137/47 mm[Hg] [facility] [employer] 5 15:04:35 Date Recorded Body height Heart rate Respiratory rate Body temperature Oxygen saturation Oxygen saturation in Arterial blood by Pulse oximetry Body mass index (BMI) Body weight Systolic And Diastolic Provider Name and Address Organization Details Last Updated DateTime 5 165.1 cm 86 /min 16 /min 98 [degF] 95 % 95 % 35.6 kg/m2 53270.7 7 g 134/64 mm[Hg] Ginny [employer] 5 14:59:18 Date Recorded Body height Body mass index (BMI) Body weight Heart rate Respiratory rate Body temperature Oxygen saturation Oxygen saturation in Arterial blood by Pulse oximetry Systolic And Diastolic Provider Name and Address Organization Details Last Updated DateTime 165.1 cm 35.6 kg/m2 97974.7 7 g 96 /min 18 /min 97.8 [degF] 97 % 97 % 124/66 mm[Hg] Ginny Srinivasan [facility] 16:12:21 Social History Question Answer Notes LastModified by Organizat ion Details LastModified Time Tobacco Smoking Status Current Every Day Smoker Lisa Finley vicente, [facility] 09/23/2022 07:56:25 What Is Your Level Of Caffeine Consumption? Occasional [id number] Information not available 09/16/2022 In The 14 Days Before Symptom Onset, Have You Had Close Contact With A Laboratory-confi rmed COVID-19 While That Case Was Ill? No [email or web address] Information not available 09/23/2022 In The 14 Days Before Symptom Onset, Have You Had Close Contact With A Person Who Is Under Investigation For COVID-19 While That Person Was Ill? No [email or web address] Information not available 09/23/2022 What Type Of Diet Are You Following? REGULAR [id number] Information not available 09/16/2022 [facility] 11/15/2024 What Was [...] Do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
--- OUTSIDE RECORDS SUMMARY | 2025-01-20 01:06 | XMS_ITS | Encounter Summary ---
Author Organization 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
--- OUTSIDE RECORDS SUMMARY | 2025-01-20 01:06 | XMS_ITS | Clinical Summary ---
Author Organization [facility] Address [address] [place] [address] Care Team Providers Care Orthotic/Prosthetic Clinician Name Role Phone Hugo Hinson MD Primary Care Provider [phone] Source Comments [facility],non-owned Affiliates and Associated Physician Practices is amultiple site organization consisting of ambulatory clinics and hospital sitesin [place], [place], [place] and [place]. This disclosure is being madepursuant to the Care Everywhere program and may not contain all information available regarding this patient. Last updated 18.[facility] Allergies Active Allergy Reactions Criticality Noted [...] 4 Active clopidogrel (plaVIX) 75 MG tablet Take 1 (one) tablet by mouth once daily 30 tablet 5 5 Active Active Problems Problem Noted Date Diagnosed Date DM2 (diabetes mellitus, type 2) 05/08/2021 Cerebral aneurysm 03/18/2021 SAH (subarachnoid hemorrhage) 11/24/2020 SDH (subdural hematoma) 11/24/2020 Back pain 01/05/2012 Encounters Date Type Department Care Team Description 12/20/2024 10:30 AM CDT Office Visit [facility] - Neurology [address] [place] [phone] Phil Pollock MD Cerebral aneurysm (HCC) (Primary Dx) 12/20/2024 Travel from Last 3 Months Social History Tobacco [...] PM CDT 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 Pollock. Set Xtrn Drn 35cm 1.9mm 3-15cm Cath Inr Implanted:Qty : 1 on 12/11/2020 by Hiram Hernandez MD at [facility] Left: Cranial [employer] 09/15/2021 [id number] / / [id number] Cover Bur Hl 14mmx.4mm Unv Neuro Iii Implanted:Qty : 1 on 12/11/2020 by Hiram Hernandez MD at [facility] Left: Cranial [place] [employer] [id number] / / Screw 1.5mm 4mm Slf Drl Ax Stab Unv Implanted:Qty : 4 on 12/11/2020 by Hiram Hernandez MD at [facility] Left: Cranial [place] Craniomaxillofacial [id number] / / Surpass Evolve Flow Diverter System Implanted:Qty : 1 on 05/07/2021 at [facility] Left: Carotid 09/15/2023 [id number] / / [id number] Description:Implanted in the Left Internal Carotid Artery by Dr. Pollock. Explanted Type Area Masking Machine Feeder Device Identifier Shelf Expiration Date Model / Serial / Lot Surpass Evolve Flow Diverter System Explanted:Qty: 1 on 05/07/2021 at [facility] Left: Carotid 09/15/2023 [id number] / / [id number] Description:Implanted in the Left Internal Carotid Artery [...] 7 - 26 mg/dL 10/08/2022 7:21 AM [facility] Creatinine 0.91 0.56 - 0.96 mg/dL 10/08/2022 7:21 AM [facility] Sodium 142 136 - 145 mmol/L 10/08/2022 7:21 AM [facility] Potassium 4.0 3.5 - 4.5 mmol/L 10/08/2022 7:21 AM [facility] Chloride 108(H) 98 - 107 mmol/L 10/08/2022 7:21 AM [facility] CO2 25 22 - 29 mmol/L 10/08/2022 7:21 AM [facility] Glucose 85 70 - 115 mg/dL 10/08/2022 7:21 AM [facility] Calcium 9.1 8.4 - 10.2 mg/dL 10/08/2022 7:21 AM [facility] Anion Gap 13 8 - 18 10/08/2022 7:21 AM [facility] BUN/Creatinine Ratio 19 7 - 23 10/08/2022 7:21 AM [facility] Osmolality Calculated 295 270 - 300 mOsm/kg 10/08/2022 7:21 AM [facility]T [facility] eGFR by CKD-EPI 76(L) >=90 mL/min/1.7 3 m2 10/08/2022 7:21 AM CDT [facility] Blood BLOOD SPECIMEN / Unknown Venipuncture / Unknown 10/08/2022 6:37 AM CDT 10/08/2022 6:51 AM CDT Jania Dacosta PA-C LAB - CHEMISTRY ORDERABLE S Final Result Performing Organization Address City/[facility]/ZIP Co de Phone Number [facility] [address] [place] [phone], [facility] [phone] * MICROALB/CREAT RATIO URINE RANDOM PANEL (04/03/2021 9:53 AM CDT) Albumin Random Urine 12.0 Not Established ug/mL 04/03/2021 10:32 AM CDT [facility] Creatinine Urine 56 Not Established mg/dL 04/03/2021 10:32 AM CDT [facility] Urine Albumin/Creati nine Ratio 21 <30 mg/g 04/03/2021 10:32 AM CDT [facility] Urine URINE SPECIMEN OBTAINED BY CLEAN CATCH PROCEDURE / Unknown Collection / Unknown 04/03/2021 9:53 AM CDT 04/03/2021 9:53 AM CDT Reji LARA LAB - URINE CHEMISTRY ORDE RABMOISES Final Result Performing Organization Address City/[facility]/ZIP Co de Phone Number [address] [phone], [facility] [phone] * (ABNORMAL) HEMOGLOBIN A1C (04/03/2021 2:04 AM CDT) Hemoglobin A1c 9.7(H) 4.4 - 6.3 % 04/03/2021 9:31 AM CDT [facility] Estimated Average Glucose 232 mg/dL 04/03/2021 9:31 AM CDT [facility] Comment: HbA1c Interpretation: Treatment target values recommended by ADA and other clinical organizations should be used to evaluate metabolic control in patients. Treatment Target Values: Normal : < 5.7% Pre-diabetes: 5.7-6.4% Diabetes: Equal to or greater than 6.5% Reference: [place] [employer] Standards of Care in Diabetes -2014 In patients 70 years and older consider HbA1c target range of 7.0-7.5% Reference: Diabetes Mellitus in Older People: Position Statement on behalf of the International Association of Gerontology and Geriatrics (IAGG), the Diabetes Working Libertarian for Older People (EDWPOP), and the International Task Force of Experts in Diabetes. Seth Maya et al. J [place] [employer]. 2012 Test results diagnostic of diabetes should be repeated for confirmation. The Sebia Capillary 2 assay for the measurement of HbA1c is a National Glycohemoglobin Standardization Program (NGSP)certified method. Blood BLOOD SPECIMEN / Unknown Lab Venipuncture / Unknown 04/03/2021 2:04 AM CDT 04/03/2021 2:58 AM CDT Luis A Chakraborty MD LAB - CHEMISTRY ORDERABLES Final Result [facility] [address] [place] [phone], [facility] [phone] * EXPOSURE PANEL SOURCE (12/07/2020 9:21 PM CDT) HIV Antigen/Antibody 1 & 2 Non-react stephon Non-reac tive 12/07/2020 11:54 PM CDT [facility] Comment:Neither HIV-1 p24 An tigen nor HIV-1/HIV-2 Antibodies are detected. Hepatitis C Antibody Non-react stephon Non-reac tive 12/07/2020 11:54 PM CDT [facility] Comment:Hepatitis C Antibody screen indicates no [...] stephon Non-reac tive 12/07/2020 11:54 PM CDT [facility] Hepatitis B Core Virus Antibody IgM Non-react stephon Non-reac tive 12/07/2020 11:54 PM CDT [facility] Blood BLOOD SPECIMEN / Unknown Venipuncture / Unknown 12/07/2020 9:21 PM CDT 12/07/2020 10:23 PM CDT us Hiram Hernandez MD LAB - CHEMISTRY ORDERABLES F inal Result [facility] [address] [place] [address], [facility] [phone] from Last 3 Months or Most Recently Relevant to Health Maintenance Insurance [facility] PA[employer]OR GENERIC Advance Directives * Full [...] 6:15 PM 11/24/2020 6:40 PM Care Teams Orthotic/Prosthetic Clinician Relationship Specialty Start Date End Date Hugo Hinson MD [address] [place] [phone] PCP - General Gastroenterology 04/26/21
--- OUTSIDE RECORDS SUMMARY | 2025-01-20 01:06 | XMS_ITS | Encounter Summary ---
Author Organization [facility] Address [address] [place] [address] Care Team Providers Care Tow Bar Driver Name Role Phone Hugo Hinson MD Primary Care Provider [phone] Reason for Visit * Reason Onset Date Comments MEDICATION REFILL 09/07/2024 Encounter Details Date Type Department Care Team (Late st Contact Info) Description 09/07/2024 Refill [facility] - Neurology [address] 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
--- OUTSIDE RECORDS SUMMARY | 2025-01-20 01:06 | XMS_ITS | Encounter Summary ---
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
--- OUTSIDE RECORDS SUMMARY | 2025-01-20 01:06 | XMS_ITS | Continuity of Care Document ---
Author Organization [facility]. 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
--- OUTSIDE RECORDS SUMMARY | 2025-01-20 01:20 | XMS_ITS | Data Portability ---
Author Organization [place] [facility], Main Office Address [address] [place] [address] Care Team Providers Care Administrative Support Associate Name Role Phone RACHANA IVORY Primary Care Provider RACHANA IVORY Referring Provider [phone] Assessment Encounter Date Assessment Date Assessment LastModified by Organization Details LastModified Time 12/20/2024 12/20/2024 This note is dictated and transcribed by [employer]. Electrical Manufacturing Technician variances may occur. Despite proofreading, typographical errors may occur. Occasional wrong-word or 'sekqs-c-xcpn' substitutions may have occurred due to the inherent limitations of voice recording. Read the chart carefully and recognize, using context, where substitutions have occurred. Not available 12/21/2024 09:19:35 12/27/2024 12/27/2024 This note is dictated and transcribed by [employer]. Electrical Manufacturing Technician variances may occur. Despite proofreading, typographical errors may occur. Occasional wrong-word or 'ioist-t-nbue' substitutions may have occurred due to the inherent limitations of voice recording. Read the chart carefully and recognize, using context, where substitutions have occurred. Not available 12/27/2024 14:06:15 01/03/2025 01/03/2025 This note is dictated and transcribed by [employer]. Electrical Manufacturing Technician variances may occur. Despite proofreading, typographical errors may occur. Occasional wrong-word or 'tfvdu-g-tkdy' substitutions may have occurred due to the inherent limitations of voice recording. Read the chart carefully and recognize, using context, where substitutions have occurred. Not available 01/03/2025 15:07:48 01/17/2025 01/17/2025 This note is dictated and transcribed by [employer]. Electrical Manufacturing Technician variances may occur. Despite proofreading, typographical errors may occur. Occasional wrong-word or 'akmxc-x-bavy' substitutions may have occurred due to the inherent limitations of voice recording. Read the chart carefully and recognize, using context, where substitutions have occurred. [email or web address] Not available 01/18/2025 16:36:06 Plan of Treatment Reminders Order Date Submit Date Provider Last Modified By Organization Details Last Modified Time Details Appointments None recorded. Lab culture, wound - Right foot wound 2024 025 patrice 7 [facility] ([facility]), [address] [place], [address], 5 09:09:42 C-reactive protein, quantitativ e, serum or plasma [address] ([facility]), [address] [place], [address], 5 18:24:55 CBC [address] ([facility]), [address] [place], [address], 5 18:24:55 CMP, serum or plasma [address] ([facility]), [address] [place], [address], 5 18:24:55 ESR (erythrocyt e sedimentati on rate), blood [address] ([facility]), [address] [place], [address], 5 18:24:55 Referral None recorded. Procedures None recorded. Surgeries None recorded. Imaging MRI, foot, w/o contrast - rule out osteomyelit is 5th metatarsal [address] ([facility]), [address] [place], [address], 18:27:08 Medication Orders None recorded. Patient TargetsNo [...] ===== ===== ===== ===== Speci men NO.: [id number] Exam Statu s: Final Proce dure: [...] S Genta micin <=2 S Bioty pe [id number] Oxida se React ion N Extra Sensi [...] R Tobra mycin <=2 S Not Available [facility] (Lab) [address] [place], [address], 12/01/2024 10:17:58 01/04/20 25 01/03/2025 CBC/C OMPLE TE BLD COUNT W/DIF F white blood cells 6.6 x10'3 /uL 4.2-10 .8 Not Available [facility] (Lab) [address] [place], [address], 01/03/2025 15:08:08 01/04/20 25 01/03/2025 CBC/C OMPLE TE BLD COUNT W/DIF F red blood cells 4.12 x10'6 /uL 3.80-5 .20 Not Available [facility] (Lab) [address] [place], [address], 01/03/2025 15:08:08 01/04/20 25 01/03/2025 CBC/C OMPLE TE BLD COUNT W/DIF F hemoglobin 13.4 g/dL 12.0-1 5.6 Not Available [facility] (Lab) [address] [place], [address], 01/03/2025 15:08:08 01/04/20 25 01/03/2025 CBC/C OMPLE TE BLD COUNT W/DIF F hematocrit 42.8 % 35.7-4 5.7 Not Available [facility] (Lab) [address] [place], [address], 01/03/2025 15:08:08 01/04/20 25 01/03/2025 CBC/C OMPLE TE BLD COUNT W/DIF F mean red cell volume 103.9 fL 82.0-9 9.0 high Not Available [facility] (Lab) [address] [place], [address], 01/03/2025 15:08:08 01/04/20 25 01/03/2025 CBC/C OMPLE TE BLD COUNT W/DIF F mean red cell hemoglobin 32.5 pg 27.0-3 3.0 Not Available [facility] (Lab) [address] [place], [address], 01/03/2025 15:08:08 01/04/20 25 01/03/2025 CBC/C OMPLE TE BLD COUNT W/DIF F mean RBC HGB concentratio n 31.3 g/dL 31.0-3 6.0 Not Available [facility] (Lab) [address] [place], [address], 01/03/2025 15:08:08 01/04/20 25 01/03/2025 CBC/C OMPLE TE BLD COUNT W/DIF F red cell distribution width 12.8 % 11.8-1 5.5 Not Available [facility] (Lab) [address] [place], [address], 01/03/2025 15:08:08 01/04/20 25 01/03/2025 CBC/C OMPLE TE BLD COUNT W/DIF F platelets 193 x10'3 /uL 150-40 0 Not Available [facility] (Lab) [address] [place], [address], 01/03/2025 15:08:08 01/04/20 25 01/03/2025 CBC/C OMPLE TE BLD COUNT W/DIF F mean platelet volume 11.7 fL 9.0-12 .4 Not Available [facility] (Lab) [address] [place], [address], 01/03/2025 15:08:08 01/04/20 25 01/03/2025 CBC/C OMPLE TE BLD COUNT W/DIF F neutrophils 58.1 % 39.0-7 2.0 Not Available [facility] (Lab) [address] [place], [address], 01/03/2025 15:08:08 01/04/20 25 01/03/2025 CBC/C OMPLE TE BLD COUNT W/DIF F lymphocytes 28.8 % 16.0-4 7.0 Not Available [facility] (Lab) [address] [place], [address], 01/03/2025 15:08:08 01/04/20 25 01/03/2025 CBC/C OMPLE TE BLD COUNT W/DIF F monocytes 8.8 % 5.0-12 .0 Not Available [facility] (Lab) [address] [place], [address], 01/03/2025 15:08:08 01/04/20 25 01/03/2025 CBC/C OMPLE TE BLD COUNT W/DIF F eosinophils 2.9 % 1.0-7. 0 Not Available [facility] (Lab) [address] [place], [address], 01/03/2025 15:08:08 01/04/20 25 01/03/2025 CBC/C OMPLE TE BLD COUNT W/DIF F basophils 0.9 % 0.0-2. 0 Not Available [facility] (Lab) [address] [place], [address], 01/03/2025 15:08:08 01/04/20 25 01/03/2025 CBC/C OMPLE TE BLD COUNT W/DIF F immature granulocytes 0.5 % 0.00-0 .50 Not Available [facility] (Lab) [address] [place], [address], 01/03/2025 15:08:08 01/04/20 25 01/03/2025 CBC/C OMPLE TE BLD COUNT W/DIF F neutrophils, absolute count 3.83 x10'3 /uL 1.5-8. 0 Not Available [facility] (Lab) [address] [place], [address], 01/03/2025 15:08:08 01/04/20 25 01/03/2025 CBC/C OMPLE TE BLD COUNT W/DIF F lymphocytes, absolute count 1.90 x10'3 /uL 1.07-3 .43 Not Available [facility] (Lab) [address] [place], [address], 01/03/2025 15:08:08 01/04/20 25 01/03/2025 CBC/C OMPLE TE BLD COUNT W/DIF F monocytes, absolute count 0.58 x10'3 /uL 0.29-0 .99 Not Available [facility] (Lab) [address] [place], [address], 01/03/2025 15:08:08 01/04/20 25 01/03/2025 CBC/C OMPLE TE BLD COUNT W/DIF F eosinophils, absolute count 0.19 x10'3 /uL 0.02-0 .53 Not Available [facility] (Lab) [address] [place], [address], 01/03/2025 15:08:08 01/04/20 25 01/03/2025 CBC/C OMPLE TE BLD COUNT W/DIF F basophils, absolute count 0.06 x10'3 /uL 0.01-0 .08 Not Available [facility] (Lab) [address] [place], [address], 01/03/2025 15:08:08 01/04/20 25 01/03/2025 CBC/C OMPLE TE BLD COUNT W/DIF F immature granulocytes ,absolute 0.03 x10'3 /uL 0.00-0 .05 Not Available [facility] (Lab) [address] [place], [address], 01/03/2025 15:08:08 01/04/20 25 01/03/2025 CBC/C OMPLE TE BLD COUNT W/DIF F nucleated red blood cells 0.0 % -0 Not Available [facility] (Lab) [address] [facility] [place], [address], 01/03/2025 15:08:08 01/04/20 25 01/03/2025 CBC/C OMPLE TE BLD COUNT W/DIF F NRBC# 0.00 x10'3 /uL Not Available [facility] (Lab) [address] [place], [address], 01/03/2025 15:08:08 01/04/20 25 01/03/2025 COMPR EHENS GRACE METAB OLIC PANEL sodium 139 mmol/ L 137-14 5 Not Available [facility] (Lab) [address] [place], [address], 01/03/2025 15:13:18 01/04/20 25 01/03/2025 COMPR EHENS GRACE METAB OLIC PANEL potassium 4.2 mmol/ L 3.5-5. 1 Not Available [facility] (Lab) [address] [place], [address], 01/03/2025 15:13:18 01/04/20 25 01/03/2025 COMPR EHENS GRACE METAB OLIC PANEL chloride 106 mmol/ L 98-107 Not Available [facility] (Lab) [address] [place], [address], 01/03/2025 15:13:18 01/04/20 25 01/03/2025 COMPR EHENS GRACE METAB OLIC PANEL carbon dioxide 19 mmol/ L 22-30 low Not Available [facility] (Lab) [address] [place], [address], 01/03/2025 15:13:18 01/04/20 25 01/03/2025 COMPR EHENS GRACE METAB OLIC PANEL anion gap 18.2 mmol/ L 14-22 Not Available [facility] (Lab) [address] [place], [address], 01/03/2025 15:13:18 01/04/20 25 01/03/2025 COMPR EHENS GRACE METAB OLIC PANEL glucose 207 mg/dL 70-99 high Not Available [facility] (Lab) [address] [place], [address], 01/03/2025 15:13:18 01/04/20 25 01/03/2025 COMPR EHENS GRACE METAB OLIC PANEL BUN 18 mg/dL 8-19 Not Available [facility] (Lab) [address] [place], [address], 01/03/2025 15:13:18 01/04/20 25 01/03/2025 COMPR EHENS GRACE METAB OLIC PANEL creatinine 1.06 mg/dL 0.66-1 .25 Not Available [facility] (Lab) [address] [place], [address], 01/03/2025 15:13:18 01/04/20 25 01/03/2025 COMPR EHENS GRACE METAB OLIC PANEL GFR 54 Refer ence Range : [place] GFR Healt hy Adult : >60 [...] calcu lator is avail able on the [facility] websi te: https ://ww w.kid gian.o rg/pr ofess ional s/kdo qi/gf r_cal culat or Not Available [facility] (Lab) [address] [place], [address], 01/03/2025 15:13:18 01/04/20 25 01/03/2025 COMPR EHENS GRACE METAB OLIC PANEL alkaline phosphatase 114 U/L 38-126 Not Available [facility] (Lab) [address] [place], [address], 01/03/2025 15:13:18 01/04/20 25 01/03/2025 COMPR EHENS GRACE METAB OLIC PANEL alanine aminotransfe rase 35 U/L 0-35 Not Available [facility] (Lab) [address] [place], [address], 01/03/2025 15:13:18 01/04/20 25 01/03/2025 COMPR EHENS GRACE METAB OLIC PANEL aspartate aminotransfe rase 38 U/L 15-37 high Not Available [facility] (Lab) [address] [place], [address], 01/03/2025 15:13:18 01/04/20 25 01/03/2025 COMPR EHENS GRACE METAB OLIC PANEL bilirubin, total 0.40 mg/dL 0.20-1 .30 Not Available [facility] (Lab) [address] [place], [address], 01/03/2025 15:13:18 01/04/20 25 01/03/2025 COMPR EHENS GRACE METAB OLIC PANEL calcium 9.0 mg/dL 8.4-10 .2 Not Available [facility] (Lab) [address] [place], [address], 01/03/2025 15:13:18 01/04/20 25 01/03/2025 COMPR EHENS GRACE METAB OLIC PANEL total protein 7.6 g/dL 6.3-8. 2 Not Available [facility] (Lab) [address] [place], [address], 01/03/2025 15:13:18 01/04/20 25 01/03/2025 COMPR EHENS GRACE METAB OLIC PANEL albumin 4.2 g/dL 3.4-5. 0 Not Available [facility] (Lab) [address] [place], [address], 01/03/2025 15:13:18 01/04/20 25 01/03/2025 COMPR EHENS GRACE METAB OLIC PANEL globulin 3.4 g/dL 2.6-4. 2 Not Available [facility] (Lab) [address] [place], [address], 01/03/2025 15:13:18 01/04/20 25 01/03/2025 COMPR EHENS GRACE METAB OLIC PANEL A/G ratio 1.2 ratio 1.0-2. 0 Not Available [facility] (Lab) [address] [place], [address], 01/03/2025 15:13:18 01/04/20 25 01/03/2025 C REACT GRACE PROTE IN,UL TRA SENS C-reactive protein 5.82 mg/dL 0.0-0. 5 high Not Available [facility] (Lab) [address] [place], [address], 01/03/2025 15:47:41 01/04/20 25 01/03/2025 SEDIM ENTAT ION RATE erythrocyte sedimentatio n rate 47 mm/HR 0-20 high Not Available [facility] (Lab) [address] [place], [address], 01/03/2025 15:57:30 11/24/19 25 11/22/2024 XR, foot, 2 view No observ ation record ed. [email or web address] [facility], [place], [address], 11/23/2024 14:14:59 11/25/19 25 11/23/2024 XR, foot, 2 view No observ ation record ed. [email or web address] [place] [address] [address], [place], [address], 11/27/2024 08:36:28 12/07/19 25 XR, foot No observ ation record ed. [email or web address] [facility] [address] [place], [address], 12/06/2024 15:27:54 12/30/19 25 12/28/2024 CT, lumba r spine , w/o contr ast No observ ation record ed. [email or web address], [address], 01/01/2025 15:29:20 Result Notes None recorded. Problems Name Problem SNOMED Code Status Onset Date Resolution Date Notes Provider Name and Address Organization Details Recorded Time Pain in upper limb 688583406 Completed Not Available [facility] 3 08:22:17 Infection of skin 155994551 Completed Not Available [facility] 3 08:22:18 Tobacco user 515949558 Active 2017 Not Available [employer] 3 08:22:18 Celluliti s 117119588 Completed Not Available [facility] 3 08:22:18 Celluliti s of foot 123541021 Active 2022 Not Available [facility] 3 08:22:18 Celluliti s of foot 296604071 Active 2022 Not Available [facility] 3 08:22:18 Postopera tive care Active 2022 Not Available [facility] 3 08:22:18 Amenorrhe a 23489942 Completed Not Available [facility] 3 08:22:18 External hordeolum 7240468 Active Not Available [facility] 3 08:22:18 Fibromato sis of plantar fascia of right foot 18799778826 528697 Active 2021 Not Available [facility] 3 08:22:18 Fibromato sis of plantar fascia of left foot 85801846611 984500 Active 2021 Not Available [facility] 3 08:22:18 Acute sinusitis 31625908 Completed Not Available [facility] 3 08:22:18 Spinal stenosis of lumbar region 24832281 Active Not Available [facility] 3 08:22:18 Insomnia 880848484 Active Not Available [facility] 3 08:22:18 Open wound of breast 891263069 Completed Not Available [facility] 3 08:22:18 Mixed anxiety and depressiv e disorder 797278283 Active 2016 Not Available [facility] 3 08:22:18 Soft tissue lesion of foot region 594350988 Active 2022 Not Available [facility] 3 08:22:19 Broken skin 994174424 Completed Not Available [facility] 3 08:22:19 Infection of sebaceous cyst 765840744 Completed Not Available [facility] 3 08:22:19 Multiple pelvic fractures 999185521 Active 2021 Not Available [facility] 3 08:22:19 Elevated level of transamin ase and lactic acid dehydroge nase 756575075 Active Not Available [facility] 3 08:22:19 Difficult y gripping 557739278 Completed Not Available [facility] 3 08:22:19 Abscess of breast 56769083 Completed Not Available [facility] 3 08:22:19 Fracture of superior pubic ramus 718458196 Active 2021 Not Available [facility] 3 08:22:19 Fracture of inferior pubic ramus 794402456 Active 2021 Not Available [facility] 3 08:22:19 Pain in pelvis 19857442 Active 2021 Not Available [facility] 3 08:22:19 Pain in right foot 90913836449 9107 Active 2021 Not Available [facility] 3 08:22:20 Depressiv e disorder 26325452 Active Not Available [facility] 3 08:22:20 Ulnar neuropath y 249160643 Active Not Available [facility] 3 08:22:20 Onychomyc osis of toenails 759324721 Active 2022 Not Available [facility] 3 08:22:20 Hematoche getachew 696633772 Active Not Available [facility] 3 08:22:20 Obese 768320018 Active 2016 Not Available [facility] 3 08:22:20 Onychomyc osis 944419520 Active Not Available [facility] 3 08:22:20 Nausea 811324934 Completed Not Available [facility] 3 08:22:20 History of surgery for cerebral aneurysm 964049157 Active 2021 Not Available [facility] 3 08:22:21 Aneurysm 114549293 Active 2020 Not Available [facility] 3 08:22:21 Type 2 diabetes mellitus 71061035 Active Not Available [facility] 3 08:22:21 Hyperlipi demia 99039234 Active Not Available [facility] 3 08:22:21 Pain of wrist region 56553032 Completed Not Available [facility] 3 08:22:21 Essential hypertens ion 12453591 Active Not Available [facility] 3 08:22:21 Tinea pedis 6947984 Active 2016 Not Available [facility] 3 08:22:21 Cigarette smoker 07771917 Active 2022 Not Available [facility] 3 08:22:21 Urinary tract infectiou s disease 39880826 Completed Not Available [facility] 3 08:22:21 Acid reflux 298121700 Active 2016 Not Available [facility] 3 08:22:22 Diabetes mellitus 65317031 Active Not Available [facility] 3 08:22:22 Urgent desire to urinate 30226572 Completed Not Available [facility] 3 08:22:22 Spinal stenosis 05805377 Active 2021 Not Available [facility] 3 08:22:22 Postmenop ausal bleeding 44151604 Active 2017 Not Available [facility] 3 08:22:22 Smoker 93795453 Active 2021 Not Available [facility] 3 08:22:22 Fracture of pelvis 98015244 Active 2021 Not Available [facility] 3 08:22:22 Hyperglyc emia 95769336 Active Not Available [facility] 3 08:22:22 Tinea corporis 88803422 Completed Not Available [facility] 3 08:22:23 Chronic low back pain 405440055 Active 2022 EDDA Cotton [address], [address], [place], [address] , [employer] 3 11:05:12 Neuropath y 120895486 Active 2022 EDDA Cotton [address], [address], [place], [address] , [employer] 3 08:31:01 Uncontrol led type 2 diabetes mellitus 821173470 Active 2023 TAM Stoddard [address], [address], [place], [address] , [employer] 4 16:11:46 Open wound 157685230 Active 2024 ALEKSANDER Varghese [address], [address], [place], [address] , [facility] [employer] [facility] 5 14:31:47 Body mass index 30+ - obesity 806588766 Active 2024 ALEKSANDER Varghese [address], [address], [place], [address] , [facility] [employer] [facility] [employer] [facility] 5 15:00:07 Ulcer of right foot due to type 2 diabetes mellitus 79642292744 054573 Active 2024 Jovon Moody DPM [address], [address], [place], [address] , [facility] [employer] [facility] [employer] [facility] 5 15:21:08 Pruritic rash 45083483 Active 2024 Jovon Moody DPM [address], [address], [place], [address] , [facility] [employer] [facility] [employer] [facility] 5 15:22:59 Acute osteomyel itis of right foot 31401792021 70121 Active 2024 Jovon Moody DPM [address], [address], [place], [address] , [facility] [employer] [facility] [employer] [facility] 5 15:21:32 Abscess 445675625 Active 2024 Jovon Moody DPM [address], [address], [place], [address] , [facility] [employer] [facility] [employer] [facility] 5 16:36:20 Celluliti s of right foot 04161833615 627675 Active 2024 Jovon Moody DPM [address], [address], [place], [address] , [facility] [employer] [facility] 5 16:36:59 Problem Notes None recorded. Procedures Surgical History Date Name Laterality Status Provider Name and Address Organization Details Recorded Time 01/18/20 25 Wound Care-Podiatry completed Jovon Moody DPM [address], [address], [place], [address], [employer] [facility] [employer] [facility] 01/18/2025 16:36:01 01/11/20 25 Wound Care-Podiatry completed Yoav Diez RN [facility] [employer] [facility] 01/10/2025 17:35:17 01/04/20 25 Wound Care-Podiatry completed Yoav Diez RN [facility] [employer] [facility] 01/03/2025 15:17:58 12/28/19 25 Wound Care-Podiatry completed Luzmaria Cordoba RN [facility] [employer] [facility] 12/27/2024 14:42:00 12/21/19 25 Wound Care-Podiatry completed Jovon Moody DPM [address], [address], [place], [address], [employer] [facility] [employer] 12/21/2024 09:18:55 12/14/19 25 Wound Care-Podiatry completed Jovon Moody DPM [address], [address], [place], [address], [employer] [facility] [employer] [facility] 12/14/2024 08:56:20 12/07/19 25 Wound Care-Podiatry completed Jovon Moody DPM [address], [address], [place], [address], [employer] [facility] [employer] [facility] 12/06/2024 15:23:07 11/30/19 25 Wound Care-Podiatry completed Jovon Moody DPM [address], [place], [address], [employer] [facility] [employer] 12/05/2024 08:59:37 fusion completed Not Available [facility] 07/2022 08:19:18 section completed Not Available [facility] 09/16/2022 08:19:18 stimulation completed Not Available [facility] 09/16/2022 08:19:18 Imaging Results None recorded. Procedure Notes None recorded. Medical Equipment None Reported. Allergies Allergen ID Allergen Name Allergen Category Reaction Reaction Severity Criticality Documentation Date Start Date Code Code System Note Provider Name and Address Organization Details Recorded Time Biaxin medicatio n Not available Not available Not available 09/16/2022 98715 9 RxNorm Not Available [facility] 3 08:26:00 91737 Augmentin medicatio n Not available Not available Not available 09/16/2022 79768 2 RxNorm Not Available [facility] 3 08:26:00 Medications Name Sig Start Date [...] Updated DateTime 5 165.1 cm 35.6 kg/m2 29104.7 7 g 101 /min 16 /min 97.8 [degF] 97 % 97 % 136/69 mm[Hg] Ginny [employer] 5 13:12:41 Date Recorded Body height Body mass index (BMI) Body weight Heart rate Respiratory rate Oxygen saturation Oxygen saturation in Arterial blood by Pulse oximetry Body temperature Systolic And Diastolic Provider Name and Address Organization Details Last Updated DateTime 5 165.1 cm 35.6 kg/m2 73943.7 7 g 100 /min 18 /min 99 % 99 % 97.6 [degF] 137/54 mm[Hg] Ginny [employer] 5 14:25:51 Date Recorded Body height Body mass index (BMI) Body weight Heart rate Respiratory rate Body temperature Oxygen saturation Oxygen saturation in Arterial blood by Pulse oximetry Systolic And Diastolic Provider Name and Address Organization Details Last Updated DateTime 5 165.1 cm 35.6 kg/m2 60544.7 7 g 85 /min 17 /min 97.8 [degF] 94 % 94 % 137/47 mm[Hg] Ginny [employer] 5 15:04:35 Date Recorded Body height Heart rate Respiratory rate Body temperature Oxygen saturation Oxygen saturation in Arterial blood by Pulse oximetry Body mass index (BMI) Body weight Systolic And Diastolic Provider Name and Address Organization Details Last Updated DateTime 5 165.1 cm 86 /min 16 /min 98 [degF] 95 % 95 % 35.6 kg/m2 22978.7 7 g 134/64 mm[Hg] Ginny [employer] 5 14:59:18 Date Recorded Body height Body mass index (BMI) Body weight Heart rate Respiratory rate Body temperature Oxygen saturation Oxygen saturation in Arterial blood by Pulse oximetry Systolic And Diastolic Provider Name and Address Organization Details Last Updated DateTime 165.1 cm 35.6 kg/m2 02060.7 7 g 96 /min 18 /min 97.8 [degF] 97 % 97 % 124/66 mm[Hg] Ginny Srinivasan [facility] [employer] [facility] 16:12:21 Social History Question Answer Notes LastModified by Organizat ion Details LastModified Time Tobacco Smoking Status Current Every Day Smoker Lisa Finley vicente, [facility] [employer] [facility] 09/23/2022 07:56:25 What Is Your Level Of Caffeine Consumption? Occasional [id number] Information not available 09/16/2022 In The 14 Days Before Symptom Onset, Have You Had Close Contact With A Laboratory-confi rmed COVID-19 While That Case Was Ill? No [email or web address] Information not available 09/23/2022 In The 14 Days Before Symptom Onset, Have You Had Close Contact With A Person Who Is Under Investigation For COVID-19 While That Person Was Ill? No [email or web address] Information not available 09/23/2022 What Type Of Diet Are You Following? REGULAR [id number] Information not available 09/16/2022 [facility] 11/15/2024 What Was [...] Has Tobacco Cessation Counseling Been Provided? No [email or web address] Information not available 09/23/2022 Have You Recently Traveled Abroad? No Information not available 11/15/2024 Do You Have Any Dietary Restrictions? No [email or web address] Information not available 09/23/2022 Sex: Female Functional Status Question Answer Note LastModified by Organizat ion Details LastModified Time Do you use any illicit or recreational drugs? No [email or web address] Information not available 09/23/2022 Do you or have you ever used any other forms of tobacco or nicotine? No Information not available 11/15/2024 What is your level of alcohol consumption? None [id number] Information not available 09/16/2022 Are you currently employed? Yes Information not available 11/15/2024 What is your occupation? [email or web address] Information not available 09/23/2022 What is your exercise level? None [id number] Information not available 09/16/2022 Mental Status Question Answer Note LastModified by Organization D etails LastModified Time Do you feel stressed (tense, restless, nervous, or anxious, or unable to sleep at night)? [id number] Information not available 11/15/2024 Family History Relationship Description Onset Age of this Age Resolved Age Notes LastModified by Organization Details LastModified Time Unspecified Relation Cerebrovascu lar accident [email or web address] Not available 08/2024 16:07:28 Unspecified Relation Hypertensive disorder [id number] Not available 09/16/2022 08:19:19 Unspecified Relation Diabetes mellitus [id number] Not available 09/16/2022 08:19:19 Medical History Condition [...] virus, trivalent, preservative 3 completed Not Available [facility] 09/16/2022 08:25:48 Influenza, split virus, trivalent, preservative 5 completed Not Available [facility] 09/16/2022 08:25:48 Influenza, split virus, trivalent, preservative 5 completed Not Available [facility] 09/16/2022 08:25:48 Influenza,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
--- NOTE | 2025-01-20 01:26 | ED.EXTPRO ---
HPI - Extremity Problem General Chief complaint: Extremity Problem,Nontraumatic Stated complaint: ulcer to right foot Time Seen by Provider: 01/20/25 01:09 History of Present Illness HPI Narrative: 54-year-old female with history of type 2 diabetes presenting to the emergency depart with a nonhealing ulcer to her right foot. She has been seen by Podiatry and forest fire specialist supervisor outside the hospital and she has been having worsening pain and drainage of the right lateral aspect of her foot. She was told to come to the ER for IV antibiotics admission by her wound care team several days ago on Wednesday but she ended up coming in today. She is already been on outpatient Bactrim therapy and was recently admitted to the hospital in November for IV antibiotics and discharged home on doxycycline after general surgery consultation showed no acute surgical intervention or concerns and she was discharged with outpatient follow-up. She has failed outpatient follow-up treatment at this time and now having worsening ulcerations of her right foot on the lateral aspect plantar surface and now developing ulcerations and purulent drainage on the dorsal surface laterally. She was told she might need MRI imaging to see if there is osteomyelitis. Denies any fever, chills. Has been walking on the foot with some pain. Notices bleeding, foul odor and purulent drainage mixed with blood coming from the wound on the top dorsal surface. Related Data Home Medications ?Medication ?Instructions ?Recorded ?Confirmed ?Last Taken ?Type escitalopram oxalate 10 mg tablet 10 mg PO 08/18/19 11/24/24 11/24/24 History glimepiride 4 mg tablet 4 mg PO DAILY 08/18/19 11/24/24 11/24/24 History insulin glargine 100 unit/mL (3 50 unit subcut 08/18/19 11/24/24 11/23/24 History mL) subcutaneous pen (Basaglar KwikPen U-100 Insulin) lisinopril 2.5 mg tablet 2.5 mg PO DAILY 08/18/19 11/24/24 11/24/24 History topiramate 100 mg tablet 200 mg PO 08/18/19 11/24/24 11/23/24 History clopidogrel 75 mg tablet 75 mg PO DAILY 07/17/21 11/24/24 11/24/24 History pregabalin 50 mg capsule 50 mg PO DAILY 08/15/21 11/24/24 11/23/24 History dulaglutide 1.5 mg/0.5 mL 1.5 mg subcut WEEKLY 11/22/24 11/24/24 11/20/24 History subcutaneous pen injector (Trulicity) insulin lispro 100 unit/mL 7 unit subcut .with meals 11/22/24 11/24/24 11/24/24 History subcutaneous pen naloxone 4 mg/actuation nasal 4 mg intranasal Q2M PRN opioid 11/22/24 11/24/24 Unknown History spray (Narcan) overdose zolpidem 5 mg tablet 5 mg PO HS 11/22/24 11/24/24 11/23/24 History oxycodone-acetaminophen 5 mg-325 1 tablet PO BID PRN pain 11/24/24 11/24/24 Unknown History mg tablet Allergies Allergy/AdvReac Type Severity Reaction Status Date / Time clarithromycin Allergy Mild Unknown Verified 11/22/24 17:35 amoxicillin Allergy Unknown Unknown Verified 11/22/24 17:35 clavulanic acid Allergy Unknown Unknown Verified 11/22/24 17:35 Review of Systems Review of Systems: As reviewed above in HPI [facility] Past Medical History Medical History Intracranial aneurysm Anxiety with depression Chronic back pain Hypertension Diabetes mellitus GI bleed GERD (gastroesophageal reflux disease) Sleep apnea Surgical History Surgical History History of microdiscectomy History of back surgery History of History of dilation and curettage Family History Family History Father Malignant neoplasm of prostate Hypertension Diabetes 1.5, managed as type 2 Mother Depression Thyroid disease Other Chronic back pain Social History Social History Social History: Patient lives at home with her daughter and mother, Gracy, whom she designates as her surrogate MDM. She works at [employer]. She has smoked a half a pack of cigarettes per day since she was a teenager. Her PCP is Shirley Sena currently but is in the process of changing providers due to insurance reasons. She wishes to be a Full Code Smoking packs per day: 0.5 Smoking cigarettes per day: 10.0 Years smoked: 29 Smoking pack-years: 14.50 Smoking status: Current every day smoker Alcohol intake: former Drinks per week: 10 Substance use type: painkillers Do You Feel Safe in your Home?: Yes Lack of Transportation: No Lack of Food: Never True Current Housing: I Have Housing Concerned About Future Housing: No Difficulty Paying Gas/Electric Bills: No Difficulty Paying for Meds: No Currently Unemployed: No Education: High School Diploma/GED Difficulty w/ Childcare or Family Care: No Gender identity (if verbalized by the patient): Male Spiritual care concerns: No Agree to blood products: Yes Exam Narrative: GENERAL: Not any acute distress, multiple piercing in both ears HEAD: [Normocephalic, atraumatic.] EYES: [PERRLA and EOMI.] ENT: Nares clear, no rhinorrhea or epistaxis. Mucous membranes moist. NECK: Supple. CHEST: [Clear to auscultation. No respiratory distress.] HEART: [Regular rate and rhythm]. No murmur heard. [Normal peripheral pulses.] ABDOMEN: [Soft, nondistended], [nontender], [No rigidity or guarding] EXTREMITIES: Normal range of motion. [No edema.] SKIN: There is and 2 x 3 cm area of ulceration on the plantar surface lateral aspect of the right foot that is macerated on the outside edges without any eschar or drainage. There is exposed musculature and possibly bone. The dorsal surface of the same foot on the lateral aspect has several circular ulcerations with bleeding mixed with purulent drainage with foul odor. No crepitus with palpation, pain elicited with palpation. 2+ dorsalis pedis pulse. NEURO: [No focal deficits]. Alert and oriented [x3.] PSYCH: [Normal mood and affect.] Course Vital Signs Vital signs: Vital Signs Pulse Rate 94 01/20/25 01:06 Respiratory Rate 18 01/20/25 01:06 Blood Pressure 137/72 01/20/25 01:06 Pulse Oximetry 98 01/20/25 01:06 Oxygen Delivery Room Air 01/20/25 01:06 Pulse Rate 95 01/20/25 01:34 Respiratory Rate 20 01/20/25 01:34 Blood Pressure 122/69 01/20/25 01:34 Pulse Oximetry 99 01/20/25 01:34 Oxygen Delivery Room Air 01/20/25 01:06 MDM - Extremity (Nontraumatic) MDM Narrative Medical decision making narrative: 54-year-old female with history of type 2 diabetes presenting to the emergency depart with a nonhealing ulcer to her right foot. She has been seen by Podiatry and forest fire specialist supervisor outside the hospital and she has been having worsening pain and drainage of the right lateral aspect of her foot. She was told to come to the ER for IV antibiotics admission by her wound care team several days ago on Wednesday but she ended up coming in today. She is already been on outpatient Bactrim therapy and was recently admitted to the hospital in November for IV antibiotics and discharged home on doxycycline after general surgery consultation showed no acute surgical intervention or concerns and she was discharged with outpatient follow-up. She has failed outpatient follow-up treatment at this time and now having worsening ulcerations of her right foot on the lateral aspect plantar surface and now developing ulcerations and purulent drainage on the dorsal surface laterally. She was told she might need MRI imaging to see if there is osteomyelitis. Denies any fever, chills. Has been walking on the foot with some pain. Notices bleeding, foul odor and purulent drainage mixed with blood coming from the wound on the top dorsal surface. Examination reveals a 2 x 3 cm area of ulceration on the plantar surface lateral aspect of the right foot that is macerated on the outside edges without any eschar or drainage. There is exposed musculature and possibly bone. The dorsal surface of the same foot on the lateral aspect has several circular ulcerations with bleeding mixed with purulent drainage with foul odor. No crepitus with palpation, pain elicited with palpation. 2+ dorsalis pedis pulse. Suspicion for wound worsening and now developing new ulcerations that appear infected. Patient is afebrile with normal vital signs. X-ray of the right foot was obtained and she was started on vancomycin and doxycycline for coverage and laboratory studies, wound culture and blood cultures obtained. She will be admitted to the hospital for continued treatment and general surgery will be consulted for evaluation. X-ray independently interpreted shows some overlying ulceration on the right lateral aspect of the foot consistent with clinical exam with possible bony involvement/changes. Pain is under control, no leukocytosis or anemia. Elevated glucose 295 without any anion gap or acidosis. Given home insulin dose and fluid bolus and maintenance infusion. Discussed the case with the hospitalist service who accepted the patient to the hospital this time and general surgery consult ordered. Medical Records Attestation: I reviewed the patient's medical records. Lab Data Attestation: I reviewed the patient's lab results. 01/20/25 02:02 01/20/25 02:02 Labs: Lab Results 01/20/25 Range/Units 02:02 WBC 9.7 (4.5-10.0) K/mm3 RBC 4.13 L (4.2-5.4) M/mm3 Hgb 13.1 (12.0-15.0) g/dL Hct 41.1 (37.0-47.0) % MCV 99.5 (80-100) fl MCH 31.7 (26-34) pg MCHC 31.9 L (32-36) g/dl RDW 12.5 (11.5-14.5) % Plt Count 226 (150-375) k/mm3 MPV 11.5 H (7.4-10.4) fl Immature Gran % (Auto) 0.6 H (0-0.5) % Neut % (Auto) 74.6 H (45.5-73.1) % Lymph % (Auto) 18.4 (18.3-44.2) % [place] % (Auto) 5.0 (2.6-8.5) % Eos % (Auto) 1.0 (0-4.4) % Baso % (Auto) 0.4 (0.2-1.2) % Lymph # (Auto) 1.78 (0.9-3.2) K/mm3 [place] # (Auto) 0.5 (0.1-0.6) K/mm3 Eos # (Auto) 0.1 (0-0.3) K/mm3 Baso # (Auto) 0.0 (0.0-0.1) K/mm3 Abs Immat Gran (auto) 0.06 H (0.00-0.031) K/mm3 Absolute Neuts (auto) 7.2 H (1.3-6.7) K/mm3 Absolute Nucleated RBC 0.000 (0.0-0.012) K/mm3 Nucleated RBC % 0.0 (0.0-0.2) % PT 14.7 (11.1-14.7) Seconds INR 1.1 APTT 35.8 (22.3-36.8) Seconds Sodium 138 (137-145) mmol/L Potassium 3.7 (3.4-5.0) mmol/L Chloride 105 (98-107) mmol/L Carbon Dioxide 21 L (22-30) mmol/L Anion Gap 12 (4-12) mmol/L BUN 18 H (7-17) mg/dL Creatinine 1.11 H (0.7-1.0) mg/dL Estim Creat Clear Calc 60 ml/min Estimated GFR 51 L (59 - ) Glucose 295 H (65-110) mg/dL Calcium 9.2 (8.4-10.2) mg/dL Total Bilirubin 0.4 (0.2-1.3) mg/dL AST 31 (14-36) U/L ALT 27 (6-35) U/L Alkaline Phosphatase 89 (38-126) U/L Total Protein 7.8 (6.3-8.2) g/dL Albumin 3.9 (3.5-5.1) g/dL Imaging Data Attestation: I personally reviewed and interpreted this imaging study as follows: My impression: X-ray independently interpreted shows some overlying ulceration on the right lateral aspect of the foot consistent with clinical exam with possible bony involvement/changes. Discharge Plan Discharge Clinical Impression: Ulcer of right foot due to type 2 diabetes mellitus, Diabetes mellitus Diabetic ulcer of right foot Qualifiers: Diabetic foot ulcer location: midfoot Diabetes mellitus type: type 2 Non-pressure ulcer stage: with muscle involvement without evidence of necrosis Qualified Code(s): E11.621 - Type 2 diabetes mellitus with foot ulcer Patient Disposition: Still a Patient Condition: Stable Patient Language: Belarusian Prescriptions: No Action glimepiride 4 mg tablet 4 mg PO DAILY topiramate 100 mg tablet 200 mg PO HS lisinopril 2.5 mg tablet 2.5 mg PO DAILY escitalopram oxalate 10 mg tablet 10 mg PO HS insulin glargine [Basaglar KwikPen U-100 Insulin] 100 unit/mL (3 mL) insulin pen 50 unit SUBCUT HS pregabalin 50 mg capsule 50 mg PO DAILY clopidogrel 75 mg tablet 75 mg PO DAILY insulin lispro 100 unit/mL insulin pen 7 unit SUBCUT .with meals Trulicity 1.5 mg/0.5 mL pen injector 1.5 mg SUBCUT WEEKLY zolpidem 5 mg tablet 5 mg PO HS naloxone [Narcan] 4 mg/actuation spray,non-aerosol 4 mg INTRANASAL Q2M PRN (Reason: opioid overdose) doxycycline hyclate 100 mg tablet 100 mg PO BID 10 Days Qty: 20 0RF aspirin [Adult Low Dose Aspirin] 81 mg tablet,delayed release (DR/EC) 81 mg PO DAILY Qty: 60 0RF Rx Instructions: Take 1 tablet by mouth daily until further recommendation from Neurologist oxycodone-acetaminophen 5-325 mg tablet 1 tablet PO BID PRN (Reason: pain) Follow-up/Referrals: Phillip,Angie Dietrich NP [Primary Care Provider] - Time of Disposition: 02:43
[2025-01-20] MEDS: LACTATED RINGERS 1,000 ML 999 ML IV CONT (02:12)
[2025-01-20 02:15] LABS: Hematocrit 41.1 % (37.0-47.0); Hemoglobin 13.1 g/dL (12.0-15.0); Immature Granulocyte Percent A 0.6 % (0-0.5); Lymphocytes Absolute Auto 1.78 K/mm3 (0.9-3.2); Mean Corpuscular HGB Conc 31.9 g/dl (32-36); Mean Corpuscular Hemoglobin 31.7 pg (26-34); Mean Corpuscular Volume 99.5 fl (80-100); Nucleated Red Blood Cells Absolute Auto 0.000 K/mm3 (0.0-0.012); Nucleated Red Blood Cells Perc 0.0 % (0.0-0.2); Platelet Count Result 226 k/mm3 (150-375); Red Blood Count 4.13 M/mm3 (4.2-5.4); White Blood Count 9.7 K/mm3 (4.5-10.0)
[2025-01-20 02:22] LABS: Alanine Aminotransferase 27 U/L (6-35); Albumin Level 3.9 g/dL (3.5-5.1); Alkaline Phosphatase 89 U/L (38-126); Anion Gap 12 mmol/L (4-12); Aspartate Amino Transferase 31 U/L (14-36); Bilirubin,Total 0.4 mg/dL (0.2-1.3); Blood Urea Nitrogen 18 mg/dL (7-17); Calcium 9.2 mg/dL (8.4-10.2); Carbon Dioxide 21 mmol/L (22-30); Chloride 105 mmol/L (98-107); Estimated CRCL calculation 60 ml/min; Estimated Glomerular Filt Rate 51; Glucose 295 mg/dL (65-110); Potassium 3.7 mmol/L (3.4-5.0); Sodium 138 mmol/L (137-145); Total Protein 7.8 g/dL (6.3-8.2)
[2025-01-20 02:30] LABS: INR 1.1; Prothrombin Time 14.7 Seconds (11.1-14.7)
[2025-01-20 02:35] LABS: Partial Thromboplastin Time 35.8 Seconds (22.3-36.8)
[2025-01-20] MEDS: DOXYCYCLINE 100 MG/NS 100 ML 100 MG/100 ML BAG IVPB (02:42)
[2025-01-20] MEDS: VANCOMYCIN 1,250 MG/NS 250 ML 1,250 MG/250 ML BAG 166.67 MG IVPB ×2 (03:24→05:01)
--- NOTE | 2025-01-20 03:31 | PC.NURSE ---
BS checked at bedside prior to giving insulin dosage - 177
[2025-01-20] MEDS: INSULIN ASPART (*BKC) 100 UNITS/ML 7 UNITS SUB-Q (03:44)
--- NOTE | 2025-01-20 04:05 | PC.NURSE ---
This RN informed of patient room assignment at [id number]
[2025-01-20] MEDS: LACTATED RINGERS 1,000 ML 140 ML IV CONT ×2 (04:58→21:52)
--- NOTE | 2025-01-20 04:59 | ADMGEN ---
This patient, Jeane Garcia, was admitted to [facility] Surg Room 327-01. Patient/family oriented to hospital policies and general routines including ID bracelet, bed and alarms, visiting hours, pain management, procedures, bathroom and other care routines, personal items, smoking policy, room service/diet, and visiting hours. Information on how to activate the Rapid Response Team has been discussed. Patient/Family are encouraged to report perceived risks to care and to ask questions if they do not understand what they are told or what they should do. arrived on unit, alert and oriented, denies pain, ambulated to bathroom ad maria luz.
--- NOTE | 2025-01-20 05:29 | WNDPHOTO ---
PHOTO ONLY - See Nursing Notes and/ or assessments for documentation.
[2025-01-20] MEDS: GLUCOSE ORAL GEL 15 GM OF GLUCSE IN 37.5 GM TUBE PO (06:18)
[2025-01-20 07:04] LABS: Magnesium 2.1 mg/dL (1.6-2.3)
[2025-01-20 07:14] LABS: CRP 23.0 mg/dL (<1.0)
[2025-01-20 07:16] LABS: Procalcitonin 0.2 ng/mL
[2025-01-20 07:46] LABS: Hemoglobin A1C 6.4 % (<5.7)
[2025-01-20] MEDS: oxyCODONE/ACETAMINOPHEN (*CRX) 5-325 MG TABLET 1 TABLET PO (08:13)
[2025-01-20] MEDS: metroNIDAZOLE 500 MG/ISO 100ML 500 MG/100 ML BAG 100 MG IVPB ×3 (08:15→22:43)
--- NOTE | 2025-01-20 08:23 | P.HP_ITS ---
H&P: HPI History of Present Illness Date/Time: 01/20/25 08:23 Chief Complaint: Right foot ulcer Narrative: Jeane Garcia is a 54-year-old female with a past medical history of T2DM, HTN, GERD, peripheral neuropathy, and LIBRADO who presented to the ED for a non- healing wound to the right foot. Patient was recently discharged from hospital on similar complaint. At that time, she was admitted for a worsening foot wound after formation of a blister. She has been seeing the wound care team at a podiatry and resource recovery specialist in the outpatient setting, and was told to come to the emergency room for IV antibiotics. She was initially told to go to the hospital on Wednesday but arrived last night due to worsening pain. She has been Bactrim in the outpatient setting for unhealed diabetic foot ulcer, but was discharged on doxycycline after her hospitalization in November. She is now presenting with worsening ulcerations of the right foot on the lateral aspect of the plantar surface and has now developed drainage from the dorsal surface of the right foot. She denies any recent fevers, chills, or injuries to the foot. She is still ambulatory but endorses significant and worsening pain. 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 Wound culture obtained, pending Blood cultures pending General surgery to consult regarding Osteomyelitis of 5th metatarsal phalangeal joint. Review of Systems Review of Systems: All systems reviewed & are unremarkable except as noted in HPI and below PMFSH Past Medical History Medical History Intracranial aneurysm Anxiety with depression Chronic back pain Hypertension Diabetes mellitus GI bleed GERD (gastroesophageal reflux disease) Sleep apnea Surgical History Surgical History History of microdiscectomy History of back surgery History of History of dilation and curettage Family History Family History Father Malignant neoplasm of prostate Hypertension Diabetes 1.5, managed as type 2 Mother Depression Thyroid disease Other Chronic back pain Social History Social History Social History: Patient lives at home with her daughter and mother, Gracy, whom she designates as her surrogate MDM. She works at [employer]. She has smoked a half a pack of cigarettes per day since she was a teenager. Her PCP is Shirley Sena currently but is in the process of changing providers due to insurance reasons. She wishes to be a Full Code Smoking packs per day: 0.5 Smoking cigarettes per day: 10.0 Years smoked: 36 Smoking pack-years: 18.00 Smoking status: Current every day smoker Tobacco type: cigarettes Second hand tobacco smoke exposure: No Alcohol intake: former Drinks per week: 10 Substance use: never Substance use type: painkillers Do You Feel Safe in your Home?: Yes Lack of Transportation: No Lack of Food: Never True Current Housing: I Have Housing Concerned About Future Housing: No Difficulty Paying Gas/Electric Bills: No Difficulty Paying for Meds: No Currently Unemployed: No Education: High School Diploma/GED Difficulty w/ Childcare or Family Care: No Gender identity (if verbalized by the patient): Male Spiritual care concerns: No Agree to blood products: Yes Meds Home Medications and Allergies Home Medications ?Medication ?Instructions ?Recorded ?Confirmed ?Type escitalopram oxalate 10 mg tablet 10 mg PO HS 08/18/19 01/20/25 History glimepiride 4 mg tablet 4 mg PO DAILY 08/18/19 01/20/25 History insulin glargine 100 unit/mL (3 50 unit subcut HS 08/18/19 01/20/25 History mL) subcutaneous pen (Basaglar KwikPen U-100 Insulin) lisinopril 2.5 mg tablet 2.5 mg PO DAILY 08/18/19 01/20/25 History topiramate 100 mg tablet 200 mg PO HS 08/18/19 01/20/25 History aspirin 81 mg tablet,delayed 81 mg PO DAILY #60 tabs 08/19/19 01/20/25 Rx release (Adult Low Dose Aspirin) clopidogrel 75 mg tablet 75 mg PO DAILY 07/17/21 01/20/25 History pregabalin 50 mg capsule 50 mg PO DAILY 08/15/21 01/20/25 History dulaglutide 1.5 mg/0.5 mL 1.5 mg subcut WEEKLY 11/22/24 01/20/25 History subcutaneous pen injector (Trulicity) insulin lispro 100 unit/mL 7 unit subcut .with meals 11/22/24 01/20/25 History subcutaneous pen naloxone 4 mg/actuation nasal 4 mg intranasal Q2M PRN opioid 11/22/24 01/20/25 History spray (Narcan) overdose zolpidem 5 mg tablet 5 mg PO HS 11/22/24 01/20/25 History oxycodone-acetaminophen 5 mg-325 1 tablet PO BID PRN pain 11/24/24 01/20/25 History mg tablet Allergies Allergy/AdvReac Type Severity Reaction Status Date / Time clarithromycin Allergy Mild Unknown Verified 11/22/24 17:35 amoxicillin Allergy Unknown Unknown Verified 11/22/24 17:35 clavulanic acid Allergy Unknown Unknown Verified 11/22/24 17:35 Vital Signs Vital Signs - 24 hr 01/20/25 01:06 01/20/25 01:34 01/20/25 03:15 Temperature 98.4 F Pulse Rate 94 95 77 Respiratory Rate 18 20 21 H Blood Pressure 137/72 122/69 102/59 L Pulse Oximetry 98 99 98 Oxygen Delivery Room Air 01/20/25 04:00 01/20/25 04:09 01/20/25 05:12 Temperature 98.2 F Pulse Rate 72 73 Respiratory Rate 20 20 Blood Pressure 122/48 L 118/60 Pulse Oximetry 100 96 Oxygen Delivery Room Air Exam Narrative: Gen - well appearing female in no acute respiratory distress who is nontoxic- appearing lying semi recumbent in bed, obese, appears older than stated age HEENT - normocephalic. Atraumatic. Pupils equal round and reactive. Sclera clear and anicteric. Nares patent. Oropharynx was clear. No oral lesions. Moist mucous membranes. Neck - neck was supple. No dominant adenopathy, thyromegaly or masses. 2+ carotid upstrokes without bruits. Chest - lungs are clear to auscultation bilaterally. No wheezes or crackles. Breast exam was deferred. CV - heart was regular rate and rhythm. S1-S2. No murmurs gallops or rubs. Abd - abdomen was soft. Nontender. Nondistended. Positive bowel sounds. No organomegaly or masses. Ext - no clubbing, cyanosis or edema. 2+ DP pulses bilaterally. Neuro - patient is alert and oriented x4. Strength is 5/5 in both upper and lower extremities. Cranial nerves 2-12 are intact. Speech is clear. Psych - normal mood and affect. Patient is pleasant and cooperative. Skin - 2 x 3 cm area of ulceration on the plantar surface lateral aspect of the right foot with serous drainage muscle layer exposed, warm and dry. No rashes noted. H&P: Results Labs Labs: Short CBC 01/20/25 Range/Units 02:02 WBC 9.7 (4.5-10.0) K/mm3 Hgb 13.1 (12.0-15.0) g/dL Hct 41.1 (37.0-47.0) % Plt Count 226 (150-375) k/mm3 BMP 01/20/25 02:02 Sodium 138 Potassium 3.7 Chloride 105 Carbon Dioxide 21 L BUN 18 H Creatinine 1.11 H Glucose 295 H Calcium 9.2 Liver Function 01/20/25 Range/Units 02:02 Total Bilirubin 0.4 (0.2-1.3) mg/dL AST 31 (14-36) U/L ALT 27 (6-35) U/L Alkaline Phosphatase 89 (38-126) U/L Albumin 3.9 (3.5-5.1) g/dL Assessment and Plan Assessment and plan (1) Osteomyelitis: Code(s): M86.9 - Osteomyelitis, unspecified Status: Acute Assessment and Plan: * Foot XR: Osteomyelitis of the fifth metatarsal phalangeal joint. * General surgery consult for further recommendations * Wound care consult * Place patient on empiric antibiotic coverage - Cefazolin and Vanc * Blood/wound cultures pending (2) Ulcer of right foot due to type 2 diabetes mellitus: Code(s): E11.621 - Type 2 diabetes mellitus with foot ulcer; L97.519 - Non-pressure chronic ulcer of other part of right foot with unspecified severity Status: Acute Assessment and Plan: * See above (3) Chronic back pain: Qualifiers: Back pain laterality: bilateral Back pain location: low back pain Sciatica presence: without sciatica Qualified Code(s): M54.50 - Low back pain, unspecified; G89.29 - Other chronic pain Code(s): M54.9 - Dorsalgia, unspecified; G89.29 - Other chronic pain Status: Acute Assessment and Plan: * Chronic, stable * Lumbar CT 12/29/24: Severe degenerative spondylosis at L3-L4, with severe spinal canal stenosis and associated bilateral neural foraminal narrowing. Moderate degenerative spondylosis at L2-L3, as above. Posterior and interbody fusion from L4 through S1. (4) Hypertension: Code(s): I10 - Essential (primary) hypertension Status: Acute Assessment and Plan: * Patient's blood pressure was reviewed on 01/20 * Blood pressure remains well controlled. * 118/60 (5) Diabetes mellitus: Code(s): E11.9 - Type 2 diabetes mellitus without complications Status: Acute Assessment and Plan: * Hypoglycemia protocol * POC blood glucose ACHS * Correct regimen ordered - low dose TIDWM and HS * A1C 6.4%
[2025-01-20 09:05] LABS: Hematocrit 38.7 % (37.0-47.0); Hemoglobin 12.1 g/dL (12.0-15.0); Immature Granulocyte Percent A 0.5 % (0-0.5); Lymphocytes Absolute Auto 1.40 K/mm3 (0.9-3.2); Mean Corpuscular HGB Conc 31.3 g/dl (32-36); Mean Corpuscular Hemoglobin 31.9 pg (26-34); Mean Corpuscular Volume 102.1 fl (80-100); Nucleated Red Blood Cells Absolute Auto 0.000 K/mm3 (0.0-0.012); Nucleated Red Blood Cells Perc 0.0 % (0.0-0.2); Platelet Count Result 207 k/mm3 (150-375); Red Blood Count 3.79 M/mm3 (4.2-5.4); White Blood Count 12.9 K/mm3 (4.5-10.0)
[2025-01-20 09:20] LABS: Alanine Aminotransferase 23 U/L (6-35); Albumin Level 3.5 g/dL (3.5-5.1); Alkaline Phosphatase 76 U/L (38-126); Anion Gap 11 mmol/L (4-12); Aspartate Amino Transferase 28 U/L (14-36); Bilirubin,Total 0.2 mg/dL (0.2-1.3); Blood Urea Nitrogen 16 mg/dL (7-17); Calcium 8.9 mg/dL (8.4-10.2); Carbon Dioxide 24 mmol/L (22-30); Chloride 105 mmol/L (98-107); Estimated CRCL calculation 68 ml/min; Estimated Glomerular Filt Rate 60; Glucose 120 mg/dL (65-110); Magnesium 2.0 mg/dL (1.6-2.3); Potassium 3.8 mmol/L (3.4-5.0); Sodium 140 mmol/L (137-145); Total Protein 7.5 g/dL (6.3-8.2)
[2025-01-20] MEDS: ENOXAPARIN 40 MG/0.4 ML SYRINGE SUB-Q (10:28)
[2025-01-20] MEDS: INSULIN ASPART (*BKC) 100 UNITS/ML SUB-Q (12:11)
[2025-01-20] MEDS: CEFEPIME 2 GM/NS 50 ML 2 GM/50 ML BAG IVPB ×2 (12:13→21:54)
[2025-01-20] MEDS: ESCITALOPRAM OXALATE 10 MG TABLET PO (14:52)
--- NOTE | 2025-01-20 21:36 | P.CONS_ITS ---
Assessment and Plan Assessment and plan (1) Diabetic ulcer of right foot: Qualifiers: Diabetes mellitus type: type 2 Diabetic foot ulcer location: midfoot N on-pressure ulcer stage: with muscle involvement without evidence of necrosis Q ualified Code(s): E11.621 - Type 2 diabetes mellitus with foot ulcer; L97.415 - Non-pressure chronic ulcer of right heel and midfoot with muscle involvement without evidence of necrosis Code(s): E11.621 - Type 2 diabetes mellitus with foot ulcer; L97.519 - Non-pressure chronic ulcer of other part of right foot with unspecified severity Status: Acute Assessment and Plan: Patient has a nonhealing diabetic ulcer of the right forefoot plantar surface. This is now progressed to an abscess which has spontaneously drained through the dorsal aspect of the right lateral forefoot. There is associated erythema and cellulitis. It is spontaneously draining. She will need further operative drainage of the abscess with debridement of any nonviable tissue. She is to continue on broad-spectrum IV antibiotics for now. We will plan on performing the operative drainage of the abscess and debridement in the next 24 to 48 hours. In the meantime she should not ambulate on the right foot. Hospitalist service is managing her diabetes which has been poorly controlled. MRI of the right foot is pending to evaluate for osteomyelitis. HPI Data of Consult Date/Time: 01/20/25 21:36 Requesting Physician: Trung Christy MD Primary Care Provider: Angie Fisher, BUFFET WAITER/WAITRESS Consult Narrative Reason for consult: Diabetic right foot wound with abscess and cellulitis Narrative: Jeane Garcia is a 54 year old female was admitted [facility] in November 2024. At that time she was injury for diabetic right foot ulcer on the plantar surface of the right forefoot. There is no evidence of osteomyelitis or abscess in need to be drained that time and so she was eventually discharged with follow-up referral to a blood bank laboratory professional and local wound care. She has been seen weekly by Dr. Mckeon [facility] for podiatry care. More recently the wound was not improving and she developed a cellulitic changes. He suspected she might have osteomyelitis and suggested that she should come to [facility] and admitted for IV antibiotics and get an MRI to evaluate for osteomyelitis. MRI was not available and [facility]. She then subsequently delayed coming to the hospital here at [facility] for 3 more days and then presented to the emergency room earlier today. She was admitted with cellulitis and abscess of the right foot in association with her chronic diabetic right foot wound wound. White blood cell count normal. She has been started on broad-spectrum IV antibiotic coverage after cultures were obtained. She stated that the dorsal port of the right forefoot started to drain over last couple of days. She has pain in the area but was walking on the right foot. Review of Systems 2 Review of Systems: The remainder of the review of systems to include constitutional, HEENT, cardiovascular, respiratory, GI, , integumentary, musculoskeletal, endocrine, immunologic, hematologic, psychiatric, and neurologic are all negative except for which is mentioned above in the HPI. [facility] Past Medical History Medical History Intracranial aneurysm Anxiety with depression Chronic back pain Hypertension Diabetes mellitus GI bleed GERD (gastroesophageal reflux disease) Sleep apnea Surgical History Surgical History History of microdiscectomy History of back surgery History of History of dilation and curettage Family History Family History Father Malignant neoplasm of prostate Hypertension Diabetes 1.5, managed as type 2 Mother Depression Thyroid disease Other Chronic back pain Social History Social History Social History: Patient lives at home with her daughter and mother, Gracy, whom she designates as her surrogate MDM. She works at [employer]. She has smoked a half a pack of cigarettes per day since she was a teenager. Her PCP is Shirley Sena currently but is in the process of changing providers due to insurance reasons. She wishes to be a Full Code Smoking packs per day: 0.5 Smoking cigarettes per day: 10.0 Years smoked: 36 Smoking pack-years: 18.00 Smoking status: Current every day smoker Tobacco type: cigarettes Second hand tobacco smoke exposure: No Alcohol intake: former Drinks per week: 10 Substance use: never Substance use type: painkillers Do You Feel Safe in your Home?: Yes Lack of Transportation: No Lack of Food: Never True Current Housing: I Have Housing Concerned About Future Housing: No Difficulty Paying Gas/Electric Bills: No Difficulty Paying for Meds: No Currently Unemployed: No Education: High School Diploma/GED Difficulty w/ Childcare or Family Care: No Gender identity (if verbalized by the patient): Male Spiritual care concerns: No Agree to blood products: Yes Meds Home Medications and Allergies Home Medications ?Medication ?Instructions ?Recorded ?Confirmed ?Type escitalopram oxalate 10 mg tablet 10 mg PO HS 08/18/19 01/20/25 History glimepiride 4 mg tablet 4 mg PO DAILY 08/18/19 01/20/25 History insulin glargine 100 unit/mL (3 50 unit subcut HS 08/18/19 01/20/25 History mL) subcutaneous pen (Basaglar KwikPen U-100 Insulin) lisinopril 2.5 mg tablet 2.5 mg PO DAILY 08/18/19 01/20/25 History topiramate 100 mg tablet 200 mg PO HS 08/18/19 01/20/25 History aspirin 81 mg tablet,delayed 81 mg PO DAILY #60 tabs 08/19/19 01/20/25 Rx release (Adult Low Dose Aspirin) clopidogrel 75 mg tablet 75 mg PO DAILY 07/17/21 01/20/25 History pregabalin 50 mg capsule 50 mg PO DAILY 08/15/21 01/20/25 History dulaglutide 1.5 mg/0.5 mL 1.5 mg subcut WEEKLY 11/22/24 01/20/25 History subcutaneous pen injector (Trulicity) insulin lispro 100 unit/mL 7 unit subcut .with meals 11/22/24 01/20/25 History subcutaneous pen naloxone 4 mg/actuation nasal 4 mg intranasal Q2M PRN opioid 11/22/24 01/20/25 History spray (Narcan) overdose zolpidem 5 mg tablet 5 mg PO HS 11/22/24 01/20/25 History oxycodone-acetaminophen 5 mg-325 1 tablet PO BID PRN pain 11/24/24 01/20/25 History mg tablet Allergies Allergy/AdvReac Type Severity Reaction Status Date / Time clarithromycin Allergy Mild Unknown Verified 11/22/24 17:35 amoxicillin Allergy Unknown Unknown Verified 11/22/24 17:35 clavulanic acid Allergy Unknown Unknown Verified 11/22/24 17:35 Vital Signs Vital Signs - 24 hr 01/20/25 01:06 01/20/25 01:34 01/20/25 03:15 Temperature 36.9 C Pulse Rate 94 95 77 Respiratory Rate 18 20 21 H Blood Pressure 137/72 122/69 102/59 L Pulse Oximetry 98 99 98 Oxygen Delivery Room Air 01/20/25 04:00 01/20/25 04:09 01/20/25 05:12 Temperature 36.8 C Pulse Rate 72 73 Respiratory Rate 20 20 Blood Pressure 122/48 L 118/60 Pulse Oximetry 100 96 Oxygen Delivery Room Air 01/20/25 08:00 01/20/25 14:00 Temperature 36.5 C Pulse Rate 67 Respiratory Rate 20 Blood Pressure 130/93 H Pulse Oximetry 99 Oxygen Delivery Room Air Exam 2 Const: General: comfortable and no acute distress HENMT: Ears: TM's normal bilaterally Face/Nose/Sinus: Normal nares present Mouth: Yes moist mucous membranes Eyes: General: appearance normal, both eyes and all related structures S clera: sclerae normal Pupils: Equal, round and reactive pupils present E OM: EOMs intact bilaterally Neck: Neck: supple and no JVD Resp: Effort & Inspection: normal respiratory effort Auscultation: clear to auscultation bilaterally Cardio: Rate: regular rate Rhythm: regular rhythm GI: GI Palp: Yes Soft to palpation, No Firmness to palpation present (GI), No Tenderness to palpation present (GI), No Guarding due to palpation present (GI) and No Hernia present Skin: General skin exam: normal color and no rashes or lesions noted W ounds: wounds noted Other: Patient has a [id number] right forefoot lateral plantar diabetic ulcer. This cavity next to the abscess which was burrowing through the right lateral foot to the dorsum of the foot. The dorsum of the foot there is a 2cm area of cellulitis with a 1cm area of fluctuance and spontaneously draining pus. There is surrounding erythema and swelling across the right forefoot and midfoot. There is no ascending cellulitis of the hindfoot or ankle. She is able to move all of her toes. All the toes appeared to be viable. Neuro: General: gait normal Speech: normal speech Motor exam (neuro): 5 /5 motor strength present throughout Sensory Exam: normal sensation Results Labs 01/20/25 08:50 01/20/25 08:49 Labs: Short CBC 01/20/25 01/20/25 Range/Units 02:02 08:50 WBC 9.7 12.9 H (4.5-10.0) K/mm3 Hgb 13.1 12.1 (12.0-15.0) g/dL Hct 41.1 38.7 (37.0-47.0) % Plt Count 226 207 (150-375) k/mm3 BMP 01/20/25 01/20/25 02:02 08:49 Sodium 138 140 Potassium 3.7 3.8 Chloride 105 105 Carbon Dioxide 21 L 24 BUN 18 H 16 Creatinine 1.11 H 0.97 Glucose 295 H 120 H Calcium 9.2 8.9 Liver Function 01/20/25 01/20/25 Range/Units 02:02 08:49 Total Bilirubin 0.4 0.2 (0.2-1.3) mg/dL AST 31 28 (14-36) U/L ALT 27 23 (6-35) U/L Alkaline Phosphatase 89 76 (38-126) U/L Albumin 3.9 3.5 (3.5-5.1) g/dL
[2025-01-20] MEDS: TOPIRAMATE 100 MG TABLET 200 MG PO (21:58)
[2025-01-20] MEDS: PREGABALIN (*CRX) 50 MG CAPSULE PO (21:58)
[2025-01-20] MEDS: INSULIN GLARGINE (*BKC) 100 UNITS/ML 40 UNITS SUB-Q (21:58)
[2025-01-21] MEDS: VANCOMYCIN 1,500 MG/NS 500 ML 1,500 MG/500 ML BAG 125 MG IVPB (00:01)
[2025-01-21] MEDS: oxyCODONE/ACETAMINOPHEN (*CRX) 5-325 MG TABLET 1 TABLET PO (03:28)
[2025-01-21 05:58] LABS: Hematocrit 35.9 % (37.0-47.0); Hemoglobin 11.4 g/dL (12.0-15.0); Immature Granulocyte Percent A 0.7 % (0-0.5); Lymphocytes Absolute Auto 2.15 K/mm3 (0.9-3.2); Mean Corpuscular HGB Conc 31.8 g/dl (32-36); Mean Corpuscular Hemoglobin 32.0 pg (26-34); Mean Corpuscular Volume 100.8 fl (80-100); Nucleated Red Blood Cells Absolute Auto 0.000 K/mm3 (0.0-0.012); Nucleated Red Blood Cells Perc 0.0 % (0.0-0.2); Platelet Count Result 191 k/mm3 (150-375); Red Blood Count 3.56 M/mm3 (4.2-5.4); White Blood Count 11.3 K/mm3 (4.5-10.0)
[2025-01-21 06:00] VITALS: BP 97/55; PULSE 66; RESP 18; TEMP 36.7; O2SAT 99
[2025-01-21] MEDS: metroNIDAZOLE 500 MG/ISO 100ML 500 MG/100 ML BAG 100 MG IVPB ×3 (06:08→22:40)
[2025-01-21 06:28] LABS: Alanine Aminotransferase 21 U/L (6-35); Albumin Level 3.3 g/dL (3.5-5.1); Alkaline Phosphatase 80 U/L (38-126); Anion Gap 10 mmol/L (4-12); Aspartate Amino Transferase 25 U/L (14-36); Bilirubin,Total 0.2 mg/dL (0.2-1.3); Blood Urea Nitrogen 12 mg/dL (7-17); CRP 23.9 mg/dL (<1.0); Calcium 9.0 mg/dL (8.4-10.2); Carbon Dioxide 19 mmol/L (22-30); Chloride 109 mmol/L (98-107); Estimated CRCL calculation 74 ml/min; Estimated Glomerular Filt Rate > 60; Glucose 134 mg/dL (65-110); Magnesium 1.9 mg/dL (1.6-2.3); Potassium 4.0 mmol/L (3.4-5.0); Sodium 138 mmol/L (137-145); Total Protein 7.0 g/dL (6.3-8.2)
[2025-01-21 06:32] LABS: Procalcitonin 0.2 ng/mL
--- NOTE | 2025-01-21 07:40 | P.PNIM_ITS ---
Progress Note: A&P Assessment and Plan (1) Osteomyelitis: Code(s): M86.9 - Osteomyelitis, unspecified Status: Acute Assessment and Plan: * Foot XR: Osteomyelitis of the fifth metatarsal phalangeal joint. * Wound care consult * Place patient on empiric antibiotic coverage - Cefazolin and Vanc * Blood/wound cultures pending * General surgery consult for further recommendations * XR shows clear indication of osteomyelitis - MRI unnecessary at this time * Drainage of abscess and debridement of non-viable tissue on Wednesday * Non-ambulatory * Maintain IV abx - Cefepime + Vanc (2) Ulcer of right foot due to type 2 diabetes mellitus: Code(s): E11.621 - Type 2 diabetes mellitus with foot ulcer; L97.519 - Non-pressure chronic ulcer of other part of right foot with unspecified severity Status: Acute Assessment and Plan: * See above (3) Chronic back pain: Qualifiers: Back pain laterality: bilateral Back pain location: low back pain Sciatica presence: without sciatica Qualified Code(s): M54.50 - Low back pain, unspecified; G89.29 - Other chronic pain Code(s): M54.9 - Dorsalgia, unspecified; G89.29 - Other chronic pain Status: Acute Assessment and Plan: * Chronic, stable * Lumbar CT 12/29/24: Severe degenerative spondylosis at L3-L4, with severe spinal canal stenosis and associated bilateral neural foraminal narrowing. Moderate degenerative spondylosis at L2-L3, as above. Posterior and interbody fusion from L4 through S1. (4) Hypertension: Code(s): I10 - Essential (primary) hypertension Status: Acute Assessment and Plan: * Patient's blood pressure was reviewed on 01/20 * Blood pressure remains well controlled. * 97/55 (5) Diabetes mellitus: Code(s): E11.9 - Type 2 diabetes mellitus without complications Status: Acute Assessment and Plan: * Hypoglycemia protocol * POC blood glucose ACHS * Correct regimen ordered - low dose TIDWM and HS * A1C 6.4% Subjective Date/time seen: 01/21/25 07:40 Interval history: 54-year-old female with a past medical history of T2DM, HTN, GERD, peripheral neuropathy, and LIBRADO who presented to the ED for a non-healing wound to the right foot. Patient was recently discharged from hospital similar complaint. 01/21/2025 Patient sitting comfortably in bed at time of exam. Denies any chest pain, n/v, sob, or abd pain at this time. Ortho consulted, to take pt for abscess drainage and debridement within next 24 hours, likely Wednesday. Pt amenable to this plan. No indication for MRI of foot as XR clearly indicative of osteomyelitis. Pt is complaining of moderate discomfort of the right foot, but has no other complaints or concerns. Review of Systems Review of Systems: All systems reviewed & are unremarkable except as noted in HPI and below Exam Narrative: Gen - well appearing female in no acute respiratory distress who is nontoxic- appearing lying semi recumbent in bed, obese, appears older than stated age HEENT - normocephalic. Atraumatic. Pupils equal round and reactive. Sclera clear and anicteric. Nares patent. Oropharynx was clear. No oral lesions. Moist mucous membranes. Neck - neck was supple. No dominant adenopathy, thyromegaly or masses. 2+ carotid upstrokes without bruits. Chest - lungs are clear to auscultation bilaterally. No wheezes or crackles. Breast exam was deferred. CV - heart was regular rate and rhythm. S1-S2. No murmurs gallops or rubs. Abd - abdomen was soft. Nontender. Nondistended. Positive bowel sounds. No organomegaly or masses. Ext - no clubbing, cyanosis or edema. 2+ DP pulses bilaterally. Neuro - patient is alert and oriented x4. Strength is 5/5 in both upper and lower extremities. Cranial nerves 2-12 are intact. Speech is clear. Psych - normal mood and affect. Patient is pleasant and cooperative. Skin - 2 x 3 cm area of ulceration on the plantar surface lateral aspect of the right foot with serous drainage muscle layer exposed, warm and dry. No rashes noted. Objective Data Vital Signs Vital Signs: Vital Signs - 24 hr 01/20/25 08:00 01/20/25 14:00 01/20/25 20:00 Temperature 97.7 F 98 F Pulse Rate 67 70 Respiratory Rate 20 18 Blood Pressure 130/93 H 93/52 L Pulse Oximetry 99 97 Oxygen Delivery Room Air 01/20/25 20:00 01/21/25 06:00 Temperature 98.1 F Pulse Rate 70 66 Respiratory Rate 18 18 Blood Pressure 97/55 L Pulse Oximetry 97 99 Oxygen Delivery Room Air Intake/Output Intake/Output: Intake & Output 01/18/25 01/19/25 01/20/25 01/21/25 23:59 23:59 23:59 23:59 Intake Total 4780 1000 Balance 4780 1000 Meds/Results Medications: Active Medications Generic Name Dose Route Start Last Admin Trade Name Freq PRN Reason Stop Dose Admin Acetaminophen 650 mg 01/20/25 02:38 Acetaminophen 325 Mg Tablet PO Q4H PRN Mild Pain (1-3) or Fever Hydrocodone Bitart/Acetaminophen 1 tab 01/20/25 02:38 Hydrocodone/Acetaminophen (*Crx) 5-325 Mg Tablet PO Q4H PRN Pain Rated 4-6 Dextrose 12.5 gm 01/20/25 06:11 Dextrose 50% 25 Gm/50 Ml Syringe IV PUSH PRN PRN Hypoglycemia Protocol Enoxaparin Sodium 40 mg 01/20/25 09:00 01/20/25 10:28 Enoxaparin 40 Mg/0.4 Ml Syringe SUB-Q 40 mg DAILY GLENNA Administration Escitalopram Oxalate 10 mg 01/20/25 15:30 01/20/25 14:52 Escitalopram Oxalate 10 Mg Tablet PO 10 mg DAILY@1530 GLENNA Administration Glucagon 1 mg 01/20/25 06:11 Glucagon For Inj 1 Mg Vial IM PRN PRN Hypoglycemia Protocol Glucose 15 gm 01/20/25 06:11 01/20/25 06:18 Glucose Oral Gel 15 Gm Of Glucse In 37.5 Gm Tube PO 15 gm PRN PRN Administration Hypoglycemia Protocol Vancomycin HCl 1,500 mg in 500 mls @ 250 mls/hr 01/20/25 22:00 01/21/25 04:01 Vancomycin 1,500 Mg/Ns 500 Ml IVPB Infused Q18H GLENNA Infusion Lactated Ringer's 1,000 mls @ 140 mls/hr 01/20/25 02:40 01/20/25 21:52 Lr - Lactated Ringers Iv IV CONT 140 mls/hr .Q7H9M GLENNA Administration Dextrose 1,000 mls @ 100 mls/hr 01/20/25 06:11 Dextrose 5% 1,000 Ml IVPB PRN PRN Hypoglycemia Protocol Metronidazole 500 mg in 100 mls @ 100 mls/hr 01/20/25 06:20 01/21/25 07:08 Flagyl 500 Mg/Iso Soln 100 Ml IVPB Infused Q8HR GLENNA Infusion Cefepime HCl 2 gm in 50 mls @ 100 mls/hr 01/20/25 21:00 01/20/25 22:24 Maxipime 2 Gm/Ns 50 Ml IVPB Infused Q12H GLENNA Infusion Insulin Aspart 2 - 5 units 01/20/25 08:00 01/20/25 17:10 Insulin Aspart (*Bkc) 100 Units/Ml SUB-Q Not Given TIDWM [facility] Protocol Insulin Glargine 40 units 01/20/25 21:00 01/20/25 21:58 Insulin Glargine (*Bkc) 100 Units/Ml SUB-Q 40 units HS [facility] Administration Lisinopril 2.5 mg 01/20/25 15:30 01/20/25 14:52 Lisinopril 2.5 Mg Tablet PO 2.5 mg DAILY@1530 GLENNA Administration Ondansetron HCl 4 mg 01/20/25 02:38 Ondansetron Inj 4 Mg/2 Ml Vial IV PUSH Q4H PRN Nausea Oxycodone/Acetaminophen 1 tablet 01/20/25 06:25 01/21/25 03:28 Oxycodone/Acetaminophen (*Crx) 5-325 Mg Tablet PO 1 tablet BID PRN Administration pain 7-10 Pregabalin 50 mg 01/20/25 21:00 01/20/25 21:58 Pregabalin (*Crx) 50 Mg Capsule PO 50 mg HS GLENNA Administration Topiramate 200 mg 01/20/25 21:00 01/20/25 21:58 Topiramate 100 Mg Tablet PO 200 mg HS GLENNA Administration Radiology Results: ITS Impressions Foot X-Ray 01/20/25 09:01 IMPRESSION: Osteomyelitis of the fifth metatarsal phalangeal joint. Labs Labs: Laboratory Results - last 24 hr 01/20/25 01/20/25 01/20/25 02:02 07:43 08:49 WBC RBC Hgb Hct MCV MCH MCHC RDW Plt Count MPV Immature Gran % (Auto) Neut % (Auto) Lymph % (Auto) [place] % (Auto) Eos % (Auto) Baso % (Auto) Lymph # (Auto) [place] # (Auto) Eos # (Auto) Baso # (Auto) Abs Immat Gran (auto) Absolute Neuts (auto) Absolute Nucleated RBC Nucleated RBC % ESR 111 H Sodium 140 Potassium 3.8 Chloride 105 Carbon Dioxide 24 Anion Gap 11 BUN 16 Creatinine 0.97 Estim Creat Clear Calc 68 Estimated GFR 60 Glucose 120 H POC Capillary Glucose 102 Hemoglobin A1c 6.4 H Calcium 8.9 Magnesium 2.0 Total Bilirubin 0.2 AST 28 ALT 23 Alkaline Phosphatase 76 C-Reactive Protein Total Protein 7.5 Albumin 3.5 Procalcitonin 01/20/25 01/20/25 01/20/25 08:50 11:38 16:48 WBC 12.9 H RBC 3.79 L Hgb 12.1 Hct 38.7 MCV 102.1 H MCH 31.9 MCHC 31.3 L RDW 12.5 Plt Count 207 MPV 11.5 H Immature Gran % (Auto) 0.5 Neut % (Auto) 78.4 H Lymph % (Auto) 10.9 L [place] % (Auto) 8.9 H Eos % (Auto) 1.0 Baso % (Auto) 0.3 Lymph # (Auto) 1.40 [place] # (Auto) 1.1 H Eos # (Auto) 0.1 Baso # (Auto) 0.0 Abs Immat Gran (auto) 0.07 H Absolute Neuts (auto) 10.1 H Absolute Nucleated RBC 0.000 Nucleated RBC % 0.0 ESR Sodium Potassium Chloride Carbon Dioxide Anion Gap BUN Creatinine Estim Creat Clear Calc Estimated GFR Glucose POC Capillary Glucose 226 H 83 Hemoglobin A1c Calcium Magnesium Total Bilirubin AST ALT Alkaline Phosphatase C-Reactive Protein Total Protein Albumin Procalcitonin 01/20/25 01/21/25 20:26 05:48 WBC 11.3 H RBC 3.56 L Hgb 11.4 L Hct 35.9 L MCV 100.8 H MCH 32.0 MCHC 31.8 L RDW 12.4 Plt Count 191 MPV 11.4 H Immature Gran % (Auto) 0.7 H Neut % (Auto) 71.4 Lymph % (Auto) 19.0 [place] % (Auto) 7.1 Eos % (Auto) 1.4 Baso % (Auto) 0.4 Lymph # (Auto) 2.15 [place] # (Auto) 0.8 H Eos # (Auto) 0.2 Baso # (Auto) 0.1 Abs Immat Gran (auto) 0.08 H Absolute Neuts (auto) 8.1 H Absolute Nucleated RBC 0.000 Nucleated RBC % 0.0 ESR 122 H Sodium 138 Potassium 4.0 Chloride 109 H Carbon Dioxide 19 L Anion Gap 10 BUN 12 Creatinine 0.89 Estim Creat Clear Calc 74 Estimated GFR > 60 Glucose 134 H POC Capillary Glucose 213 H Hemoglobin A1c Calcium 9.0 Magnesium 1.9 Total Bilirubin 0.2 AST 25 ALT 21 Alkaline Phosphatase 80 C-Reactive Protein 23.9 H Total Protein 7.0 Albumin 3.3 L Procalcitonin 0.2 Quality VTE Prophylaxis VTE prophylaxis: pharmacologic ordered
[2025-01-21] MEDS: ENOXAPARIN 40 MG/0.4 ML SYRINGE SUB-Q (08:47)
[2025-01-21] MEDS: CEFEPIME 2 GM/NS 50 ML 2 GM/50 ML BAG IVPB ×2 (08:47→21:59)
[2025-01-21] MEDS: HYDROcodone/acetaminophen (*CRX) 5-325 MG TABLET 1 TAB PO (08:51)
[2025-01-21] MEDS: LACTATED RINGERS 1,000 ML 140 ML IV CONT (12:22)
--- NOTE | 2025-01-21 13:28 | WPDPN ---
Progress Note: A&P Assessment and Plan (1) Diabetic ulcer of right foot: Qualifiers: Diabetes mellitus type: type 2 Diabetic foot ulcer location: midfoot Non-pressure ulcer stage: with muscle involvement without evidence of necrosis Qualified Code(s): E11.621 - Type 2 diabetes mellitus with foot ulcer; L97.415 - Non-pressure chronic ulcer of right heel and midfoot with muscle involvement without evidence of necrosis Code(s): E11.621 - Type 2 diabetes mellitus with foot ulcer; L97.519 - Non-pressure chronic ulcer of other part of right foot with unspecified severity Status: Acute Assessment and Plan: Plain x-rays of the right foot are ready she will changes consistent with osteomyelitis. No need to get MRI to confirm. She will need to go to operating room tomorrow afternoon for operative did drainage of the right foot abscess and debridement of any nonviable tissue. She might possibly need to have a wound VAC placed as well. Continue broad-spectrum IV antibiotic coverage. Will make her NPO for surgery tomorrow. (2) Osteomyelitis: Code(s): M86.9 - Osteomyelitis, unspecified Status: Acute Assessment and Plan: As confirmed by x-ray of the right foot. Continue broad-spectrum IV antibiotics. Will be going to the OR tomorrow. Subjective Date/time seen: 01/21/25 13:28 Interval history: Patient continues to have pain in the right foot. No fever. White blood cell count is down to 11,000 from 13,000 yesterday. She continues on cefepime and vancomycin for IV antibiotic coverage. Exam Extrem: Other: Right foot with ulcer on the plantar surface and draining abscess on the dorsal surface lateral over the 4th and 5th metatarsals. There is persistent redness and swelling in the area and spontaneous drainage of pus with some limited fluctuance. Objective Data Vital Signs Vital Signs: Vital Signs - 24 hr 01/20/25 14:00 01/20/25 20:00 01/20/25 20:00 Temperature 36.5 C 36.6 C Pulse Rate 67 70 70 Respiratory Rate 20 18 18 Blood Pressure 130/93 H 93/52 L Pulse Oximetry 99 97 97 Oxygen Delivery Room Air 01/21/25 06:00 Temperature 36.7 C Pulse Rate 66 Respiratory Rate 18 Blood Pressure 97/55 L Pulse Oximetry 99 Oxygen Delivery Intake/Output Intake/Output: Intake & Output 01/18/25 01/19/25 01/20/25 01/21/25 23:59 23:59 23:59 23:59 Intake Total 4780 2518 Balance 4780 2518 Meds/Results Medications: Active Medications Generic Name Dose Route Start Last Admin Trade Name Freq PRN Reason Stop Dose Admin Acetaminophen 650 mg 01/20/25 02:38 Acetaminophen 325 Mg Tablet PO Q4H PRN Mild Pain (1-3) or Fever Hydrocodone Bitart/Acetaminophen 1 tab 01/20/25 02:38 01/21/25 08:51 Hydrocodone/Acetaminophen (*Crx) 5-325 Mg Tablet PO 1 tab Q4H PRN Administration Pain Rated 4-6 Dextrose 12.5 gm 01/20/25 06:11 Dextrose 50% 25 Gm/50 Ml Syringe IV PUSH PRN PRN Hypoglycemia Protocol Enoxaparin Sodium 40 mg 01/20/25 09:00 01/21/25 08:47 Enoxaparin 40 Mg/0.4 Ml Syringe SUB-Q 40 mg DAILY GLENNA Administration Escitalopram Oxalate 10 mg 01/20/25 15:30 01/20/25 14:52 Escitalopram Oxalate 10 Mg Tablet PO 10 mg DAILY@1530 GLENNA Administration Glucagon 1 mg 01/20/25 06:11 Glucagon For Inj 1 Mg Vial IM PRN PRN Hypoglycemia Protocol Glucose 15 gm 01/20/25 06:11 01/20/25 06:18 Glucose Oral Gel 15 Gm Of Glucse In 37.5 Gm Tube PO 15 gm PRN PRN Administration Hypoglycemia Protocol Vancomycin HCl 1,500 mg in 500 mls @ 250 mls/hr 01/20/25 22:00 01/21/25 04:01 Vancomycin 1,500 Mg/Ns 500 Ml IVPB Infused Q18H GLENNA Infusion Lactated Ringer's 1,000 mls @ 140 mls/hr 01/20/25 02:40 01/21/25 12:24 Lr - Lactated Ringers Iv IV CONT Not Given .Q7H9M GLENNA Dextrose 1,000 mls @ 100 mls/hr 01/20/25 06:11 Dextrose 5% 1,000 Ml IVPB PRN PRN Hypoglycemia Protocol Metronidazole 500 mg in 100 mls @ 100 mls/hr 01/20/25 06:20 01/21/25 07:08 Flagyl 500 Mg/Iso Soln 100 Ml IVPB Infused Q8HR GLENNA Infusion Cefepime HCl 2 gm in 50 mls @ 100 mls/hr 01/20/25 21:00 01/21/25 08:47 Maxipime 2 Gm/Ns 50 Ml IVPB 100 mls/hr Q12H GLENNA Administration Insulin Aspart 2 - 5 units 01/20/25 08:00 01/21/25 12:14 Insulin Aspart (*Bkc) 100 Units/Ml SUB-Q Not Given TIDWM [facility] Protocol Insulin Glargine 40 units 01/20/25 21:00 01/20/25 21:58 Insulin Glargine (*Bkc) 100 Units/Ml SUB-Q 40 units HS [facility] Administration Lisinopril 2.5 mg 01/20/25 15:30 01/20/25 14:52 Lisinopril 2.5 Mg Tablet PO 2.5 mg DAILY@1530 GLENNA Administration Ondansetron HCl 4 mg 01/20/25 02:38 Ondansetron Inj 4 Mg/2 Ml Vial IV PUSH Q4H PRN Nausea Oxycodone/Acetaminophen 1 tablet 01/20/25 06:25 01/21/25 03:28 Oxycodone/Acetaminophen (*Crx) 5-325 Mg Tablet PO 1 tablet BID PRN Administration pain 7-10 Pregabalin 50 mg 01/20/25 21:00 01/20/25 21:58 Pregabalin (*Crx) 50 Mg Capsule PO 50 mg HS [facility] Administration Topiramate 200 mg 01/20/25 21:00 01/20/25 21:58 Topiramate 100 Mg Tablet PO 200 mg HS [facility] Administration Radiology Results: ITS Impressions Foot X-Ray 01/20/25 09:01 IMPRESSION: Osteomyelitis of the fifth metatarsal phalangeal joint. Labs Labs: Laboratory Results - last 24 hr 01/20/25 01/20/25 01/21/25 16:48 20:26 05:48 WBC 11.3 H RBC 3.56 L Hgb 11.4 L Hct 35.9 L MCV 100.8 H MCH 32.0 MCHC 31.8 L RDW 12.4 Plt Count 191 MPV 11.4 H Immature Gran % (Auto) 0.7 H Neut % (Auto) 71.4 Lymph % (Auto) 19.0 [place] % (Auto) 7.1 Eos % (Auto) 1.4 Baso % (Auto) 0.4 Lymph # (Auto) 2.15 [place] # (Auto) 0.8 H Eos # (Auto) 0.2 Baso # (Auto) 0.1 Abs Immat Gran (auto) 0.08 H Absolute Neuts (auto) 8.1 H Absolute Nucleated RBC 0.000 Nucleated RBC % 0.0 ESR 122 H Sodium 138 Potassium 4.0 Chloride 109 H Carbon Dioxide 19 L Anion Gap 10 BUN 12 Creatinine 0.89 Estim Creat Clear Calc 74 Estimated GFR > 60 Glucose 134 H POC Capillary Glucose 83 213 H Calcium 9.0 Magnesium 1.9 Total Bilirubin 0.2 AST 25 ALT 21 Alkaline Phosphatase 80 C-Reactive Protein 23.9 H Total Protein 7.0 Albumin 3.3 L Procalcitonin 0.2 01/21/25 01/21/25 07:39 11:40 WBC RBC Hgb Hct MCV MCH MCHC RDW Plt Count MPV Immature Gran % (Auto) Neut % (Auto) Lymph % (Auto) [place] % (Auto) Eos % (Auto) Baso % (Auto) Lymph # (Auto) [place] # (Auto) Eos # (Auto) Baso # (Auto) Abs Immat Gran (auto) Absolute Neuts (auto) Absolute Nucleated RBC Nucleated RBC % ESR Sodium Potassium Chloride Carbon Dioxide Anion Gap BUN Creatinine Estim Creat Clear Calc Estimated GFR Glucose POC Capillary Glucose 115 H 155 H Calcium Magnesium Total Bilirubin AST ALT Alkaline Phosphatase C-Reactive Protein Total Protein Albumin Procalcitonin
[2025-01-21 14:00] VITALS: BP 127/58; PULSE 64; RESP 18; TEMP 36.9; O2SAT 97
[2025-01-21] MEDS: ESCITALOPRAM OXALATE 10 MG TABLET PO (14:29)
[2025-01-21] MEDS: VANCOMYCIN 1,500 MG/NS 500 ML 1,500 MG/500 ML BAG 250 MG IVPB (17:55)
[2025-01-21 20:00] VITALS: PULSE 64; RESP 18; O2SAT 97
[2025-01-21] MEDS: PREGABALIN (*CRX) 50 MG CAPSULE PO (21:59)
[2025-01-21 22:00] VITALS: BP 133/54; PULSE 57; RESP 18; TEMP 36.7; O2SAT 99
[2025-01-21] MEDS: INSULIN GLARGINE (*BKC) 100 UNITS/ML 40 UNITS SUB-Q (22:00)
[2025-01-21] MEDS: TOPIRAMATE 100 MG TABLET 200 MG PO (22:00)
[2025-01-21] MEDS: SODIUM CHLORIDE 0.9% IV 1,000 ML 75 ML IV CONT (23:40)
[2025-01-22] VITALS (9 sets, daily range): BP systolic 90–131; BP diastolic 45–67; PULSE 59–89; RESP 14–20; TEMP 35.5–37.1; O2SAT 96–100
[2025-01-22 06:11] LABS: Hematocrit 37.2 % (37.0-47.0); Hemoglobin 11.4 g/dL (12.0-15.0); Immature Granulocyte Percent A 0.8 % (0-0.5); Lymphocytes Absolute Auto 1.56 K/mm3 (0.9-3.2); Mean Corpuscular HGB Conc 30.6 g/dl (32-36); Mean Corpuscular Hemoglobin 31.5 pg (26-34); Mean Corpuscular Volume 102.8 fl (80-100); Nucleated Red Blood Cells Absolute Auto 0.000 K/mm3 (0.0-0.012); Nucleated Red Blood Cells Perc 0.0 % (0.0-0.2); Platelet Count Result 162 k/mm3 (150-375); Red Blood Count 3.62 M/mm3 (4.2-5.4); White Blood Count 6.4 K/mm3 (4.5-10.0)
[2025-01-22 06:26] LABS: Alanine Aminotransferase 20 U/L (6-35); Albumin Level 3.2 g/dL (3.5-5.1); Alkaline Phosphatase 72 U/L (38-126); Anion Gap 8 mmol/L (4-12); Aspartate Amino Transferase 26 U/L (14-36); Bilirubin,Total 0.1 mg/dL (0.2-1.3); Blood Urea Nitrogen 11 mg/dL (7-17); Calcium 8.7 mg/dL (8.4-10.2); Carbon Dioxide 24 mmol/L (22-30); Chloride 109 mmol/L (98-107); Estimated CRCL calculation 88 ml/min; Estimated Glomerular Filt Rate > 60; Glucose 127 mg/dL (65-110); Magnesium 2.0 mg/dL (1.6-2.3); Potassium 3.4 mmol/L (3.4-5.0); Sodium 141 mmol/L (137-145); Total Protein 6.8 g/dL (6.3-8.2)
[2025-01-22 06:37] LABS: Procalcitonin 0.2 ng/mL
[2025-01-22 06:38] LABS: CRP 18.8 mg/dL (<1.0)
--- NOTE | 2025-01-22 07:19 | P.PNIM_ITS ---
Progress Note: A&P Assessment and Plan (1) Osteomyelitis: Code(s): M86.9 - Osteomyelitis, unspecified Status: Acute Assessment and Plan: * Foot XR: Osteomyelitis of the fifth metatarsal phalangeal joint. * Wound care consult * Place patient on empiric antibiotic coverage - Cefazolin and Vanc * Blood/wound cultures pending * General surgery consult for further recommendations * XR shows clear indication of osteomyelitis - MRI unnecessary at this time * Drainage of abscess and debridement of non-viable tissue on Wednesday * Non-ambulatory * Maintain IV abx - Cefepime + Vanc * 01/22: OR today for I&D of R foot abscess (2) Ulcer of right foot due to type 2 diabetes mellitus: Code(s): E11.621 - Type 2 diabetes mellitus with foot ulcer; L97.519 - Non-pressure chronic ulcer of other part of right foot with unspecified severity Status: Acute Assessment and Plan: * See above (3) Chronic back pain: Qualifiers: Back pain laterality: bilateral Back pain location: low back pain Sciatica presence: without sciatica Qualified Code(s): M54.50 - Low back pain, unspecified; G89.29 - Other chronic pain Code(s): M54.9 - Dorsalgia, unspecified; G89.29 - Other chronic pain Status: Acute Assessment and Plan: * Chronic, stable * Lumbar CT 12/29/24: Severe degenerative spondylosis at L3-L4, with severe spin al canal stenosis and associated bilateral neural foraminal narrowing. Moderate degenerative spondylosis at L2-L3, as above. Posterior and interbody fusion from L4 through S1. (4) Hypertension: Code(s): I10 - Essential (primary) hypertension Status: Acute Assessment and Plan: * Patient's blood pressure was reviewed on 01/20 * Blood pressure remains well controlled. * 133/54 (5) Diabetes mellitus: Code(s): E11.9 - Type 2 diabetes mellitus without complications Status: Acute Assessment and Plan: * Hypoglycemia protocol * POC blood glucose ACHS * Correct regimen ordered - low dose TIDWM and HS * A1C 6.4% Subjective Date/time seen: 01/22/25 07:19 Interval history: 54-year-old female with a past medical history of T2DM, HTN, GERD, peripheral neuropathy, and LIBRADO who presented to the ED for a non-healing wound to the right foot. Patient was recently discharged from hospital on similar complaint. 01/22/2025 Patient sitting comfortably in bed at time of exam. Plan to go to OR today for I&D of R foot abscess today at 1500. Pt amenable to this. Otherwise has no complaints or concerns at this this. Plan to have pt work with pt/ot after surgery. Review of Systems Review of Systems: All systems reviewed & are unremarkable except as noted in HPI and below Exam Narrative: Gen - well appearing female in no acute respiratory distress who is nontoxic- appearing lying semi recumbent in bed, obese, appears older than stated age HEENT - normocephalic. Atraumatic. Pupils equal round and reactive. Sclera clear and anicteric. Nares patent. Oropharynx was clear. No oral lesions. Moist mucous membranes. Neck - neck was supple. No dominant adenopathy, thyromegaly or masses. 2+ carotid upstrokes without bruits. Chest - lungs are clear to auscultation bilaterally. No wheezes or crackles. Breast exam was deferred. CV - heart was regular rate and rhythm. S1-S2. No murmurs gallops or rubs. Abd - abdomen was soft. Nontender. Nondistended. Positive bowel sounds. No organomegaly or masses. Ext - no clubbing, cyanosis or edema. 2+ DP pulses bilaterally. Neuro - patient is alert and oriented x4. Strength is 5/5 in both upper and lower extremities. Cranial nerves 2-12 are intact. Speech is clear. Psych - normal mood and affect. Patient is pleasant and cooperative. Skin - 2 x 3 cm area of ulceration on the plantar surface lateral aspect of the right foot with serous drainage muscle layer exposed, warm and dry. No rashes noted. Objective Data Vital Signs Vital Signs: Vital Signs - 24 hr 01/21/25 09:00 01/21/25 14:00 01/21/25 20:00 Temperature 98.4 F Pulse Rate 64 64 Respiratory Rate 18 18 Blood Pressure 127/58 L Pulse Oximetry 97 97 Oxygen Delivery Room Air Room Air 01/21/25 22:00 Temperature 98.1 F Pulse Rate 57 L Respiratory Rate 18 Blood Pressure 133/54 L Pulse Oximetry 99 Oxygen Delivery Intake/Output Intake/Output: Intake & Output 01/19/25 01/20/25 01/21/25 01/22/25 23:59 23:59 23:59 23:59 Intake Total 7580 9438 Balance 4780 5358 Meds/Results Medications: Active Medications Generic Name Dose Route Start Last Admin Trade Name Freq PRN Reason Stop Dose Admin Acetaminophen 650 mg 01/20/25 02:38 Acetaminophen 325 Mg Tablet PO Q4H PRN Mild Pain (1-3) or Fever Hydrocodone Bitart/Acetaminophen 1 tab 01/20/25 02:38 01/21/25 08:51 Hydrocodone/Acetaminophen (*Crx) 5-325 Mg Tablet PO 1 tab Q4H PRN Administration Pain Rated 4-6 Dextrose 12.5 gm 01/20/25 06:11 Dextrose 50% 25 Gm/50 Ml Syringe IV PUSH PRN PRN Hypoglycemia Protocol Enoxaparin Sodium 40 mg 01/20/25 09:00 01/21/25 08:47 Enoxaparin 40 Mg/0.4 Ml Syringe SUB-Q 40 mg DAILY GLENNA Administration Escitalopram Oxalate 10 mg 01/20/25 15:30 01/21/25 14:29 Escitalopram Oxalate 10 Mg Tablet PO 10 mg DAILY@1530 GLENNA Administration Glucagon 1 mg 01/20/25 06:11 Glucagon For Inj 1 Mg Vial IM PRN PRN Hypoglycemia Protocol Glucose 15 gm 01/20/25 06:11 01/20/25 06:18 Glucose Oral Gel 15 Gm Of Glucse In 37.5 Gm Tube PO 15 gm PRN PRN Administration Hypoglycemia Protocol Lactated Ringer's 1,000 mls @ 140 mls/hr 01/20/25 02:40 01/21/25 19:31 Lr - Lactated Ringers Iv IV CONT Infused .Q7H9M GLENNA Infusion Dextrose 1,000 mls @ 100 mls/hr 01/20/25 06:11 Dextrose 5% 1,000 Ml IVPB PRN PRN Hypoglycemia Protocol Metronidazole 500 mg in 100 mls @ 100 mls/hr 01/20/25 06:20 01/21/25 23:40 Flagyl 500 Mg/Iso Soln 100 Ml IVPB Infused Q8HR GLENNA Infusion Cefepime HCl 2 gm in 50 mls @ 100 mls/hr 01/20/25 21:00 01/21/25 22:29 Maxipime 2 Gm/Ns 50 Ml IVPB Infused Q12H GLENNA Infusion Sodium Chloride 1,000 mls @ 75 mls/hr 01/21/25 23:55 01/21/25 23:40 Normal Saline Iv IV CONT 75 mls/hr .[id number] GLENNA Administration Vancomycin HCl 1,500 mg in 500 mls @ 250 mls/hr 01/21/25 17:00 01/21/25 19:55 Vancomycin 1,500 Mg/Ns 500 Ml IVPB Infused Q12H GLENNA Infusion Insulin Aspart 2 - 5 units 01/20/25 08:00 01/21/25 16:48 Insulin Aspart (*Bkc) 100 Units/Ml SUB-Q Not Given TIDWM [facility] Protocol Insulin Glargine 40 units 01/20/25 21:00 01/21/25 22:00 Insulin Glargine (*Bkc) 100 Units/Ml SUB-Q 40 units HS GLENNA Administration Lisinopril 2.5 mg 01/20/25 15:30 01/21/25 14:29 Lisinopril 2.5 Mg Tablet PO 2.5 mg DAILY@1530 GLENNA Administration Ondansetron HCl 4 mg 01/20/25 02:38 Ondansetron Inj 4 Mg/2 Ml Vial IV PUSH Q4H PRN Nausea Oxycodone/Acetaminophen 1 tablet 01/20/25 06:25 01/21/25 03:28 Oxycodone/Acetaminophen (*Crx) 5-325 Mg Tablet PO 1 tablet BID PRN Administration pain 7-10 Pregabalin 50 mg 01/20/25 21:00 01/21/25 21:59 Pregabalin (*Crx) 50 Mg Capsule PO 50 mg HS GLENNA Administration Topiramate 200 mg 01/20/25 21:00 01/21/25 22:00 Topiramate 100 Mg Tablet PO 200 mg HS GLENNA Administration Radiology Results: ITS Impressions Foot X-Ray 01/20/25 09:01 IMPRESSION: Osteomyelitis of the fifth metatarsal phalangeal joint. Labs Labs: Laboratory Results - last 24 hr 01/21/25 01/21/25 01/21/25 07:39 11:40 15:25 WBC RBC Hgb Hct MCV MCH MCHC RDW Plt Count MPV Immature Gran % (Auto) Neut % (Auto) Lymph % (Auto) [place] % (Auto) Eos % (Auto) Baso % (Auto) Lymph # (Auto) [place] # (Auto) Eos # (Auto) Baso # (Auto) Abs Immat Gran (auto) Absolute Neuts (auto) Absolute Nucleated RBC Nucleated RBC % Sodium Potassium Chloride Carbon Dioxide Anion Gap BUN Creatinine Estim Creat Clear Calc Estimated GFR Glucose POC Capillary Glucose 115 H 155 H Calcium Magnesium Total Bilirubin AST ALT Alkaline Phosphatase C-Reactive Protein Total Protein Albumin Procalcitonin Vancomycin Trough 11.5 01/21/25 01/21/25 01/22/25 16:32 21:29 06:00 WBC 6.4 RBC 3.62 L Hgb 11.4 L Hct 37.2 MCV 102.8 H MCH 31.5 MCHC 30.6 L RDW 12.3 Plt Count 162 MPV 11.4 H Immature Gran % (Auto) 0.8 H Neut % (Auto) 64.6 Lymph % (Auto) 24.4 [place] % (Auto) 6.9 Eos % (Auto) 2.5 Baso % (Auto) 0.8 Lymph # (Auto) 1.56 [place] # (Auto) 0.4 Eos # (Auto) 0.2 Baso # (Auto) 0.1 Abs Immat Gran (auto) 0.05 H Absolute Neuts (auto) 4.1 Absolute Nucleated RBC 0.000 Nucleated RBC % 0.0 Sodium 141 Potassium 3.4 Chloride 109 H Carbon Dioxide 24 Anion Gap 8 BUN 11 Creatinine 0.74 Estim Creat Clear Calc 88 Estimated GFR > 60 Glucose 127 H POC Capillary Glucose 193 H 229 H Calcium 8.7 Magnesium 2.0 Total Bilirubin 0.1 L AST 26 ALT 20 Alkaline Phosphatase 72 C-Reactive Protein 18.8 H Total Protein 6.8 Albumin 3.2 L Procalcitonin 0.2 Vancomycin Trough Quality VTE Prophylaxis VTE prophylaxis: pharmacologic ordered
--- NOTE | 2025-01-22 07:45 | PC.NURSE ---
Patient found at front nurses station upset that she has not had anything to eat since midnight and that she needs a new IV and that she is supposed to have a procedure that day and shes been waiting. Patient educated on timing of planned surgical procedure as well as NPO status and what that entails. Patient noted to be walking in the hallways with walker but walking on right foot. Patient reeducated that she is to be non weight bearing on that right foot per the surgeon. Patient continues to walk on foot with walker despite being educated. Patient updated that vascular division operations specialist will place a new IV access. Patient voiced understanding
--- NOTE | 2025-01-22 07:45 | PCWOUND ---
WOCN NOTE Received referral for rt foot wound. Patient is being followed by general surgery for foot.
[2025-01-22] MEDS: LIDOCAINE 1% PF INJ 5 ML VIAL INFILTRATE (10:15)
[2025-01-22] MEDS: metroNIDAZOLE 500 MG/ISO 100ML 500 MG/100 ML BAG 100 MG IVPB ×3 (11:01→22:21)
[2025-01-22] MEDS: CEFEPIME 2 GM/NS 50 ML 2 GM/50 ML BAG IVPB ×2 (12:02→21:48)
[2025-01-22] MEDS: VANCOMYCIN 1,500 MG/NS 500 ML 1,500 MG/500 ML BAG 250 MG IVPB ×2 (12:02→23:39)
--- NOTE | 2025-01-22 14:04 | WPDHPUPDATE1 ---
History and Physical Update Update Date/Time: 01/22/25 14:04 History and Physical has been reviewed, including an updated exam of the patient. There are NO changes in the patient's condition. Risks, benefits, and alternatives have been discussed and questions answered. Patient agrees to proceed with procedure.
--- NOTE | 2025-01-22 14:46 | P.PNAN_ITS ---
Anes - Initial Pre Proc Eval Procedure: Operation Date: 01/22/25 15:00 Proposed Procedures p Incision And Drainage Right Foot Abscess - Titi East MD Date/Time: 01/22/25 14:46 Surgeon: Trung Christy MD Pre Op Diagnosis: Worsening, diabetic foot ulcer Patient Data Age: 54 Gender: F Height: 1.65 m Weight: 99.5 kg Last Vital Signs Temp 97.7 F 01/22/25 14:00 Pulse 59 L 01/22/25 14:00 Resp 17 01/22/25 14:00 BP 112/52 L 01/22/25 14:00 Pulse Ox 100 01/22/25 14:00 O2 Del Method Room Air 01/22/25 14:00 Allergies Allergy/AdvReac Type Severity Reaction Status Date / Time clarithromycin Allergy Mild Unknown Verified 11/22/24 17:35 amoxicillin Allergy Unknown Unknown Verified 11/22/24 17:35 clavulanic acid Allergy Unknown Unknown Verified 11/22/24 17:35 Home Medications ?Medication ?Instructions ?Recorded ?Confirmed ?Type escitalopram oxalate 10 mg tablet 10 mg PO HS 08/18/19 01/20/25 History glimepiride 4 mg tablet 4 mg PO DAILY 08/18/19 01/20/25 History insulin glargine 100 unit/mL (3 50 unit subcut HS 08/18/19 01/20/25 History mL) subcutaneous pen (Basaglar KwikPen U-100 Insulin) lisinopril 2.5 mg tablet 2.5 mg PO DAILY 08/18/19 01/20/25 History topiramate 100 mg tablet 200 mg PO HS 08/18/19 01/20/25 History aspirin 81 mg tablet,delayed 81 mg PO DAILY #60 tabs 08/19/19 01/20/25 Rx release (Adult Low Dose Aspirin) clopidogrel 75 mg tablet 75 mg PO DAILY 07/17/21 01/20/25 History pregabalin 50 mg capsule 50 mg PO DAILY 08/15/21 01/20/25 History dulaglutide 1.5 mg/0.5 mL 1.5 mg subcut WEEKLY 11/22/24 01/20/25 History subcutaneous pen injector (Trulicity) insulin lispro 100 unit/mL 7 unit subcut .with meals 11/22/24 01/20/25 History subcutaneous pen naloxone 4 mg/actuation nasal 4 mg intranasal Q2M PRN opioid 11/22/24 01/20/25 History spray (Narcan) overdose zolpidem 5 mg tablet 5 mg PO HS 11/22/24 01/20/25 History oxycodone-acetaminophen 5 mg-325 1 tablet PO BID PRN pain 11/24/24 01/20/25 History mg tablet Laboratory Tests 01/21/25 01/21/25 01/21/25 15:25 16:32 21:29 WBC RBC Hgb Hct MCV MCH MCHC RDW Plt Count MPV Immature Gran % (Auto) Neut % (Auto) Lymph % (Auto) [place] % (Auto) Eos % (Auto) Baso % (Auto) Lymph # (Auto) [place] # (Auto) Eos # (Auto) Baso # (Auto) Abs Immat Gran (auto) Absolute Neuts (auto) Absolute Nucleated RBC Nucleated RBC % ESR Sodium Potassium Chloride Carbon Dioxide Anion Gap BUN Creatinine Estim Creat Clear Calc Estimated GFR Glucose POC Capillary Glucose 193 H mg/dl 229 H mg/dl (65-105) (65-105) Calcium Magnesium Total Bilirubin AST ALT Alkaline Phosphatase C-Reactive Protein Total Protein Albumin Procalcitonin Vancomycin Trough 11.5 ug/mL (10.0-20.0) 01/22/25 01/22/25 01/22/25 06:00 07:48 11:32 WBC 6.4 K/mm3 (4.5-10.0) RBC 3.62 L M/mm3 (4.2-5.4) Hgb 11.4 L g/dL (12.0-15.0) Hct 37.2 % (37.0-47.0) MCV 102.8 H fl (80-100) MCH 31.5 pg (26-34) MCHC 30.6 L g/dl (32-36) RDW 12.3 % (11.5-14.5) Plt Count 162 k/mm3 (150-375) MPV 11.4 H fl (7.4-10.4) Immature Gran % (Auto) 0.8 H % (0-0.5) Neut % (Auto) 64.6 % (45.5-73.1) Lymph % (Auto) 24.4 % (18.3-44.2) [place] % (Auto) 6.9 % (2.6-8.5) Eos % (Auto) 2.5 % (0-4.4) Baso % (Auto) 0.8 % (0.2-1.2) Lymph # (Auto) 1.56 K/mm3 (0.9-3.2) [place] # (Auto) 0.4 K/mm3 (0.1-0.6) Eos # (Auto) 0.2 K/mm3 (0-0.3) Baso # (Auto) 0.1 K/mm3 (0.0-0.1) Abs Immat Gran (auto) 0.05 H K/mm3 (0.00-0.031) Absolute Neuts (auto) 4.1 K/mm3 (1.3-6.7) Absolute Nucleated RBC 0.000 K/mm3 (0.0-0.012) Nucleated RBC % 0.0 % (0.0-0.2) ESR 79 H mm/hr (0-20) Sodium 141 mmol/L (137-145) Potassium 3.4 mmol/L (3.4-5.0) Chloride 109 H mmol/L (98-107) Carbon Dioxide 24 mmol/L (22-30) Anion Gap 8 mmol/L (4-12) BUN 11 mg/dL (7-17) Creatinine 0.74 mg/dL (0.7-1.0) Estim Creat Clear Calc 88 ml/min Estimated GFR > 60 (59 - ) Glucose 127 H mg/dL (65-110) POC Capillary Glucose 104 mg/dl 79 mg/dl (65-105) (65-105) Calcium 8.7 mg/dL (8.4-10.2) Magnesium 2.0 mg/dL (1.6-2.3) Total Bilirubin 0.1 L mg/dL (0.2-1.3) AST 26 U/L (14-36) ALT 20 U/L (6-35) Alkaline Phosphatase 72 U/L (38-126) C-Reactive Protein 18.8 H mg/dL (<1.0) Total Protein 6.8 g/dL (6.3-8.2) Albumin 3.2 L g/dL (3.5-5.1) Procalcitonin 0.2 ng/mL Vancomycin Trough 01/22/25 13:41 WBC RBC Hgb Hct MCV MCH MCHC RDW Plt Count MPV Immature Gran % (Auto) Neut % (Auto) Lymph % (Auto) [place] % (Auto) Eos % (Auto) Baso % (Auto) Lymph # (Auto) [place] # (Auto) Eos # (Auto) Baso # (Auto) Abs Immat Gran (auto) Absolute Neuts (auto) Absolute Nucleated RBC Nucleated RBC % ESR Sodium Potassium Chloride Carbon Dioxide Anion Gap BUN Creatinine Estim Creat Clear Calc Estimated GFR Glucose POC Capillary Glucose 78 mg/dl (65-105) Calcium Magnesium Total Bilirubin AST ALT Alkaline Phosphatase C-Reactive Protein Total Protein Albumin Procalcitonin Vancomycin Trough Patient hx anesthesia problems: none Family hx anesthesia problems: none Results Review: All pre-operative results and documents have been reviewed as part of the pre- operative evaluation. [facility] Past Medical History Medical History Intracranial aneurysm Anxiety with depression Chronic back pain Hypertension Diabetes mellitus GI bleed GERD (gastroesophageal reflux disease) Sleep apnea Surgical History Surgical History History of microdiscectomy History of back surgery History of History of dilation and curettage Family History Family History Father Malignant neoplasm of prostate Hypertension Diabetes 1.5, managed as type 2 Mother Depression Thyroid disease Other Chronic back pain Social History Social History Social History: Patient lives at home with her daughter and mother, Gracy, whom she designates as her surrogate MDM. She works at [employer]. She has smoked a half a pack of cigarettes per day since she was a teenager. Her PCP is Shirley Sena currently but is in the process of changing providers due to insurance reasons. She wishes to be a Full Code Smoking packs per day: 0.5 Smoking cigarettes per day: 10.0 Years smoked: 36 Smoking pack-years: 18.00 Smoking status: Current every day smoker Tobacco type: cigarettes Second hand tobacco smoke exposure: No Alcohol intake: former Drinks per week: 10 Substance use: never Substance use type: painkillers Do You Feel Safe in your Home?: Yes Lack of Transportation: No Lack of Food: Never True Current Housing: I Have Housing Concerned About Future Housing: No Difficulty Paying Gas/Electric Bills: No Difficulty Paying for Meds: No Currently Unemployed: No Education: High School Diploma/GED Difficulty w/ Childcare or Family Care: No Gender identity (if verbalized by the patient): Male Spiritual care concerns: No Agree to blood products: Yes Anes - Eval Final PreProcedure Day of Procedure 01/22/25 14:46 Patient weight: obese Heart: regular rate and rhythm Lungs: clear to auscultation Airway: Mallampati scale class II Neurological: alert and oriented Last oral intake: >/= 8 hours ASA classification: III Emergent: no Anesthetic plan: proceed Anesthesia type and monitoring: general LMA and standard monitoring Results Review: All pre-operative results and documents have been reviewed as part of the pre- operative evaluation. Informed Consent: The patient's anesthetic plan and its attendant risks and benefits were discussed with the patient/family/POA. Questions were solicited and answers provided to the satisfaction of the patient/family/POA.
--- NOTE | 2025-01-22 15:17 | WPDHPUPDATE1 ---
History and Physical Update Update Date/Time: 01/22/25 15:17 History and Physical has been reviewed, including an updated exam of the patient. There are NO changes in the patient's condition. Risks, benefits, and alternatives have been discussed and questions answered. Patient agrees to proceed with procedure.
--- NOTE | 2025-01-22 15:36 | SUR.PREOP ---
1515-Dr. East aware pt refuses to remove jewelry-multiple piercings and necklace, waiver signed.
[2025-01-22] MEDS: LACTATED RINGERS 1,000 ML 30 ML IV CONT (16:14)
[2025-01-22] MEDS: ENOXAPARIN 40 MG/0.4 ML SYRINGE SUB-Q (17:43)
[2025-01-22] MEDS: CENTRAL LINE FLUSH 10 ML IV PUSH ×2 (17:43→21:49)
[2025-01-22] MEDS: ESCITALOPRAM OXALATE 10 MG TABLET PO (17:43)
--- NOTE | 2025-01-22 18:48 | P.OP_ITS ---
Procedure Note - Detailed Date of Procedure 01/22/25 Pre-op Diagnosis Right foot diabetic ulcer with abscess and cellulitis and osteomyelitis Post-op Diagnosis Same Procedure Performed Complex incision and drainage right foot abscess with placement of wound VAC. Surgeon Titi East MD Windows Software Developer Poornima Johnston PA-C Anesthesia General Indications Patient is a 54-year-old female has been having a sling longstanding plantar surface right forefoot diabetic wound. More recently the ulcer became infected and formed an abscess which has now bur old and she needs further incision and drainage of the abscess. Prior x-rays have already shown osteomyelitis changes of the right 5th metatarsal head and phalanx. Findings The patient had a abscess which extended from the plantar surface wound and directly communicated to an abscess in the dorsal surface of the right forefoot. Extended proximally on the lateral surface of the foot for about 4cm. The extensor tendon to the right 5th toe was exposed. The bones on the 5th metatarsal head was soft and brittle and there definitely was infection within the joint space the right MTP joint. Clinically patient definitely had osteomyelitis of the right 5th metatarsal head and proximal phalanx. After opening the abscess and removing any nonviable tissue the wound measured 7x4x1.5cm. A wound VAC measuring 28 sq cm was placed in the wound for dressing. Description of Procedure After informed consent was obtained patient brought to the operating room she was placed supine position and general LMA anesthesia was administered. The right foot was then prepped and draped usual sterile fashion circumferentially up to the mid calf region. Time-out was then performed correctly identifying the patient as well as the procedure to be performed and verified site marked. Patient was already on scheduled IV antibiotics. I 1st started by placing a Lizett clamp through the open wound on the plantar surface of the lateral right forefoot. Extended and communicate directly with the opening on the lateral aspect of the dorsal right forefoot. I then spread clamp open the tract better. There was pus that extended laterally in the midportion of the right foot. With sharp scalpel and scissor dissection I removed the callus from the plantar surface around the ulcer. I then removed some nonviable tissue from the edges of the wound on the dorsal aspect. I did not obtain a culture since it was already previously cultured and grew out Streptococcus and Staphylococcus species. I then palpated underlying bone of the right 5th metatarsal head the proximal phalanx. There was definitely separation within the joint space due to the infection and the bone at the proximal phalanx and 5th metatarsal head was soft and brittle consistent with lytic changes of osteomyelitis grossly. At this point I then irrigated out the wound with copious sterile saline solution. There was no nonviable tissue left within the wound. Couple of areas of bleeding were then treated electrocautery to achieve hemostasis. I then proceeded to place a wound VAC into the opening. The wound measured 7x4x1.5cm. Black foam was then placed into the wound and covered with the adhesive dressings. A hole was then cut on the dressing on the dorsal surface and then the suction pad was applied and additional pieces of clear adhesive dressing was placed to achieve a seal with no air leak. The wound VAC was set to 125mm of mercury suction. The foot was then cleaned. A total surface area of the wound VAC applied was 28 sq cm. The patient tolerated the procedure well no complications. All sponges, needles, and instrument counts were correct at the end procedure. EBL was _30__cc. The patient was awakened and taken to recovery in stable and satisfactory condition. Implants Non Estimated Blood Loss 30 Drains No Packing Yes (Black sponge wound VAC) Pathology None sent Complications No immediate complications Condition Stable Disposition PACU [facility] Billing Surgery - Charge Forward: Surgery Billing
[2025-01-22] MEDS: TOPIRAMATE 100 MG TABLET 200 MG PO (21:48)
[2025-01-22] MEDS: PREGABALIN (*CRX) 50 MG CAPSULE PO (21:48)
[2025-01-22] MEDS: INSULIN GLARGINE (*BKC) 100 UNITS/ML 40 UNITS SUB-Q (21:49)
[2025-01-22] MEDS: HYDROcodone/acetaminophen (*CRX) 5-325 MG TABLET 1 TAB PO (22:20)
[2025-01-23] MEDS: MORPHINE SULFATE (*CRX) 4 MG/ML INJ IV PUSH ×2 (01:23→05:18)
[2025-01-23 06:00] VITALS: BP 101/56; PULSE 65; RESP 20; TEMP 35.8; O2SAT 95
[2025-01-23] MEDS: metroNIDAZOLE 500 MG/ISO 100ML 500 MG/100 ML BAG 100 MG IVPB ×3 (06:13→21:42)
[2025-01-23] MEDS: CENTRAL LINE FLUSH 10 ML IV PUSH ×3 (06:21→21:43)
[2025-01-23 06:27] LABS: Hematocrit 34.6 % (37.0-47.0); Hemoglobin 10.8 g/dL (12.0-15.0); Immature Granulocyte Percent A 0.7 % (0-0.5); Lymphocytes Absolute Auto 1.93 K/mm3 (0.9-3.2); Mean Corpuscular HGB Conc 31.2 g/dl (32-36); Mean Corpuscular Hemoglobin 31.8 pg (26-34); Mean Corpuscular Volume 101.8 fl (80-100); Nucleated Red Blood Cells Absolute Auto 0.000 K/mm3 (0.0-0.012); Nucleated Red Blood Cells Perc 0.0 % (0.0-0.2); Platelet Count Result 195 k/mm3 (150-375); Red Blood Count 3.40 M/mm3 (4.2-5.4); White Blood Count 7.1 K/mm3 (4.5-10.0)
[2025-01-23 06:35] LABS: Alanine Aminotransferase 22 U/L (6-35); Albumin Level 3.1 g/dL (3.5-5.1); Alkaline Phosphatase 64 U/L (38-126); Anion Gap 8 mmol/L (4-12); Aspartate Amino Transferase 33 U/L (14-36); Bilirubin,Total 0.2 mg/dL (0.2-1.3); Blood Urea Nitrogen 12 mg/dL (7-17); Calcium 8.6 mg/dL (8.4-10.2); Carbon Dioxide 23 mmol/L (22-30); Chloride 108 mmol/L (98-107); Estimated CRCL calculation 78 ml/min; Estimated Glomerular Filt Rate > 60; Glucose 109 mg/dL (65-110); Magnesium 2.0 mg/dL (1.6-2.3); Potassium 3.8 mmol/L (3.4-5.0); Sodium 139 mmol/L (137-145); Total Protein 6.8 g/dL (6.3-8.2)
--- NOTE | 2025-01-23 07:15 | WPDANESPN ---
Anes - Prog Note Post-Op Date/Time: 01/23/25 07:15 Cardiovascular status: normal Respiratory status: normal Airway patency: baseline Mental status: baseline Post-Op hydration status: normal Vital Signs: Last Vital Signs Temp 35.8 C L 01/23/25 06:00 Pulse 65 01/23/25 06:00 Resp 20 01/23/25 06:00 BP 101/56 L 01/23/25 06:00 Pulse Ox 95 01/23/25 06:00 O2 Del Method Room Air 01/22/25 21:49 O2 Flow Rate 8 01/22/25 16:30 Pain Score (VAS): 1 I/O: Intake & Output 01/22/25 01/22/25 01/23/25 15:59 23:59 07:59 Intake Total 150 950 500 Balance 150 950 500 Laboratory Tests 01/23/25 06:12 01/23/25 06:12 01/22/25 01/22/25 01/22/25 06:00 07:48 11:32 WBC RBC Hgb Hct MCV MCH MCHC RDW Plt Count MPV Immature Gran % (Auto) Neut % (Auto) Lymph % (Auto) [place] % (Auto) Eos % (Auto) Baso % (Auto) Lymph # (Auto) [place] # (Auto) Eos # (Auto) Baso # (Auto) Abs Immat Gran (auto) Absolute Neuts (auto) Absolute Nucleated RBC Nucleated RBC % ESR 79 H Sodium Potassium Chloride Carbon Dioxide Anion Gap BUN Creatinine Estim Creat Clear Calc Estimated GFR Glucose POC Capillary Glucose 104 79 Calcium Magnesium Total Bilirubin AST ALT Alkaline Phosphatase Total Protein Albumin 01/22/25 01/22/25 01/22/25 13:41 16:42 17:28 WBC RBC Hgb Hct MCV MCH MCHC RDW Plt Count MPV Immature Gran % (Auto) Neut % (Auto) Lymph % (Auto) [place] % (Auto) Eos % (Auto) Baso % (Auto) Lymph # (Auto) [place] # (Auto) Eos # (Auto) Baso # (Auto) Abs Immat Gran (auto) Absolute Neuts (auto) Absolute Nucleated RBC Nucleated RBC % ESR Sodium Potassium Chloride Carbon Dioxide Anion Gap BUN Creatinine Estim Creat Clear Calc Estimated GFR Glucose POC Capillary Glucose 78 76 77 Calcium Magnesium Total Bilirubin AST ALT Alkaline Phosphatase Total Protein Albumin 01/22/25 01/23/25 01/23/25 20:11 06:12 06:23 WBC 7.1 RBC 3.40 L Hgb 10.8 L Hct 34.6 L MCV 101.8 H MCH 31.8 MCHC 31.2 L RDW 12.7 Plt Count 195 MPV 11.1 H Immature Gran % (Auto) 0.7 H Neut % (Auto) 61.2 Lymph % (Auto) 27.2 [place] % (Auto) 7.3 Eos % (Auto) 3.0 Baso % (Auto) 0.6 Lymph # (Auto) 1.93 [place] # (Auto) 0.5 Eos # (Auto) 0.2 Baso # (Auto) 0.0 Abs Immat Gran (auto) 0.05 H Absolute Neuts (auto) 4.3 Absolute Nucleated RBC 0.000 Nucleated RBC % 0.0 ESR Sodium 139 Potassium 3.8 Chloride 108 H Carbon Dioxide 23 Anion Gap 8 BUN 12 Creatinine 0.84 Estim Creat Clear Calc 78 Estimated GFR > 60 Glucose 109 POC Capillary Glucose 182 H 96 Calcium 8.6 Magnesium 2.0 Total Bilirubin 0.2 AST 33 ALT 22 Alkaline Phosphatase 64 Total Protein 6.8 Albumin 3.1 L Microbiology 01/20/25 02:02 Foot Right Anaerobic Culture - Preliminary Prevotella bivia 01/20/25 02:02 Foot Right Aerobic Culture - Final Staphylococcus aureus Group B Streptococcus isolated Post-procedural complaints: none Patient Feedback: Patient satisfied with anesthetic care.
--- NOTE | 2025-01-23 07:57 | P.PNIM_ITS ---
Progress Note: A&P Assessment and Plan (1) Osteomyelitis: Code(s): M86.9 - Osteomyelitis, unspecified Status: Acute Assessment and Plan: * Foot XR: Osteomyelitis of the fifth metatarsal phalangeal joint. * Wound care consult * Place patient on empiric antibiotic coverage - Cefazolin and Vanc * Blood/wound cultures pending * General surgery consult for further recommendations * XR shows clear indication of osteomyelitis - MRI unnecessary at this time * Drainage of abscess and debridement of non-viable tissue on Wednesday * Non-ambulatory * Maintain IV abx - Cefepime + Vanc * 01/23: POD 1 Complex incision and drainage right foot abscess with placement of wound VAC * PT/OT eval * Post op wound care * Discussed with ID Pharm regarding PO antibiotics - Doxycyline 500mg q12 + Cefuroxime 100mg q12, length depends on extensiveness of wound (2) Ulcer of right foot due to type 2 diabetes mellitus: Code(s): E11.621 - Type 2 diabetes mellitus with foot ulcer; L97.519 - Non-pressure chronic ulcer of other part of right foot with unspecified severity Status: Acute Assessment and Plan: * See above (3) Chronic back pain: Qualifiers: Back pain laterality: bilateral Back pain location: low back pain Sciatica presence: without sciatica Qualified Code(s): M54.50 - Low back pain, unspecified; G89.29 - Other chronic pain Code(s): M54.9 - Dorsalgia, unspecified; G89.29 - Other chronic pain Status: Acute Assessment and Plan: * Chronic, stable * Lumbar CT 12/29/24: Severe degenerative spondylosis at L3-L4, with severe spinal canal stenosis and associated bilateral neural foraminal narrowing. Moderate degenerative spondylosis at L2-L3, as above. Posterior and interbody fusion from L4 through S1. (4) Hypertension: Code(s): I10 - Essential (primary) hypertension Status: Acute Assessment and Plan: * Patient's blood pressure was reviewed on 01/20 * Blood pressure remains well controlled. * 133/54 (5) Diabetes mellitus: Code(s): E11.9 - Type 2 diabetes mellitus without complications Status: Acute Assessment and Plan: * Hypoglycemia protocol * POC blood glucose ACHS * Correct regimen ordered - low dose TIDWM and HS * A1C 6.4% Subjective Date/time seen: 01/23/25 07:57 Interval history: 54-year-old female with a past medical history of T2DM, HTN, GERD, peripheral neuropathy, and LIBRADO who presented to the ED for a non-healing wound to the right foot. Patient was recently discharged from hospital on similar complaint. 01/23/2025 Patient sitting comfortably in bed at time of exam. POD 1 Complex incision and drainage right foot abscess with placement of wound VAC. Ortho to continue following, appreciate any further recommendations in regards to post-op care. Pt does have some lasting wound site pain and erythema but otherwise has no other concerns at this time. Review of Systems Review of Systems: All systems reviewed & are unremarkable except as noted in HPI and below Exam Narrative: Gen - well appearing female in no acute respiratory distress who is nontoxic- appearing lying semi recumbent in bed, obese, appears older than stated age HEENT - normocephalic. Atraumatic. Pupils equal round and reactive. Sclera clear and anicteric. Nares patent. Oropharynx was clear. No oral lesions. Moist mucous membranes. Neck - neck was supple. No dominant adenopathy, thyromegaly or masses. 2+ carotid upstrokes without bruits. Chest - lungs are clear to auscultation bilaterally. No wheezes or crackles. Breast exam was deferred. CV - heart was regular rate and rhythm. S1-S2. No murmurs gallops or rubs. Abd - abdomen was soft. Nontender. Nondistended. Positive bowel sounds. No organomegaly or masses. Ext - no clubbing, cyanosis or edema. 2+ DP pulses bilaterally. Neuro - patient is alert and oriented x4. Strength is 5/5 in both upper and lower extremities. Cranial nerves 2-12 are intact. Speech is clear. Psych - normal mood and affect. Patient is pleasant and cooperative. Skin - 2 x 3 cm area of ulceration on the plantar surface lateral aspect of the right foot with serous drainage muscle layer exposed, warm and dry. No rashes noted. Objective Data Vital Signs Vital Signs: Vital Signs - 24 hr 01/22/25 14:00 01/22/25 16:14 01/22/25 16:30 Temperature 97.7 F 98.1 F Pulse Rate 59 L 78 63 Respiratory Rate 17 18 18 Blood Pressure 112/52 L 108/53 L 93/45 L Pulse Oximetry 100 100 100 Oxygen Delivery Room Air Simple Face Mask Simple Face Mask Oxygen Flow Rate 8 8 01/22/25 16:45 01/22/25 17:00 01/22/25 17:39 Temperature 96.4 F L Pulse Rate 63 62 63 Respiratory Rate 14 18 18 Blood Pressure 97/56 L 93/55 L 90/56 L Pulse Oximetry 97 96 96 Oxygen Delivery Room Air Room Air Oxygen Flow Rate 01/22/25 21:00 01/22/25 21:40 01/22/25 21:49 Temperature 96 F L 98.7 F Pulse Rate 71 89 Respiratory Rate 20 20 Blood Pressure 118/67 Pulse Oximetry 97 98 Oxygen Delivery Room Air Oxygen Flow Rate 01/23/25 06:00 Temperature 96.4 F L Pulse Rate 65 Respiratory Rate 20 Blood Pressure 101/56 L Pulse Oximetry 95 Oxygen Delivery Oxygen Flow Rate Intake/Output Intake/Output: Intake & Output 01/20/25 01/21/25 01/22/25 01/23/25 23:59 23:59 23:59 23:59 Intake Total 4780 5358 1650 500 Balance 4780 5358 1650 500 Meds/Results Medications: Active Medications Generic Name Dose Route Start Last Admin Trade Name Freq PRN Reason Stop Dose Admin Acetaminophen 1,000 mg 01/22/25 17:08 Acetaminophen 500 Mg Tablet PO Q6H PRN Mild Pain (1-3) or Fever Hydrocodone Bitart/Acetaminophen 1 tab 01/20/25 02:38 01/22/25 22:20 Hydrocodone/Acetaminophen (*Crx) 5-325 Mg Tablet PO 1 tab Q4H PRN Administration Pain Rated 4-6 Hydrocodone Bitart/Acetaminophen 1 tab 01/22/25 17:08 Hydrocodone/Acetaminophen (*Crx) 5-325 Mg Tablet PO Q4H PRN Pain Rated 4-6 Dextrose 12.5 gm 01/20/25 06:11 Dextrose 50% 25 Gm/50 Ml Syringe IV PUSH PRN PRN Hypoglycemia Protocol Enoxaparin Sodium 40 mg 01/20/25 09:00 01/22/25 17:43 Enoxaparin 40 Mg/0.4 Ml Syringe SUB-Q 40 mg DAILY GLENNA Administration Escitalopram Oxalate 10 mg 01/20/25 15:30 01/22/25 17:43 Escitalopram Oxalate 10 Mg Tablet PO 10 mg DAILY@1530 GLENNA Administration Glucagon 1 mg 01/20/25 06:11 Glucagon For Inj 1 Mg Vial IM PRN PRN Hypoglycemia Protocol Glucose 15 gm 01/20/25 06:11 01/20/25 06:18 Glucose Oral Gel 15 Gm Of Glucse In 37.5 Gm Tube PO 15 gm PRN PRN Administration Hypoglycemia Protocol Dextrose 1,000 mls @ 100 mls/hr 01/20/25 06:11 Dextrose 5% 1,000 Ml IVPB PRN PRN Hypoglycemia Protocol Cefepime HCl 2 gm in 50 mls @ 100 mls/hr 01/20/25 21:00 01/22/25 22:18 Maxipime 2 Gm/Ns 50 Ml IVPB Infused Q12H GLENNA Infusion Vancomycin HCl 1,500 mg in 500 mls @ 250 mls/hr 01/22/25 23:00 01/23/25 01:39 Vancomycin 1,500 Mg/Ns 500 Ml IVPB Infused Q12H GLENNA Infusion Metronidazole 500 mg in 100 mls @ 100 mls/hr 01/22/25 17:00 01/23/25 06:13 Flagyl 500 Mg/Iso Soln 100 Ml IVPB 100 mls/hr Q8HR GLENNA Administration Insulin Aspart 2 - 5 units 01/20/25 08:00 01/22/25 17:35 Insulin Aspart (*Bkc) 100 Units/Ml SUB-Q Not Given TIDWM [facility] Protocol Insulin Glargine 40 units 01/20/25 21:00 01/22/25 21:49 Insulin Glargine (*Bkc) 100 Units/Ml SUB-Q 40 units HS GLENNA Administration Lisinopril 2.5 mg 01/20/25 15:30 01/22/25 17:43 Lisinopril 2.5 Mg Tablet PO Not Given DAILY@1530 [facility] Morphine Sulfate 4 mg 01/22/25 16:23 01/23/25 05:18 Morphine Sulfate (*Crx) 4 Mg/Ml Inj IV PUSH 4 mg Q4H PRN Administration Pain Rated 7-10 Ondansetron HCl 4 mg 01/20/25 02:38 Ondansetron Inj 4 Mg/2 Ml Vial IV PUSH Q4H PRN Nausea Oxycodone/Acetaminophen 1 tablet 01/20/25 06:25 01/21/25 03:28 Oxycodone/Acetaminophen (*Crx) 5-325 Mg Tablet PO 1 tablet BID PRN Administration pain 7-10 Pregabalin 50 mg 01/20/25 21:00 01/22/25 21:48 Pregabalin (*Crx) 50 Mg Capsule PO 50 mg HS GLENNA Administration Sodium Chloride 10 ml 01/22/25 14:00 01/23/25 06:21 Central Line Flush IV PUSH 10 ml Q8HR GLENNA Administration Sodium Chloride 10 ml 01/22/25 11:07 Central Line Flush IV PUSH PRN PRN with TPN bag changes Sodium Chloride 20 ml 01/22/25 11:07 Central Line Flush IV PUSH PRN PRN after blood draws Topiramate 200 mg 01/20/25 21:00 01/22/25 21:48 Topiramate 100 Mg Tablet PO 200 mg HS GLENNA Administration Radiology Results: ITS Impressions Foot X-Ray 01/20/25 09:01 IMPRESSION: Osteomyelitis of the fifth metatarsal phalangeal joint. Chest X-Ray 01/22/25 11:04 IMPRESSION: No focal infiltrate or effusion. Withdrawal of approximately 6 cm is recommended for optimal radiographic placement at the cavoatrial junction. Labs Labs: Laboratory Results - last 24 hr 01/22/25 01/22/25 01/22/25 06:00 11:32 13:41 WBC RBC Hgb Hct MCV MCH MCHC RDW Plt Count MPV Immature Gran % (Auto) Neut % (Auto) Lymph % (Auto) [place] % (Auto) Eos % (Auto) Baso % (Auto) Lymph # (Auto) [place] # (Auto) Eos # (Auto) Baso # (Auto) Abs Immat Gran (auto) Absolute Neuts (auto) Absolute Nucleated RBC Nucleated RBC % ESR 79 H Sodium Potassium Chloride Carbon Dioxide Anion Gap BUN Creatinine Estim Creat Clear Calc Estimated GFR Glucose POC Capillary Glucose 79 78 Calcium Magnesium Total Bilirubin AST ALT Alkaline Phosphatase Total Protein Albumin 01/22/25 01/22/25 01/22/25 16:42 17:28 20:11 WBC RBC Hgb Hct MCV MCH MCHC RDW Plt Count MPV Immature Gran % (Auto) Neut % (Auto) Lymph % (Auto) [place] % (Auto) Eos % (Auto) Baso % (Auto) Lymph # (Auto) [place] # (Auto) Eos # (Auto) Baso # (Auto) Abs Immat Gran (auto) Absolute Neuts (auto) Absolute Nucleated RBC Nucleated RBC % ESR Sodium Potassium Chloride Carbon Dioxide Anion Gap BUN Creatinine Estim Creat Clear Calc Estimated GFR Glucose POC Capillary Glucose 76 77 182 H Calcium Magnesium Total Bilirubin AST ALT Alkaline Phosphatase Total Protein Albumin 01/23/25 01/23/25 06:12 06:23 WBC 7.1 RBC 3.40 L Hgb 10.8 L Hct 34.6 L MCV 101.8 H MCH 31.8 MCHC 31.2 L RDW 12.7 Plt Count 195 MPV 11.1 H Immature Gran % (Auto) 0.7 H Neut % (Auto) 61.2 Lymph % (Auto) 27.2 [place] % (Auto) 7.3 Eos % (Auto) 3.0 Baso % (Auto) 0.6 Lymph # (Auto) 1.93 [place] # (Auto) 0.5 Eos # (Auto) 0.2 Baso # (Auto) 0.0 Abs Immat Gran (auto) 0.05 H Absolute Neuts (auto) 4.3 Absolute Nucleated RBC 0.000 Nucleated RBC % 0.0 ESR Sodium 139 Potassium 3.8 Chloride 108 H Carbon Dioxide 23 Anion Gap 8 BUN 12 Creatinine 0.84 Estim Creat Clear Calc 78 Estimated GFR > 60 Glucose 109 POC Capillary Glucose 96 Calcium 8.6 Magnesium 2.0 Total Bilirubin 0.2 AST 33 ALT 22 Alkaline Phosphatase 64 Total Protein 6.8 Albumin 3.1 L Quality VTE Prophylaxis VTE prophylaxis: pharmacologic ordered
[2025-01-23] MEDS: DOXYCYCLINE HYCLATE 100 MG TABLET PO (09:51)
[2025-01-23] MEDS: ENOXAPARIN 40 MG/0.4 ML SYRINGE SUB-Q (09:52)
[2025-01-23] MEDS: LORATADINE 10 MG TABLET PO (11:17)
--- NOTE | 2025-01-23 13:02 | P.PNGS_ITS ---
Progress Note: A&P Assessment and Plan (1) Diabetic ulcer of right foot: Qualifiers: Diabetes mellitus type: type 2 Diabetic foot ulcer location: midfoot Non-pressure ulcer stage: with muscle involvement without evidence of necrosis Qualified Code(s): E11.621 - Type 2 diabetes mellitus with foot ulcer; L97.415 - Non-pressure chronic ulcer of right heel and midfoot with muscle involvement without evidence of necrosis Code(s): E11.621 - Type 2 diabetes mellitus with foot ulcer; L97.519 - Non-pressure chronic ulcer of other part of right foot with unspecified severity Status: Acute Assessment and Plan: * Postop day 1 following complex I&D right foot abscess with placement of wound VAC. Will plan to change the wound vac dressing tomorrow with the wound care nurses. * Continue IV antibiotics * PT/OT ordered. Okay for heel-touch weight bearing on the RLE for transfers. (2) Osteomyelitis: Code(s): M86.9 - Osteomyelitis, unspecified Status: Acute Assessment and Plan: * Continue broad-spectrum IV antibiotics. * During surgery, patient appeared to have osteomyelitis of the right 5th met atarsal head and proximal phalanx. She will eventually need to be taken back to surgery later this week for a right 5th toe amputation. Plan I have discussed the patient's case and plan of care with Dr. East. Subjective Subjective Date/Time Seen: 01/23/25 13:02 Post Op day: 1 (Complex incision and drainage right foot abscess with placement of wound VAC) Patient reports: afebrile Interval history: Patient seen today. No issuese with the wound vac overnight. She is using the bedside commode for transfers and reportedly is being compliant with heel-touch weight bearing on the RLE. Exam Narrative: Right foot with wound vac dressing dry and intact on lateral foot wound. Scant bloody drainage in canister. Diffuse erythema and swelling noted on the dorsal forefoot. Objective Data Vital Signs Vital Signs: Vital Signs - 24 hr 01/22/25 14:00 01/22/25 16:14 01/22/25 16:30 Temperature 97.7 F 98.1 F Pulse Rate 59 L 78 63 Respiratory Rate 17 18 18 Blood Pressure 112/52 L 108/53 L 93/45 L Pulse Oximetry 100 100 100 Oxygen Delivery Room Air Simple Face Mask Simple Face Mask Oxygen Flow Rate 8 8 01/22/25 16:45 01/22/25 17:00 01/22/25 17:39 Temperature 96.4 F L Pulse Rate 63 62 63 Respiratory Rate 14 18 18 Blood Pressure 97/56 L 93/55 L 90/56 L Pulse Oximetry 97 96 96 Oxygen Delivery Room Air Room Air Oxygen Flow Rate 01/22/25 21:00 01/22/25 21:40 01/22/25 21:49 Temperature 96 F L 98.7 F Pulse Rate 71 89 Respiratory Rate 20 20 Blood Pressure 118/67 Pulse Oximetry 97 98 Oxygen Delivery Room Air Oxygen Flow Rate 01/23/25 06:00 Temperature 96.4 F L Pulse Rate 65 Respiratory Rate 20 Blood Pressure 101/56 L Pulse Oximetry 95 Oxygen Delivery Oxygen Flow Rate Intake/Output Intake/Output: Intake & Output 01/20/25 01/21/25 01/22/25 01/23/25 23:59 23:59 23:59 23:59 Intake Total 4780 5358 1650 900 Balance 4780 5358 1650 900 Meds/Results Medications: Active Medications Generic Name Dose Route Start Last Admin Trade Name Freq PRN Reason Stop Dose Admin Acetaminophen 1,000 mg 01/22/25 17:08 Acetaminophen 500 Mg Tablet PO Q6H PRN Mild Pain (1-3) or Fever Hydrocodone Bitart/Acetaminophen 1 tab 01/20/25 02:38 01/22/25 22:20 Hydrocodone/Acetaminophen (*Crx) 5-325 Mg Tablet PO 1 tab Q4H PRN Administration Pain Rated 4-6 Hydrocodone Bitart/Acetaminophen 1 tab 01/22/25 17:08 Hydrocodone/Acetaminophen (*Crx) 5-325 Mg Tablet PO Q4H PRN Pain Rated 4-6 Cefuroxime Axetil 500 mg 01/23/25 09:00 01/23/25 09:52 Cefuroxime Axetil 250 Mg Tablet PO 03/05/25 21:01 500 mg Q12HR [facility] Administration Dextrose 12.5 gm 01/20/25 06:11 Dextrose 50% 25 Gm/50 Ml Syringe IV PUSH PRN PRN Hypoglycemia Protocol Doxycycline Hyclate 100 mg 01/23/25 09:00 01/23/25 09:51 Doxycycline Hyclate 100 Mg Tablet PO 03/05/25 21:01 100 mg Q12HR [facility]NA Administration Enoxaparin Sodium 40 mg 01/20/25 09:00 01/23/25 09:52 Enoxaparin 40 Mg/0.4 Ml Syringe SUB-Q 40 mg DAILY [facility] Administration Escitalopram Oxalate 10 mg 01/20/25 15:30 01/22/25 17:43 Escitalopram Oxalate 10 Mg Tablet PO 10 mg DAILY@1530 [facility] Administration Glucagon 1 mg 01/20/25 06:11 Glucagon For Inj 1 Mg Vial IM PRN PRN Hypoglycemia Protocol Glucose 15 gm 01/20/25 06:11 01/20/25 06:18 Glucose Oral Gel 15 Gm Of Glucse In 37.5 Gm Tube PO 15 gm PRN PRN Administration Hypoglycemia Protocol Dextrose 1,000 mls @ 100 mls/hr 01/20/25 06:11 Dextrose 5% 1,000 Ml IVPB PRN PRN Hypoglycemia Protocol Insulin Aspart 2 - 5 units 01/20/25 08:00 01/23/25 12:33 Insulin Aspart (*Bkc) 100 Units/Ml SUB-Q Not Given TIDWM [facility] Protocol Insulin Glargine 40 units 01/20/25 21:00 01/22/25 21:49 Insulin Glargine (*Bkc) 100 Units/Ml SUB-Q 40 units HS [facility] Administration Lisinopril 2.5 mg 01/20/25 15:30 01/22/25 17:43 Lisinopril 2.5 Mg Tablet PO Not Given DAILY@1530 [facility] Loratadine 10 mg 01/23/25 11:00 01/23/25 11:17 Loratadine 10 Mg Tablet PO 10 mg QAM [facility] Administration Morphine Sulfate 4 mg 01/22/25 16:23 01/23/25 05:18 Morphine Sulfate (*Crx) 4 Mg/Ml Inj IV PUSH 4 mg Q4H PRN Administration Pain Rated 7-10 Ondansetron HCl 4 mg 01/20/25 02:38 Ondansetron Inj 4 Mg/2 Ml Vial IV PUSH Q4H PRN Nausea Oxycodone/Acetaminophen 1 tablet 01/20/25 06:25 01/21/25 03:28 Oxycodone/Acetaminophen (*Crx) 5-325 Mg Tablet PO 1 tablet BID PRN Administration pain 7-10 Pregabalin 50 mg 01/20/25 21:00 01/22/25 21:48 Pregabalin (*Crx) 50 Mg Capsule PO 50 mg HS [facility] Administration Sodium Chloride 10 ml 01/22/25 14:00 01/23/25 06:21 Central Line Flush IV PUSH 10 ml Q8HR [facility] Administration Sodium Chloride 10 ml 01/22/25 11:07 Central Line Flush IV PUSH PRN PRN with TPN bag changes Sodium Chloride 20 ml 01/22/25 11:07 Central Line Flush IV PUSH PRN PRN after blood draws Topiramate 200 mg 01/20/25 21:00 01/22/25 21:48 Topiramate 100 Mg Tablet PO 200 mg HS [facility] Administration Radiology Results: ITS Impressions Foot X-Ray 01/20/25 09:01 IMPRESSION: Osteomyelitis of the fifth metatarsal phalangeal joint. Chest X-Ray 01/22/25 11:04 IMPRESSION: No focal infiltrate or effusion. Withdrawal of approximately 6 cm is recommended for optimal radiographic placement at the cavoatrial junction. Labs Labs: Laboratory Results - last 24 hr 01/22/25 01/22/25 01/22/25 13:41 16:42 17:28 WBC RBC Hgb Hct MCV MCH MCHC RDW Plt Count MPV Immature Gran % (Auto) Neut % (Auto) Lymph % (Auto) [place] % (Auto) Eos % (Auto) Baso % (Auto) Lymph # (Auto) [place] # (Auto) Eos # (Auto) Baso # (Auto) Abs Immat Gran (auto) Absolute Neuts (auto) Absolute Nucleated RBC Nucleated RBC % Sodium Potassium Chloride Carbon Dioxide Anion Gap BUN Creatinine Estim Creat Clear Calc Estimated GFR Glucose POC Capillary Glucose 78 76 77 Calcium Magnesium Total Bilirubin AST ALT Alkaline Phosphatase Total Protein Albumin 01/22/25 01/23/25 01/23/25 20:11 06:12 06:23 WBC 7.1 RBC 3.40 L Hgb 10.8 L Hct 34.6 L MCV 101.8 H MCH 31.8 MCHC 31.2 L RDW 12.7 Plt Count 195 MPV 11.1 H Immature Gran % (Auto) 0.7 H Neut % (Auto) 61.2 Lymph % (Auto) 27.2 [place] % (Auto) 7.3 Eos % (Auto) 3.0 Baso % (Auto) 0.6 Lymph # (Auto) 1.93 [place] # (Auto) 0.5 Eos # (Auto) 0.2 Baso # (Auto) 0.0 Abs Immat Gran (auto) 0.05 H Absolute Neuts (auto) 4.3 Absolute Nucleated RBC 0.000 Nucleated RBC % 0.0 Sodium 139 Potassium 3.8 Chloride 108 H Carbon Dioxide 23 Anion Gap 8 BUN 12 Creatinine 0.84 Estim Creat Clear Calc 78 Estimated GFR > 60 Glucose 109 POC Capillary Glucose 182 H 96 Calcium 8.6 Magnesium 2.0 Total Bilirubin 0.2 AST 33 ALT 22 Alkaline Phosphatase 64 Total Protein 6.8 Albumin 3.1 L 01/23/25 01/23/25 07:59 11:57 WBC RBC Hgb Hct MCV MCH MCHC RDW Plt Count MPV Immature Gran % (Auto) Neut % (Auto) Lymph % (Auto) [place] % (Auto) Eos % (Auto) Baso % (Auto) Lymph # (Auto) [place] # (Auto) Eos # (Auto) Baso # (Auto) Abs Immat Gran (auto) Absolute Neuts (auto) Absolute Nucleated RBC Nucleated RBC % Sodium Potassium Chloride Carbon Dioxide Anion Gap BUN Creatinine Estim Creat Clear Calc Estimated GFR Glucose POC Capillary Glucose 83 135 H Calcium Magnesium Total Bilirubin AST ALT Alkaline Phosphatase Total Protein Albumin
[2025-01-23 14:00] VITALS: BP 104/56; PULSE 67; RESP 18; TEMP 35.7; O2SAT 93
[2025-01-23] MEDS: CEFEPIME 2 GM/NS 50 ML 2 GM/50 ML BAG IVPB ×2 (15:41→20:51)
[2025-01-23] MEDS: ESCITALOPRAM OXALATE 10 MG TABLET PO (15:41)
[2025-01-23 20:00] VITALS: BP 125/59; PULSE 67; RESP 18; TEMP 36.4; O2SAT 97
[2025-01-23] MEDS: oxyCODONE/ACETAMINOPHEN (*CRX) 5-325 MG TABLET 1 TABLET PO (20:49)
[2025-01-23] MEDS: PREGABALIN (*CRX) 50 MG CAPSULE PO (20:50)
[2025-01-23] MEDS: INSULIN GLARGINE (*BKC) 100 UNITS/ML 40 UNITS SUB-Q (20:50)
[2025-01-23] MEDS: TOPIRAMATE 100 MG TABLET 200 MG PO (20:50)
[2025-01-24 04:25] VITALS: BP 122/54; PULSE 53; RESP 18; TEMP 36.6; O2SAT 97
[2025-01-24] MEDS: CENTRAL LINE FLUSH 20 ML IV PUSH (06:23)
[2025-01-24] MEDS: CENTRAL LINE FLUSH 10 ML IV PUSH ×3 (06:23→21:22)
[2025-01-24] MEDS: metroNIDAZOLE 500 MG/ISO 100ML 500 MG/100 ML BAG 100 MG IVPB ×3 (06:23→22:14)
[2025-01-24 06:32] LABS: Hematocrit 34.3 % (37.0-47.0); Hemoglobin 11.0 g/dL (12.0-15.0); Immature Granulocyte Percent A 0.6 % (0-0.5); Lymphocytes Absolute Auto 1.12 K/mm3 (0.9-3.2); Mean Corpuscular HGB Conc 32.1 g/dl (32-36); Mean Corpuscular Hemoglobin 32.1 pg (26-34); Mean Corpuscular Volume 100.0 fl (80-100); Nucleated Red Blood Cells Absolute Auto 0.000 K/mm3 (0.0-0.012); Nucleated Red Blood Cells Perc 0.0 % (0.0-0.2); Platelet Count Result 167 k/mm3 (150-375); Red Blood Count 3.43 M/mm3 (4.2-5.4); White Blood Count 4.7 K/mm3 (4.5-10.0)
[2025-01-24 06:44] LABS: Alanine Aminotransferase 21 U/L (6-35); Albumin Level 3.1 g/dL (3.5-5.1); Alkaline Phosphatase 58 U/L (38-126); Anion Gap 7 mmol/L (4-12); Aspartate Amino Transferase 38 U/L (14-36); Bilirubin,Total 0.2 mg/dL (0.2-1.3); Blood Urea Nitrogen 12 mg/dL (7-17); Calcium 8.8 mg/dL (8.4-10.2); Carbon Dioxide 24 mmol/L (22-30); Chloride 109 mmol/L (98-107); Estimated CRCL calculation 90 ml/min; Estimated Glomerular Filt Rate > 60; Glucose 121 mg/dL (65-110); Magnesium 2.1 mg/dL (1.6-2.3); Potassium 3.9 mmol/L (3.4-5.0); Sodium 140 mmol/L (137-145); Total Protein 6.9 g/dL (6.3-8.2)
[2025-01-24] MEDS: CEFEPIME 2 GM/NS 50 ML 2 GM/50 ML BAG IVPB (08:59)
[2025-01-24] MEDS: ENOXAPARIN 40 MG/0.4 ML SYRINGE SUB-Q (09:00)
[2025-01-24] MEDS: LORATADINE 10 MG TABLET PO (09:00)
[2025-01-24 10:41] VITALS: O2SAT 95
[2025-01-24] MEDS: oxyCODONE/ACETAMINOPHEN (*CRX) 5-325 MG TABLET 1 TABLET PO ×2 (12:04→18:08)
[2025-01-24 13:48] VITALS: BP 128/72; PULSE 67; RESP 18; TEMP 36.1; O2SAT 100
--- NOTE | 2025-01-24 13:50 | P.PNGS_ITS ---
Progress Note: A&P Assessment and Plan (1) Diabetic ulcer of right foot: Qualifiers: Diabetes mellitus type: type 2 Diabetic foot ulcer location: midfoot Non-pressure ulcer stage: with muscle involvement without evidence of necrosis Qualified Code(s): E11.621 - Type 2 diabetes mellitus with foot ulcer; L97.415 - Non-pressure chronic ulcer of right heel and midfoot with muscle involvement without evidence of necrosis Code(s): E11.621 - Type 2 diabetes mellitus with foot ulcer; L97.519 - Non-pressure chronic ulcer of other part of right foot with unspecified severity Status: Acute Assessment and Plan: * Postop day 2 following complex I&D right foot abscess with placement of wound VAC. Wound vac changed with wound care nurses at bedside today. Wound is healing appropriately with beefy red granulation tissue throughout. 5th metatarsal head, proximal phalynx, and joint space between with obvious osteonecrosis. Plan for R 5th toe amputation tomorrow or Wednesday pending surgery schedule. * Continue IV antibiotics * PT/OT ordered. Okay for heel-touch weight bearing on the RLE for transfers. (2) Osteomyelitis: Code(s): M86.9 - Osteomyelitis, unspecified Status: Acute Assessment and Plan: * Continue broad-spectrum IV antibiotics. * During surgery, patient appeared to have osteomyelitis of the right 5th metatarsal head and proximal phalanx. She will eventually need to be taken back to surgery later this week for a right 5th toe amputation. Plan I have discussed the patient's case and plan of care with Dr. East. Subjective Subjective Date/Time Seen: 01/24/25 13:50 Patient reports: no new complaints and still having pain Interval history: POD2 s/p complex incision and drainage right foot abscess with placement of wound vac. Wound vac dressing changed today with wound care nurses. Heel-touch transfers. WBC remains normal. Exam Skin: General skin exam: normal color, no rashes or lesions noted and wounds noted Wounds: wounds noted Other: Right lateral forefoot wound now 8 x 5.5 x 1.5. Healthy bright red beefy granulation tissue with good bleeding. No evidence of necrosis or infection. Thin layer of tissue covering bone. Extensor tendon of 5th toe exposed. Objective Data Vital Signs Vital Signs: Vital Signs - 24 hr 01/23/25 14:00 01/23/25 20:00 01/23/25 20:40 Temperature 96.2 F L 97.6 F Pulse Rate 67 67 Respiratory Rate 18 18 Blood Pressure 104/56 L 125/59 L Pulse Oximetry 93 97 Oxygen Delivery Room Air 01/24/25 04:25 01/24/25 08:00 01/24/25 10:41 Temperature 97.9 F Pulse Rate 53 L Respiratory Rate 18 Blood Pressure 122/54 L Pulse Oximetry 97 95 Oxygen Delivery Room Air Room Air 01/24/25 11:31 01/24/25 13:48 Temperature 97.0 F L Pulse Rate 67 Respiratory Rate 18 Blood Pressure 128/72 Pulse Oximetry 100 Oxygen Delivery Room Air Intake/Output Intake/Output: Intake & Output 01/21/25 01/22/25 01/23/25 01/24/25 23:59 23:59 23:59 23:59 Intake Total 5358 1650 1320 1576 Balance 5358 1650 1320 1576 Meds/Results Medications: Active Medications Generic Name Dose Route Start Last Admin Trade Name Freq PRN Reason Stop Dose Admin Acetaminophen 1,000 mg 01/22/25 17:08 Acetaminophen 500 Mg Tablet PO Q6H PRN Mild Pain (1-3) or Fever Hydrocodone Bitart/Acetaminophen 1 tab 01/20/25 02:38 01/22/25 22:20 Hydrocodone/Acetaminophen (*Crx) 5-325 Mg Tablet PO 1 tab Q4H PRN Administration Pain Rated 4-6 Hydrocodone Bitart/Acetaminophen 1 tab 01/22/25 17:08 Hydrocodone/Acetaminophen (*Crx) 5-325 Mg Tablet PO Q4H PRN Pain Rated 4-6 Dextrose 12.5 gm 01/20/25 06:11 Dextrose 50% 25 Gm/50 Ml Syringe IV PUSH PRN PRN Hypoglycemia Protocol Enoxaparin Sodium 40 mg 01/20/25 09:00 01/24/25 09:00 Enoxaparin 40 Mg/0.4 Ml Syringe SUB-Q 40 mg DAILY [facility] Administration Escitalopram Oxalate 10 mg 01/20/25 15:30 01/23/25 15:41 Escitalopram Oxalate 10 Mg Tablet PO 10 mg DAILY@1530 [facility] Administration Glucagon 1 mg 01/20/25 06:11 Glucagon For Inj 1 Mg Vial IM PRN PRN Hypoglycemia Protocol Glucose 15 gm 01/20/25 06:11 01/20/25 06:18 Glucose Oral Gel 15 Gm Of Glucse In 37.5 Gm Tube PO 15 gm PRN PRN Administration Hypoglycemia Protocol Dextrose 1,000 mls @ 100 mls/hr 01/20/25 06:11 Dextrose 5% 1,000 Ml IVPB PRN PRN Hypoglycemia Protocol Metronidazole 500 mg in 100 mls @ 100 mls/hr 01/23/25 14:15 01/24/25 07:23 Flagyl 500 Mg/Iso Soln 100 Ml IVPB Infused Q8HR [facility] Infusion Cefepime HCl 2 gm in 50 mls @ 100 mls/hr 01/23/25 14:15 01/24/25 08:59 Maxipime 2 Gm/Ns 50 Ml IVPB 100 mls/hr Q12HR [facility] Administration Insulin Aspart 2 - 5 units 01/20/25 08:00 01/24/25 12:12 Insulin Aspart (*Bkc) 100 Units/Ml SUB-Q Not Given TIDWM [facility] Protocol Insulin Glargine 40 units 01/20/25 21:00 01/23/25 20:50 Insulin Glargine (*Bkc) 100 Units/Ml SUB-Q 40 units HS [facility] Administration Lisinopril 2.5 mg 01/20/25 15:30 01/23/25 15:42 Lisinopril 2.5 Mg Tablet PO 2.5 mg DAILY@1530 [facility] Administration Loratadine 10 mg 01/23/25 11:00 01/24/25 09:00 Loratadine 10 Mg Tablet PO 10 mg QAM [facility] Administration Morphine Sulfate 4 mg 01/22/25 16:23 01/23/25 05:18 Morphine Sulfate (*Crx) 4 Mg/Ml Inj IV PUSH 4 mg Q4H PRN Administration Pain Rated 7-10 Ondansetron HCl 4 mg 01/20/25 02:38 Ondansetron Inj 4 Mg/2 Ml Vial IV PUSH Q4H PRN Nausea Oxycodone/Acetaminophen 1 tablet 01/20/25 06:25 01/24/25 12:04 Oxycodone/Acetaminophen (*Crx) 5-325 Mg Tablet PO 1 tablet BID PRN Administration pain 7-10 Pregabalin 50 mg 01/20/25 21:00 01/23/25 20:50 Pregabalin (*Crx) 50 Mg Capsule PO 50 mg HS [facility] Administration Sodium Chloride 10 ml 01/22/25 14:00 01/24/25 06:23 Central Line Flush IV PUSH 10 ml Q8HR [facility] Administration Sodium Chloride 10 ml 01/22/25 11:07 Central Line Flush IV PUSH PRN PRN with TPN bag changes Sodium Chloride 20 ml 01/22/25 11:07 01/24/25 06:23 Central Line Flush IV PUSH 20 ml PRN PRN Administration after blood draws Topiramate 200 mg 01/20/25 21:00 01/23/25 20:50 Topiramate 100 Mg Tablet PO 200 mg HS [facility] Administration Radiology Results: ITS Impressions Foot X-Ray 01/20/25 09:01 IMPRESSION: Osteomyelitis of the fifth metatarsal phalangeal joint. Chest X-Ray 01/22/25 11:04 IMPRESSION: No focal infiltrate or effusion. Withdrawal of approximately 6 cm is recommended for optimal radiographic placement at the cavoatrial junction. Labs Labs: Laboratory Results - last 24 hr 01/23/25 01/23/25 01/24/25 16:47 20:04 06:21 WBC 4.7 RBC 3.43 L Hgb 11.0 L Hct 34.3 L MCV 100.0 MCH 32.1 MCHC 32.1 RDW 12.6 Plt Count 167 MPV 10.7 H Immature Gran % (Auto) 0.6 H Neut % (Auto) 61.5 Lymph % (Auto) 24.0 [place] % (Auto) 9.9 H Eos % (Auto) 3.4 Baso % (Auto) 0.6 Lymph # (Auto) 1.12 [place] # (Auto) 0.5 Eos # (Auto) 0.2 Baso # (Auto) 0.0 Abs Immat Gran (auto) 0.03 Absolute Neuts (auto) 2.9 Absolute Nucleated RBC 0.000 Nucleated RBC % 0.0 Sodium 140 Potassium 3.9 Chloride 109 H Carbon Dioxide 24 Anion Gap 7 BUN 12 Creatinine 0.72 Estim Creat Clear Calc 90 Estimated GFR > 60 Glucose 121 H POC Capillary Glucose 151 H 214 H Calcium 8.8 Magnesium 2.1 Total Bilirubin 0.2 AST 38 H ALT 21 Alkaline Phosphatase 58 Total Protein 6.9 Albumin 3.1 L 01/24/25 01/24/25 07:29 11:24 WBC RBC Hgb Hct MCV MCH MCHC RDW Plt Count MPV Immature Gran % (Auto) Neut % (Auto) Lymph % (Auto) [place] % (Auto) Eos % (Auto) Baso % (Auto) Lymph # (Auto) [place] # (Auto) Eos # (Auto) Baso # (Auto) Abs Immat Gran (auto) Absolute Neuts (auto) Absolute Nucleated RBC Nucleated RBC % Sodium Potassium Chloride Carbon Dioxide Anion Gap BUN Creatinine Estim Creat Clear Calc Estimated GFR Glucose POC Capillary Glucose 87 138 H Calcium Magnesium Total Bilirubin AST ALT Alkaline Phosphatase Total Protein Albumin
[2025-01-24] MEDS: ESCITALOPRAM OXALATE 10 MG TABLET PO (14:41)
--- NOTE | 2025-01-24 16:27 | P.PNIM_ITS ---
Progress Note: A&P Assessment and Plan (1) Diabetic ulcer of right foot: Qualifiers: Diabetes mellitus type: type 2 Diabetic foot ulcer location: midfoot Non-pressure ulcer stage: with muscle involvement without evidence of necrosis Qualified Code(s): E11.621 - Type 2 diabetes mellitus with foot ulcer; L97.415 - Non-pressure chronic ulcer of right heel and midfoot with muscle involvement without evidence of necrosis Code(s): E11.621 - Type 2 diabetes mellitus with foot ulcer; L97.519 - Non-pressure chronic ulcer of other part of right foot with unspecified severity Status: Acute Plan Continue Accu-[place] galen HS. General surgery planning for 2nd operation. Will hold Lovenox starting now. Continue cefepime, metronidazole. Subjective Date/time seen: 01/24/25 16:27 Interval history: No major acute overnight events. Review of Systems Review of Systems: All systems reviewed & are unremarkable except as noted in HPI and below (Subjective) Exam Const: General: comfortable and no acute distress HENMT: Mouth: Yes moist mucous membranes Eyes: Pupils: Equal, round and reactive pupils present Neck: Neck: supple Resp: Effort & Inspection: normal respiratory effort Auscultation: clear to auscultation bilaterally Cardio: Rate: regular rate Rhythm: regular rhythm Objective Data Vital Signs Vital Signs: Vital Signs - 24 hr 01/23/25 20:00 01/23/25 20:40 01/24/25 04:25 Temperature 97.6 F 97.9 F Pulse Rate 67 53 L Respiratory Rate 18 18 Blood Pressure 125/59 L 122/54 L Pulse Oximetry 97 97 Oxygen Delivery Room Air 01/24/25 08:00 01/24/25 10:41 01/24/25 11:31 Temperature Pulse Rate Respiratory Rate Blood Pressure Pulse Oximetry 95 Oxygen Delivery Room Air Room Air Room Air 01/24/25 13:45 01/24/25 13:48 Temperature 97.0 F L Pulse Rate 67 Respiratory Rate 18 Blood Pressure 128/72 Pulse Oximetry 100 Oxygen Delivery Room Air Intake/Output Intake/Output: Intake & Output 01/21/25 01/22/25 01/23/25 01/24/25 23:59 23:59 23:59 23:59 Intake Total 5353 1650 1320 1576 Balance 5358 1650 1320 1576 Meds/Results Medications: Active Medications Generic Name Dose Route Start Last Admin Trade Name Freq PRN Reason Stop Dose Admin Acetaminophen 1,000 mg 01/22/25 17:08 Acetaminophen 500 Mg Tablet PO Q6H PRN Mild Pain (1-3) or Fever Hydrocodone Bitart/Acetaminophen 1 tab 01/20/25 02:38 01/22/25 22:20 Hydrocodone/Acetaminophen (*Crx) 5-325 Mg Tablet PO 1 tab Q4H PRN Administration Pain Rated 4-6 Hydrocodone Bitart/Acetaminophen 1 tab 01/22/25 17:08 Hydrocodone/Acetaminophen (*Crx) 5-325 Mg Tablet PO Q4H PRN Pain Rated 4-6 Dextrose 12.5 gm 01/20/25 06:11 Dextrose 50% 25 Gm/50 Ml Syringe IV PUSH PRN PRN Hypoglycemia Protocol Enoxaparin Sodium 40 mg 01/20/25 09:00 01/24/25 09:00 Enoxaparin 40 Mg/0.4 Ml Syringe SUB-Q 40 mg DAILY [facility] Administration Escitalopram Oxalate 10 mg 01/20/25 15:30 01/24/25 14:41 Escitalopram Oxalate 10 Mg Tablet PO 10 mg DAILY@1530 [facility] Administration Glucagon 1 mg 01/20/25 06:11 Glucagon For Inj 1 Mg Vial IM PRN PRN Hypoglycemia Protocol Glucose 15 gm 01/20/25 06:11 01/20/25 06:18 Glucose Oral Gel 15 Gm Of Glucse In 37.5 Gm Tube PO 15 gm PRN PRN Administration Hypoglycemia Protocol Dextrose 1,000 mls @ 100 mls/hr 01/20/25 06:11 Dextrose 5% 1,000 Ml IVPB PRN PRN Hypoglycemia Protocol Metronidazole 500 mg in 100 mls @ 100 mls/hr 01/23/25 14:15 01/24/25 14:42 Flagyl 500 Mg/Iso Soln 100 Ml IVPB 100 mls/hr Q8HR [facility] Administration Cefepime HCl 2 gm/ Sodium 50 mls @ 100 mls/hr 01/24/25 21:00 Chloride IVPB Q12HR [facility] Insulin Aspart 2 - 5 units 01/20/25 08:00 01/24/25 12:12 Insulin Aspart (*Bkc) 100 Units/Ml SUB-Q Not Given TIDWM [facility] Protocol Insulin Glargine 40 units 01/20/25 21:00 01/23/25 20:50 Insulin Glargine (*Bkc) 100 Units/Ml SUB-Q 40 units HS [facility] Administration Lisinopril 2.5 mg 01/20/25 15:30 01/24/25 14:41 Lisinopril 2.5 Mg Tablet PO 2.5 mg DAILY@1530 [facility] Administration Loratadine 10 mg 01/23/25 11:00 01/24/25 09:00 Loratadine 10 Mg Tablet PO 10 mg QAM [facility] Administration Morphine Sulfate 4 mg 01/22/25 16:23 01/23/25 05:18 Morphine Sulfate (*Crx) 4 Mg/Ml Inj IV PUSH 4 mg Q4H PRN Administration Pain Rated 7-10 Ondansetron HCl 4 mg 01/20/25 02:38 Ondansetron Inj 4 Mg/2 Ml Vial IV PUSH Q4H PRN Nausea Oxycodone/Acetaminophen 1 tablet 01/20/25 06:25 01/24/25 12:04 Oxycodone/Acetaminophen (*Crx) 5-325 Mg Tablet PO 1 tablet BID PRN Administration pain 7-10 Pregabalin 50 mg 01/20/25 21:00 01/23/25 20:50 Pregabalin (*Crx) 50 Mg Capsule PO 50 mg HS [facility] Administration Sodium Chloride 10 ml 01/22/25 14:00 01/24/25 14:41 Central Line Flush IV PUSH 10 ml Q8HR [facility] Administration Sodium Chloride 10 ml 01/22/25 11:07 Central Line Flush IV PUSH PRN PRN with TPN bag changes Sodium Chloride 20 ml 01/22/25 11:07 01/24/25 06:23 Central Line Flush IV PUSH 20 ml PRN PRN Administration after blood draws Topiramate 200 mg 01/20/25 21:00 01/23/25 20:50 Topiramate 100 Mg Tablet PO 200 mg HS [facility] Administration Radiology Results: ITS Impressions Foot X-Ray 01/20/25 09:01 IMPRESSION: Osteomyelitis of the fifth metatarsal phalangeal joint. Chest X-Ray 01/22/25 11:04 IMPRESSION: No focal infiltrate or effusion. Withdrawal of approximately 6 cm is recommended for optimal radiographic placement at the cavoatrial junction. Labs Labs: Laboratory Results - last 24 hr 01/23/25 01/23/25 01/24/25 16:47 20:04 06:21 WBC 4.7 RBC 3.43 L Hgb 11.0 L Hct 34.3 L MCV 100.0 MCH 32.1 MCHC 32.1 RDW 12.6 Plt Count 167 MPV 10.7 H Immature Gran % (Auto) 0.6 H Neut % (Auto) 61.5 Lymph % (Auto) 24.0 [place] % (Auto) 9.9 H Eos % (Auto) 3.4 Baso % (Auto) 0.6 Lymph # (Auto) 1.12 [place] # (Auto) 0.5 Eos # (Auto) 0.2 Baso # (Auto) 0.0 Abs Immat Gran (auto) 0.03 Absolute Neuts (auto) 2.9 Absolute Nucleated RBC 0.000 Nucleated RBC % 0.0 Sodium 140 Potassium 3.9 Chloride 109 H Carbon Dioxide 24 Anion Gap 7 BUN 12 Creatinine 0.72 Estim Creat Clear Calc 90 Estimated GFR > 60 Glucose 121 H POC Capillary Glucose 151 H 214 H Calcium 8.8 Magnesium 2.1 Total Bilirubin 0.2 AST 38 H ALT 21 Alkaline Phosphatase 58 Total Protein 6.9 Albumin 3.1 L 01/24/25 01/24/25 01/24/25 07:29 11:24 16:16 WBC RBC Hgb Hct MCV MCH MCHC RDW Plt Count MPV Immature Gran % (Auto) Neut % (Auto) Lymph % (Auto) [place] % (Auto) Eos % (Auto) Baso % (Auto) Lymph # (Auto) [place] # (Auto) Eos # (Auto) Baso # (Auto) Abs Immat Gran (auto) Absolute Neuts (auto) Absolute Nucleated RBC Nucleated RBC % Sodium Potassium Chloride Carbon Dioxide Anion Gap BUN Creatinine Estim Creat Clear Calc Estimated GFR Glucose POC Capillary Glucose 87 138 H 180 H Calcium Magnesium Total Bilirubin AST ALT Alkaline Phosphatase Total Protein Albumin
[2025-01-24] MEDS: HYDROcodone/acetaminophen (*CRX) 5-325 MG TABLET 1 TAB PO (20:22)
[2025-01-24] MEDS: TOPIRAMATE 100 MG TABLET 200 MG PO (21:21)
[2025-01-24] MEDS: PREGABALIN (*CRX) 50 MG CAPSULE PO (21:22)
[2025-01-24] MEDS: CEFEPIME 2 GM in SODIUM CHLORIDE 0.9% IV 50 ML 100 ML IVPB (21:22)
[2025-01-24] MEDS: INSULIN GLARGINE (*BKC) 100 UNITS/ML 20 UNITS SUB-Q (21:25)
[2025-01-24 21:39] VITALS: BP 104/51; PULSE 61; RESP 16; TEMP 37.2; O2SAT 97
[2025-01-25] VITALS (10 sets, daily range): BP systolic 102–131; BP diastolic 41–70; PULSE 56–64; RESP 14–18; TEMP 36.3–36.6; O2SAT 94–100
[2025-01-25] MEDS: CENTRAL LINE FLUSH 20 ML IV PUSH (05:43)
[2025-01-25] MEDS: CENTRAL LINE FLUSH 10 ML IV PUSH ×3 (05:43→23:35)
[2025-01-25] MEDS: metroNIDAZOLE 500 MG/ISO 100ML 500 MG/100 ML BAG 100 MG IVPB ×3 (05:44→23:34)
[2025-01-25 05:57] LABS: Hematocrit 33.3 % (37.0-47.0); Hemoglobin 10.3 g/dL (12.0-15.0); Immature Granulocyte Percent A 0.7 % (0-0.5); Lymphocytes Absolute Auto 1.42 K/mm3 (0.9-3.2); Mean Corpuscular HGB Conc 30.9 g/dl (32-36); Mean Corpuscular Hemoglobin 31.5 pg (26-34); Mean Corpuscular Volume 101.8 fl (80-100); Nucleated Red Blood Cells Absolute Auto 0.000 K/mm3 (0.0-0.012); Nucleated Red Blood Cells Perc 0.0 % (0.0-0.2); Platelet Count Result 162 k/mm3 (150-375); Red Blood Count 3.27 M/mm3 (4.2-5.4); White Blood Count 4.5 K/mm3 (4.5-10.0)
[2025-01-25 06:08] LABS: Alanine Aminotransferase 24 U/L (6-35); Albumin Level 3.1 g/dL (3.5-5.1); Alkaline Phosphatase 68 U/L (38-126); Anion Gap 6 mmol/L (4-12); Aspartate Amino Transferase 37 U/L (14-36); Bilirubin,Total 0.2 mg/dL (0.2-1.3); Blood Urea Nitrogen 12 mg/dL (7-17); Calcium 8.6 mg/dL (8.4-10.2); Carbon Dioxide 24 mmol/L (22-30); Chloride 109 mmol/L (98-107); Estimated CRCL calculation 88 ml/min; Estimated Glomerular Filt Rate > 60; Glucose 122 mg/dL (65-110); Magnesium 2.2 mg/dL (1.6-2.3); Potassium 3.6 mmol/L (3.4-5.0); Sodium 139 mmol/L (137-145); Total Protein 6.5 g/dL (6.3-8.2)
[2025-01-25] MEDS: CEFEPIME 2 GM in SODIUM CHLORIDE 0.9% IV 50 ML 100 ML IVPB ×2 (09:16→21:10)
[2025-01-25] MEDS: LACTATED RINGERS 1,000 ML 30 ML IV CONT (13:30)
--- NOTE | 2025-01-25 14:12 | WPDANESEPPF ---
Anes - Initial Pre Proc Eval Procedure: Operation Date: 01/22/25 15:00 Proposed Procedures p Incision And Drainage Right Foot Abscess - Titi East MD Operation Date: 01/25/25 14:30 Proposed Procedures p Right Fifth Toe Amputation, Placement of Wound Vac(Right) - Titi East MD Date/Time: 01/25/25 14:12 Surgeon: Trung Christy MD Pre Op Diagnosis: Worsening, diabetic foot ulcer Patient Data Age: 54 Gender: F Height: 1.65 m Weight: 99.5 kg Last Vital Signs Temp 36.3 C L 01/25/25 13:43 Pulse 62 01/25/25 13:43 Resp 14 01/25/25 13:43 BP 131/55 L 01/25/25 13:43 Pulse Ox 99 01/25/25 13:43 O2 Del Method Room Air 01/25/25 09:22 O2 Flow Rate 8 01/22/25 16:30 Allergies Allergy/AdvReac Type Severity Reaction Status Date / Time clarithromycin Allergy Mild Unknown Verified 01/25/25 13:42 amoxicillin Allergy Unknown Unknown Verified 01/25/25 13:42 clavulanic acid Allergy Unknown Unknown Verified 01/25/25 13:42 Home Medications ?Medication ?Instructions ?Recorded ?Confirmed ?Type escitalopram oxalate 10 mg tablet 10 mg PO HS 08/18/19 01/20/25 History glimepiride 4 mg tablet 4 mg PO DAILY 08/18/19 01/20/25 History insulin glargine 100 unit/mL (3 50 unit subcut HS 08/18/19 01/20/25 History mL) subcutaneous pen (Olgaaglar KwikPen U-100 Insulin) lisinopril 2.5 mg tablet 2.5 mg PO DAILY 08/18/19 01/20/25 History topiramate 100 mg tablet 200 mg PO HS 08/18/19 01/20/25 History aspirin 81 mg tablet,delayed 81 mg PO DAILY #60 tabs 08/19/19 01/20/25 Rx release (Adult Low Dose Aspirin) clopidogrel 75 mg tablet 75 mg PO DAILY 07/17/21 01/20/25 History pregabalin 50 mg capsule 50 mg PO DAILY 08/15/21 01/20/25 History dulaglutide 1.5 mg/0.5 mL 1.5 mg subcut WEEKLY 11/22/24 01/20/25 History subcutaneous pen injector (Trulicity) insulin lispro 100 unit/mL 7 unit subcut .with meals 11/22/24 01/20/25 History subcutaneous pen naloxone 4 mg/actuation nasal 4 mg intranasal Q2M PRN opioid 11/22/24 01/20/25 History spray (Narcan) overdose zolpidem 5 mg tablet 5 mg PO HS 11/22/24 01/20/25 History oxycodone-acetaminophen 5 mg-325 1 tablet PO BID PRN pain 11/24/24 01/20/25 History mg tablet Laboratory Tests 01/24/25 01/24/25 01/25/25 16:16 20:08 00:41 WBC RBC Hgb Hct MCV MCH MCHC RDW Plt Count MPV Immature Gran % (Auto) Neut % (Auto) Lymph % (Auto) [place] % (Auto) Eos % (Auto) Baso % (Auto) Lymph # (Auto) [place] # (Auto) Eos # (Auto) Baso # (Auto) Abs Immat Gran (auto) Absolute Neuts (auto) Absolute Nucleated RBC Nucleated RBC % Sodium Potassium Chloride Carbon Dioxide Anion Gap BUN Creatinine Estim Creat Clear Calc Estimated GFR Glucose POC Capillary Glucose 180 H mg/dl 197 H mg/dl 143 H mg/dl (65-105) (65-105) (65-105) Calcium Magnesium Total Bilirubin AST ALT Alkaline Phosphatase Total Protein Albumin 01/25/25 01/25/25 01/25/25 04:38 05:41 07:39 WBC 4.5 K/mm3 (4.5-10.0) RBC 3.27 L M/mm3 (4.2-5.4) Hgb 10.3 L g/dL (12.0-15.0) Hct 33.3 L % (37.0-47.0) MCV 101.8 H fl (80-100) MCH 31.5 pg (26-34) MCHC 30.9 L g/dl (32-36) RDW 12.6 % (11.5-14.5) Plt Count 162 k/mm3 (150-375) MPV 10.7 H fl (7.4-10.4) Immature Gran % (Auto) 0.7 H % (0-0.5) Neut % (Auto) 53.2 % (45.5-73.1) Lymph % (Auto) 31.6 % (18.3-44.2) [place] % (Auto) 9.6 H % (2.6-8.5) Eos % (Auto) 4.0 % (0-4.4) Baso % (Auto) 0.9 % (0.2-1.2) Lymph # (Auto) 1.42 K/mm3 (0.9-3.2) [place] # (Auto) 0.4 K/mm3 (0.1-0.6) Eos # (Auto) 0.2 K/mm3 (0-0.3) Baso # (Auto) 0.0 K/mm3 (0.0-0.1) Abs Immat Gran (auto) 0.03 K/mm3 (0.00-0.031) Absolute Neuts (auto) 2.4 K/mm3 (1.3-6.7) Absolute Nucleated RBC 0.000 K/mm3 (0.0-0.012) Nucleated RBC % 0.0 % (0.0-0.2) Sodium 139 mmol/L (137-145) Potassium 3.6 mmol/L (3.4-5.0) Chloride 109 H mmol/L (98-107) Carbon Dioxide 24 mmol/L (22-30) Anion Gap 6 mmol/L (4-12) BUN 12 mg/dL (7-17) Creatinine 0.74 mg/dL (0.7-1.0) Estim Creat Clear Calc 88 ml/min Estimated GFR > 60 (59 - ) Glucose 122 H mg/dL (65-110) POC Capillary Glucose 139 H mg/dl 107 H mg/dl (65-105) (65-105) Calcium 8.6 mg/dL (8.4-10.2) Magnesium 2.2 mg/dL (1.6-2.3) Total Bilirubin 0.2 mg/dL (0.2-1.3) AST 37 H U/L (14-36) ALT 24 U/L (6-35) Alkaline Phosphatase 68 U/L (38-126) Total Protein 6.5 g/dL (6.3-8.2) Albumin 3.1 L g/dL (3.5-5.1) 01/25/25 01/25/25 11:55 13:39 WBC RBC Hgb Hct MCV MCH MCHC RDW Plt Count MPV Immature Gran % (Auto) Neut % (Auto) Lymph % (Auto) [place] % (Auto) Eos % (Auto) Baso % (Auto) Lymph # (Auto) [place] # (Auto) Eos # (Auto) Baso # (Auto) Abs Immat Gran (auto) Absolute Neuts (auto) Absolute Nucleated RBC Nucleated RBC % Sodium Potassium Chloride Carbon Dioxide Anion Gap BUN Creatinine Estim Creat Clear Calc Estimated GFR Glucose POC Capillary Glucose 105 mg/dl 103 mg/dl (65-105) (65-105) Calcium Magnesium Total Bilirubin AST ALT Alkaline Phosphatase Total Protein Albumin Patient hx anesthesia problems: none Family hx anesthesia problems: none Results Review: All pre-operative results and documents have been reviewed as part of the pre-operative evaluation. [facility] Past Medical History Medical History Intracranial aneurysm Anxiety with depression Chronic back pain Hypertension Diabetes mellitus GI bleed GERD (gastroesophageal reflux disease) Sleep apnea Surgical History Surgical History History of microdiscectomy History of back surgery History of History of dilation and curettage Family History Family History Father Malignant neoplasm of prostate Hypertension Diabetes 1.5, managed as type 2 Mother Depression Thyroid disease Other Chronic back pain Social History Social History Social History: Patient lives at home with her daughter and mother, Gracy, whom she designates as her surrogate MDM. She works at [employer]. She has smoked a half a pack of cigarettes per day since she was a teenager. Her PCP is Shirley Sena currently but is in the process of changing providers due to insurance reasons. She wishes to be a Full Code Smoking packs per day: 0.5 Smoking cigarettes per day: 10.0 Years smoked: 36 Smoking pack-years: 18.00 Smoking status: Current every day smoker Tobacco type: cigarettes Second hand tobacco smoke exposure: No Alcohol intake: former Drinks per week: 10 Substance use: never Substance use type: painkillers Do You Feel Safe in your Home?: Yes Lack of Transportation: No Lack of Food: Never True Current Housing: I Have Housing Concerned About Future Housing: No Difficulty Paying Gas/Electric Bills: No Difficulty Paying for Meds: No Currently Unemployed: No Education: High School Diploma/GED Difficulty w/ Childcare or Family Care: No Gender identity (if verbalized by the patient): Male Spiritual care concerns: No Agree to blood products: Yes Anes - Eval Final PreProcedure Day of Procedure 01/25/25 14:12 Patient weight: obese Heart: regular rate and rhythm Lungs: clear to auscultation Airway: Mallampati scale class II Neurological: alert and oriented Last oral intake: >/= 8 hours ASA classification: III Emergent: no Anesthetic plan: proceed Anesthesia type and monitoring: general LMA and standard monitoring Results Review: All pre-operative results and documents have been reviewed as part of the pre-operative evaluation. Informed Consent: The patient's anesthetic plan and its attendant risks and benefits were discussed with the patient/family/POA. Questions were solicited and answers provided to the satisfaction of the patient/family/POA.
--- NOTE | 2025-01-25 14:52 | WPDHPUPDATE1 ---
History and Physical Update Update Date/Time: 01/25/25 14:52 History and Physical has been reviewed, including an updated exam of the patient. There are NO changes in the patient's condition. Risks, benefits, and alternatives have been discussed and questions answered. Patient agrees to proceed with procedure.
--- NOTE | 2025-01-25 15:40 | S_PTH ---
PATIENT: Jeane Garcia LOC: [id number] U#:[id number] AGE/SX: 54/F ROOM: 327 RE01/20/[address]: Humaira Rivera, : 1970 BED: 01 DIS: 01/29/2025 SPEC #: [id number] RECD: 01/26/25 10:28 STATUS: MANAN BERMEO #: [id number] MCKAYLA: 01/25/25 15:[address]: Titi East DEPT: [facility] Surgical RECD BY: Lynda Gan ENTERED: 01/26/25 10:28 SP TYPE: Surgical OTHR DR: JOLENE JerryC MD Angie Galeas, LEATHER CUTTER Tissues: A - Toe Procedures: Hematoxylin and Eosin Stain Gross and Microscopic Level 4 Decalcification
[2025-01-25] MEDS: fentaNYL CITRATE INJ (*CRX) 100 MCG/2 ML VIAL 25 MCG IV PUSH ×4 (16:05→16:44)
--- NOTE | 2025-01-25 18:15 | W.PM.PROC2 ---
Procedure Note - Detailed Date of Procedure 01/25/25 Pre-op Diagnosis Diabetic right foot wound and right 5th toe osteomyelitis Post-op Diagnosis Same Procedure Performed Amputation of right 5th toe with application of wound VAC Surgeon Titi East MD [employer] Poornima Johnston PA-C Anesthesia General Indications Patient is a 54-year-old female who earlier this week had incision and drainage of a right lateral foot diabetic wound and abscess. At that time there was extensive soft tissue infection and also clinical osteomyelitis. The wound VAC was placed and it appears that all the wound tissue now appears to be viable. However given the osteomyelitis of the right 5th metatarsal head and phalanx as well as joint space I discussed with the patient proceeding with amputation of the right 5th toe rather than medical management and and extended course of home IV antibiotics. She has read proceeding with amputation of the toe. Findings The patient had no further necrotic tissue within the wound bed. The extensor tendon to the right 5th digit was exposed. There was a gap of about 2 to 3 mm in the metatarsophalangeal joint as well as changes of the head of the right 5th metatarsal and proximal phalanx of the right 5th toe consistent with clinical osteomyelitis. The amputation of the toe and metatarsal head was performed without difficulty. The division point of the bone on the metatarsal was about midway on the shaft. In that part the bone was solid and smoothed without evidence of clinical osteomyelitis. There was good bleeding from the edges of the tissue. The remaining toes were all viable without any new wounds. A wound VAC was placed cover a total surface area of 36 sq cm. Description of Procedure After informed consent was obtained patient brought to the operating room she was placed supine position and general LMA anesthesia was administered. The right lower extremity from the mid tibia distally was then prepped and draped usual sterile fashion after removal of the wound VAC. time-out was then performed correctly identifying the patient as well as procedure to be performed and site marking was verified. She was already on scheduled IV antibiotics. I then started by exploring all the tissues within the wound. All the tissues appeared to be viable without evidence of further necrotic tissue or undrained abscess. The extensor tendon to the right 5th toe was exposed and there was clinical changes of osteomyelitis of the metatarsophalangeal joint as well as the metatarsal head and proximal phalanx. I then proceeded to incise around the base of the right 5th toe and carried the incision deeply down through the skin until I encountered the metatarsophalangeal joint space. I then divided the extensor tendon in this area as well as the flexor tendon and disarticulated the right 5th toe. It was sent to pathology for examination. I then very carefully used a periosteal elevator to separate the tissue off of the periosteum of the metatarsal until is about midportion on the shaft. This area the bone became very solid and was smooth on its periosteum. I then proceeded to divide the metatarsal utilizing a pneumatic bone saw. The distal shaft and metatarsal head was sent to pathology with the disarticulated right 5th toe. I then irrigated out the wound sterile saline solution. Hemostasis in the tissues was then achieved utilized electrocautery. I then proceeded to place a wound VAC into the wound. Wound measured [id number]. Black foam sponge was then placed into the wound after hemostasis was achieved. The total surface area of the application of wound VAC was 36 sq cm. Clear adhesive dressings were then placed over the black foam sponge. A hole was then cut on top of the sponge and then the suction pad to the wound VAC was applied. The wound VAC was then started and achieved a good seal on the wound VAC. I then placed additional pieces of clear adhesive dressings to make sure we had other areas potential air leak closed. The remaining toes and foot was then cleaned and then the procedure was terminated. The patient tolerated the procedure well no complications. All sponges, needles, and instrument counts were correct at the end procedure. EBL was _30__cc. The patient was awakened and taken to recovery in stable and satisfactory condition. Implants None Estimated Blood Loss 30 Drains No Packing Yes (Wound VAC applied to lateral right foot wound.) Pathology Yes (Right 5th toe and metatarsal head sent to pathology) Complications No immediate complications Condition Stable Disposition PACU [facility] Billing Surgery - Charge Forward: Surgery Billing
--- NOTE | 2025-01-25 18:20 | P.PNIM_ITS ---
Progress Note: A&P Assessment and Plan (1) Diabetic ulcer of right foot: Qualifiers: Diabetes mellitus type: type 2 Diabetic foot ulcer location: midfoot Non-pressure ulcer stage: with muscle involvement without evidence of necrosis Qualified Code(s): E11.621 - Type 2 diabetes mellitus with foot ulcer; L97.415 - Non-pressure chronic ulcer of right heel and midfoot with muscle involvement without evidence of necrosis Code(s): E11.621 - Type 2 diabetes mellitus with foot ulcer; L97.519 - Non-pressure chronic ulcer of other part of right foot with unspecified severity Status: Acute Plan Continue Accu-Cheks a.c. HS. Surgery today. Continue cefepime and met ronidazole. Full code. Lovenox 40 mg subQ q.day. Subjective Date/time seen: 01/25/25 18:20 Interval history: No acute overnight events. Patient denies any complaints including any pain. She is amenable to surgery today Review of Systems Review of Systems: All systems reviewed & are unremarkable except as noted in HPI and below (Subjective) Exam Const: General: comfortable and no acute distress HENMT: Mouth: Yes moist mucous membranes Eyes: Pupils: Equal, round and reactive pupils present Neck: Neck: supple Resp: Effort & Inspection: normal respiratory effort Auscultation: clear to auscultation bilaterally Cardio: Rate: regular rate Rhythm: regular rhythm Extrem: General: edema Objective Data Vital Signs Vital Signs: Vital Signs - 24 hr 01/24/25 20:10 01/24/25 21:39 01/25/25 06:00 Temperature 99 F 97.5 F L Pulse Rate 61 56 L Respiratory Rate 16 16 Blood Pressure 104/51 L 116/55 L Pulse Oximetry 97 100 Oxygen Delivery Room Air Oxygen Flow Rate 01/25/25 09:22 01/25/25 13:43 01/25/25 15:47 Temperature 97.4 F L 97.8 F Pulse Rate 62 62 Respiratory Rate 14 14 Blood Pressure 131/55 L 117/70 Pulse Oximetry 99 100 Oxygen Delivery Room Air Simple Face Mask Oxygen Flow Rate 8 01/25/25 16:00 01/25/25 16:15 01/25/25 16:30 Temperature Pulse Rate 59 L 58 L 64 Respiratory Rate 18 18 18 Blood Pressure 110/41 L 109/45 L 110/48 L Pulse Oximetry 97 97 97 Oxygen Delivery Room Air Room Air Room Air Oxygen Flow Rate 01/25/25 16:45 01/25/25 17:00 01/25/25 17:38 Temperature 97.6 F Pulse Rate 62 62 60 Respiratory Rate 18 18 18 Blood Pressure 113/44 L 102/51 L 119/67 Pulse Oximetry 95 94 100 Oxygen Delivery Room Air Room Air Oxygen Flow Rate Intake/Output Intake/Output: Intake & Output 01/22/25 01/23/25 01/24/25 01/25/25 23:59 23:59 23:59 23:59 Intake Total 1650 1320 1944 1090 Balance 1650 1320 1944 1090 Meds/Results Medications: Active Medications Generic Name Dose Route Start Last Admin Trade Name Freq PRN Reason Stop Dose Admin Acetaminophen 1,000 mg 01/22/25 17:08 Acetaminophen 500 Mg Tablet PO Q6H PRN Mild Pain (1-3) or Fever Hydrocodone Bitart/Acetaminophen 1 tab 01/20/25 02:38 01/22/25 22:20 Hydrocodone/Acetaminophen (*Crx) 5-325 Mg Tablet PO 1 tab Q4H PRN Administration Pain Rated 4-6 Hydrocodone Bitart/Acetaminophen 1 tab 01/22/25 17:08 01/24/25 20:22 Hydrocodone/Acetaminophen (*Crx) 5-325 Mg Tablet PO 1 tab Q4H PRN Administration Pain Rated 4-6 Dextrose 12.5 gm 01/20/25 06:11 Dextrose 50% 25 Gm/50 Ml Syringe IV PUSH PRN PRN Hypoglycemia Protocol Enoxaparin Sodium 40 mg 01/20/25 09:00 01/24/25 09:00 Enoxaparin 40 Mg/0.4 Ml Syringe SUB-Q 40 mg DAILY GLENNA Administration Escitalopram Oxalate 10 mg 01/20/25 15:30 01/25/25 15:48 Escitalopram Oxalate 10 Mg Tablet PO Not Given DAILY@1530 GLENNA Glucagon 1 mg 01/20/25 06:11 Glucagon For Inj 1 Mg Vial IM PRN PRN Hypoglycemia Protocol Glucose 15 gm 01/20/25 06:11 01/20/25 06:18 Glucose Oral Gel 15 Gm Of Glucse In 37.5 Gm Tube PO 15 gm PRN PRN Administration Hypoglycemia Protocol Dextrose 1,000 mls @ 100 mls/hr 01/20/25 06:11 Dextrose 5% 1,000 Ml IVPB PRN PRN Hypoglycemia Protocol Metronidazole 500 mg in 100 mls @ 100 mls/hr 01/23/25 14:15 01/25/25 14:36 Flagyl 500 Mg/Iso Soln 100 Ml IVPB Infused Q8HR [facility] Infusion Cefepime HCl 2 gm/ Sodium 50 mls @ 100 mls/hr 01/24/25 21:00 01/25/25 09:46 Chloride IVPB Infused Q12HR [facility] Infusion Insulin Aspart 2 - 5 units 01/20/25 08:00 01/25/25 17:41 Insulin Aspart (*Bkc) 100 Units/Ml SUB-Q Not Given TIDWM [facility] Protocol Insulin Glargine 40 units 01/20/25 21:00 01/24/25 21:19 Insulin Glargine (*Bkc) 100 Units/Ml SUB-Q Not Given [facility] Lisinopril 2.5 mg 01/20/25 15:30 01/25/25 15:48 Lisinopril 2.5 Mg Tablet PO Not Given DAILY@1530 [facility] Loratadine 10 mg 01/23/25 11:00 01/25/25 09:12 Loratadine 10 Mg Tablet [facility] Sulf[facility] 4 mg 01/22/25 16:23 01/23/25 05:18 Morphine Sulfate (*Crx) 4 Mg/Ml Inj IV PUSH 4 mg Q4H PRN Administration Pain Rated 7-10 Morphine Sulfate 4 mg 01/25/25 17:14 Morphine Sulfate (*Crx) 4 Mg/Ml Inj IV PUSH Q4H PRN Pain Rated 7-10 Ondansetron HCl 4 mg 01/20/25 02:38 Ondansetron Inj 4 Mg/2 Ml Vial IV PUSH Q4H PRN Nausea Oxycodone/Acetaminophen 1 tablet 01/20/25 06:25 01/24/25 18:08 Oxycodone/Acetaminophen (*Crx) 5-325 Mg Tablet PO 1 tablet BID PRN Administration pain 7-10 Pregabalin 50 mg 01/20/25 21:00 01/24/25 21:22 Pregabalin (*Crx) 50 Mg Capsule PO 50 mg HS GLENNA Administration Sodium Chloride 10 ml 01/22/25 14:00 01/25/25 13:37 Central Line Flush IV PUSH 10 ml Q8HR GLENNA Administration Sodium Chloride 10 ml 01/22/25 11:07 Central Line Flush IV PUSH PRN PRN with TPN bag changes Sodium Chloride 20 ml 01/22/25 11:07 01/25/25 05:43 Central Line Flush IV PUSH 20 ml PRN PRN Administration after blood draws Topiramate 200 mg 01/20/25 21:00 01/24/25 21:21 Topiramate 100 Mg Tablet PO 200 mg HS GLENNA Administration Radiology Results: ITS Impressions Foot X-Ray 01/20/25 09:01 IMPRESSION: Osteomyelitis of the fifth metatarsal phalangeal joint. Chest X-Ray 01/22/25 11:04 IMPRESSION: No focal infiltrate or effusion. Withdrawal of approximately 6 cm is recommended for optimal radiographic placement at the cavoatrial junction. Labs Labs: Laboratory Results - last 24 hr 01/24/25 01/25/25 01/25/25 20:08 00:41 04:38 WBC RBC Hgb Hct MCV MCH MCHC RDW Plt Count MPV Immature Gran % (Auto) Neut % (Auto) Lymph % (Auto) [place] % (Auto) Eos % (Auto) Baso % (Auto) Lymph # (Auto) [place] # (Auto) Eos # (Auto) Baso # (Auto) Abs Immat Gran (auto) Absolute Neuts (auto) Absolute Nucleated RBC Nucleated RBC % Sodium Potassium Chloride Carbon Dioxide Anion Gap BUN Creatinine Estim Creat Clear Calc Estimated GFR Glucose POC Capillary Glucose 197 H 143 H 139 H Calcium Magnesium Total Bilirubin AST ALT Alkaline Phosphatase Total Protein Albumin 01/25/25 01/25/25 01/25/25 05:41 07:39 11:55 WBC 4.5 RBC 3.27 L Hgb 10.3 L Hct 33.3 L MCV 101.8 H MCH 31.5 MCHC 30.9 L RDW 12.6 Plt Count 162 MPV 10.7 H Immature Gran % (Auto) 0.7 H Neut % (Auto) 53.2 Lymph % (Auto) 31.6 [place] % (Auto) 9.6 H Eos % (Auto) 4.0 Baso % (Auto) 0.9 Lymph # (Auto) 1.42 [place] # (Auto) 0.4 Eos # (Auto) 0.2 Baso # (Auto) 0.0 Abs Immat Gran (auto) 0.03 Absolute Neuts (auto) 2.4 Absolute Nucleated RBC 0.000 Nucleated RBC % 0.0 Sodium 139 Potassium 3.6 Chloride 109 H Carbon Dioxide 24 Anion Gap 6 BUN 12 Creatinine 0.74 Estim Creat Clear Calc 88 Estimated GFR > 60 Glucose 122 H POC Capillary Glucose 107 H 105 Calcium 8.6 Magnesium 2.2 Total Bilirubin 0.2 AST 37 H ALT 24 Alkaline Phosphatase 68 Total Protein 6.5 Albumin 3.1 L 01/25/25 01/25/25 01/25/25 13:39 16:09 17:32 WBC RBC Hgb Hct MCV MCH MCHC RDW Plt Count MPV Immature Gran % (Auto) Neut % (Auto) Lymph % (Auto) [place] % (Auto) Eos % (Auto) Baso % (Auto) Lymph # (Auto) [place] # (Auto) Eos # (Auto) Baso # (Auto) Abs Immat Gran (auto) Absolute Neuts (auto) Absolute Nucleated RBC Nucleated RBC % Sodium Potassium Chloride Carbon Dioxide Anion Gap BUN Creatinine Estim Creat Clear Calc Estimated GFR Glucose POC Capillary Glucose 103 96 130 H Calcium Magnesium Total Bilirubin AST ALT Alkaline Phosphatase Total Protein Albumin
[2025-01-25] MEDS: INSULIN GLARGINE (*BKC) 100 UNITS/ML 40 UNITS SUB-Q (21:12)
[2025-01-25] MEDS: HYDROcodone/acetaminophen (*CRX) 5-325 MG TABLET 1 TAB PO (21:14)
[2025-01-25] MEDS: TOPIRAMATE 100 MG TABLET 200 MG PO (23:34)
[2025-01-25] MEDS: PREGABALIN (*CRX) 50 MG CAPSULE PO (23:34)
[2025-01-26 00:30] VITALS: BP 110/52; PULSE 65; RESP 18; TEMP 36; O2SAT 98
[2025-01-26] MEDS: MORPHINE SULFATE (*CRX) 4 MG/ML INJ IV PUSH ×2 (00:44→08:49)
[2025-01-26 06:00] VITALS: BP 136/62; PULSE 55; RESP 18; TEMP 35.9; O2SAT 100
[2025-01-26] MEDS: metroNIDAZOLE 500 MG/ISO 100ML 500 MG/100 ML BAG 100 MG IVPB ×2 (06:03→13:00)
[2025-01-26] MEDS: CENTRAL LINE FLUSH 10 ML IV PUSH ×3 (06:03→22:21)
[2025-01-26 06:13] LABS: Hematocrit 36.5 % (37.0-47.0); Hemoglobin 11.5 g/dL (12.0-15.0); Immature Granulocyte Percent A 0.6 % (0-0.5); Lymphocytes Absolute Auto 1.60 K/mm3 (0.9-3.2); Mean Corpuscular HGB Conc 31.5 g/dl (32-36); Mean Corpuscular Hemoglobin 31.9 pg (26-34); Mean Corpuscular Volume 101.1 fl (80-100); Nucleated Red Blood Cells Absolute Auto 0.000 K/mm3 (0.0-0.012); Nucleated Red Blood Cells Perc 0.0 % (0.0-0.2); Platelet Count Result 200 k/mm3 (150-375); Red Blood Count 3.61 M/mm3 (4.2-5.4); White Blood Count 9.8 K/mm3 (4.5-10.0)
[2025-01-26] MEDS: HYDROcodone/acetaminophen (*CRX) 5-325 MG TABLET 1 TAB PO ×3 (06:24→22:16)
[2025-01-26 06:37] LABS: Alanine Aminotransferase 30 U/L (6-35); Albumin Level 3.4 g/dL (3.5-5.1); Alkaline Phosphatase 63 U/L (38-126); Anion Gap 10 mmol/L (4-12); Aspartate Amino Transferase 39 U/L (14-36); Bilirubin,Total 0.2 mg/dL (0.2-1.3); Blood Urea Nitrogen 13 mg/dL (7-17); Calcium 8.8 mg/dL (8.4-10.2); Carbon Dioxide 21 mmol/L (22-30); Chloride 108 mmol/L (98-107); Estimated CRCL calculation 92 ml/min; Estimated Glomerular Filt Rate > 60; Glucose 160 mg/dL (65-110); Magnesium 2.3 mg/dL (1.6-2.3); Potassium 3.8 mmol/L (3.4-5.0); Sodium 139 mmol/L (137-145); Total Protein 7.4 g/dL (6.3-8.2)
[2025-01-26 08:00] VITALS: O2SAT 100
[2025-01-26] MEDS: CEFEPIME 2 GM in SODIUM CHLORIDE 0.9% IV 50 ML 100 ML IVPB (08:42)
[2025-01-26] MEDS: ENOXAPARIN 40 MG/0.4 ML SYRINGE SUB-Q (08:42)
[2025-01-26] MEDS: LORATADINE 10 MG TABLET PO (08:42)
--- NOTE | 2025-01-26 09:46 | PCNWS ---
Weekly nutritional screen. Patient is tolerating current Diabetic consistent carb diet with adequate intake, 100% all meals. No weight loss reported. No nutritional needs at this time.
[2025-01-26] MEDS: oxyCODONE/ACETAMINOPHEN (*CRX) 5-325 MG TABLET 1 TABLET PO (10:52)
--- NOTE | 2025-01-26 12:45 | PM.PNGS ---
Progress Note: A&P Assessment and Plan (1) Diabetic ulcer of right foot: Qualifiers: Diabetes mellitus type: type 2 Diabetic foot ulcer location: midfoot Non-pressure ulcer stage: with muscle involvement without evidence of necrosis Qualified Code(s): E11.621 - Type 2 diabetes mellitus with foot ulcer; L97.415 - Non-pressure chronic ulcer of right heel and midfoot with muscle involvement without evidence of necrosis Code(s): E11.621 - Type 2 diabetes mellitus with foot ulcer; L97.519 - Non-pressure chronic ulcer of other part of right foot with unspecified severity Status: Acute Assessment and Plan: Postop day 1 following right 5th toe amputation with application of wound VAC. Overnight, a small blood clot formed in the tubing and there was leakage surrounding the dressing. This was likely due to the patient pressure-loading on the foot. Wound VAC change with wound care nurse at bedside today. Appears to be healing well with bright red beefy bleeding tissue. Continue IV antibiotics over the weekend. Hold off on PT. Will reassess on Wednesday. (2) Osteomyelitis: Code(s): M86.9 - Osteomyelitis, unspecified Status: Acute Assessment and Plan: Resolved with right 5th toe amputation yesterday. Plan I have discussed the patient's case and plan of care with Dr. East. Subjective Subjective Date/Time Seen: 01/26/25 12:45 Post Op day: 1 Patient reports: no new complaints Interval history: POD1 s/p amputation of R 5th toe with application of wound vac. Overnight wound VAC tubing clotted off, due to patient pressure loading on the wound. Bleeding was noted surrounding the dressing. Nursing staff was able to re-dress the wound and obtain a seal. WBC 9.8. Afebrile. Patient tolerating diabetic consistent carb diet without any nausea or vomiting. Exam Skin: General skin exam: normal color, no rashes or lesions noted and wounds noted Wounds: wounds noted Other: Wound VAC dressing removed due to leaking overnight and blood clot in the tubing. Wound bed approximately 60% healthy red tissue with bleeding, 40% yellow/[place] tissue. No signs or symptoms of infection or necrosis. Reapplied new wound VAC dressing with wound care nurseCony at bedside. Will reassess and change dressing on Wednesday01/29/2025. Objective Data Vital Signs Vital Signs: Vital Signs - 24 hr 01/25/25 13:43 01/25/25 15:47 01/25/25 16:00 Temperature 97.4 F L 97.8 F Pulse Rate 62 62 59 L Respiratory Rate 14 14 18 Blood Pressure 131/55 L 117/70 110/41 L Pulse Oximetry 99 100 97 Oxygen Delivery Simple Face Mask Room Air Oxygen Flow Rate 8 01/25/25 16:15 01/25/25 16:30 01/25/25 16:45 Temperature Pulse Rate 58 L 64 62 Respiratory Rate 18 18 18 Blood Pressure 109/45 L 110/48 L 113/44 L Pulse Oximetry 97 97 95 Oxygen Delivery Room Air Room Air Room Air Oxygen Flow Rate 01/25/25 17:00 01/25/25 17:38 01/25/25 21:25 Temperature 97.6 F 97.3 F L Pulse Rate 62 60 64 Respiratory Rate 18 18 18 Blood Pressure 102/51 L 119/67 110/55 L Pulse Oximetry 94 100 98 Oxygen Delivery Room Air Oxygen Flow Rate 01/26/25 00:30 01/26/25 06:00 01/26/25 08:00 Temperature 96.8 F L 96.6 F L Pulse Rate 65 55 L Respiratory Rate 18 18 Blood Pressure 110/52 L 136/62 Pulse Oximetry 98 100 100 Oxygen Delivery Room Air Oxygen Flow Rate Intake/Output Intake/Output: Intake & Output 01/23/25 01/24/25 01/25/25 01/26/25 23:59 23:59 23:59 23:59 Intake Total 1320 1944 1140 320 Output Total 200 Balance 1320 1944 1140 120 Meds/Results Medications: Active Medications Generic Name Dose Route Start Last Admin Trade Name Freq PRN Reason Stop Dose Admin Acetaminophen 1,000 mg 01/22/25 17:08 Acetaminophen 500 Mg Tablet PO Q6H PRN Mild Pain (1-3) or Fever Hydrocodone Bitart/Acetaminophen 1 tab 01/22/25 17:08 01/24/25 20:22 Hydrocodone/Acetaminophen (*Crx) 5-325 Mg Tablet PO 1 tab Q4H PRN Administration Pain Rated 4-6 Dextrose 12.5 gm 01/20/25 06:11 Dextrose 50% 25 Gm/50 Ml Syringe IV PUSH PRN PRN Hypoglycemia Protocol Enoxaparin Sodium 40 mg 01/20/25 09:00 01/26/25 08:42 Enoxaparin 40 Mg/0.4 Ml Syringe SUB-Q 40 mg DAILY [facility] Administration Escitalopram Oxalate 10 mg 01/20/25 15:30 01/25/25 15:48 Escitalopram Oxalate 10 Mg Tablet PO Not Given DAILY@1530 [facility] Glucagon 1 mg 01/20/25 06:11 Glucagon For Inj 1 Mg Vial IM PRN PRN Hypoglycemia Protocol Glucose 15 gm 01/20/25 06:11 01/20/25 06:18 Glucose Oral Gel 15 Gm Of Glucse In 37.5 Gm Tube PO 15 gm PRN PRN Administration Hypoglycemia Protocol Dextrose 1,000 mls @ 100 mls/hr 01/20/25 06:11 Dextrose 5% 1,000 Ml IVPB PRN PRN Hypoglycemia Protocol Metronidazole 500 mg in 100 mls @ 100 mls/hr 01/23/25 14:15 01/26/25 06:03 Flagyl 500 Mg/Iso Soln 100 Ml IVPB 100 mls/hr Q8HR [facility] Administration Cefepime HCl 2 gm/ Sodium 50 mls @ 100 mls/hr 01/24/25 21:00 01/26/25 08:42 Chloride IVPB 100 mls/hr Q12HR [facility] Administration Insulin Aspart 2 - 5 units 01/20/25 08:00 01/26/25 11:56 Insulin Aspart (*Bkc) 100 Units/Ml SUB-Q Not Given TIDWM [facility] Protocol Insulin Glargine 40 units 01/20/25 21:00 01/25/25 21:12 Insulin Glargine (*Bkc) 100 Units/Ml SUB-Q 40 units HS [facility] Administration Lisinopril 2.5 mg 01/20/25 15:30 01/25/25 15:48 Lisinopril 2.5 Mg Tablet PO Not Given DAILY@1530 [facility] Loratadine 10 mg 01/23/25 11:00 01/26/25 08:42 Loratadine 10 Mg Tablet PO 10 mg QAM [facility] Administration Morphine Sulfate 4 mg 01/25/25 17:14 Morphine Sulfate (*Crx) 4 Mg/Ml Inj IV PUSH Q4H PRN Pain Rated 7-10 Ondansetron HCl 4 mg 01/20/25 02:38 Ondansetron Inj 4 Mg/2 Ml Vial IV PUSH Q4H PRN Nausea Oxycodone/Acetaminophen 1 tablet 01/20/25 06:25 01/26/25 10:52 Oxycodone/Acetaminophen (*Crx) 5-325 Mg Tablet PO 1 tablet BID PRN Administration pain 7-10 Pregabalin 50 mg 01/20/25 21:00 01/25/25 23:34 Pregabalin (*Crx) 50 Mg Capsule PO 50 mg HS [facility] Administration Sodium Chloride 10 ml 01/22/25 14:00 01/26/25 06:03 Central Line Flush IV PUSH 10 ml Q8HR [facility] Administration Sodium Chloride 10 ml 01/22/25 11:07 Central Line Flush IV PUSH PRN PRN with TPN bag changes Sodium Chloride 20 ml 01/22/25 11:07 01/25/25 05:43 Central Line Flush IV PUSH 20 ml PRN PRN Administration after blood draws Topiramate 200 mg 01/20/25 21:00 01/25/25 23:34 Topiramate 100 Mg Tablet PO 200 mg HS [facility] Administration Radiology Results: ITS Impressions Foot X-Ray 01/20/25 09:01 IMPRESSION: Osteomyelitis of the fifth metatarsal phalangeal joint. Chest X-Ray 01/22/25 11:04 IMPRESSION: No focal infiltrate or effusion. Withdrawal of approximately 6 cm is recommended for optimal radiographic placement at the cavoatrial junction. Labs Labs: Laboratory Results - last 24 hr 01/25/25 01/25/25 01/25/25 13:39 16:09 17:32 WBC RBC Hgb Hct MCV MCH MCHC RDW Plt Count MPV Immature Gran % (Auto) Neut % (Auto) Lymph % (Auto) [place] % (Auto) Eos % (Auto) Baso % (Auto) Lymph # (Auto) [place] # (Auto) Eos # (Auto) Baso # (Auto) Abs Immat Gran (auto) Absolute Neuts (auto) Absolute Nucleated RBC Nucleated RBC % Sodium Potassium Chloride Carbon Dioxide Anion Gap BUN Creatinine Estim Creat Clear Calc Estimated GFR Glucose POC Capillary Glucose 103 96 130 H Calcium Magnesium Total Bilirubin AST ALT Alkaline Phosphatase Total Protein Albumin 01/25/25 01/26/25 01/26/25 21:08 06:02 07:51 WBC 9.8 RBC 3.61 L Hgb 11.5 L Hct 36.5 L MCV 101.1 H MCH 31.9 MCHC 31.5 L RDW 12.7 Plt Count 200 MPV 10.8 H Immature Gran % (Auto) 0.6 H Neut % (Auto) 74.6 H Lymph % (Auto) 16.4 L [place] % (Auto) 7.2 Eos % (Auto) 0.9 Baso % (Auto) 0.3 Lymph # (Auto) 1.60 [place] # (Auto) 0.7 H Eos # (Auto) 0.1 Baso # (Auto) 0.0 Abs Immat Gran (auto) 0.06 H Absolute Neuts (auto) 7.3 H Absolute Nucleated RBC 0.000 Nucleated RBC % 0.0 Sodium 139 Potassium 3.8 Chloride 108 H Carbon Dioxide 21 L Anion Gap 10 BUN 13 Creatinine 0.70 Estim Creat Clear Calc 92 Estimated GFR > 60 Glucose 160 H POC Capillary Glucose 234 H 147 H Calcium 8.8 Magnesium 2.3 Total Bilirubin 0.2 AST 39 H ALT 30 Alkaline Phosphatase 63 Total Protein 7.4 Albumin 3.4 L 01/26/25 11:51 WBC RBC Hgb Hct MCV MCH MCHC RDW Plt Count MPV Immature Gran % (Auto) Neut % (Auto) Lymph % (Auto) [place] % (Auto) Eos % (Auto) Baso % (Auto) Lymph # (Auto) [place] # (Auto) Eos # (Auto) Baso # (Auto) Abs Immat Gran (auto) Absolute Neuts (auto) Absolute Nucleated RBC Nucleated RBC % Sodium Potassium Chloride Carbon Dioxide Anion Gap BUN Creatinine Estim Creat Clear Calc Estimated GFR Glucose POC Capillary Glucose 161 H Calcium Magnesium Total Bilirubin AST ALT Alkaline Phosphatase Total Protein Albumin
--- NOTE | 2025-01-26 13:05 | P.PNAN_ITS ---
Anes - Prog Note Post-Op Date/Time: 01/26/25 13:05 Cardiovascular status: normal Respiratory status: normal Airway patency: baseline Mental status: baseline Post-Op hydration status: normal Vital Signs: Last Vital Signs Temp 35.9 C L 01/26/25 06:00 Pulse 55 L 01/26/25 06:00 Resp 18 01/26/25 06:00 BP 136/62 01/26/25 06:00 Pulse Ox 100 01/26/25 08:00 O2 Del Method Room Air 01/26/25 08:00 O2 Flow Rate 8 01/25/25 15:47 Pain Score (VAS): 1 I/O: Intake & Output 01/25/25 01/26/25 01/26/25 23:59 07:59 15:59 Intake Total 590 200 120 Output Total 200 Balance 590 200 -80 Laboratory Tests 01/26/25 06:02 01/26/25 06:02 01/25/25 01/25/25 01/25/25 13:39 16:09 17:32 WBC RBC Hgb Hct MCV MCH MCHC RDW Plt Count MPV Immature Gran % (Auto) Neut % (Auto) Lymph % (Auto) [place] % (Auto) Eos % (Auto) Baso % (Auto) Lymph # (Auto) [place] # (Auto) Eos # (Auto) Baso # (Auto) Abs Immat Gran (auto) Absolute Neuts (auto) Absolute Nucleated RBC Nucleated RBC % Sodium Potassium Chloride Carbon Dioxide Anion Gap BUN Creatinine Estim Creat Clear Calc Estimated GFR Glucose POC Capillary Glucose 103 96 130 H Calcium Magnesium Total Bilirubin AST ALT Alkaline Phosphatase Total Protein Albumin 01/25/25 01/26/25 01/26/25 21:08 06:02 07:51 WBC 9.8 RBC 3.61 L Hgb 11.5 L Hct 36.5 L MCV 101.1 H MCH 31.9 MCHC 31.5 L RDW 12.7 Plt Count 200 MPV 10.8 H Immature Gran % (Auto) 0.6 H Neut % (Auto) 74.6 H Lymph % (Auto) 16.4 L [place] % (Auto) 7.2 Eos % (Auto) 0.9 Baso % (Auto) 0.3 Lymph # (Auto) 1.60 [place] # (Auto) 0.7 H Eos # (Auto) 0.1 Baso # (Auto) 0.0 Abs Immat Gran (auto) 0.06 H Absolute Neuts (auto) 7.3 H Absolute Nucleated RBC 0.000 Nucleated RBC % 0.0 Sodium 139 Potassium 3.8 Chloride 108 H Carbon Dioxide 21 L Anion Gap 10 BUN 13 Creatinine 0.70 Estim Creat Clear Calc 92 Estimated GFR > 60 Glucose 160 H POC Capillary Glucose 234 H 147 H Calcium 8.8 Magnesium 2.3 Total Bilirubin 0.2 AST 39 H ALT 30 Alkaline Phosphatase 63 Total Protein 7.4 Albumin 3.4 L 01/26/25 11:51 WBC RBC Hgb Hct MCV MCH MCHC RDW Plt Count MPV Immature Gran % (Auto) Neut % (Auto) Lymph % (Auto) [place] % (Auto) Eos % (Auto) Baso % (Auto) Lymph # (Auto) [place] # (Auto) Eos # (Auto) Baso # (Auto) Abs Immat Gran (auto) Absolute Neuts (auto) Absolute Nucleated RBC Nucleated RBC % Sodium Potassium Chloride Carbon Dioxide Anion Gap BUN Creatinine Estim Creat Clear Calc Estimated GFR Glucose POC Capillary Glucose 161 H Calcium Magnesium Total Bilirubin AST ALT Alkaline Phosphatase Total Protein Albumin Microbiology 01/20/25 02:02 Blood Blood Culture - Final 01/20/25 02:02 Blood Blood Culture - Final Post-procedural complaints: none Patient Feedback: Patient satisfied with anesthetic care.
[2025-01-26 14:08] VITALS: BP 115/52; PULSE 70; RESP 17; TEMP 37.2; O2SAT 98
--- NOTE | 2025-01-26 14:08 | PM.IMPN ---
Progress Note: A&P Assessment and Plan (1) Diabetes mellitus: Code(s): E11.9 - Type 2 diabetes mellitus without complications Status: Acute (2) Diabetic ulcer of right foot: Qualifiers: Diabetes mellitus type: type 2 Diabetic foot ulcer location: midfoot Non-pressure ulcer stage: with muscle involvement without evidence of necrosis Qualified Code(s): E11.621 - Type 2 diabetes mellitus with foot ulcer; L97.415 - Non-pressure chronic ulcer of right heel and midfoot with muscle involvement without evidence of necrosis Code(s): E11.621 - Type 2 diabetes mellitus with foot ulcer; L97.519 - Non-pressure chronic ulcer of other part of right foot with unspecified severity Status: Acute (3) Osteomyelitis: Code(s): M86.9 - Osteomyelitis, unspecified Status: Acute (4) Ulcer of right foot due to type 2 diabetes mellitus: Code(s): E11.621 - Type 2 diabetes mellitus with foot ulcer; L97.519 - Non-pressure chronic ulcer of other part of right foot with unspecified severity Status: Acute Plan 50-year-old female with a history of insulin-dependent diabetes mellitus, hypertension, GERD, peripheral neuropathy, history of a remote subarachnoid hemorrhage, LIBRADO, who presents to [place] ER on 01/23/2025 with a nonhealing wound to the right foot. Recently discharged from hospital on 11/25/2024 with similar issue. Right foot culture 01/20/2025 anaerobic culture light growth prevotella bivia. Aerobic culture Staph aureus and group B Streptococcus 01/22/2025 underwent complex incision and drainage of right foot abscess with placement of wound VAC 01/25/2025 underwent amputation of right 5th toe with application of wound VAC due to osteomyelitis. Pending surgical specimen 01/26/2025 cefepime and IV metronidazole changed to metronidazole 500 mg p.o. t.i.d. and Bactrim 1 tab p.o. b.i.d. 7 days post source control. No evidence of sepsis. Blood cultures negative. Appreciate wound care recommendations from Wound consult and General surgery. Blood glucose within acceptable limits. Continue Accu-Cheks a.c. HS with sliding scale and Lantus 50 units q.h.s. Hypertension: Blood pressure within acceptable limits Dorsalgia: Chronic and stable. LIBRADO: Can use nightly CPAP when patient is willing Holding [employer] aspirin and Plavix, restart soon when appropriate, further discussion as to the reason these were prescribed as needed. Full code. Saline lock IV. Diabetic diet. Lovenox 40 mg subQ q.day. Accu-Cheks a.c. HS with insulin sliding scale Subjective Date/time seen: 01/26/25 14:08 Interval history: No major acute overnight events. Patient has just finished her lunch. She was satisfied. Denies any pain at the moment. Has no complaints or concerns. Review of Systems Review of Systems: All systems reviewed & are unremarkable except as noted in HPI and below (Subjective) Exam Const: General: comfortable and no acute distress Other: A&O x3 HENMT: Mouth: Yes moist mucous membranes Eyes: Pupils: Equal, round and reactive pupils present Neck: Neck: supple Resp: Effort & Inspection: normal respiratory effort Auscultation: clear to auscultation bilaterally Cardio: Rate: regular rate Rhythm: regular rhythm Heart sounds: no gallops, no murmurs and no rubs GI: Inspection: non-distended GI Palp: Yes Soft to palpation Neuro: Motor exam (neuro): 5/5 motor strength present throughout Extrem: Other: Trace pitting edema bilateral lower extremities distal to the knees Wound VAC in place. Sanguinous output in the drain Objective Data Vital Signs Vital Signs: Vital Signs - 24 hr 01/25/25 15:47 01/25/25 16:00 01/25/25 16:15 Temperature 97.8 F Pulse Rate 62 59 L 58 L Respiratory Rate 14 18 18 Blood Pressure 117/70 110/41 L 109/45 L Pulse Oximetry 100 97 97 Oxygen Delivery Simple Face Mask Room Air Room Air Oxygen Flow Rate 8 01/25/25 16:30 01/25/25 16:45 01/25/25 17:00 Temperature Pulse Rate 64 62 62 Respiratory Rate 18 18 18 Blood Pressure 110/48 L 113/44 L 102/51 L Pulse Oximetry 97 95 94 Oxygen Delivery Room Air Room Air Room Air Oxygen Flow Rate 01/25/25 17:38 01/25/25 21:25 01/26/25 00:30 Temperature 97.6 F 97.3 F L 96.8 F L Pulse Rate 60 64 65 Respiratory Rate 18 18 18 Blood Pressure 119/67 110/55 L 110/52 L Pulse Oximetry 100 98 98 Oxygen Delivery Oxygen Flow Rate 01/26/25 06:00 01/26/25 08:00 Temperature 96.6 F L Pulse Rate 55 L Respiratory Rate 18 Blood Pressure 136/62 Pulse Oximetry 100 100 Oxygen Delivery Room Air Oxygen Flow Rate Intake/Output Intake/Output: Intake & Output 01/23/25 01/24/25 01/25/25 01/26/25 23:59 23:59 23:59 23:59 Intake Total 1320 1944 1140 420 Output Total 200 Balance 1320 1944 1140 220 Meds/Results Medications: Active Medications Generic Name Dose Route Start Last Admin Trade Name Freq PRN Reason Stop Dose Admin Acetaminophen 1,000 mg 01/22/25 17:08 Acetaminophen 500 Mg Tablet PO Q6H PRN Mild Pain (1-3) or Fever Hydrocodone Bitart/Acetaminophen 1 tab 01/22/25 17:08 01/24/25 20:22 Hydrocodone/Acetaminophen (*Crx) 5-325 Mg Tablet PO 1 tab Q4H PRN Administration Pain Rated 4-6 Dextrose 12.5 gm 01/20/25 06:11 Dextrose 50% 25 Gm/50 Ml Syringe IV PUSH PRN PRN Hypoglycemia Protocol Enoxaparin Sodium 40 mg 01/20/25 09:00 01/26/25 08:42 Enoxaparin 40 Mg/0.4 Ml Syringe SUB-Q 40 mg DAILY [facility] Administration Escitalopram Oxalate 10 mg 01/20/25 15:30 01/25/25 15:48 Escitalopram Oxalate 10 Mg Tablet PO Not Given DAILY@1530 [facility] Glucagon 1 mg 01/20/25 06:11 Glucagon For Inj 1 Mg Vial IM PRN PRN Hypoglycemia Protocol Glucose 15 gm 01/20/25 06:11 01/20/25 06:18 Glucose Oral Gel 15 Gm Of Glucse In 37.5 Gm Tube PO 15 gm PRN PRN Administration Hypoglycemia Protocol Dextrose 1,000 mls @ 100 mls/hr 01/20/25 06:11 Dextrose 5% 1,000 Ml IVPB PRN PRN Hypoglycemia Protocol Metronidazole 500 mg in 100 mls @ 100 mls/hr 01/23/25 14:15 01/26/25 13:00 Flagyl 500 Mg/Iso Soln 100 Ml IVPB 100 mls/hr Q8HR [facility] Administration Cefepime HCl 2 gm/ Sodium 50 mls @ 100 mls/hr 01/24/25 21:00 01/26/25 08:42 Chloride IVPB 100 mls/hr Q12HR [facility] Administration Insulin Aspart 2 - 5 units 01/20/25 08:00 01/26/25 11:56 Insulin Aspart (*Bkc) 100 Units/Ml SUB-Q Not Given TIDWM [facility] Protocol Insulin Glargine 40 units 01/20/25 21:00 01/25/25 21:12 Insulin Glargine (*Bkc) 100 Units/Ml SUB-Q 40 units HS [facility] Administration Lisinopril 2.5 mg 01/20/25 15:30 01/25/25 15:48 Lisinopril 2.5 Mg Tablet PO Not Given DAILY@1530 [facility] Loratadine 10 mg 01/23/25 11:00 01/26/25 08:42 Loratadine 10 Mg Tablet PO 10 mg QAM [facility] Administration Morphine Sulfate 4 mg 01/25/25 17:14 Morphine Sulfate (*Crx) 4 Mg/Ml Inj IV PUSH Q4H PRN Pain Rated 7-10 Ondansetron HCl 4 mg 01/20/25 02:38 Ondansetron Inj 4 Mg/2 Ml Vial IV PUSH Q4H PRN Nausea Oxycodone/Acetaminophen 1 tablet 01/20/25 06:25 01/26/25 10:52 Oxycodone/Acetaminophen (*Crx) 5-325 Mg Tablet PO 1 tablet BID PRN Administration pain 7-10 Pregabalin 50 mg 01/20/25 21:00 01/25/25 23:34 Pregabalin (*Crx) 50 Mg Capsule PO 50 mg HS [facility] Administration Sodium Chloride 10 ml 01/22/25 14:00 01/26/25 06:03 Central Line Flush IV PUSH 10 ml Q8HR [facility] Administration Sodium Chloride 10 ml 01/22/25 11:07 Central Line Flush IV PUSH PRN PRN with TPN bag changes Sodium Chloride 20 ml 01/22/25 11:07 01/25/25 05:43 Central Line Flush IV PUSH 20 ml PRN PRN Administration after blood draws Topiramate 200 mg 01/20/25 21:00 01/25/25 23:34 Topiramate 100 Mg Tablet PO 200 mg HS [facility] Administration Radiology Results: ITS Impressions Foot X-Ray 01/20/25 09:01 IMPRESSION: Osteomyelitis of the fifth metatarsal phalangeal joint. Chest X-Ray 01/22/25 11:04 IMPRESSION: No focal infiltrate or effusion. Withdrawal of approximately 6 cm is recommended for optimal radiographic placement at the cavoatrial junction. Labs Labs: Laboratory Results - last 24 hr 01/25/25 01/25/25 01/25/25 16:09 17:32 21:08 WBC RBC Hgb Hct MCV MCH MCHC RDW Plt Count MPV Immature Gran % (Auto) Neut % (Auto) Lymph % (Auto) [place] % (Auto) Eos % (Auto) Baso % (Auto) Lymph # (Auto) [place] # (Auto) Eos # (Auto) Baso # (Auto) Abs Immat Gran (auto) Absolute Neuts (auto) Absolute Nucleated RBC Nucleated RBC % Sodium Potassium Chloride Carbon Dioxide Anion Gap BUN Creatinine Estim Creat Clear Calc Estimated GFR Glucose POC Capillary Glucose 96 130 H 234 H Calcium Magnesium Total Bilirubin AST ALT Alkaline Phosphatase Total Protein Albumin 01/26/25 01/26/25 01/26/25 06:02 07:51 11:51 WBC 9.8 RBC 3.61 L Hgb 11.5 L Hct 36.5 L MCV 101.1 H MCH 31.9 MCHC 31.5 L RDW 12.7 Plt Count 200 MPV 10.8 H Immature Gran % (Auto) 0.6 H Neut % (Auto) 74.6 H Lymph % (Auto) 16.4 L [place] % (Auto) 7.2 Eos % (Auto) 0.9 Baso % (Auto) 0.3 Lymph # (Auto) 1.60 [place] # (Auto) 0.7 H Eos # (Auto) 0.1 Baso # (Auto) 0.0 Abs Immat Gran (auto) 0.06 H Absolute Neuts (auto) 7.3 H Absolute Nucleated RBC 0.000 Nucleated RBC % 0.0 Sodium 139 Potassium 3.8 Chloride 108 H Carbon Dioxide 21 L Anion Gap 10 BUN 13 Creatinine 0.70 Estim Creat Clear Calc 92 Estimated GFR > 60 Glucose 160 H POC Capillary Glucose 147 H 161 H Calcium 8.8 Magnesium 2.3 Total Bilirubin 0.2 AST 39 H ALT 30 Alkaline Phosphatase 63 Total Protein 7.4 Albumin 3.4 L
[2025-01-26] MEDS: ESCITALOPRAM OXALATE 10 MG TABLET PO (14:47)
[2025-01-26 21:08] VITALS: BP 117/51; PULSE 58; RESP 20; TEMP 35.9; O2SAT 98
[2025-01-26] MEDS: INSULIN GLARGINE (*BKC) 100 UNITS/ML 40 UNITS SUB-Q (22:10)
[2025-01-26] MEDS: PREGABALIN (*CRX) 50 MG CAPSULE PO (22:11)
[2025-01-26] MEDS: SULFAMETHOXAZOLE/TRIMETHOPRIM 800/160 MG DS TABLET 1 TAB PO (22:12)
[2025-01-26] MEDS: TOPIRAMATE 100 MG TABLET 200 MG PO (22:16)
[2025-01-27 05:35] VITALS: BP 131/72; PULSE 59; RESP 20; TEMP 35.7; O2SAT 100
[2025-01-27] MEDS: CENTRAL LINE FLUSH 10 ML IV PUSH ×3 (05:36→22:06)
[2025-01-27] MEDS: HYDROcodone/acetaminophen (*CRX) 5-325 MG TABLET 1 TAB PO ×3 (05:38→22:13)
[2025-01-27 06:20] LABS: Alanine Aminotransferase 24 U/L (6-35); Albumin Level 3.3 g/dL (3.5-5.1); Alkaline Phosphatase 65 U/L (38-126); Anion Gap 7 mmol/L (4-12); Aspartate Amino Transferase 37 U/L (14-36); Bilirubin,Total 0.2 mg/dL (0.2-1.3); Blood Urea Nitrogen 13 mg/dL (7-17); Calcium 8.4 mg/dL (8.4-10.2); Carbon Dioxide 23 mmol/L (22-30); Chloride 109 mmol/L (98-107); Estimated CRCL calculation 90 ml/min; Estimated Glomerular Filt Rate > 60; Glucose 110 mg/dL (65-110); Magnesium 2.3 mg/dL (1.6-2.3); Potassium 3.7 mmol/L (3.4-5.0); Sodium 139 mmol/L (137-145); Total Protein 6.9 g/dL (6.3-8.2)
[2025-01-27] MEDS: SULFAMETHOXAZOLE/TRIMETHOPRIM 800/160 MG DS TABLET 1 TAB PO ×2 (10:11→22:00)
[2025-01-27] MEDS: LORATADINE 10 MG TABLET PO (10:11)
[2025-01-27] MEDS: ENOXAPARIN 40 MG/0.4 ML SYRINGE SUB-Q (10:11)
[2025-01-27 11:03] LABS: Hematocrit 34.0 % (37.0-47.0); Hemoglobin 10.7 g/dL (12.0-15.0); Immature Granulocyte Percent A 0.6 % (0-0.5); Lymphocytes Absolute Auto 2.01 K/mm3 (0.9-3.2); Mean Corpuscular HGB Conc 31.5 g/dl (32-36); Mean Corpuscular Hemoglobin 32.0 pg (26-34); Mean Corpuscular Volume 101.8 fl (80-100); Nucleated Red Blood Cells Absolute Auto 0.000 K/mm3 (0.0-0.012); Nucleated Red Blood Cells Perc 0.0 % (0.0-0.2); Platelet Count Result 162 k/mm3 (150-375); Red Blood Count 3.34 M/mm3 (4.2-5.4); White Blood Count 6.5 K/mm3 (4.5-10.0)
[2025-01-27 14:00] VITALS: BP 121/46; PULSE 57; RESP 18; TEMP 35.9; O2SAT 100
[2025-01-27] MEDS: ESCITALOPRAM OXALATE 10 MG TABLET PO (14:45)
[2025-01-27] MEDS: oxyCODONE/ACETAMINOPHEN (*CRX) 5-325 MG TABLET 1 TABLET PO (14:48)
[2025-01-27 20:50] VITALS: O2SAT 98
[2025-01-27 21:08] VITALS: BP 119/60; PULSE 62; RESP 18; TEMP 36.9; O2SAT 98
[2025-01-27] MEDS: INSULIN GLARGINE (*BKC) 100 UNITS/ML 40 UNITS SUB-Q (21:59)
[2025-01-27] MEDS: PREGABALIN (*CRX) 50 MG CAPSULE PO (21:59)
[2025-01-27] MEDS: TOPIRAMATE 100 MG TABLET 200 MG PO (22:00)
[2025-01-28 04:33] VITALS: BP 133/68; PULSE 51; RESP 16; TEMP 36.7; O2SAT 100
[2025-01-28] MEDS: CENTRAL LINE FLUSH 10 ML IV PUSH ×3 (06:09→21:14)
[2025-01-28 06:11] LABS: Hematocrit 34.8 % (37.0-47.0); Hemoglobin 10.7 g/dL (12.0-15.0); Immature Granulocyte Percent A 0.8 % (0-0.5); Lymphocytes Absolute Auto 1.73 K/mm3 (0.9-3.2); Mean Corpuscular HGB Conc 30.7 g/dl (32-36); Mean Corpuscular Hemoglobin 31.5 pg (26-34); Mean Corpuscular Volume 102.4 fl (80-100); Nucleated Red Blood Cells Absolute Auto 0.000 K/mm3 (0.0-0.012); Nucleated Red Blood Cells Perc 0.0 % (0.0-0.2); Platelet Count Result 172 k/mm3 (150-375); Red Blood Count 3.40 M/mm3 (4.2-5.4); White Blood Count 6.0 K/mm3 (4.5-10.0)
[2025-01-28] MEDS: HYDROcodone/acetaminophen (*CRX) 5-325 MG TABLET 1 TAB PO ×3 (06:14→21:13)
[2025-01-28 06:30] LABS: Alanine Aminotransferase 25 U/L (6-35); Albumin Level 3.3 g/dL (3.5-5.1); Alkaline Phosphatase 68 U/L (38-126); Anion Gap 7 mmol/L (4-12); Aspartate Amino Transferase 40 U/L (14-36); Bilirubin,Total 0.2 mg/dL (0.2-1.3); Blood Urea Nitrogen 12 mg/dL (7-17); Calcium 8.6 mg/dL (8.4-10.2); Carbon Dioxide 22 mmol/L (22-30); Chloride 111 mmol/L (98-107); Estimated CRCL calculation 83 ml/min; Estimated Glomerular Filt Rate > 60; Glucose 128 mg/dL (65-110); Magnesium 2.4 mg/dL (1.6-2.3); Potassium 4.0 mmol/L (3.4-5.0); Sodium 140 mmol/L (137-145); Total Protein 7.0 g/dL (6.3-8.2)
[2025-01-28] MEDS: LORATADINE 10 MG TABLET PO (09:45)
[2025-01-28] MEDS: SULFAMETHOXAZOLE/TRIMETHOPRIM 800/160 MG DS TABLET 1 TAB PO ×2 (09:45→21:13)
[2025-01-28] MEDS: ENOXAPARIN 40 MG/0.4 ML SYRINGE SUB-Q (09:45)
[2025-01-28] MEDS: MORPHINE SULFATE (*CRX) 4 MG/ML INJ IV PUSH (09:46)
--- NOTE | 2025-01-28 13:33 | P.PNIM_ITS ---
Progress Note: A&P Assessment and Plan (1) Diabetes mellitus: Code(s): E11.9 - Type 2 diabetes mellitus without complications Status: Acute (2) Diabetic ulcer of right foot: Qualifiers: Diabetes mellitus type: type 2 Diabetic foot ulcer location: midfoot Non-pressure ulcer stage: with muscle involvement without evidence of necrosis Qualified Code(s): E11.621 - Type 2 diabetes mellitus with foot ulcer; L97.415 - Non-pressure chronic ulcer of right heel and midfoot with muscle involvement without evidence of necrosis Code(s): E11.621 - Type 2 diabetes mellitus with foot ulcer; L97.519 - Non-pressure chronic ulcer of other part of right foot with unspecified severity Status: Acute (3) Osteomyelitis: Code(s): M86.9 - Osteomyelitis, unspecified Status: Acute (4) Ulcer of right foot due to type 2 diabetes mellitus: Code(s): E11.621 - Type 2 diabetes mellitus with foot ulcer; L97.519 - Non-pressure chronic ulcer of other part of right foot with unspecified severity Status: Acute Plan 50-year-old female with a history of insulin-dependent diabetes mellitus, hypertension, GERD, peripheral neuropathy, history of a remote subarachnoid hemorrhage, LIBRADO, who presents to [facility] on 01/23/2025 with a nonhealing wound to the right foot. Recently discharged from hospital on 11/25/2024 with similar issue. Right foot culture 01/20/2025 anaerobic culture light growth prevotella bivia. Aerobic culture Staph aureus and group B Streptococcus 01/22/2025 underwent complex incision and drainage of right foot abscess with placement of wound VAC 01/25/2025 underwent amputation of right 5th toe with application of wound VAC due to osteomyelitis. Pending surgical specimen 01/26/2025 cefepime and IV metronidazole changed to metronidazole 500 mg p.o. t.i.d. and Bactrim 1 tab p.o. b.i.d. 7 days post source control. No evidence of sepsis. Blood cultures negative. Appreciate wound care recommendations from Wound consult and General surgery. Blood glucose within acceptable limits. Continue Accu-Cheks a.c. HS with sliding scale and Lantus 50 units q.h.s. Hypertension: Blood pressure at goal Dorsalgia: Chronic and stable. LIBRADO: Can use nightly CPAP when patient is willing Resume [employer] aspirin Plavix Full code. Saline lock IV. Diabetic diet. Lovenox 40 mg subQ q.day. Accu- Cheks a.c. HS with insulin sliding scale Subjective Date/time seen: 01/28/25 13:33 Interval history: No major acute overnight events. She feels a pulling pain at the wound VAC which she attributes to proper healing. She otherwise has no complaints. Review of Systems Review of Systems: All systems reviewed & are unremarkable except as noted in HPI and below (Subjective) Exam Const: General: comfortable and no acute distress Other: A&O x3 HENMT: Mouth: Yes moist mucous membranes Eyes: Pupils: Equal, round and reactive pupils present Neck: Neck: supple Resp: Effort & Inspection: normal respiratory effort Auscultation: clear to auscultation bilaterally Cardio: Rate: regular rate Rhythm: regular rhythm Heart sounds: no gallops, no murmurs and no rubs GI: Inspection: non-distended GI Palp: Yes Soft to palpation Neuro: Motor exam (neuro): 5/5 motor strength present throughout Extrem: Other: Trace pitting edema bilateral lower extremities distal to the knees Wound VAC in place. Sanguinous output in the drain Objective Data Vital Signs Vital Signs: Vital Signs - 24 hr 01/27/25 14:00 01/27/25 20:00 01/27/25 20:50 Temperature 96.6 F L Pulse Rate 57 L Respiratory Rate 18 Blood Pressure 121/46 L Pulse Oximetry 100 98 Oxygen Delivery Room Air Room Air 01/27/25 21:08 01/28/25 04:33 01/28/25 10:00 Temperature 98.4 F 98.0 F Pulse Rate 62 51 L Respiratory Rate 18 16 Blood Pressure 119/60 133/68 Pulse Oximetry 98 100 Oxygen Delivery Room Air Intake/Output Intake/Output: Intake & Output 01/25/25 01/26/25 01/27/25 01/28/25 23:59 23:59 23:59 23:59 Intake Total 1140 1260 970 720 Output Total 200 750 Balance 1140 1060 220 720 Meds/Results Medications: Active Medications Generic Name Dose Route Start Last Admin Trade Name Freq PRN Reason Stop Dose Admin Acetaminophen 1,000 mg 01/22/25 17:08 Acetaminophen 500 Mg Tablet PO Q6H PRN Mild Pain (1-3) or Fever Hydrocodone Bitart/Acetaminophen 1 tab 07/07/25 17:08 01/28/25 13:03 Hydrocodone/Acetaminophen (*Crx) 5-325 Mg Tablet PO 1 tab Q4H PRN Administration Pain Rated 4-6 Dextrose 12.5 gm 01/20/25 06:11 Dextrose 50% 25 Gm/50 Ml Syringe IV PUSH PRN PRN Hypoglycemia Protocol Enoxaparin Sodium 40 mg 01/20/25 09:00 01/28/25 09:45 Enoxaparin 40 Mg/0.4 Ml Syringe SUB-Q 40 mg DAILY GLENNA Administration Escitalopram Oxalate 10 mg 01/20/25 15:30 01/27/25 14:45 Escitalopram Oxalate 10 Mg Tablet PO 10 mg DAILY@1530 GLENNA Administration Glucagon 1 mg 01/20/25 06:11 Glucagon For Inj 1 Mg Vial IM PRN PRN Hypoglycemia Protocol Glucose 15 gm 01/20/25 06:11 01/20/25 06:18 Glucose Oral Gel 15 Gm Of Glucse In 37.5 Gm Tube PO 15 gm PRN PRN Administration Hypoglycemia Protocol Dextrose 1,000 mls @ 100 mls/hr 01/20/25 06:11 Dextrose 5% 1,000 Ml IVPB PRN PRN Hypoglycemia Protocol Insulin Aspart 2 - 5 units 01/20/25 08:00 01/28/25 13:02 Insulin Aspart (*Bkc) 100 Units/Ml SUB-Q Not Given TIDWM [facility] Protocol Insulin Glargine 40 units 01/20/25 21:00 01/27/25 21:59 Insulin Glargine (*Bkc) 100 Units/Ml SUB-Q 40 units HS GLENNA Administration Lisinopril 2.5 mg 01/20/25 15:30 01/27/25 14:45 Lisinopril 2.5 Mg Tablet PO 2.5 mg DAILY@1530 GLENNA Administration Loratadine 10 mg 01/23/25 11:00 01/28/25 09:45 Loratadine 10 Mg Tablet PO 10 mg QAM GLENNA Administration Metronidazole 500 mg 01/26/25 22:00 01/28/25 06:09 Metronidazole 500 Mg Tablet PO 02/01/25 22:01 500 mg Q8HR GLENNA Administration Morphine Sulfate 4 mg 01/25/25 17:14 01/28/25 09:46 Morphine Sulfate (*Crx) 4 Mg/Ml Inj IV PUSH 4 mg Q4H PRN Administration Pain Rated 7-10 Ondansetron HCl 4 mg 01/20/25 02:38 Ondansetron Inj 4 Mg/2 Ml Vial IV PUSH Q4H PRN Nausea Oxycodone/Acetaminophen 1 tablet 01/20/25 06:25 01/27/25 14:48 Oxycodone/Acetaminophen (*Crx) 5-325 Mg Tablet PO 1 tablet BID PRN Administration pain 7-10 Pregabalin 50 mg 01/20/25 21:00 01/27/25 21:59 Pregabalin (*Crx) 50 Mg Capsule PO 50 mg HS GLENNA Administration Sodium Chloride 10 ml 01/22/25 14:00 01/28/25 06:09 Central Line Flush IV PUSH 10 ml Q8HR GLENNA Administration Sodium Chloride 10 ml 01/22/25 11:07 Central Line Flush IV PUSH PRN PRN with TPN bag changes Sodium Chloride 20 ml 01/22/25 11:07 01/25/25 05:43 Central Line Flush IV PUSH 20 ml PRN PRN Administration after blood draws Topiramate 200 mg 01/20/25 21:00 01/27/25 22:00 Topiramate 100 Mg Tablet PO 200 mg HS GLENNA Administration Trimethoprim/Sulfamethoxazole 1 tab 01/26/25 21:00 01/28/25 09:45 Sulfamethoxazole/Trimethoprim 800/160 Mg Ds Tablet PO 02/01/25 21:01 1 tab Q12HR GLENNA Administration Radiology Results: ITS Impressions Foot X-Ray 01/20/25 09:01 IMPRESSION: Osteomyelitis of the fifth metatarsal phalangeal joint. Chest X-Ray 01/22/25 11:04 IMPRESSION: No focal infiltrate or effusion. Withdrawal of approximately 6 cm is recommended for optimal radiographic placement at the cavoatrial junction. Labs Labs: Laboratory Results - last 24 hr 01/27/25 01/27/25 01/28/25 16:58 20:58 04:26 WBC RBC Hgb Hct MCV MCH MCHC RDW Plt Count MPV Immature Gran % (Auto) Neut % (Auto) Lymph % (Auto) [place] % (Auto) Eos % (Auto) Baso % (Auto) Lymph # (Auto) [place] # (Auto) Eos # (Auto) Baso # (Auto) Abs Immat Gran (auto) Absolute Neuts (auto) Absolute Nucleated RBC Nucleated RBC % Sodium Potassium Chloride Carbon Dioxide Anion Gap BUN Creatinine Estim Creat Clear Calc Estimated GFR Glucose POC Capillary Glucose 128 H 98 135 H Calcium Magnesium Total Bilirubin AST ALT Alkaline Phosphatase Total Protein Albumin 01/28/25 01/28/25 06:05 11:45 WBC 6.0 RBC 3.40 L Hgb 10.7 L Hct 34.8 L MCV 102.4 H MCH 31.5 MCHC 30.7 L RDW 13.2 Plt Count 172 MPV 11.0 H Immature Gran % (Auto) 0.8 H Neut % (Auto) 58.0 Lymph % (Auto) 28.9 [place] % (Auto) 8.9 H Eos % (Auto) 2.7 Baso % (Auto) 0.7 Lymph # (Auto) 1.73 [place] # (Auto) 0.5 Eos # (Auto) 0.2 Baso # (Auto) 0.0 Abs Immat Gran (auto) 0.05 H Absolute Neuts (auto) 3.5 Absolute Nucleated RBC 0.000 Nucleated RBC % 0.0 Sodium 140 Potassium 4.0 Chloride 111 H Carbon Dioxide 22 Anion Gap 7 BUN 12 Creatinine 0.79 Estim Creat Clear Calc 83 Estimated GFR > 60 Glucose 128 H POC Capillary Glucose 127 H Calcium 8.6 Magnesium 2.4 H Total Bilirubin 0.2 AST 40 H ALT 25 Alkaline Phosphatase 68 Total Protein 7.0 Albumin 3.3 L
[2025-01-28 14:00] VITALS: BP 130/72; PULSE 59; RESP 16; TEMP 36.9; O2SAT 100
[2025-01-28] MEDS: ESCITALOPRAM OXALATE 10 MG TABLET PO (15:30)
[2025-01-28] MEDS: PREGABALIN (*CRX) 50 MG CAPSULE PO (21:13)
[2025-01-28] MEDS: TOPIRAMATE 100 MG TABLET 200 MG PO (21:13)
[2025-01-28 21:46] VITALS: O2SAT 95
[2025-01-28 21:58] VITALS: BP 135/49; PULSE 60; RESP 18; TEMP 36.2; O2SAT 100
[2025-01-28] MEDS: INSULIN GLARGINE (*BKC) 100 UNITS/ML 40 UNITS SUB-Q (22:00)
[2025-01-29] MEDS: HYDROcodone/acetaminophen (*CRX) 5-325 MG TABLET 1 TAB PO ×2 (05:51→10:48)
[2025-01-29] MEDS: CENTRAL LINE FLUSH 10 ML IV PUSH (05:53)
[2025-01-29 06:00] VITALS: BP 131/59; PULSE 60; RESP 18; TEMP 35.9; O2SAT 100
[2025-01-29 08:50] VITALS: PULSE 60; RESP 18; O2SAT 100
[2025-01-29] MEDS: ENOXAPARIN 40 MG/0.4 ML SYRINGE SUB-Q (09:16)
[2025-01-29] MEDS: SULFAMETHOXAZOLE/TRIMETHOPRIM 800/160 MG DS TABLET 1 TAB PO (09:16)
[2025-01-29] MEDS: LORATADINE 10 MG TABLET PO (09:16)
--- NOTE | 2025-01-29 11:03 | P.PNGS_ITS ---
Progress Note: A&P Assessment and Plan (1) Diabetic ulcer of right foot: Qualifiers: Diabetes mellitus type: type 2 Diabetic foot ulcer location: midfoot Non-pressure ulcer stage: with muscle involvement without evidence of necrosis Qualified Code(s): E11.621 - Type 2 diabetes mellitus with foot ulcer; L97.415 - Non-pressure chronic ulcer of right heel and midfoot with muscle involvement without evidence of necrosis Code(s): E11.621 - Type 2 diabetes mellitus with foot ulcer; L97.519 - Non-pressure chronic ulcer of other part of right foot with unspecified severity Status: Acute Assessment and Plan: * Postop day 4 following right 5th toe amputation. Wound vac dressing changed today. Wound appears to be healing well with healthy granulating tissue. * No issues with the wound vac over the weekend. Home wound vac has been approved and [facility] is set up for discharge. * Okay to d/c home with the wound vac today. She will be followed by home health for dressing changes. Follow-up scheduled with Dr. East in the wound clinic on February 21 for wound check. * Continue heel-touch weight bearing for transfers, but non weight bearing on the RLE for ambulation. Patient will use wheeled kneeling scooter for getting around. (2) Osteomyelitis: Code(s): M86.9 - Osteomyelitis, unspecified Status: Acute Assessment and Plan: * Resolved with right 5th toe amputation and amputation of the right 5th metatarsal head down to healthy bone. Pathology pending. Okay to d/c on oral antibiotics for another week. Plan I have discussed the patient's case and plan of care with Dr. East. Subjective Subjective Date/Time Seen: 01/29/25 11:03 Post Op day: 4 Patient reports: no new complaints Interval history: Patient has pain with dressing changes but otherwise pain is well controlled. She takes Percocet for chronic back pain that is managed by pain Review of Systems Review of Systems: All systems reviewed & are unremarkable except as noted in HPI and below Exam Narrative: Right foot wound with beefy pink bleeding tissue in 80% of the wound with granulating tissue, there is a small area where tendon is exposed in the center of the wound with pale yellow tissue, no significant necrotic tissue, no purulent drainage. Surrounding skin appears healthy with no erythema or swelling of the right foot. Objective Data Vital Signs Vital Signs: Vital Signs - 24 hr 01/28/25 14:00 01/28/25 21:46 01/28/25 21:58 Temperature 98.5 F 97.2 F L Pulse Rate 59 L 60 Respiratory Rate 16 18 Blood Pressure 130/72 135/49 L Pulse Oximetry 100 95 100 Oxygen Delivery Room Air Fraction of Inspired Oxygen 21 01/29/25 06:00 Temperature 96.6 F L Pulse Rate 60 Respiratory Rate 18 Blood Pressure 131/59 L Pulse Oximetry 100 Oxygen Delivery Fraction of Inspired Oxygen Intake/Output Intake/Output: Intake & Output 01/26/25 01/27/25 01/28/25 01/29/25 23:59 23:59 23:59 23:59 Intake Total 1260 970 960 236 Output Total 200 750 1 825 Balance 1060 220 959 589 Meds/Results Medications: Active Medications Generic Name Dose Route Start Last Admin Trade Name Freq PRN Reason Stop Dose Admin Acetaminophen 1,000 mg 01/22/25 17:08 Acetaminophen 500 Mg Tablet PO Q6H PRN Mild Pain (1-3) or Fever Hydrocodone Bitart/Acetaminophen 1 tab 01/22/25 17:08 01/29/25 10:48 Hydrocodone/Acetaminophen (*Crx) 5-325 Mg Tablet PO 1 tab Q4H PRN Administration Pain Rated 4-6 Dextrose 12.5 gm 01/20/25 06:11 Dextrose 50% 25 Gm/50 Ml Syringe IV PUSH PRN PRN Hypoglycemia Protocol Enoxaparin Sodium 40 mg 01/20/25 09:00 01/29/25 09:16 Enoxaparin 40 Mg/0.4 Ml Syringe SUB-Q 40 mg DAILY GLENNA Administration Escitalopram Oxalate 10 mg 01/20/25 15:30 01/28/25 15:30 Escitalopram Oxalate 10 Mg Tablet PO 10 mg DAILY@1530 GLENNA Administration Glucagon 1 mg 01/20/25 06:11 Glucagon For Inj 1 Mg Vial IM PRN PRN Hypoglycemia Protocol Glucose 15 gm 01/20/25 06:11 01/20/25 06:18 Glucose Oral Gel 15 Gm Of Glucse In 37.5 Gm Tube PO 15 gm PRN PRN Administration Hypoglycemia Protocol Dextrose 1,000 mls @ 100 mls/hr 01/20/25 06:11 Dextrose 5% 1,000 Ml IVPB PRN PRN Hypoglycemia Protocol Insulin Aspart 2 - 5 units 01/20/25 08:00 01/29/25 09:17 Insulin Aspart (*Bkc) 100 Units/Ml SUB-Q Not Given TIDWM [facility] Protocol Insulin Glargine 40 units 01/20/25 21:00 01/28/25 22:00 Insulin Glargine (*Bkc) 100 Units/Ml SUB-Q 40 units HS GLENNA Administration Lisinopril 2.5 mg 01/20/25 15:30 01/28/25 15:30 Lisinopril 2.5 Mg Tablet PO 2.5 mg DAILY@1530 GLENNA Administration Loratadine 10 mg 01/23/25 11:00 01/29/25 09:16 Loratadine 10 Mg Tablet PO 10 mg QAM GLENNA Administration Metronidazole 500 mg 01/26/25 22:00 01/29/25 05:51 Metronidazole 500 Mg Tablet PO 02/01/25 22:01 500 mg Q8HR GLENNA Administration Morphine Sulfate 4 mg 01/25/25 17:14 01/28/25 09:46 Morphine Sulfate (*Crx) 4 Mg/Ml Inj IV PUSH 4 mg Q4H PRN Administration Pain Rated 7-10 Ondansetron HCl 4 mg 01/20/25 02:38 Ondansetron Inj 4 Mg/2 Ml Vial IV PUSH Q4H PRN Nausea Oxycodone/Acetaminophen 1 tablet 01/20/25 06:25 01/27/25 14:48 Oxycodone/Acetaminophen (*Crx) 5-325 Mg Tablet PO 1 tablet BID PRN Administration pain 7-10 Pregabalin 50 mg 01/20/25 21:00 01/28/25 21:13 Pregabalin (*Crx) 50 Mg Capsule PO 50 mg HS GLENNA Administration Sodium Chloride 10 ml 01/22/25 14:00 01/29/25 05:53 Central Line Flush IV PUSH 10 ml Q8HR GLENNA Administration Sodium Chloride 10 ml 01/22/25 11:07 Central Line Flush IV PUSH PRN PRN with TPN bag changes Sodium Chloride 20 ml 01/22/25 11:07 01/25/25 05:43 Central Line Flush IV PUSH 20 ml PRN PRN Administration after blood draws Topiramate 200 mg 01/20/25 21:00 01/28/25 21:13 Topiramate 100 Mg Tablet PO 200 mg HS GLENNA Administration Trimethoprim/Sulfamethoxazole 1 tab 01/26/25 21:00 01/29/25 09:16 Sulfamethoxazole/Trimethoprim 800/160 Mg Ds Tablet PO 02/01/25 21:01 1 tab Q12HR GLENNA Administration Radiology Results: ITS Impressions Foot X-Ray 01/20/25 09:01 IMPRESSION: Osteomyelitis of the fifth metatarsal phalangeal joint. Chest X-Ray 01/22/25 11:04 IMPRESSION: No focal infiltrate or effusion. Withdrawal of approximately 6 cm is recommended for optimal radiographic placement at the cavoatrial junction. Labs Labs: Laboratory Results - last 24 hr 01/28/25 01/28/25 01/28/25 11:45 16:27 21:58 POC Capillary Glucose 127 H 151 H 164 H 01/29/25 08:05 POC Capillary Glucose 106 H
--- NOTE | 2025-01-29 12:14 | PM.IMPN ---
Progress Note: A&P Assessment and Plan (1) Diabetes mellitus: Code(s): E11.9 - Type 2 diabetes mellitus without complications Status: Acute (2) Diabetic ulcer of right foot: Qualifiers: Diabetes mellitus type: type 2 Diabetic foot ulcer location: midfoot Non-pressure ulcer stage: with muscle involvement without evidence of necrosis Qualified Code(s): E11.621 - Type 2 diabetes mellitus with foot ulcer; L97.415 - Non-pressure chronic ulcer of right heel and midfoot with muscle involvement without evidence of necrosis Code(s): E11.621 - Type 2 diabetes mellitus with foot ulcer; L97.519 - Non-pressure chronic ulcer of other part of right foot with unspecified severity Status: Acute (3) Osteomyelitis: Code(s): M86.9 - Osteomyelitis, unspecified Status: Acute (4) Ulcer of right foot due to type 2 diabetes mellitus: Code(s): E11.621 - Type 2 diabetes mellitus with foot ulcer; L97.519 - Non-pressure chronic ulcer of other part of right foot with unspecified severity Status: Acute Plan 50-year-old female with a history of insulin-dependent diabetes mellitus, hypertension, GERD, peripheral neuropathy, history of a remote subarachnoid hemorrhage, LIBRADO, who presents to [facility] on 01/23/2025 with a nonhealing wound to the right foot. Recently discharged from hospital on 11/25/2024 with similar issue. Right foot culture 01/20/2025 anaerobic culture light growth prevotella bivia. Aerobic culture Staph aureus and group B Streptococcus 01/22/2025 underwent complex incision and drainage of right foot abscess with placement of wound VAC 01/25/2025 underwent amputation of right 5th toe with application of wound VAC due to osteomyelitis. Pending surgical specimen 01/26/2025 cefepime and IV metronidazole changed to metronidazole 500 mg p.o. t.i.d. and Bactrim 1 tab p.o. b.i.d. 7 days post source control. No evidence of sepsis. Blood cultures negative. Appreciate wound care recommendations from Wound consult and General surgery. Blood glucose within acceptable limits. Continue Accu-Cheks a.c. HS with sliding scale and Lantus 50 units q.h.s. Hypertension: Blood pressure at goal Dorsalgia: Chronic and stable. LIBRADO: Can use nightly CPAP when patient is willing Resume [employer] aspirin Plavix Patient is on Bactrim 1 tablet q.12 hours p.o. 6 of 13 doses Full code. Saline lock IV. Diabetic diet. Lovenox 40 mg subQ q.day. Accu-Cheks a.c. HS with insulin sliding scale Subjective Date/time seen: 01/29/25 12:14 Interval history: No major acute overnight events. Patient feels pain is tolerable, denies focal weakness, fever, chills Patient is afebrile blood pressure stable Exam Narrative: GENERAL: Pleasant, in no acute distress. Well-nourished. - EYES: EOMI. Anicteric. - HENT: Moist mucous membranes. - LUNGS: Clear to auscultation bilaterally, no wheezing, rhonchi, or rales. - CARDIOVASCULAR: Regular rate and rhythm. No murmur. No JVD. - ABDOMEN: Soft, non-tender and non-distended. No palpable masses. - EXTREMITIES: No edema. Peripheral pulses 2+. Non-tender. - NEUROLOGIC: No focal neurological deficits. CN II-XII grossly intact. - PSYCHIATRIC: Awake, Alert and oriented x 3. Appropriate mood and affect. - SKIN: Right foot surgical wound is well dressed, dressing is dry and clean, - LYMPH: No cervical lymphadenopathy. Objective Data Vital Signs Vital Signs: Vital Signs - 24 hr 01/28/25 14:00 01/28/25 21:46 01/28/25 21:58 Temperature 98.5 F 97.2 F L Pulse Rate 59 L 60 Respiratory Rate 16 18 Blood Pressure 130/72 135/49 L Pulse Oximetry 100 95 100 Oxygen Delivery Room Air Fraction of Inspired Oxygen 21 01/29/25 06:00 Temperature 96.6 F L Pulse Rate 60 Respiratory Rate 18 Blood Pressure 131/59 L Pulse Oximetry 100 Oxygen Delivery Fraction of Inspired Oxygen Intake/Output Intake/Output: Intake & Output 01/26/25 01/27/25 01/28/25 01/29/25 23:59 23:59 23:59 23:59 Intake Total 1260 970 960 236 Output Total 200 750 1 825 Balance 1060 220 959 -749 Meds/Results Medications: Active Medications Generic Name Dose Route Start Last Admin Trade Name Freq PRN Reason Stop Dose Admin Acetaminophen 1,000 mg 01/22/25 17:08 Acetaminophen 500 Mg Tablet PO Q6H PRN Mild Pain (1-3) or Fever Hydrocodone Bitart/Acetaminophen 1 tab 01/22/25 17:08 01/29/25 10:48 Hydrocodone/Acetaminophen (*Crx) 5-325 Mg Tablet PO 1 tab Q4H PRN Administration Pain Rated 4-6 Dextrose 12.5 gm 01/20/25 06:11 Dextrose 50% 25 Gm/50 Ml Syringe IV PUSH PRN PRN Hypoglycemia Protocol Enoxaparin Sodium 40 mg 01/20/25 09:00 01/29/25 09:16 Enoxaparin 40 Mg/0.4 Ml Syringe SUB-Q 40 mg DAILY GLENNA Administration Escitalopram Oxalate 10 mg 01/20/25 15:30 01/28/25 15:30 Escitalopram Oxalate 10 Mg Tablet PO 10 mg DAILY@1530 GLENNA Administration Glucagon 1 mg 01/20/25 06:11 Glucagon For Inj 1 Mg Vial IM PRN PRN Hypoglycemia Protocol Glucose 15 gm 01/20/25 06:11 01/20/25 06:18 Glucose Oral Gel 15 Gm Of Glucse In 37.5 Gm Tube PO 15 gm PRN PRN Administration Hypoglycemia Protocol Dextrose 1,000 mls @ 100 mls/hr 01/20/25 06:11 Dextrose 5% 1,000 Ml IVPB PRN PRN Hypoglycemia Protocol Insulin Aspart 2 - 5 units 01/20/25 08:00 01/29/25 09:17 Insulin Aspart (*Bkc) 100 Units/Ml SUB-Q Not Given TIDWM [facility] Protocol Insulin Glargine 40 units 01/20/25 21:00 01/28/25 22:00 Insulin Glargine (*Bkc) 100 Units/Ml SUB-Q 40 units HS GLENNA Administration Lisinopril 2.5 mg 01/20/25 15:30 01/28/25 15:30 Lisinopril 2.5 Mg Tablet PO 2.5 mg DAILY@1530 GLENNA Administration Loratadine 10 mg 01/23/25 11:00 01/29/25 09:16 Loratadine 10 Mg Tablet PO 10 mg QAM GLENNA Administration Metronidazole 500 mg 01/26/25 22:00 01/29/25 05:51 Metronidazole 500 Mg Tablet PO 02/01/25 22:01 500 mg Q8HR GLENNA Administration Morphine Sulfate 4 mg 01/25/25 17:14 01/28/25 09:46 Morphine Sulfate (*Crx) 4 Mg/Ml Inj IV PUSH 4 mg Q4H PRN Administration Pain Rated 7-10 Ondansetron HCl 4 mg 01/20/25 02:38 Ondansetron Inj 4 Mg/2 Ml Vial IV PUSH Q4H PRN Nausea Oxycodone/Acetaminophen 1 tablet 01/20/25 06:25 01/27/25 14:48 Oxycodone/Acetaminophen (*Crx) 5-325 Mg Tablet PO 1 tablet BID PRN Administration pain 7-10 Pregabalin 50 mg 01/20/25 21:00 01/28/25 21:13 Pregabalin (*Crx) 50 Mg Capsule PO 50 mg HS GLENNA Administration Sodium Chloride 10 ml 01/22/25 14:00 01/29/25 05:53 Central Line Flush IV PUSH 10 ml Q8HR GLENNA Administration Sodium Chloride 10 ml 01/22/25 11:07 Central Line Flush IV PUSH PRN PRN with TPN bag changes Sodium Chloride 20 ml 01/22/25 11:07 01/25/25 05:43 Central Line Flush IV PUSH 20 ml PRN PRN Administration after blood draws Topiramate 200 mg 01/20/25 21:00 01/28/25 21:13 Topiramate 100 Mg Tablet PO 200 mg HS GLENNA Administration Trimethoprim/Sulfamethoxazole 1 tab 01/26/25 21:00 01/29/25 09:16 Sulfamethoxazole/Trimethoprim 800/160 Mg Ds Tablet PO 02/01/25 21:01 1 tab Q12HR GLENNA Administration Radiology Results: ITS Impressions Foot X-Ray 01/20/25 09:01 IMPRESSION: Osteomyelitis of the fifth metatarsal phalangeal joint. Chest X-Ray 01/22/25 11:04 IMPRESSION: No focal infiltrate or effusion. Withdrawal of approximately 6 cm is recommended for optimal radiographic placement at the cavoatrial junction. Labs Labs: Laboratory Results - last 24 hr 01/28/25 01/28/25 01/28/25 11:45 16:27 21:58 POC Capillary Glucose 127 H 151 H 164 H 01/29/25 01/29/25 08:05 11:14 POC Capillary Glucose 106 H 173 H
--- NOTE | 2025-01-29 12:23 | P.DS_ITS ---
DS: Admitting Diagnosis Discharge Date 01/30/25 Admitting Diagnosis (1) Diabetes mellitus: Code(s): E11.9 - Type 2 diabetes mellitus without complications Status: Acute (2) Diabetic ulcer of right foot: Qualifiers: Diabetes mellitus type: type 2 Diabetic foot ulcer location: midfoot Non-pressure ulcer stage: with muscle involvement without evidence of necrosis Qualified Code(s): E11.621 - Type 2 diabetes mellitus with foot ulcer; L97.415 - Non-pressure chronic ulcer of right heel and midfoot with muscle involvement without evidence of necrosis Code(s): E11.621 - Type 2 diabetes mellitus with foot ulcer; L97.519 - Non-pressure chronic ulcer of other part of right foot with unspecified severity Status: Acute (3) Osteomyelitis: Code(s): M86.9 - Osteomyelitis, unspecified Status: Acute (4) Ulcer of right foot due to type 2 diabetes mellitus: Code(s): E11.621 - Type 2 diabetes mellitus with foot ulcer; L97.519 - Non-pressure chronic ulcer of other part of right foot with unspecified severity Status: Acute DS: Discharge Diagnosis Discharge Diagnosis (1) Diabetes mellitus: Code(s): E11.9 - Type 2 diabetes mellitus without complications Status: Acute (2) Diabetic ulcer of right foot: Qualifiers: Diabetes mellitus type: type 2 Diabetic foot ulcer location: midfoot Non-pressure ulcer stage: with muscle involvement without evidence of necrosis Qualified Code(s): E11.621 - Type 2 diabetes mellitus with foot ulcer; L97.415 - Non-pressure chronic ulcer of right heel and midfoot with muscle involvement without evidence of necrosis Code(s): E11.621 - Type 2 diabetes mellitus with foot ulcer; L97.519 - Non-pressure chronic ulcer of other part of right foot with unspecified severity Status: Acute (3) Osteomyelitis: Code(s): M86.9 - Osteomyelitis, unspecified Status: Acute (4) Ulcer of right foot due to type 2 diabetes mellitus: Code(s): E11.621 - Type 2 diabetes mellitus with foot ulcer; L97.519 - Non-pressure chronic ulcer of other part of right foot with unspecified severity Status: Acute DS: Summary Hospital Course Hospital Course: 50-year-old female with a history of insulin-dependent diabetes mellitus, hypertension, GERD, peripheral neuropathy, history of a remote subarachnoid hemorrhage, LIBRADO, who presents to [facility] on 01/23/2025 with a nonhealing wound to the right foot. Recently discharged from hospital on 11/25/2024 with similar issue. The following med issues have been addressed during hospitalization Right foot culture 01/20/2025 anaerobic culture light growth prevotella bivia. Aerobic culture Staph aureus and group B Streptococcus 01/22/2025 underwent complex incision and drainage of right foot abscess with placement of wound VAC 01/25/2025 underwent amputation of right 5th toe with application of wound VAC due to osteomyelitis. Pending surgical specimen 01/26/2025 cefepime and IV metronidazole changed to metronidazole 500 mg p.o. t.i.d. and Bactrim 1 tab p.o. b.i.d. 7 days post source control. No evidence of sepsis. Blood cultures negative. Appreciate wound care recommendations from Wound consult and General surgery. Blood glucose within acceptable limits. Continue Accu-Cheks a.c. HS with sliding scale and Lantus 50 units q.h.s. Hypertension: Blood pressure at goal Dorsalgia: Chronic and stable. 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 6 of 13 doses Time Spent with Patient Time attestation: Total time spent providing and/or coordinating discharge services: Exam Narrative: GENERAL: Pleasant, in no acute distress. Well-nourished. - EYES: EOMI. Anicteric. - HENT: Moist mucous membranes. - LUNGS: Clear to auscultation bilateral ly, no wheezing, rhonchi, or rales. - CARDIOVASCULAR: Regular rate and rhyth m. No murmur. No JVD. - ABDOMEN: Soft, non-tender and non-dist ended. No palpable masses. - EXTREMITIES: No edema. Peripheral puls es 2+. Non-tender. - NEUROLOGIC: No focal neurological defi cits. CN II-XII grossly intact. - PSYCHIATRIC: Awake, Alert and oriented x 3. Appropriate mood and affect. - SKIN: Right foot surgical wound is we ll dressed, dressing is dry and clean, - LYMPH: No cervical lymphadenopathy. DS: Data Data Completed and Pending Pending studies at discharge: Pending at discharge 01/25/25 15:40 Surgical [PTH] Routine Labs on day of discharge: Labs from last 24 hours 01/29/25 01/29/25 01/28/25 11:14 08:05 21:58 POC Capillary Glucose 173 H 106 H 164 H 01/28/25 16:27 POC Capillary Glucose 151 H Discharge Plan Discharge Attending physician on discharge: Humaira Rivera Consulting providers: Dimitris Berkowitz; Titi Esat; Agueda Gonsalez; Maggy Krueger; Richard Louie; Poornima Johnston; Rg Reid; Deng Guy; Alisia Terry Discharging Clinician: Humaira Rivera Anticipated Discharge Date/Time: 01/29/25 14:23 Patient Disposition: Home with Home Health Service Activity: as tolerated Diet: as tolerated and diabetic Wound Care Instructions: follow printed instructions and keep dressing dry Discharge Instructions: Per Care Coordination: [facility] will contact you prior to their first visit. [facility] will follow for RN and PT/OT eval and treat. [facility] can be contacted at [phone]. * Wound Vac Instructions: Dressing to be changed 3 times per week. Black foam only to right lateral foot. -125mmHg low continuous pressure. * Right leg: Do not apply any weight or pressure to the front of your right foot. You may do heel-touch weight bearing to transfer to a chair or the commode, but when walking or getting around, you should not bear any weight on the right leg. Use either crutches or the kneeling scooter to get around. * ground support agent your antibiotics and take them as prescribed. * You were also sent some pain medication to the pharmacy. This will be a few tablets to use for dressing changes, but you should call your pain management physician for refills on your pain medication for your chronic pain. Your follow up appointment with Dr. East will be at the [facility] on Friday February 21, 2025 at 12:30PM. You must arrive 30 minutes before your appointment time as you must go through Registration Registration is located in the Lab area in main lobby of Hospital Entrance 1. Once you are registered and have your papers, use the Elevators in the same lobby to the 2nd floor. Once on the 2nd floor, follow signs for the Wound Center. Questions regarding your appointment time, please contact wound center at [phone]. Patient Instructions: Antibiotic Form, Clopidogrel (By mouth) Patient Language: Nauruan Stand Alone Forms: General Discharge Information Follow-up/Referrals: Phillip,Angie Dietrich BLACK TOPPER [Primary Care Provider] - (Follow-up with PCP in 1 week) Titi East MD [Physician] - 02/21/25 12:30 pm (At the [facility] Phone number: [phone]) Discharge Medications: New oxycodone-acetaminophen 5-325 mg Tablet 1 tablet PO BID PRN (Reason: pain 7-10) Qty: 10 0RF metronidazole 500 mg Tablet 500 mg PO Q8HR 7 Days Qty: 21 0RF sulfamethoxazole-trimethoprim 800-160 mg Tablet 1 tab PO Q12HR 7 Days Qty: 14 0RF Continued glimepiride 4 mg tablet 4 mg PO DAILY Patient Comments: takes at 1530 daily topiramate 100 mg tablet 200 mg PO HS Patient Comments: takes at 1100 lisinopril 2.5 mg tablet 2.5 mg PO DAILY Patient Comments: takes at 1530 daily escitalopram oxalate 10 mg tablet 10 mg PO HS insulin glargine [Basaglar KwikPen U-100 Insulin] 100 unit/mL (3 mL) insulin pen 50 unit SUBCUT HS pregabalin 50 mg capsule 50 mg PO DAILY Patient Comments: takes at 1100 clopidogrel 75 mg tablet 75 mg PO DAILY insulin lispro 100 unit/mL insulin pen 7 unit SUBCUT .with meals Trulicity 1.5 mg/0.5 mL pen injector 1.5 mg SUBCUT WEEKLY zolpidem 5 mg tablet 5 mg PO HS naloxone [Narcan] 4 mg/actuation spray,non-aerosol 4 mg INTRANASAL Q2M PRN (Reason: opioid overdose) aspirin [Adult Low Dose Aspirin] 81 mg tablet,delayed release (DR/EC) 81 mg PO DAILY Qty: 60 0RF Patient Comments: takes at 1530 Rx Instructions: Take 1 tablet by mouth daily until further recommendation from Neurologist oxycodone-acetaminophen 5-325 mg tablet 1 tablet PO BID PRN (Reason: pain) Qty: 10 0RF Patient Comments: takes at 1530 Date of admission: 01/20/25 02:39 Primary Care Provider: Phillip,Angie Dietrich Admitting Provider: Adam Christy Attending physician on admission: Humaira Rivera Condition: Stable
[2025-01-29 14:00] VITALS: BP 120/55; PULSE 69; RESP 18; TEMP 36.5; O2SAT 100
[2025-01-29] MEDS: NEOMYCIN/POLYMYXIN/BACITRACIN OINTMENT PACKET 1 PACKET (14:22)
[2025-01-29] MEDS: ESCITALOPRAM OXALATE 10 MG TABLET PO (14:52)
--- NOTE | 2025-03-23 19:45 | PM.IMPN ---
Progress Note: A&P Assessment and Plan (1) Diabetic ulcer of right foot: Qualifiers: Diabetes mellitus type: type 2 Diabetic foot ulcer location: midfoot Non-pressure ulcer stage: with muscle involvement without evidence of necrosis Qualified Code(s): E11.621 - Type 2 diabetes mellitus with foot ulcer; L97.415 - Non-pressure chronic ulcer of right heel and midfoot with muscle involvement without evidence of necrosis Code(s): E11.621 - Type 2 diabetes mellitus with foot ulcer; L97.519 - Non-pressure chronic ulcer of other part of right foot with unspecified severity Status: Acute (2) Osteomyelitis: Code(s): M86.9 - Osteomyelitis, unspecified Status: Acute Plan Continue current management. Re-evaluation of wound VAC on 01/29/2025 by General surgery, when clear can discharge on oral antibiotics. Subjective Date/time seen: 01/27/2025 at 12:00 p.m. Interval history: No new complaints. Patient reports pain is decreased. Review of Systems Review of Systems: All systems reviewed & are unremarkable except as noted in HPI and below (Subjective) Exam Const: General: comfortable and no acute distress Other: A&O x3 HENMT: Mouth: Yes moist mucous membranes Eyes: Pupils: Equal, round and reactive pupils present Neck: Neck: supple Resp: Effort & Inspection: normal respiratory effort Auscultation: clear to auscultation bilaterally Cardio: Rate: regular rate Rhythm: regular rhythm Heart sounds: no gallops, no murmurs and no rubs GI: Inspection: non-distended GI Palp: Yes Soft to palpation Neuro: Motor exam (neuro): 5/5 motor strength present throughout Extrem: Other: Trace pitting edema bilateral lower extremities distal to the knees Wound VAC in place. Sanguinous output in the drain Objective Data Meds/Results Radiology Results: ITS Impressions Foot X-Ray 01/20/25 09:01 IMPRESSION: Osteomyelitis of the fifth metatarsal phalangeal joint. Chest X-Ray 01/22/25 11:04 IMPRESSION: No focal infiltrate or effusion. Withdrawal of approximately 6 cm is recommended for optimal radiographic placement at the cavoatrial junction.
== END 2025-01-29 15:30 | disposition home health service (06) | DRG 305 ==
LOC: ANHED 02:43 → ANH3MEDSUR 03:46
PROVIDERS: Nurse Practitioner; Surgery; Admitting Provider Internal Medicine; Emergency Provider Student in an Organized Health Care Education/Training Program; PCP Nurse Practitioner Family; Visit Provider Hospitalist
PROC: 0L9V0ZX Drainage of Right Foot Tendon, Open Approach, Diagnostic (ICD-10-PCS; principal; 2025-01-22 15:00)
PROC: 0Y6M0ZF Detachment at Right Foot, Partial 5th Ray, Open Approach (ICD-10-PCS; principal; 2025-01-25 14:30)
DX: E11.621 Type 2 diabetes mellitus with foot ulcer (principal); M86.171 Other acute osteomyelitis, right ankle and foot; L97.519 Non-pressure chronic ulcer of other part of right foot with unspecified severity; E11.628 Type 2 diabetes mellitus with other skin complications; L03.115 Cellulitis of right lower limb; L02.611 Cutaneous abscess of right foot; E11.69 Type 2 diabetes mellitus with other specified complication; B95.7 Other staphylococcus as the cause of diseases classified elsewhere; B95.1 Streptococcus, group B, as the cause of diseases classified elsewhere; I10 Essential (primary) hypertension; K21.9 Gastro-esophageal reflux disease without esophagitis; E11.42 Type 2 diabetes mellitus with diabetic polyneuropathy; E66.9 Obesity, unspecified; G47.33 Obstructive sleep apnea (adult) (pediatric); F17.210 Nicotine dependence, cigarettes, uncomplicated; Z86.73 Personal history of transient ischemic attack (TIA), and cerebral infarction without residual deficits; Z98.1 Arthrodesis status; Z68.36 Body mass index [BMI] 36.0-36.9, adult
CPT/HCPCS: 36415; 36569; 73630; 80053; 80202; 82948; 83036; 83735; 84145; 85025; 85610; 85652; 85730; 86140; 86850; 86900; 86901; 87040; 87070; 87075; 87181; 87205; 88305; 88311; 96365; 96367; 97161; 97166; 97530; 97535; 99285; A9270; C1751; J0692; J1100; J1650; J1815; J1836; J2003; J2004; J2250; J2270; J2405; J2704; J3010; J3373; J7030; J7120

== ENCOUNTER 2025-04-19 07:10 | Outpatient (RCR) | payer OTHER, SELFPAY ==
--- NOTE | 2025-02-21 12:18 | WNDPHOTO ---
PHOTO ONLY - See Nursing Notes and/ or assessments for documentation.
[2025-02-21 12:30] VITALS: BMI 35.6
--- NOTE | 2025-02-21 19:01 | WPDPN ---
Progress Note: A&P Assessment and Plan (1) Diabetic ulcer of right foot: Qualifiers: Diabetes mellitus type: type 2 Diabetic foot ulcer location: midfoot Non-pressure ulcer stage: with muscle involvement without evidence of necrosis Qualified Code(s): E11.621 - Type 2 diabetes mellitus with foot ulcer; L97.415 - Non-pressure chronic ulcer of right heel and midfoot with muscle involvement without evidence of necrosis Code(s): E11.621 - Type 2 diabetes mellitus with foot ulcer; L97.519 - Non-pressure chronic ulcer of other part of right foot with unspecified severity Status: Acute Assessment and Plan: Diabetic ulcer of the right foot status post amputation of the right 5th toe and metatarsal head due to osteomyelitis. Patient is doing well now. She has had a wound VAC on the wound for the last couple weeks. This has greatly facilitated closure of the wound by secondary intention. The granulation tissue was excellent and healthy and there is virtually no depth to the wound out. I do not think we need to have the wound VAC any longer. It can be discontinued. We can just cover the wound with silver gel and allow the wound continue to contract and close. Will be wrapped with dry gauze and Chong wrap. Follow-up in the Wound Care Clinic in 2 weeks. Subjective Date/time seen: 02/21/25 19:01 Interval history: Patient is status post amputation of the right 5th toe and metatarsal head. She developed osteomyelitis and diabetic necrotic wound to the lateral portion of the right foot on the forefoot. This required mutation of the toe and the wound was left open being treated with a wound VAC. she has done well with the wound VAC at home. She has finished her course of oral antibiotics. She now presents for evaluation the wound care clinic 3 weeks after she was discharged from the hospital. Exam Extrem: Other: The right lateral foot wound appears very healthy with excellent granulation tissue throughout the whole wound. There is is minimal to no depth of the wound now on all the granulation tissue has grown up to the edges of the skin. The wound now measures 3.5cm in width by 6.5cm in length by 0.1 cm in depth. Minimal surrounding edema is noted. The remaining 4 toes of the right foot are completely viable the patient is able to move her toes.
--- NOTE | 2025-03-13 09:22 | WPDPN ---
Progress Note: A&P Assessment and Plan (1) Ulcer of right foot due to type 2 diabetes mellitus: Code(s): E11.621 - Type 2 diabetes mellitus with foot ulcer; L97.519 - Non-pressure chronic ulcer of other part of right foot with unspecified severity Status: Acute Assessment and Plan: Will go ahead and treat the exuberant granulation tissue in the wound today with silver nitrate sticks. This will hopefully allow it to heal better. There is no cellulitis present. Continue application of silver gel to the wound and wrapped with dry gauze. Patient was instructed to go ahead and shower and will be fine as long as she rinsed off the wound at the end of the procedure. However she was reluctant to do that. She continues to get home health wound care nurses to see the wound and they are washing it when they come see her for home health care. I will see her back in the the Wound Care Clinic in 2 weeks. She may need another treatment with the silver nitrate to the granulation tissue. (2) Diabetes mellitus: Code(s): E11.9 - Type 2 diabetes mellitus without complications Status: Acute Subjective Date/time seen: 03/08/25 Interval history: Patient is seen back to [facility] for an interval wound care follow-up. She has no complaints. Used to apply silver gel to the right 5th toe amputation wound. It continues to heal appropriately. Exam Extrem: Other: The wound on the lateral aspect of the right foot now measures 1.8x4.5x0.1cm. There was actually overgrowth of the granulation tissue actually above the level of the skin throughout most of the wound. It is healthy granulation tissue. There is no evidence of surrounding redness to suggest cellulitis. Objective Data Meds/Results Medications: Active Medications Generic Name Dose Route Start Last Admin Trade Name Freq PRN Reason Stop Dose Admin Silver Nitrate 1 each 03/08/25 12:30 Silver Nitrate (*Sp) Stick TOPICAL 06/08/25 12:55 PRN PRN Wound Care
--- NOTE | 2025-03-23 11:05 | P.PN_ITS ---
Progress Note: A&P Assessment and Plan (1) Ulcer of right foot due to type 2 diabetes mellitus: Code(s): E11.621 - Type 2 diabetes mellitus with foot ulcer; L97.519 - Non-pressure chronic ulcer of other part of right foot with unspecified severity Status: Acute Assessment and Plan: Status post amputation of the right 5th toe and metatarsal head for diabetic ulcer and osteomyelitis. The wound is healing very well and Treatment with silver nitrate for the exuberant granulation tissue last visit markedly improved the situation and the size the wound has decreased. Will have another treatment with silver nitrate to the exuberant granulation tissue that remains. The patient wishes to return to work which means she will have to stand for several hours during the day and wear shoe. The wound is not on the plantar surface of the foot and so as long as the wound is covered and she wears compression stockings or an Chong wrap around the foot to prevent excessive swelling in the foot while she is standing and working then she can wear shoe and return to work. Will give very return to work note today. She will follow-up again in the Wound Care Clinic in 2 weeks. Subjective Date/time seen: March 22, 2025 Interval history: Patient seen [facility] for 2 week follow-up on her wound on the lateral aspect of her right foot. She had amputation of the right 5th toe and metatarsal head due to a diabetic ulcer with osteomyelitis. Her last visit the Wound Care Clinic the granulation tissue was extending above the level of the skin. There was no cellulitis. I treated the exuberant granulation tissue with silver nitrate. She is doing well. She wishes to go back to work. Exam Skin: Other: The wound on lateral aspect of the right foot now measures 1x1.8x0.2cm. Markedly decreased in size from her last visit. No surrounding cellulitic changes. No exposed bone. Objective Data Meds/Results Medications: Active Medications Generic Name Dose Route Start Last Admin Trade Name Freq PRN Reason Stop Dose Admin Silver Nitrate 1 each 03/08/25 12:30 Silver Nitrate (*Sp) Stick TOPICAL 06/08/25 12:55 PRN PRN Wound Care
--- NOTE | 2025-04-22 09:11 | WPDPN ---
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 The wound is now completely closed and she has responded well to an extended course oral antibiotic therapy. No evidence of ongoing infection. She can wear socks and shoes and ambulate ad-maria luz. No need to return to the Wound Care Clinic for any follow-up unless any new wounds appear. Follow-up p.r.n.. Subjective Date/time seen: 04/19/25 Interval history: Patient returns to the Wound Care Clinic for a wound check on the right 5th toe amputation wound. She is doing very well. The wound was very close at her last visit. She has no complaints. There really is no drainage from the wound and pretty much has a dry eschar on it. Exam Extrem: Other: The right lateral foot wound now measures 0.1x0.1x0.1. The small scab was removed revealing nearly closed wound. No redness or drainage is noted. Objective Data Meds/Results Medications: Active Medications Generic Name Dose Route Start Last Admin Trade Name Freq PRN Reason Stop Dose Admin Silver Nitrate 1 each 03/08/25 12:30 Silver Nitrate (*Sp) Stick TOPICAL 06/08/25 12:55 PRN PRN Wound Care
== END 2025-05-22 23:59 | disposition home or self-care (01) ==
LOC: ANHWOC 07:10
PROVIDERS: PCP Nurse Practitioner Family; Visit Provider Surgery
DX: Z47.81 Encounter for orthopedic aftercare following surgical amputation (principal); L97.415 Non-pressure chronic ulcer of right heel and midfoot with muscle involvement without evidence of necrosis; E11.621 Type 2 diabetes mellitus with foot ulcer; M86.9 Osteomyelitis, unspecified
CPT/HCPCS: 99213; 99214; G0463